=== PATIENT | female | born 1950 | race Caucasian/White ===

== ENCOUNTER → 2017-10-30 10:55 | Outpatient (CLI) | payer MEDICARE, OTHER, SELFPAY ==
--- NOTE | 2017-10-30 | DI.MG.S_ITS ---
BILATERAL DIGITAL DIAGNOSTIC MAMMOGRAM 3D/2D: 10/30/2017 CLINICAL: Pain left breast. Comparison is made to exams dated: 11/29/2014 mammogram, 04/12/2014 mammogram, and 02/20/2012 mammogram - [facility]. There are scattered fibroglandular elements in both breasts. No significant masses, calcifications, or other findings are seen in either breast. IMPRESSION: NEGATIVE There is no abnormality seen in the left breast to correspond with the pain in the outer aspect, however, clinical followup is recommended. There is no mammographic evidence of malignancy. A 1 year screening mammogram is recommended. This exam was interpreted at Station ID: [id number]. NOTE: For mammograms, a report in lay terms will be sent to the patient. Approximately 15% of breast malignancies will not be visualized mammographically. In the management of a palpable breast mass, a negative mammogram must not discourage biopsy of a clinically suspicious lesion. Electronically Signed By: Herminio suarez/godwin:10/30/2017 13:32:59 letter sent: Clinical Evaluation ACR BI-RADS Category 1: Negative [id number]
--- NOTE | 2017-10-30 11:03 | DI.US.S_ITS ---
PROCEDURE: US EXTREMITY NONVASC LOWER LT INDICATIONS: BILATERAL BREAST TENDERNESS FIBROCYSTIC BREASTS TECHNIQUE: Real-time scanning was performed of the left calf, with image documentation. COMPARISON: [facility], US, US EXTREMITY NONVASC LOWER RT, 10/30/2017, 11:22. FINDINGS: Sonographic images of the left calf demonstrate ill-defined hyperechoic foci. There is no increased vascularity. IMPRESSION: Ill-defined hyperechoic foci without increased vascularity suggestive of lipomas. Dictated by: Ana Garcia M.D. on 10/30/2017 at 13:27 Approved by: Ana Garcia M.D. on 10/30/2017 at 13:28
--- NOTE | 2017-10-30 11:03 | DI.US.S_ITS ---
PROCEDURE: US EXTREMITY NONVASC LOWER RT INDICATIONS: BILATERAL BREAST TENDERNESS FIBROCYSTIC BREASTS TECHNIQUE: Real-time scanning was performed of the right upper calf, with image documentation. COMPARISON: None. FINDINGS: Sonographic images of the right upper calf demonstrates ill-defined area of increased hyper echogenicity measuring approximately 20 mm in transverse dimension. No increased flow. IMPRESSION: Ill-defined hyperechogenicity suggestive of lipoma. Dictated by: Ana Garcia M.D. on 10/30/2017 at 13:25 Approved by: Ana Garcia M.D. on 10/30/2017 at 13:27
== END ==
PROVIDERS: PCP Family Medicine; Visit Provider Family Medicine
DX: N60.12 Diffuse cystic mastopathy of left breast (principal); N60.11 Diffuse cystic mastopathy of right breast; N64.4 Mastodynia
CPT/HCPCS: 76882; 77066; G0279

== ENCOUNTER → 2018-01-06 10:20 | Outpatient (CLI) | payer MEDICARE, OTHER, SELFPAY | PROVIDERS: PCP Family Medicine; Visit Provider Internal Medicine | DX: S81.802A Unspecified open wound, left lower leg, initial encounter (principal); T81.31XA Disruption of external operation (surgical) wound, not elsewhere classified, initial encounter; L08.9 Local infection of the skin and subcutaneous tissue, unspecified; I87.392 Chronic venous hypertension (idiopathic) with other complications of left lower extremity | CPT/HCPCS: 11042; 87070; 87075; 87077; 87186; 87205; 99214 ==

== ENCOUNTER → 2018-01-14 14:28 | Outpatient (CLI) | payer MEDICARE, OTHER, SELFPAY ==
--- NOTE | 2018-01-14 | OV.WND_ITS ---
Progress Note Details Patient Name: Rashida Patten Patient Number: [id number] PatientPatientDate: 01/14/2018 Clinician: Alexsandra Drake Clinician Cosigner: Tran Perez Physician / Reinsurance Clerk: Jr Luke SUBJECTIVE Chief Complaint This information was obtained from the patient Non-healing surgical wound on left calf. Allergies Betadine (Reaction: rash), iodine (Reaction: rash), flu vaccine (in 1991) ( Reaction: rash), sulfur (Severity: Moderate, Reaction: rash/welts), Sulfa (Sulfonamide Antibiotics) (Severity: Moderate, Reaction: rash/welts), adhesive (Severity: Moderate, Reaction: welts) HPI This information was obtained from the patient 01/14/18. Seen by Dr. Luke. The patient reports only minimal, intermittent pain associated with the left posterior lower leg surgical wound since her last visit and she's been applying topical gentamicin to treat the recent coag negative Staph cultured from the wound. 01/06/18. Seen by Dr. Luke. The patient's new to our clinic and presents with a chronic, non- healing left posterior lower leg surgical wound following excision of a basal cell carcinoma in early November. She reports some intermittent pain at the site and has been on antibiotics for an associate infection without resolution of symptoms or improvement in terms of healing. She has chronic venous hypertension in the leg as well but is unable to wear compression stockings due to a number of lipomas in the lower leg that she states cause discomfort when under compression. She does not report fevers or feeling unwell otherwise and does not have a history of diabetes or PAD. Past Medical History This information was obtained from the patient Patient has a medical history of: Thoracic outlet syndrome Chronic Obstructive Pulmonary Disease (COPD) Degenerative disc disease Atrial fibrillation Asthma Gastro Esoph. Reflux Disease (GERD) Arthritis (knee) Hypertension Complaints and Symptoms This information was obtained from the patient Patient complains of: General Notes: I have reviewed and concur with the Review of Systems and Past Family Social History documents completed by the clinician, I have reviewed and concur with the Wound Assessment document completed by the clinician Cardiovascular (Central/Peripheral): Lower extremity (leg) swelling Hematologic/Lymphatic: Bleeding Tendency Integumentary (Hair/Skin/Nails): Open Sore Prior Wound History: Drainage, Erythema, Pain Patient denies complaints or symptoms related to: Cardiovascular (Central/Peripheral): Intermittent Claudication, Lower extremity (leg) resting pain Constitutional Symptoms (General Health): Chills, Fever Ear/Nose/Mouth/Throat: Hearing Loss / Aid Hematologic/Lymphatic: Bleeding / Clotting Disorders Musculoskeletal: Assistive Devices Neurological: Loss of Protective Sensation Psychiatric: Memory Loss Respiratory: Shortness of Breath OBJECTIVE Constitutional Vital signs reviewed and noted. Well developed. Alert. Clean appearing.. Height/ Length: 66 in (167.64 cm), Weight: 244.6 lbs (111.18 kgs), BMI: 39.5, Temperature: 98.9 ?F ( 37.17 ?C), Pulse: 80 bpm, Respiratory Rate: 18 breaths/min, Blood Pressure: 130/77 mmHg, Pulse Oximetry: 94 %. Respiratory: No respiratory distress. Even respirations and without use of accessory muscles.. Cardiovascular: 2+ left lower extremity edema. Gastrointestinal (GI): Obese. Nondistended.. Integumentary (Hair, Skin) No periwound erythema, warmth, or significant drainage. No periwound rashes appreciated or noted otherwise.. Refer to appropriate clinician wound documentation for this visit; left lower leg wound extends to deep subcut with base minimally covered with pink granulation, remainder fibrin and slough. Wound #1 Left Calf is a chronic Full Thickness Surgical Wound and has received a status of Not Healed. Subsequent wound encounter measurements are 1cm length x 1.5cm width x 1cm depth, with an area of 1.5 sq cm and a volume of 1.5 cubic cm. Adipose is exposed. No tunneling has been noted. No sinus tract has been noted. No undermining has been noted. There is a moderate amount of sero-sanguineous drainage noted which has no odor. The patient reports a wound pain of level 2/10. The wound margin is attached. Wound bed has No epithelialization, Yes eschar, Yes slough, Yes bright red, pink, firm granulation. The periwound skin moisture is normal. The periwound skin color is normal. The periwound skin exhibited: Induration. The periwound skin did not exhibit: Brawny Induration, Edema, Excoriation, Callus, Crepitus, Fluctuance, Friable, Rash. The temperature of the periwound skin is WNL. Periwound skin does not exhibit signs or symptoms of infection. Local Pulse is Palpable. Neurological: Cranial nerves grossly intact with symmetric function normal by informal observation.. ASSESSMENT Active Problems ICD-10 (Encounter Diagnosis) S81.802D - Unspecified open wound, left lower leg, subsequent encounter (Encounter Diagnosis) T81.31XD - Disruption of external operation (surgical) wound, not elsewhere classified, subsequent encounter (Encounter Diagnosis) B95.7 - Other staphylococcus as the cause of diseases classified elsewhere PROCEDURES Wound #1 Wound #1 (Surgical Wound) is located on the left calf. A skin/subcutaneous tissue level surgical debridement with a total area debrided of 1.5 sq cm was performed by Jr Luke MD. Adipose and Subcutaneous were removed along with devitalized tissue: slough. The following instrument(s) were used: curette. Pain control was achieved using 4% Lido. A time out was conducted prior to the start of the procedure. A minimal amount of bleeding was controlled with pressure. The procedure was tolerated well with a pain level of 0 throughout and a pain level of 0 following the procedure. Post Debridement Measurements: 1cm length x 1.5cm width x 1.2cm depth; with an area of 1.5 sq cm and a volume of 1.8 cubic cm; Additional Information Muscle fascia or bone removed and sent to pathology?: No PLAN Wound Orders: Wound #1 Left Calf Anesthetic Topical Xylocaine to wound bed. - In clinic. Cleanser Cleanse Wound: - Normal saline and gauze. May use distilled water at home. May Shower. - Please use cast protector or plastic bag to cover leg when showering. May purchase cast protector at most local pharmacy/drug stores. Topical Treatments Antibiotic/Antimicrobial Ointment/Cream. - Gentamicin ointment to wound base. Dressings Pack wound: - 1/4 gauze ribbon lightly filling wound base. Cover and secure with: - Silicone bordered foam. Change Dressing: - Every other day. Additional Orders: Follow-Up Appointments Return Appointment: - - One week. Other information: If you develop fever, chills, increased pain, drainage, redness or swelling please call our office. If after hours, respond to the ER. Should you experience any significant changes in your wound(s) or have any questions regarding your home care instructions please contact the wound center @ [phone]. If after hours, contact your primary care physician or go to the hospital emergency room. Scribing Attestation I attest, as the nurse, that I scribed these orders for the physician. General Notes: Provider reviewed the culture taken at last visit, no need for any oral antibiotics at this time. Dressing supply order submitted to [employer], please expect delivery in the next 2 days. Submitting for a NPWT device, SNAP, plan to place at next visit. I've reviewed the clinician's documentation and agree with the evaluation and plan as written. In addition the patient's wound demonstrates evidence of non-viable devitalized tissue which will continue to benefit from sharp debridement to help promote granulation and expedite healing. Also, the patient will continue applying topical gentamicin and we'll request insurance approval to place a wound vac at her next visit. Electronic Signature(s) Signed By: Date: Jr Luke MD 01/15/2018 08:37:45 Entered By: Jr Luke on 01/15/2018 08:20:36
== END ==
PROVIDERS: PCP Family Medicine; Visit Provider Internal Medicine
DX: S81.802A Unspecified open wound, left lower leg, initial encounter (principal); T81.31XD Disruption of external operation (surgical) wound, not elsewhere classified, subsequent encounter; B95.7 Other staphylococcus as the cause of diseases classified elsewhere
CPT/HCPCS: 11042

== ENCOUNTER → 2018-01-22 14:47 | Outpatient (CLI) | payer MEDICARE, OTHER, SELFPAY ==
--- NOTE | 2018-01-22 | OV.WND_ITS ---
Progress Note Details Patient Name: Rashida Patten Patient Number: [id number] PatientPatientDate: 01/22/2018 Clinician: Ana Silva Physician / Skin Therapist: Jr Luke SUBJECTIVE Chief Complaint This information was obtained from the patient Non-healing surgical wound on left calf. Allergies Betadine (Reaction: rash), iodine (Reaction: rash), flu vaccine (in 1991) ( Reaction: rash), sulfur (Severity: Moderate, Reaction: rash/welts), Sulfa (Sulfonamide Antibiotics) (Severity: Moderate, Reaction: rash/welts), adhesive (Severity: Moderate, Reaction: welts) HPI This information was obtained from the patient 01/22/18. Seen by Dr. Luke. The patient does not report pain or significant drainage associated with the left posterior lower leg surgical wound since her last visit. 01/14/18. Seen by Dr. Luke. The patient reports only minimal, intermittent pain associated with the left posterior lower leg surgical wound since her last visit and she's been applying topical gentamicin to treat the recent coag negative Staph cultured from the wound. 01/06/18. Seen by Dr. Luke. The patient's new to our clinic and presents with a chronic, non- healing left posterior lower leg surgical wound following excision of a basal cell carcinoma in early November. She reports some intermittent pain at the site and has been on antibiotics for an associate infection without resolution of symptoms or improvement in terms of healing. She has chronic venous hypertension in the leg as well but is unable to wear compression stockings due to a number of lipomas in the lower leg that she states cause discomfort when under compression. She does not report fevers or feeling unwell otherwise and does not have a history of diabetes or PAD. Past Medical History This information was obtained from the patient Patient has a medical history of: Thoracic outlet syndrome Chronic Obstructive Pulmonary Disease (COPD) Degenerative disc disease Atrial fibrillation Asthma Gastro Esoph. Reflux Disease (GERD) Arthritis (knee) Hypertension Complaints and Symptoms This information was obtained from the patient Patient complains of: General Notes: I have reviewed and concur with the Review of Systems and Past Family Social History documents completed by the clinician, I have reviewed and concur with the Wound Assessment document completed by the clinician Cardiovascular (Central/Peripheral): Lower extremity (leg) swelling Hematologic/Lymphatic: Bleeding Tendency Integumentary (Hair/Skin/Nails): Open Sore Prior Wound History: Drainage, Erythema, Pain Patient denies complaints or symptoms related to: Cardiovascular (Central/Peripheral): Intermittent Claudication, Lower extremity (leg) resting pain Constitutional Symptoms (General Health): Chills, Fever Ear/Nose/Mouth/Throat: Hearing Loss / Aid Hematologic/Lymphatic: Bleeding / Clotting Disorders Musculoskeletal: Assistive Devices Neurological: Loss of Protective Sensation Psychiatric: Memory Loss Respiratory: Shortness of Breath OBJECTIVE Constitutional BP elevated; Low grade fever; Alert and in no distress. Well developed. Alert. Clean appearing.. Height/Length: 66 in (167.64 cm), Weight: 244.6 lbs (111.18 kgs), BMI: 39.5, Temperature: 100.3 ?F (37.94 ?C), Pulse: 64 bpm, Respiratory Rate: 18 breaths/ min, Blood Pressure: 152/84 mmHg, Pulse Oximetry: 94 %. Respiratory: No respiratory distress. Even respirations and without use of accessory muscles.. Cardiovascular: 2+ left lower extremity edema. Integumentary (Hair, Skin) No periwound erythema, warmth, or significant drainage. No periwound rashes appreciated or noted otherwise.. Refer to appropriate clinician wound documentation for this visit; left lower leg wound extends to subcut with base partially covered with pink granulation, remainder fibrin and slough. Wound #1 Left Calf is a chronic Full Thickness Surgical Wound and has received a status of Not Healed. Subsequent wound encounter measurements are 1cm length x 1.5cm width x 1.8cm depth, with an area of 1.5 sq cm and a volume of 2.7 cubic cm. Adipose is exposed. No tunneling has been noted. No sinus tract has been noted. No undermining has been noted. There is a moderate amount of sero-sanguineous drainage noted which has no odor. The patient reports a wound pain of level 2/10. The wound margin is attached. Wound bed has No epithelialization, No eschar, Yes slough, Yes pink, firm granulation. The periwound skin moisture is normal. The periwound skin color is normal. The periwound skin exhibited: Induration. The periwound skin did not exhibit: Brawny Induration, Edema, Excoriation, Callus, Crepitus, Fluctuance, Friable, Rash. The temperature of the periwound skin is WNL. Periwound skin does not exhibit signs or symptoms of infection. Local Pulse is Palpable. Neurological: Cranial nerves grossly intact with symmetric function normal by informal observation.. ASSESSMENT Active Problems ICD-10 (Encounter Diagnosis) S81.802D - Unspecified open wound, left lower leg, subsequent encounter (Encounter Diagnosis) T81.31XD - Disruption of external operation (surgical) wound, not elsewhere classified, subsequent encounter PROCEDURES Wound #1 Wound #1 (Surgical Wound) is located on the left calf. A skin/subcutaneous tissue level surgical debridement with a total area debrided of 1.5 sq cm was performed by Jr Luke MD. Subcutaneous was removed along with devitalized tissue: exudate and slough. The following instrument(s) were used: curette. Pain control was achieved using 4% Lido. A time out was not conducted prior to the start of the procedure. A minimal amount of bleeding was controlled with pressure. The procedure was tolerated well with a pain level of 0 throughout and a pain level of 0 following the procedure. Post Debridement Measurements: 1cm length x 1.5cm width x 1.8cm depth; with an area of 1.5 sq cm and a volume of 2.7 cubic cm; Wound #1 (Surgical Wound) is located on the left calf. A Disposable Wound Vac Application < 50 Sq Cm procedure was performed for the lower left extremity by Jr Luke MD. A time out was conducted prior to the start of the procedure. The procedure was tolerated well. General Notes: Snap 13x13 125mmHg Additional Information Muscle fascia or bone removed and sent to pathology?: No PLAN Wound Orders: Wound #1 Left Calf Cleanser Cleanse Wound: - In clinic. Normal saline Dressings SNAP Dressing - Keep in place until your next visit. If this loosed it's suction and you have tried to re-prime the canister. If it does not keep a seal then take the dressing off including the blue foam, then go back to using Nu- Guaze with gentamicin into wound bed. Follow-Up Appointments Return Appointment: - - This Saturday and then next week Saturday and Saturday. Other information: If you develop fever, chills, increased pain, drainage, redness or swelling please call our office. If after hours, respond to the ER. Should you experience any significant changes in your wound(s) or have any questions regarding your home care instructions please contact the wound center @ [phone]. If after hours, contact your primary care physician or go to the hospital emergency room. Scribing Attestation I attest, as the nurse, that I scribed these orders for the physician. I've reviewed the clinician's documentation and agree with the evaluation and plan as written. In addition the patient's wound demonstrates evidence of non-viable devitalized tissue which will continue to benefit from sharp debridement to help promote granulation and expedite healing. Negative pressure wound therapy will be utilized to facilitate granulation and removal of exudate and infectious material with the goal of expediting wound healing. Electronic Signature(s) Signed By: Date: Jr Luke MD 01/23/2018 06:27:44 Entered By: Jr Luke on 01/23/2018 06:06:34
== END ==
PROVIDERS: PCP Family Medicine; Visit Provider Internal Medicine
DX: T81.31XA Disruption of external operation (surgical) wound, not elsewhere classified, initial encounter (principal); S81.802A Unspecified open wound, left lower leg, initial encounter
CPT/HCPCS: 11042; 97607

== ENCOUNTER → 2018-01-24 08:37 | Outpatient (CLI) | payer MEDICARE, OTHER, SELFPAY ==
--- NOTE | 2018-01-24 | OV.WND_ITS ---
Progress Note Details Patient Name: Rashida Patten Patient Number: [id number] PatientPatientDate: 01/24/2018 Clinician: Tita Pantoja Clinician Cosigner: Ana Silva Physician / Graduate Intern: Jr Luke SUBJECTIVE Chief Complaint This information was obtained from the patient Non-healing surgical wound on left calf. Allergies Betadine (Reaction: rash), iodine (Reaction: rash), flu vaccine (in 1991) ( Reaction: rash), sulfur (Severity: Moderate, Reaction: rash/welts), Sulfa (Sulfonamide Antibiotics) (Severity: Moderate, Reaction: rash/welts), adhesive (Severity: Moderate, Reaction: welts) HPI This information was obtained from the patient 01/24/18. Seen by Dr. Luke. The patient does not report pain or significant drainage associated with the left posterior lower leg surgical wound since her last visit. 01/22/18. Seen by Dr. Luke. The patient does not report pain or significant drainage associated with the left posterior lower leg surgical wound since her last visit. 01/14/18. Seen by Dr. Luke. The patient reports only minimal, intermittent pain associated with the left posterior lower leg surgical wound since her last visit and she's been applying topical gentamicin to treat the recent coag negative Staph cultured from the wound. 01/06/18. Seen by Dr. Luke. The patient's new to our clinic and presents with a chronic, non- healing left posterior lower leg surgical wound following excision of a basal cell carcinoma in early November. She reports some intermittent pain at the site and has been on antibiotics for an associate infection without resolution of symptoms or improvement in terms of healing. She has chronic venous hypertension in the leg as well but is unable to wear compression stockings due to a number of lipomas in the lower leg that she states cause discomfort when under compression. She does not report fevers or feeling unwell otherwise and does not have a history of diabetes or PAD. Past Medical History This information was obtained from the patient Patient has a medical history of: Thoracic outlet syndrome Chronic Obstructive Pulmonary Disease (COPD) Degenerative disc disease Atrial fibrillation Asthma Gastro Esoph. Reflux Disease (GERD) Arthritis (knee) Hypertension Complaints and Symptoms This information was obtained from the patient Patient complains of: General Notes: I have reviewed and concur with the Review of Systems and Past Family Social History documents completed by the clinician, I have reviewed and concur with the Wound Assessment document completed by the clinician Cardiovascular (Central/Peripheral): Lower extremity (leg) swelling Hematologic/Lymphatic: Bleeding Tendency Integumentary (Hair/Skin/Nails): Open Sore Prior Wound History: Drainage, Erythema, Pain Patient denies complaints or symptoms related to: Cardiovascular (Central/Peripheral): Intermittent Claudication, Lower extremity (leg) resting pain Constitutional Symptoms (General Health): Chills, Fever Ear/Nose/Mouth/Throat: Hearing Loss / Aid Hematologic/Lymphatic: Bleeding / Clotting Disorders Musculoskeletal: Assistive Devices Neurological: Loss of Protective Sensation Psychiatric: Memory Loss Respiratory: Shortness of Breath OBJECTIVE Constitutional Vital signs reviewed and noted. Well developed. Alert. Clean appearing.. Height/ Length: 66 in (167.64 cm), Weight: 244.6 lbs (111.18 kgs), BMI: 39.5, Temperature: 98.6 ?F ( 37 ?C), Pulse: 68 bpm, Respiratory Rate: 18 breaths/min, Blood Pressure: 127/78 mmHg, Pulse Oximetry: 97 %. Cardiovascular: 1+ left lower extremity edema. Gastrointestinal (GI): Obese. Nondistended.. Integumentary (Hair, Skin) No periwound erythema, warmth, or significant drainage. No periwound rashes appreciated or noted otherwise.. Refer to appropriate clinician wound documentation for this visit; left lower leg wound extends to subcut with base partially covered with pink granulation, remainder fibrin and slough. Wound #1 Left Calf is a chronic Full Thickness Surgical Wound and has received a status of Not Healed. Subsequent wound encounter measurements are 1.3cm length x 1.2cm width x 1.3cm depth, with an area of 1.56 sq cm and a volume of 2.028 cubic cm. Adipose is exposed. No tunneling has been noted. No sinus tract has been noted. No undermining has been noted. There is a small amount of sero-sanguineous drainage noted which has no odor. The patient reports a wound pain of level 2/10. The wound margin is attached. Wound bed has No epithelialization, No eschar, Yes slough, Yes pink, firm granulation. The periwound skin color is normal. The periwound skin exhibited: Induration, Maceration. The periwound skin did not exhibit: Brawny Induration, Edema, Excoriation, Callus, Crepitus, Fluctuance, Friable, Rash, Dry/Scaly, Moist. The temperature of the periwound skin is WNL. Periwound skin does not exhibit signs or symptoms of infection. Local Pulse is Palpable. Neurological: Cranial nerves grossly intact with symmetric function normal by informal observation.. ASSESSMENT Active Problems ICD-10 (Encounter Diagnosis) S81.802D - Unspecified open wound, left lower leg, subsequent encounter (Encounter Diagnosis) T81.31XD - Disruption of external operation (surgical) wound, not elsewhere classified, subsequent encounter PROCEDURES Wound #1 Wound #1 (Surgical Wound) is located on the left calf. A skin/subcutaneous tissue level surgical debridement with a total area debrided of 1.56 sq cm was performed by Jr Luke MD. Adipose and Subcutaneous were removed along with devitalized tissue: slough. The following instrument(s) were used: curette. Pain control was achieved using 4% Lido. A time out was conducted prior to the start of the procedure. A minimal amount of bleeding was controlled with n/a. The procedure was tolerated well with a pain level of 0 throughout and a pain level of 0 following the procedure. Post Debridement Measurements: 1.3cm length x 1.2cm width x 1.4cm depth; with an area of 1.56 sq cm and a volume of 2.184 cubic cm; Wound #1 (Surgical Wound) is located on the left calf. A Disposable Wound Vac Application < 50 Sq Cm procedure was performed for the lower left extremity by Jr Luke MD. A time out was conducted prior to the start of the procedure. The procedure was tolerated well. General Notes: Snap 13x13 125mmHg PLAN Wound Orders: Wound #1 Left Calf Cleanser Cleanse Wound: - In clinic. Normal saline Topical Treatments Antibiotic/Antimicrobial Ointment/Cream. - Gentamicin ointment Dressings SNAP Dressing - Keep in place until your next visit. If this loosed it's suction and you have tried to re-prime the canister. If it does not keep a seal then take the dressing off including the blue foam, then go back to using Nu- Guaze with gentamicin into wound bed. Follow-Up Appointments Return Appointment: - - This Saturday and then next week Saturday and Saturday. Other information: If you develop fever, chills, increased pain, drainage, redness or swelling please call our office. If after hours, respond to the ER. Should you experience any significant changes in your wound(s) or have any questions regarding your home care instructions please contact the wound center @ [phone]. If after hours, contact your primary care physician or go to the hospital emergency room. Scribing Attestation I attest, as the nurse, that I scribed these orders for the physician. I've reviewed the clinician's documentation and agree with the evaluation and plan as written. In addition the patient's wound demonstrates evidence of non-viable devitalized tissue which will continue to benefit from sharp debridement to help promote granulation and expedite healing. Negative pressure wound therapy will be utilized to facilitate granulation and removal of exudate and infectious material with the goal of expediting wound healing. Electronic Signature(s) Signed By: Date: Jr Luke MD 01/24/2018 13:36:07 Entered By: Jr Luke on 01/24/2018 10:01:23
== END ==
PROVIDERS: PCP Family Medicine; Visit Provider Internal Medicine
DX: S81.802A Unspecified open wound, left lower leg, initial encounter (principal); T81.31XA Disruption of external operation (surgical) wound, not elsewhere classified, initial encounter
CPT/HCPCS: 11042; 97607

== ENCOUNTER 2018-01-25 14:05 | Emergency (ER) | payer MEDICARE, OTHER, SELFPAY ==
[2018-01-25 14:12] VITALS: BP 117/68; PULSE 77; RESP 20; TEMP 36.2; O2SAT 96; BMI 39.5
--- NOTE | 2018-01-25 14:47 | PC.NURSE ---
Pt's wound vac is evaluated by Sherri QUICK, Nursing supervisor cellars and Chad QUICK for assistance of problem solving wound vac. They state wound vac will be ok to wait until Saturday when it needs replaced. Pt states she does not want to see a dr now that the device has been evaluated. Signs out VDC with knowledge that she can see a dr if she chose but chooses to go home
== END 2018-01-25 14:51 | disposition left against medical advice (07) ==
PROVIDERS: Emergency Provider Internal Medicine; PCP Family Medicine
DX: T14.8XXA Other injury of unspecified body region, initial encounter (principal)
CPT/HCPCS: 99282

== ENCOUNTER → 2018-01-28 14:24 | Outpatient (CLI) | payer MEDICARE, OTHER, SELFPAY | PROVIDERS: PCP Family Medicine; Visit Provider Internal Medicine | DX: S81.802A Unspecified open wound, left lower leg, initial encounter (principal); T81.31XA Disruption of external operation (surgical) wound, not elsewhere classified, initial encounter | CPT/HCPCS: 11042; 97607 ==

== ENCOUNTER → 2018-01-31 10:29 | Outpatient (CLI) | payer MEDICARE, OTHER, SELFPAY | PROVIDERS: PCP Family Medicine; Visit Provider Internal Medicine | DX: S81.802A Unspecified open wound, left lower leg, initial encounter (principal); T81.31XA Disruption of external operation (surgical) wound, not elsewhere classified, initial encounter | CPT/HCPCS: 11042; 97607 ==

== ENCOUNTER → 2018-02-04 13:52 | Outpatient (CLI) | payer MEDICARE, OTHER, SELFPAY ==
--- NOTE | 2018-02-04 | OV.WND_ITS ---
Progress Note Details Patient Name: Rashida Patten Patient Number: [id number] PatientPatientDate: 02/04/2018 Clinician: Ana Silva Clinician Cosigner: Gertrude Duarte Physician / Experimental Mechanic: Jr Luke SUBJECTIVE Chief Complaint This information was obtained from the patient Non-healing surgical wound on left calf. Allergies Betadine (Reaction: rash), iodine (Reaction: rash), flu vaccine (in 1991) ( Reaction: rash), sulfur (Severity: Moderate, Reaction: rash/welts), Sulfa (Sulfonamide Antibiotics) (Severity: Moderate, Reaction: rash/welts), adhesive (Severity: Moderate, Reaction: welts) HPI This information was obtained from the patient 02/04/18. Seen by Dr. Luke. The patient does not report pain or significant drainage associated with the left posterior lower leg surgical wound since her last visit. 01/31/18. Seen by Dr. Luke. The patient does not report pain or significant drainage associated with the left posterior lower leg surgical wound since her last visit. 01/28/18. Seen by Dr. Luke. The patient does not report pain or significant drainage associated with the left posterior lower leg surgical wound since her last visit however she states her wound vac leaked on Saturday and it was removed at that time. 01/24/18. Seen by Dr. Luke. The patient does not report pain or significant drainage associated with the left posterior lower leg surgical wound since her last visit. 01/22/18. Seen by Dr. Luke. The patient does not report pain or significant drainage associated with the left posterior lower leg surgical wound since her last visit. 01/14/18. Seen by Dr. Luke. The patient reports only minimal, intermittent pain associated with the left posterior lower leg surgical wound since her last visit and she's been applying topical gentamicin to treat the recent coag negative Staph cultured from the wound. 01/06/18. Seen by Dr. Luke. The patient's new to our clinic and presents with a chronic, non- healing left posterior lower leg surgical wound following excision of a basal cell carcinoma in early November. She reports some intermittent pain at the site and has been on antibiotics for an associate infection without resolution of symptoms or improvement in terms of healing. She has chronic venous hypertension in the leg as well but is unable to wear compression stockings due to a number of lipomas in the lower leg that she states cause discomfort when under compression. She does not report fevers or feeling unwell otherwise and does not have a history of diabetes or PAD. Past Medical History This information was obtained from the patient Patient has a medical history of: Thoracic outlet syndrome Chronic Obstructive Pulmonary Disease (COPD) Degenerative disc disease Atrial fibrillation Asthma Gastro Esoph. Reflux Disease (GERD) Arthritis (knee) Hypertension Complaints and Symptoms This information was obtained from the patient Patient complains of: General Notes: I have reviewed and concur with the Review of Systems and Past Family Social History documents completed by the clinician, I have reviewed and concur with the Wound Assessment document completed by the clinician Cardiovascular (Central/Peripheral): Lower extremity (leg) swelling Hematologic/Lymphatic: Bleeding Tendency Integumentary (Hair/Skin/Nails): Open Sore Prior Wound History: Drainage, Erythema, Pain Patient denies complaints or symptoms related to: Cardiovascular (Central/Peripheral): Intermittent Claudication, Lower extremity (leg) resting pain Constitutional Symptoms (General Health): Chills, Fever Ear/Nose/Mouth/Throat: Hearing Loss / Aid Hematologic/Lymphatic: Bleeding / Clotting Disorders Musculoskeletal: Assistive Devices Neurological: Loss of Protective Sensation Psychiatric: Memory Loss Respiratory: Shortness of Breath OBJECTIVE Constitutional BP elevated; Afebrile; Alert and in no distress. Well developed. Alert. Clean appearing.. Height/Length: 66 in (167.64 cm), Weight: 248 lbs (112.73 kgs), BMI: 40, Temperature: 98.2 ?F (36.78 ?C), Pulse: 75 bpm, Respiratory Rate: 18 breaths/min, Blood Pressure: 141/89 mmHg, Pulse Oximetry: 95 %. Ears, Nose, Mouth, and Throat: No clinically significant hearing loss on informal examination. Cardiovascular: 2+ left lower extremity edema. Gastrointestinal (GI): Obese. Nondistended.. Integumentary (Hair, Skin) Mild periwound erythema with warmth; mild malodor. Refer to appropriate clinician wound documentation for this visit; left lower leg ulcer extends to deep subcut with base partially covered with pink granulation, remainder fibrin and slough. Wound #1 Left Calf is a chronic Full Thickness Surgical Wound and has received a status of Not Healed. Subsequent wound encounter measurements are 0.5cm length x 1cm width x 1.05cm depth, with an area of 0.5 sq cm and a volume of 0.525 cubic cm. Adipose is exposed. No tunneling has been noted. No sinus tract has been noted. No undermining has been noted. There is a moderate amount of serosanguineous drainage noted which has no odor. The patient reports a wound pain of level 2/10. The wound margin is attached. Wound bed has Yes epithelialization, No eschar, No slough, No granulation. The periwound skin moisture is normal. The periwound skin color is normal. The periwound skin exhibited: Induration. The periwound skin did not exhibit: Brawny Induration, Edema, Excoriation, Callus, Crepitus, Fluctuance, Friable, Rash. The temperature of the periwound skin is WNL. Periwound skin does not exhibit signs or symptoms of infection. Local Pulse is Palpable. General Notes: SNAP tubing full of liquid. Neurological: Cranial nerves grossly intact with symmetric function normal by informal observation.. ASSESSMENT Active Problems ICD-10 (Encounter Diagnosis) S81.802D - Unspecified open wound, left lower leg, subsequent encounter (Encounter Diagnosis) T81.31XD - Disruption of external operation (surgical) wound, not elsewhere classified, subsequent encounter (Encounter Diagnosis) L08.9 - Local infection of the skin and subcutaneous tissue, unspecified PROCEDURES Wound #1 Wound #1 (Surgical Wound) is located on the left calf. A skin/subcutaneous tissue level surgical debridement with a total area debrided of 0.5 sq cm was performed by Jr Luke MD. Subcutaneous was removed along with devitalized tissue: exudate and slough. The following instrument(s) were used: curette. Pain control was achieved using 4% Lido. A time out was conducted prior to the start of the procedure. A minimal amount of bleeding was controlled with pressure. The procedure was tolerated well with a pain level of 0 throughout and a pain level of 0 following the procedure. Post Debridement Measurements: 0.5cm length x 1cm width x 2cm depth; with an area of 0.5 sq cm and a volume of 1 cubic cm; General Notes: Culture taken Additional Information Muscle fascia or bone removed and sent to pathology?: No PLAN Wound Orders: Wound #1 Left Calf Anesthetic Topical Xylocaine to wound bed. - In clinic. Cleanser Cleanse Wound: - Normal saline and gauze. May use distilled water at home. May Shower. - Please use cast protector or plastic bag to cover leg when showering. May purchase cast protector at most local pharmacy/drug stores. Topical Treatments Antibiotic/Antimicrobial Ointment/Cream. - Gentamicin ointment to wound base. Dressings Pack wound: - 1/4 gauze ribbon lightly filling wound base. Cover and secure with: - Silicone bordered foam. Change Dressing: - Every other day. Additional Orders: Follow-Up Appointments Return Appointment: - - This Saturday, Other information: If you develop fever, chills, increased pain, drainage, redness or swelling please call our office. If after hours, respond to the ER. Should you experience any significant changes in your wound(s) or have any questions regarding your home care instructions please contact the wound center @ [phone]. If after hours, contact your primary care physician or go to the hospital emergency room. Scribing Attestation I attest, as the nurse, that I scribed these orders for the physician. Laboratory: Culture Wound I've reviewed the clinician's documentation and agree with the evaluation and plan as written. In addition the patient's wound demonstrates evidence of non-viable devitalized tissue which will continue to benefit from sharp debridement to help promote granulation and expedite healing. Also, I've held NPWT today due to a superficial infection and started treating with topical gentamcin. Electronic Signature(s) Signed By: Date: Jr Luke MD 02/05/2018 07:48:36 Entered By: Jr Luke on 02/05/2018 07:34:48
== END ==
PROVIDERS: PCP Family Medicine; Visit Provider Internal Medicine
DX: S81.802A Unspecified open wound, left lower leg, initial encounter (principal); T81.31XA Disruption of external operation (surgical) wound, not elsewhere classified, initial encounter; L08.9 Local infection of the skin and subcutaneous tissue, unspecified
CPT/HCPCS: 11042; 87070; 87075; 87077; 87147; 87186; 87205

== ENCOUNTER → 2018-02-11 13:39 | Outpatient (CLI) | payer MEDICARE, OTHER, SELFPAY | PROVIDERS: PCP Family Medicine; Visit Provider Internal Medicine | DX: T81.31XD Disruption of external operation (surgical) wound, not elsewhere classified, subsequent encounter (principal); S81.802A Unspecified open wound, left lower leg, initial encounter; B95.7 Other staphylococcus as the cause of diseases classified elsewhere | CPT/HCPCS: 11042; 97607 ==

== ENCOUNTER → 2018-02-14 09:28 | Outpatient (CLI) | payer MEDICARE, OTHER, SELFPAY ==
--- NOTE | 2018-02-14 | OV.WND_ITS ---
Progress Note Details Patient Name: Rashida Patten Patient Number: [id number] PatientPatientDate: 02/14/2018 Clinician: Alexsandra Drake Clinician Cosigner: Ana Silva Physician / Academic Affairs Director: Jr Luke SUBJECTIVE Chief Complaint This information was obtained from the patient Non-healing surgical wound on left calf. Allergies Betadine (Reaction: rash), iodine (Reaction: rash), flu vaccine (in 1991) ( Reaction: rash), sulfur (Severity: Moderate, Reaction: rash/welts), Sulfa (Sulfonamide Antibiotics) (Severity: Moderate, Reaction: rash/welts), adhesive (Severity: Moderate, Reaction: welts) HPI This information was obtained from the patient 02/14/18. The patient does not report pain or significant drainage associated with the chronic left lower leg surgical wound since her last visit. 02/11/18. The patient does not report pain or significant drainage associated with the chronic left lower leg surgical wound since her last visit. She's been applying topical gentamicin also as recommended to treat the coag negative staph culture. 02/04/18. Seen by Dr. Luke. The patient does not report pain or significant drainage associated with the left posterior lower leg surgical wound since her last visit. 01/31/18. Seen by Dr. Luke. The patient does not report pain or significant drainage associated with the left posterior lower leg surgical wound since her last visit. 01/28/18. Seen by Dr. Luke. The patient does not report pain or significant drainage associated with the left posterior lower leg surgical wound since her last visit however she states her wound vac leaked on Saturday and it was removed at that time. 01/24/18. Seen by Dr. Luke. The patient does not report pain or significant drainage associated with the left posterior lower leg surgical wound since her last visit. 01/22/18. Seen by Dr. Luke. The patient does not report pain or significant drainage associated with the left posterior lower leg surgical wound since her last visit. 01/14/18. Seen by Dr. Luke. The patient reports only minimal, intermittent pain associated with the left posterior lower leg surgical wound since her last visit and she's been applying topical gentamicin to treat the recent coag negative Staph cultured from the wound. 01/06/18. Seen by Dr. Luke. The patient's new to our clinic and presents with a chronic, non- healing left posterior lower leg surgical wound following excision of a basal cell carcinoma in early November. She reports some intermittent pain at the site and has been on antibiotics for an associate infection without resolution of symptoms or improvement in terms of healing. She has chronic venous hypertension in the leg as well but is unable to wear compression stockings due to a number of lipomas in the lower leg that she states cause discomfort when under compression. She does not report fevers or feeling unwell otherwise and does not have a history of diabetes or PAD. Past Medical History This information was obtained from the patient Patient has a medical history of: Thoracic outlet syndrome Chronic Obstructive Pulmonary Disease (COPD) Degenerative disc disease Atrial fibrillation Asthma Gastro Esoph. Reflux Disease (GERD) Arthritis (knee) Hypertension Complaints and Symptoms This information was obtained from the patient Patient complains of: General Notes: I have reviewed and concur with the Review of Systems and Past Family Social History documents completed by the clinician, I have reviewed and concur with the Wound Assessment document completed by the clinician Cardiovascular (Central/Peripheral): Lower extremity (leg) swelling Hematologic/Lymphatic: Bleeding Tendency Integumentary (Hair/Skin/Nails): Open Sore Prior Wound History: Drainage, Erythema, Pain Patient denies complaints or symptoms related to: Cardiovascular (Central/Peripheral): Intermittent Claudication, Lower extremity (leg) resting pain Constitutional Symptoms (General Health): Chills, Fever Ear/Nose/Mouth/Throat: Hearing Loss / Aid Hematologic/Lymphatic: Bleeding / Clotting Disorders Musculoskeletal: Assistive Devices Neurological: Loss of Protective Sensation Psychiatric: Memory Loss Respiratory: Shortness of Breath OBJECTIVE Constitutional Vital signs reviewed and noted. Well developed. Alert. Clean appearing.. Height/ Length: 66 in (167.64 cm), Weight: 248 lbs (112.73 kgs), BMI: 40, Temperature: 98.9 ?F (37.17 ?C), Pulse: 70 bpm, Respiratory Rate: 18 breaths/min, Blood Pressure: 115/67 mmHg, Pulse Oximetry: 96 %. Ears, Nose, Mouth, and Throat: No clinically significant hearing loss on informal examination. Cardiovascular: 2+ left lower extremity edema. Integumentary (Hair, Skin) No periwound erythema, warmth, or significant drainage. No periwound rashes appreciated or noted otherwise.. Refer to appropriate clinician wound documentation for this visit; left lower leg wound extends to subcut with base partially covered with pink granulation, remainder fibrin and slough; improved in terms of granulation. Wound #1 Left Calf is a chronic Full Thickness Surgical Wound and has received a status of Not Healed. Subsequent wound encounter measurements are 0.5cm length x 0.6cm width x 1cm depth, with an area of 0.3 sq cm and a volume of 0.3 cubic cm. Adipose is exposed. Tunneling has been noted at 1:00 with a maximum distance of 1.9cm. No sinus tract has been noted. No undermining has been noted. There is a moderate amount of serous drainage noted which has no odor. The patient reports a wound pain of level 2/10. The wound margin is attached. Wound bed has Yes epithelialization, No eschar, Yes slough, Yes bright red, pink , firm granulation. The periwound skin moisture is normal. The periwound skin color is normal. The periwound skin exhibited: Induration. The periwound skin did not exhibit: Brawny Induration, Edema, Excoriation, Callus, Crepitus, Fluctuance, Friable, Rash. The temperature of the periwound skin is WNL. Periwound skin does not exhibit signs or symptoms of infection. Local Pulse is Palpable. General Notes: Induration noted over tunnel location. Neurological: Cranial nerves grossly intact with symmetric function normal by informal observation.. ASSESSMENT Active Problems ICD-10 (Encounter Diagnosis) S81.802D - Unspecified open wound, left lower leg, subsequent encounter (Encounter Diagnosis) T81.31XD - Disruption of external operation (surgical) wound, not elsewhere classified, subsequent encounter PROCEDURES Wound #1 Wound #1 (Surgical Wound) is located on the left calf. A skin/subcutaneous tissue level surgical debridement with a total area debrided of 0.36 sq cm was performed by Jr Luke MD. Subcutaneous was removed along with devitalized tissue: exudate and slough. The following instrument(s) were used: curette. Pain control was achieved using 4% Lido. A time out was conducted prior to the start of the procedure. A minimal amount of bleeding was controlled with n/a. The procedure was tolerated well with a pain level of 0 throughout and a pain level of 0 following the procedure. Post Debridement Measurements: 0.6cm length x 0.6cm width x 1cm depth; with an area of 0.36 sq cm and a volume of 0.36 cubic cm; Wound #1 (Surgical Wound) is located on the left calf. A Disposable Wound Vac Application < 50 Sq Cm procedure was performed for the lower left extremity by Jr Luke MD. A time out was conducted prior to the start of the procedure. The procedure was tolerated well. General Notes: SNAP [id number] dressing, 125mmHg canister. Additional Information Muscle fascia or bone removed and sent to pathology?: No PLAN Wound Orders: Wound #1 Left Calf Anesthetic Topical Xylocaine to wound bed. - In clinic. Cleanser Cleanse Wound: - Normal saline and gauze. May use distilled water at home. May Shower. - Please use cast protector or plastic bag to cover leg when showering. May purchase cast protector at most local pharmacy/drug stores. Topical Treatments Antibiotic/Antimicrobial Ointment/Cream. - Gentamicin ointment to wound base. Dressings Change Dressing: - Leave in place. SNAP Dressing - [id number] dressing, 125mmHg canister. Additional Orders: Follow-Up Appointments Return Appointment: - - Tuesdays and Fridays for SNAP. Other information: If you develop fever, chills, increased pain, drainage, redness or swelling please call our office. If after hours, respond to the ER. Should you experience any significant changes in your wound(s) or have any questions regarding your home care instructions please contact the wound center @ [phone]. If after hours, contact your primary care physician or go to the hospital emergency room. Scribing Attestation I attest, as the nurse, that I scribed these orders for the physician. I've reviewed the clinician's documentation and agree with the evaluation and plan as written. In addition the patient's wound demonstrates evidence of non-viable devitalized tissue which will continue to benefit from sharp debridement to help promote granulation and expedite healing. Negative pressure wound therapy will be utilized to facilitate granulation and removal of exudate and infectious material with the goal of expediting wound healing. Electronic Signature(s) Signed By: Date: Jr Luke MD 02/16/2018 16:38:10 Entered By: Jr Luke on 02/16/2018 16:29:50
== END ==
PROVIDERS: PCP Family Medicine; Visit Provider Internal Medicine
DX: S81.802A Unspecified open wound, left lower leg, initial encounter (principal)
CPT/HCPCS: 11042; 97607

== ENCOUNTER → 2018-02-18 14:10 | Outpatient (CLI) | payer MEDICARE, OTHER, SELFPAY ==
--- NOTE | 2018-02-18 | OV.WND_ITS ---
Progress Note Details Patient Name: Rashida Patten Patient Number: [id number] PatientPatientDate: 02/18/2018 Clinician: Alexsandra Drake Clinician Cosigner: Gertrude Duarte Physician / Capacity Management Specialist: Jr Luke SUBJECTIVE Chief Complaint This information was obtained from the patient Non-healing surgical wound on left calf. Allergies Betadine (Reaction: rash), iodine (Reaction: rash), flu vaccine (in 1991) ( Reaction: rash), sulfur (Severity: Moderate, Reaction: rash/welts), Sulfa (Sulfonamide Antibiotics) (Severity: Moderate, Reaction: rash/welts), adhesive (Severity: Moderate, Reaction: welts) HPI This information was obtained from the patient 02/19/18. Seen by Dr Luke. The patient does not report pain or significant drainage associated with the chronic left lower leg surgical wound since her last visit. She notes though the wound vac seemed to start leaking and it was removed on Saturday. 02/14/18. The patient does not report pain or significant drainage associated with the chronic left lower leg surgical wound since her last visit. 02/11/18. The patient does not report pain or significant drainage associated with the chronic left lower leg surgical wound since her last visit. She's been applying topical gentamicin also as recommended to treat the coag negative staph culture. 02/04/18. Seen by Dr. Luke. The patient does not report pain or significant drainage associated with the left posterior lower leg surgical wound since her last visit. 01/31/18. Seen by Dr. Luke. The patient does not report pain or significant drainage associated with the left posterior lower leg surgical wound since her last visit. 01/28/18. Seen by Dr. Luke. The patient does not report pain or significant drainage associated with the left posterior lower leg surgical wound since her last visit however she states her wound vac leaked on Saturday and it was removed at that time. 01/24/18. Seen by Dr. Luke. The patient does not report pain or significant drainage associated with the left posterior lower leg surgical wound since her last visit. 01/22/18. Seen by Dr. Luke. The patient does not report pain or significant drainage associated with the left posterior lower leg surgical wound since her last visit. 01/14/18. Seen by Dr. Luke. The patient reports only minimal, intermittent pain associated with the left posterior lower leg surgical wound since her last visit and she's been applying topical gentamicin to treat the recent coag negative Staph cultured from the wound. 01/06/18. Seen by Dr. Luke. The patient's new to our clinic and presents with a chronic, non- healing left posterior lower leg surgical wound following excision of a basal cell carcinoma in early November. She reports some intermittent pain at the site and has been on antibiotics for an associate infection without resolution of symptoms or improvement in terms of healing. She has chronic venous hypertension in the leg as well but is unable to wear compression stockings due to a number of lipomas in the lower leg that she states cause discomfort when under compression. She does not report fevers or feeling unwell otherwise and does not have a history of diabetes or PAD. Past Medical History This information was obtained from the patient Patient has a medical history of: Thoracic outlet syndrome Chronic Obstructive Pulmonary Disease (COPD) Degenerative disc disease Atrial fibrillation Asthma Gastro Esoph. Reflux Disease (GERD) Arthritis (knee) Hypertension Complaints and Symptoms This information was obtained from the patient Patient complains of: General Notes: I have reviewed and concur with the Review of Systems and Past Family Social History documents completed by the clinician, I have reviewed and concur with the Wound Assessment document completed by the clinician Cardiovascular (Central/Peripheral): Lower extremity (leg) swelling Hematologic/Lymphatic: Bleeding Tendency Integumentary (Hair/Skin/Nails): Open Sore Prior Wound History: Drainage, Erythema, Pain Patient denies complaints or symptoms related to: Cardiovascular (Central/Peripheral): Intermittent Claudication, Lower extremity (leg) resting pain Constitutional Symptoms (General Health): Chills, Fever Ear/Nose/Mouth/Throat: Hearing Loss / Aid Hematologic/Lymphatic: Bleeding / Clotting Disorders Musculoskeletal: Assistive Devices Neurological: Loss of Protective Sensation Psychiatric: Memory Loss Respiratory: Shortness of Breath OBJECTIVE Constitutional Vital signs reviewed and noted. Well developed. Alert. Clean appearing.. Height/ Length: 66 in (167.64 cm), Weight: 248 lbs (112.73 kgs), BMI: 40, Temperature: 97.7 ?F (36.5 ? C), Pulse: 76 bpm, Respiratory Rate: 18 breaths/min, Blood Pressure: 110/68 mmHg, Pulse Oximetry: 94 %. Cardiovascular: 1+ left lower extremity edema. Gastrointestinal (GI): Obese. Nondistended.. Integumentary (Hair, Skin) No periwound erythema, warmth, or significant drainage. No periwound rashes appreciated or noted otherwise.. Refer to appropriate clinician wound documentation for this visit; right foot wound extends to subcut with base partially covered with pink granulation, remainder fibrin and slough. Wound #1 Left Calf is a chronic Full Thickness Surgical Wound and has received a status of Not Healed. Subsequent wound encounter measurements are 0.5cm length x 0.7cm width x 0.8cm depth, with an area of 0.35 sq cm and a volume of 0.28 cubic cm. Adipose is exposed. Tunneling has been noted at 1:00 with a maximum distance of 2cm. No sinus tract has been noted. No undermining has been noted. There is a moderate amount of serous drainage noted which has no odor. The patient reports a wound pain of level 2/10. The wound margin is attached. Wound bed has Yes epithelialization, No eschar, Yes slough, Yes bright red, pink, firm granulation. The periwound skin moisture is normal. The periwound skin color is normal. The periwound skin exhibited: Induration. The periwound skin did not exhibit: Brawny Induration, Edema, Excoriation, Callus, Crepitus, Fluctuance, Friable, Rash. The temperature of the periwound skin is WNL. Periwound skin does not exhibit signs or symptoms of infection. Local Pulse is Palpable. Neurological: Cranial nerves grossly intact with symmetric function normal by informal observation.. ASSESSMENT Active Problems ICD-10 (Encounter Diagnosis) S81.802D - Unspecified open wound, left lower leg, subsequent encounter (Encounter Diagnosis) T81.31XD - Disruption of external operation (surgical) wound, not elsewhere classified, subsequent encounter PROCEDURES Wound #1 Wound #1 (Surgical Wound) is located on the left calf. A skin/subcutaneous tissue level surgical debridement with a total area debrided of 0.35 sq cm was performed by Jr Luke MD. Subcutaneous was removed along with devitalized tissue: exudate and slough. The following instrument(s) were used: curette. Pain control was achieved using 4% Lido. A time out was conducted prior to the start of the procedure. A minimal amount of bleeding was controlled with pressure. The procedure was tolerated well with a pain level of 0 throughout and a pain level of 0 following the procedure. Post Debridement Measurements: 0.5cm length x 0.7cm width x 0.9cm depth; with an area of 0.35 sq cm and a volume of 0.315 cubic cm; Wound #1 (Surgical Wound) is located on the left calf. A Disposable Wound Vac Application < 50 Sq Cm procedure was performed for the lower left extremity by Jr Luke MD. A time out was conducted prior to the start of the procedure. The procedure was tolerated well. General Notes: SNAP [id number] dressing, 125mmHg canister. Additional Information Muscle fascia or bone removed and sent to pathology?: No PLAN Wound Orders: Wound #1 Left Calf Anesthetic Topical Xylocaine to wound bed. - In clinic. Cleanser Cleanse Wound: - Normal saline and gauze. May use distilled water at home. May Shower. - Please use cast protector or plastic bag to cover leg when showering. May purchase cast protector at most local pharmacy/drug stores. Topical Treatments Antibiotic/Antimicrobial Ointment/Cream. - Gentamicin ointment to wound base. Dressings Change Dressing: - Leave in place. SNAP Dressing - [id number] dressing, 125mmHg canister. Drape placed over elbow/connection site, as well as protected with conform stretch gauze and netting to attempt to avoid loss of seal at connection site. Additional Orders: Follow-Up Appointments Return Appointment: - - Tuesdays and Fridays for SNAP. Other information: If you develop fever, chills, increased pain, drainage, redness or swelling please call our office. If after hours, respond to the ER. Should you experience any significant changes in your wound(s) or have any questions regarding your home care instructions please contact the wound center @ [phone]. If after hours, contact your primary care physician or go to the hospital emergency room. Scribing Attestation I attest, as the nurse, that I scribed these orders for the physician. I've reviewed the clinician's documentation and agree with the evaluation and plan as written. In addition the patient's wound demonstrates evidence of non-viable devitalized tissue which will continue to benefit from sharp debridement to help promote granulation and expedite healing. Negative pressure wound therapy will be utilized to facilitate granulation and removal of exudate and infectious material with the goal of expediting wound healing. Electronic Signature(s) Signed By: Date: Jr Luke MD 02/19/2018 08:39:26 Entered By: Jr Luke on 02/19/2018 06:22:05 Addendum at 02/26/2018 11:24:47 Right foot wound is documented on exam however should be left lower leg ulcer. Addendum Signed By: Jr Luke on 02/26/2018 11:24:47 Addendum at 03/18/2018 08:13:07 Ulcer if left posterior calf, not right foot as documented in the exam. Addendum Signed By: Jr Luke on 03/18/2018 08:13:07
== END ==
PROVIDERS: PCP Family Medicine; Visit Provider Internal Medicine
DX: S81.802A Unspecified open wound, left lower leg, initial encounter (principal); T81.31XA Disruption of external operation (surgical) wound, not elsewhere classified, initial encounter
CPT/HCPCS: 11042; 97607

== ENCOUNTER → 2018-02-21 08:51 | Outpatient (CLI) | payer MEDICARE, OTHER, SELFPAY ==
--- NOTE | 2018-02-21 | OV.WND_ITS ---
Progress Note Details Patient Name: Rashida Patten Patient Number: [id number] PatientPatientDate: 02/21/2018 Clinician: Alexsandra Drake Clinician Cosigner: Gertrude Duarte Physician / Cytotechnologist/Cytology Supervisor: Jr Luke SUBJECTIVE Chief Complaint This information was obtained from the patient Non-healing surgical wound on left calf. Allergies Betadine (Reaction: rash), iodine (Reaction: rash), flu vaccine (in 1991) ( Reaction: rash), sulfur (Severity: Moderate, Reaction: rash/welts), Sulfa (Sulfonamide Antibiotics) (Severity: Moderate, Reaction: rash/welts), adhesive (Severity: Moderate, Reaction: welts) HPI This information was obtained from the patient 02/21/18. Seen by Dr Luke. The patient does not report pain or significant drainage associated with the chronic left lower leg surgical wound since her last visit and her wound vac remained fully functional since her last visit. 02/19/18. Seen by Dr Luke. The patient does not report pain or significant drainage associated with the chronic left lower leg surgical wound since her last visit. She notes though the wound vac seemed to start leaking and it was removed on Saturday. 02/14/18. The patient does not report pain or significant drainage associated with the chronic left lower leg surgical wound since her last visit. 02/11/18. The patient does not report pain or significant drainage associated with the chronic left lower leg surgical wound since her last visit. She's been applying topical gentamicin also as recommended to treat the coag negative staph culture. 02/04/18. Seen by Dr. Luke. The patient does not report pain or significant drainage associated with the left posterior lower leg surgical wound since her last visit. 01/31/18. Seen by Dr. Luke. The patient does not report pain or significant drainage associated with the left posterior lower leg surgical wound since her last visit. 01/28/18. Seen by Dr. Luke. The patient does not report pain or significant drainage associated with the left posterior lower leg surgical wound since her last visit however she states her wound vac leaked on Saturday and it was removed at that time. 01/24/18. Seen by Dr. Luke. The patient does not report pain or significant drainage associated with the left posterior lower leg surgical wound since her last visit. 01/22/18. Seen by Dr. Luke. The patient does not report pain or significant drainage associated with the left posterior lower leg surgical wound since her last visit. 01/14/18. Seen by Dr. Luke. The patient reports only minimal, intermittent pain associated with the left posterior lower leg surgical wound since her last visit and she's been applying topical gentamicin to treat the recent coag negative Staph cultured from the wound. 01/06/18. Seen by Dr. Luke. The patient's new to our clinic and presents with a chronic, non- healing left posterior lower leg surgical wound following excision of a basal cell carcinoma in early November. She reports some intermittent pain at the site and has been on antibiotics for an associate infection without resolution of symptoms or improvement in terms of healing. She has chronic venous hypertension in the leg as well but is unable to wear compression stockings due to a number of lipomas in the lower leg that she states cause discomfort when under compression. She does not report fevers or feeling unwell otherwise and does not have a history of diabetes or PAD. 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 Reflux Disease (GERD) Arthritis (knee) Hypertension Surgical History This information was obtained from the patient Patient has a surgical history of: Abdominoplasty Tumor removal (left ankle) Umbilical hernia repair Cessarean Section Appendectomy Bladder sling Cholecystectomy Tubal ligation Cyst removals (mulitple- wrist) Lipoma removals (mulitple) Uvulopalatopharyngoplasty (UPPP) Complaints and Symptoms This information was obtained from the patient Patient complains of: General Notes: I have reviewed and concur with the Review of Systems and Past Family Social History documents completed by the clinician, I have reviewed and concur with the Wound Assessment document completed by the clinician Cardiovascular (Central/Peripheral): Lower extremity (leg) swelling Hematologic/Lymphatic: Bleeding Tendency Integumentary (Hair/Skin/Nails): Open Sore Prior Wound History: Drainage, Erythema, Pain Patient denies complaints or symptoms related to: Cardiovascular (Central/Peripheral): Intermittent Claudication, Lower extremity (leg) resting pain Constitutional Symptoms (General Health): Chills, Fever Ear/Nose/Mouth/Throat: Hearing Loss / Aid Hematologic/Lymphatic: Bleeding / Clotting Disorders Musculoskeletal: Assistive Devices Neurological: Loss of Protective Sensation Psychiatric: Memory Loss Respiratory: Shortness of Breath OBJECTIVE Constitutional Vital signs reviewed and noted. Well developed. Alert. Clean appearing.. Height/ Length: 66 in (167.64 cm), Weight: 248 lbs (112.73 kgs), BMI: 40, Temperature: 98.7 ?F (37.06 ?C), Pulse: 64 bpm, Respiratory Rate: 18 breaths/min, Blood Pressure: 132/70 mmHg, Pulse Oximetry: 97 %. Respiratory: No respiratory distress. Even respirations and without use of accessory muscles.. Cardiovascular: 1+ left lower extremity edema. Integumentary (Hair, Skin) No periwound erythema, warmth, or significant drainage. No periwound rashes appreciated or noted otherwise.. Refer to appropriate clinician wound documentation for this visit; left lower leg ulcer extends to subcut with base partially covered with pink granulation, remainder fibrin and slough; improved in terms of size and granulation. Wound #1 Left Calf is a chronic Full Thickness Surgical Wound and has received a status of Not Healed. Subsequent wound encounter measurements are 0.4cm length x 0.5cm width x 1cm depth, with an area of 0.2 sq cm and a volume of 0.2 cubic cm. Adipose is exposed. Tunneling has been noted at 1:00 with a maximum distance of 1.5cm. No sinus tract has been noted. No undermining has been noted. There is a moderate amount of serous drainage noted which has no odor. The patient reports a wound pain of level 2/10. The wound margin is attached. Wound bed has Yes epithelialization, No eschar, Yes slough, Yes bright red, pink , firm granulation. The periwound skin moisture is normal. The periwound skin color is normal. The periwound skin exhibited: Induration. The periwound skin did not exhibit: Brawny Induration, Edema, Excoriation, Callus, Crepitus, Fluctuance, Friable, Rash. The temperature of the periwound skin is WNL. Periwound skin does not exhibit signs or symptoms of infection. Local Pulse is Palpable. Neurological: Cranial nerves grossly intact with symmetric function normal by informal observation.. ASSESSMENT Active Problems ICD-10 (Encounter Diagnosis) S81.802D - Unspecified open wound, left lower leg, subsequent encounter (Encounter Diagnosis) T81.31XD - Disruption of external operation (surgical) wound, not elsewhere classified, subsequent encounter PROCEDURES Wound #1 Wound #1 (Surgical Wound) is located on the left calf. A skin/subcutaneous tissue level surgical debridement with a total area debrided of 0.2 sq cm was performed by Jr Luke MD. Subcutaneous was removed along with devitalized tissue: exudate and slough. The following instrument(s) were used: curette. Pain control was achieved using 4% Lido. A time out was not conducted prior to the start of the procedure. A minimal amount of bleeding was controlled with pressure. The procedure was tolerated well with a pain level of 0 throughout and a pain level of 0 following the procedure. Post Debridement Measurements: 0.4cm length x 0.5cm width x 1.1cm depth; with an area of 0.2 sq cm and a volume of 0.22 cubic cm; General Notes: No post photo. Wound #1 (Surgical Wound) is located on the left calf. A Disposable Wound Vac Application < 50 Sq Cm procedure was performed for the lower left extremity by Jr Luke MD. A time out was conducted prior to the start of the procedure. The procedure was tolerated well. General Notes: SNAP 10x10 dressing, 125mmHg canister. Additional Information Muscle fascia or bone removed and sent to pathology?: No PLAN Wound Orders: Wound #1 Left Calf Anesthetic Topical Xylocaine to wound bed. - In clinic. Cleanser Cleanse Wound: - Normal saline and gauze. May use distilled water at home. May Shower. - Please use cast protector or plastic bag to cover leg when showering. May purchase cast protector at most local pharmacy/drug stores. Dressings Change Dressing: - Leave in place. SNAP Dressing - [id number] dressing, 125mmHg canister. Drape placed over elbow/connection site, as well as protected with conform stretch gauze and netting to attempt to avoid loss of seal at connection site. Additional Orders: Follow-Up Appointments Return Appointment: - - Tuesdays and Fridays for SNAP. Other information: If you develop fever, chills, increased pain, drainage, redness or swelling please call our office. If after hours, respond to the ER. Should you experience any significant changes in your wound(s) or have any questions regarding your home care instructions please contact the wound center @ [phone]. If after hours, contact your primary care physician or go to the hospital emergency room. Scribing Attestation I attest, as the nurse, that I scribed these orders for the physician. I've reviewed the clinician's documentation and agree with the evaluation and plan as written. In addition, the patient's ulcer demonstrates evidence of non-viable devitalized tissue which will continue to benefit from sharp debridement to help promote granulation and expedite healing. Negative pressure wound therapy will be utilized to facilitate granulation and removal of exudate and infectious material with the goal of expediting wound healing. Electronic Signature(s) Signed By: Date: Jr Luke MD 02/23/2018 13:56:08 Entered By: Jr Luke on 02/23/2018 13:54:01
== END ==
PROVIDERS: PCP Family Medicine; Visit Provider Internal Medicine
DX: S81.802A Unspecified open wound, left lower leg, initial encounter (principal); T81.31XA Disruption of external operation (surgical) wound, not elsewhere classified, initial encounter
CPT/HCPCS: 11042; 97607

== ENCOUNTER → 2018-02-25 14:01 | Outpatient (CLI) | payer MEDICARE, OTHER, SELFPAY ==
--- NOTE | 2018-02-25 | OV.WND_ITS ---
Progress Note Details Patient Name: Rashida Patten Patient Number: [id number] PatientPatientDate: 02/25/2018 Clinician: Tran Perez Clinician Cosigner: Gertrude Duarte Physician / Supply Chain Logistics Manager: Jr Luke SUBJECTIVE Chief Complaint This information was obtained from the patient Non-healing surgical wound on left calf. Allergies Betadine (Reaction: rash), iodine (Reaction: rash), flu vaccine (in 1991) ( Reaction: rash), sulfur (Severity: Moderate, Reaction: rash/welts), Sulfa (Sulfonamide Antibiotics) (Severity: Moderate, Reaction: rash/welts), adhesive (Severity: Moderate, Reaction: welts) HPI This information was obtained from the patient 02/25/18. Seen by Dr Luke. The patient does not report pain or significant drainage associated with the chronic left lower leg surgical wound since her last visit. 02/21/18. Seen by Dr Luke. The patient does not report pain or significant drainage associated with the chronic left lower leg surgical wound since her last visit and her wound vac remained fully functional since her last visit. 02/19/18. Seen by Dr Luke. The patient does not report pain or significant drainage associated with the chronic left lower leg surgical wound since her last visit. She notes though the wound vac seemed to start leaking and it was removed on Saturday. 02/14/18. The patient does not report pain or significant drainage associated with the chronic left lower leg surgical wound since her last visit. 02/11/18. The patient does not report pain or significant drainage associated with the chronic left lower leg surgical wound since her last visit. She's been applying topical gentamicin also as recommended to treat the coag negative staph culture. 02/04/18. Seen by Dr. Luke. The patient does not report pain or significant drainage associated with the left posterior lower leg surgical wound since her last visit. 01/31/18. Seen by Dr. Luke. The patient does not report pain or significant drainage associated with the left posterior lower leg surgical wound since her last visit. 01/28/18. Seen by Dr. Luke. The patient does not report pain or significant drainage associated with the left posterior lower leg surgical wound since her last visit however she states her wound vac leaked on Saturday and it was removed at that time. 01/24/18. Seen by Dr. Luke. The patient does not report pain or significant drainage associated with the left posterior lower leg surgical wound since her last visit. 01/22/18. Seen by Dr. Luke. The patient does not report pain or significant drainage associated with the left posterior lower leg surgical wound since her last visit. 01/14/18. Seen by Dr. Luke. The patient reports only minimal, intermittent pain associated with the left posterior lower leg surgical wound since her last visit and she's been applying topical gentamicin to treat the recent coag negative Staph cultured from the wound. 01/06/18. Seen by Dr. Luke. The patient's new to our clinic and presents with a chronic, non- healing left posterior lower leg surgical wound following excision of a basal cell carcinoma in early November. She reports some intermittent pain at the site and has been on antibiotics for an associate infection without resolution of symptoms or improvement in terms of healing. She has chronic venous hypertension in the leg as well but is unable to wear compression stockings due to a number of lipomas in the lower leg that she states cause discomfort when under compression. She does not report fevers or feeling unwell otherwise and does not have a history of diabetes or PAD. Past Medical History This information was obtained from the patient Patient has a medical history of: Thoracic outlet syndrome Chronic Obstructive Pulmonary Disease (COPD) Degenerative disc disease Atrial fibrillation Asthma Gastro Esoph. Reflux Disease (GERD) Arthritis (knee) Hypertension Complaints and Symptoms This information was obtained from the patient Patient complains of: General Notes: I have reviewed and concur with the Review of Systems and Past Family Social History documents completed by the clinician, I have reviewed and concur with the Wound Assessment document completed by the clinician Cardiovascular (Central/Peripheral): Lower extremity (leg) swelling Hematologic/Lymphatic: Bleeding Tendency Integumentary (Hair/Skin/Nails): Open Sore Prior Wound History: Drainage, Erythema, Pain Patient denies complaints or symptoms related to: Cardiovascular (Central/Peripheral): Intermittent Claudication, Lower extremity (leg) resting pain Constitutional Symptoms (General Health): Chills, Fever Ear/Nose/Mouth/Throat: Hearing Loss / Aid Hematologic/Lymphatic: Bleeding / Clotting Disorders Musculoskeletal: Assistive Devices Neurological: Loss of Protective Sensation Psychiatric: Memory Loss Respiratory: Shortness of Breath OBJECTIVE Constitutional Vital signs reviewed and noted. Well developed. Alert. Clean appearing.. Height/ Length: 66 in (167.64 cm), Weight: 249.5 lbs (113.41 kgs), BMI: 40.3, Temperature: 98.9 ?F ( 37.17 ?C), Pulse: 86 bpm, Respiratory Rate: 18 breaths/min, Blood Pressure: 121/80 mmHg, Pulse Oximetry: 97 %. Respiratory: No respiratory distress. Even respirations and without use of accessory muscles.. Cardiovascular: 1+ left lower extremity edema. Gastrointestinal (GI): Obese. Nondistended.. Integumentary (Hair, Skin) No periwound erythema, warmth, or significant drainage. No periwound rashes appreciated or noted otherwise.. Refer to appropriate clinician wound documentation for this visit; left lower leg ulcer extends to subcut with base partially covered with pink granulation, remainder fibrin and slough. Wound #1 Left Calf is a chronic Full Thickness Surgical Wound and has received a status of Not Healed. Subsequent wound encounter measurements are 0.3cm length x 0.5cm width x 0.5cm depth, with an area of 0.15 sq cm and a volume of 0.075 cubic cm. Adipose is exposed. Tunneling has been noted at 1:00 with a maximum distance of 2cm. No sinus tract has been noted. No undermining has been noted. There is a moderate amount of serous drainage noted which has no odor. The patient reports a wound pain of level 2/10. The wound margin is attached. Wound bed has Yes epithelialization, No eschar, Yes slough, Yes bright red, pink, firm granulation. The periwound skin moisture is normal. The periwound skin color is normal. The periwound skin exhibited: Induration. The periwound skin did not exhibit: Brawny Induration, Edema, Excoriation, Callus, Crepitus, Fluctuance, Friable, Rash. The temperature of the periwound skin is WNL. Periwound skin does not exhibit signs or symptoms of infection. Local Pulse is Palpable. Neurological: Cranial nerves grossly intact with symmetric function normal by informal observation.. ASSESSMENT Active Problems ICD-10 (Encounter Diagnosis) S81.802D - Unspecified open wound, left lower leg, subsequent encounter (Encounter Diagnosis) T81.31XD - Disruption of external operation (surgical) wound, not elsewhere classified, subsequent encounter PROCEDURES Wound #1 Wound #1 (Surgical Wound) is located on the left calf. A skin/subcutaneous tissue level surgical debridement with a total area debrided of 0.15 sq cm was performed by Jr Luke MD. Subcutaneous was removed along with devitalized tissue: exudate and slough. The following instrument(s) were used: curette. Pain control was achieved using 4% Lido. A time out was conducted prior to the start of the procedure. A minimal amount of bleeding was controlled with n/a. The procedure was tolerated well with a pain level of 0 throughout and a pain level of 0 following the procedure. Post Debridement Measurements: 0.3cm length x 0.5cm width x 0.6cm depth; with an area of 0.15 sq cm and a volume of 0.09 cubic cm; Wound #1 (Surgical Wound) is located on the left calf. A Disposable Wound Vac Application < 50 Sq Cm procedure was performed for the lower left extremity by Jr Luke MD. A time out was conducted prior to the start of the procedure. The procedure was tolerated well. General Notes: SNAP 10x10 dressing, 125mmHg canister. Additional Information Muscle fascia or bone removed and sent to pathology?: No PLAN Wound Orders: Wound #1 Left Calf Anesthetic Topical Xylocaine to wound bed. - In clinic. Cleanser Cleanse Wound: - Normal saline and gauze. May use distilled water at home. May Shower. - Please use cast protector or plastic bag to cover leg when showering. May purchase cast protector at most local pharmacy/drug stores. Dressings Change Dressing: - Leave in place. SNAP Dressing - [id number] dressing, 125mmHg canister. Drape placed over elbow/connection site, as well as protected with conform stretch gauze and netting to attempt to avoid loss of seal at connection site. Additional Orders: Follow-Up Appointments Return Appointment: - - Tuesdays and Fridays for SNAP. Other information: If you develop fever, chills, increased pain, drainage, redness or swelling please call our office. If after hours, respond to the ER. Should you experience any significant changes in your wound(s) or have any questions regarding your home care instructions please contact the wound center @ [phone]. If after hours, contact your primary care physician or go to the hospital emergency room. Scribing Attestation I attest, as the nurse, that I scribed these orders for the physician. I've reviewed the clinician's documentation and agree with the evaluation and plan as written. In addition, the patient's ulcer demonstrates evidence of non-viable devitalized tissue which will continue to benefit from sharp debridement to help promote granulation and expedite healing. Negative pressure wound therapy will be utilized to facilitate granulation and removal of exudate and infectious material with the goal of expediting wound healing. Electronic Signature(s) Signed By: Date: Jr Luke MD 03/18/2018 08:43:34 Entered By: Jr Luke on 02/25/2018 16:22:25
== END ==
PROVIDERS: PCP Family Medicine; Visit Provider Internal Medicine
DX: T81.31XA Disruption of external operation (surgical) wound, not elsewhere classified, initial encounter (principal); S81.802A Unspecified open wound, left lower leg, initial encounter
CPT/HCPCS: 11042; 97607

== ENCOUNTER → 2018-02-28 09:52 | Outpatient (CLI) | payer MEDICARE, OTHER, SELFPAY ==
--- NOTE | 2018-02-28 | OV.WND_ITS ---
Progress Note Details Patient Name: Rashida Patten Patient Number: [id number] PatientPatientDate: 02/28/2018 Clinician: Ana Silva Physician / Assistant Printer Floor Covering: Jr Luke SUBJECTIVE Chief Complaint This information was obtained from the patient Non-healing surgical wound on left calf. Allergies Betadine (Reaction: rash), iodine (Reaction: rash), flu vaccine (in 1991) ( Reaction: rash), sulfur (Severity: Moderate, Reaction: rash/welts), Sulfa (Sulfonamide Antibiotics) (Severity: Moderate, Reaction: rash/welts), adhesive (Severity: Moderate, Reaction: welts) HPI This information was obtained from the patient 02/28/18. Seen by Dr Luke. The patient does not report pain or significant drainage associated with the chronic left lower leg non-pressure ulcer, which started as a surgical wound but has shown delayed healing since establishing at our clinic, since her last visit. She reports chronic swelling in the leg as well but is not wearing compression stockings due to difficulty in sizing the stocking correctly. 02/25/18. Seen by Dr Luke. The patient does not report pain or significant drainage associated with the chronic left lower leg surgical wound since her last visit. 02/21/18. Seen by Dr Luke. The patient does not report pain or significant drainage associated with the chronic left lower leg surgical wound since her last visit and her wound vac remained fully functional since her last visit. 02/19/18. Seen by Dr Luke. The patient does not report pain or significant drainage associated with the chronic left lower leg surgical wound since her last visit. She notes though the wound vac seemed to start leaking and it was removed on Saturday. 02/14/18. The patient does not report pain or significant drainage associated with the chronic left lower leg surgical wound since her last visit. 02/11/18. The patient does not report pain or significant drainage associated with the chronic left lower leg surgical wound since her last visit. She's been applying topical gentamicin also as recommended to treat the coag negative staph culture. 02/04/18. Seen by Dr. Luke. The patient does not report pain or significant drainage associated with the left posterior lower leg surgical wound since her last visit. 01/31/18. Seen by Dr. Luke. The patient does not report pain or significant drainage associated with the left posterior lower leg surgical wound since her last visit. 01/28/18. Seen by Dr. Luke. The patient does not report pain or significant drainage associated with the left posterior lower leg surgical wound since her last visit however she states her wound vac leaked on Saturday and it was removed at that time. 01/24/18. Seen by Dr. Luke. The patient does not report pain or significant drainage associated with the left posterior lower leg surgical wound since her last visit. 01/22/18. Seen by Dr. Luke. The patient does not report pain or significant drainage associated with the left posterior lower leg surgical wound since her last visit. 01/14/18. Seen by Dr. Luke. The patient reports only minimal, intermittent pain associated with the left posterior lower leg surgical wound since her last visit and she's been applying topical gentamicin to treat the recent coag negative Staph cultured from the wound. 01/06/18. Seen by Dr. Luke. The patient's new to our clinic and presents with a chronic, non- healing left posterior lower leg surgical wound following excision of a basal cell carcinoma in early November. She reports some intermittent pain at the site and has been on antibiotics for an associate infection without resolution of symptoms or improvement in terms of healing. She has chronic venous hypertension in the leg as well but is unable to wear compression stockings due to a number of lipomas in the lower leg that she states cause discomfort when under compression. She does not report fevers or feeling unwell otherwise and does not have a history of diabetes or PAD. Past Medical History This information was obtained from the patient Patient has a medical history of: Thoracic outlet syndrome Chronic Obstructive Pulmonary Disease (COPD) Degenerative disc disease Atrial fibrillation Asthma Gastro Esoph. Reflux Disease (GERD) Arthritis (knee) Hypertension Complaints and Symptoms This information was obtained from the patient Patient complains of: General Notes: I have reviewed and concur with the Review of Systems and Past Family Social History documents completed by the clinician, I have reviewed and concur with the Wound Assessment document completed by the clinician Cardiovascular (Central/Peripheral): Lower extremity (leg) swelling Hematologic/Lymphatic: Bleeding Tendency Integumentary (Hair/Skin/Nails): Open Sore Prior Wound History: Drainage, Erythema, Pain Patient denies complaints or symptoms related to: Cardiovascular (Central/Peripheral): Intermittent Claudication, Lower extremity (leg) resting pain Constitutional Symptoms (General Health): Chills, Fever Ear/Nose/Mouth/Throat: Hearing Loss / Aid Hematologic/Lymphatic: Bleeding / Clotting Disorders Musculoskeletal: Assistive Devices Neurological: Loss of Protective Sensation Psychiatric: Memory Loss Respiratory: Shortness of Breath OBJECTIVE Constitutional Vital signs reviewed and noted. Well developed. Alert. Clean appearing.. Height/ Length: 66 in (167.64 cm), Weight: 249.5 lbs (113.41 kgs), BMI: 40.3, Temperature: 98.2 ?F ( 36.78 ?C), Pulse: 68 bpm, Respiratory Rate: 18 breaths/min, Blood Pressure: 106/68 mmHg, Pulse Oximetry: 95 %. Ears, Nose, Mouth, and Throat: No clinically significant hearing loss on informal examination. Cardiovascular: 2+ left lower extremity edema. Gastrointestinal (GI): Obese. Nondistended.. Integumentary (Hair, Skin) No periwound erythema, warmth, or significant drainage. No periwound rashes appreciated or noted otherwise.. Refer to appropriate clinician wound documentation for this visit; left lower leg ulcer extends to deep subcut with base partially covered with pink granulation, remainder fibrin and slough; tunneling persists and had not improved over the past few weeks. Wound #1 Left Calf is a chronic Full Thickness Surgical Wound and has received a status of Not Healed. Subsequent wound encounter measurements are 0.5cm length x 0.6cm width x 1cm depth, with an area of 0.3 sq cm and a volume of 0.3 cubic cm. Adipose is exposed. Tunneling has been noted at 1:00 with a maximum distance of 1.6cm. No sinus tract has been noted. No undermining has been noted. There is a moderate amount of serous drainage noted which has no odor. The patient reports a wound pain of level 2/10. The wound margin is attached. Wound bed has No epithelialization, No eschar, Yes slough, Yes bright red, firm granulation. The periwound skin moisture is normal. The periwound skin color is normal. The periwound skin exhibited: Induration. The periwound skin did not exhibit: Brawny Induration, Edema, Excoriation, Callus, Crepitus, Fluctuance, Friable, Rash. The temperature of the periwound skin is WNL. Periwound skin does not exhibit signs or symptoms of infection. Local Pulse is Palpable. Neurological: Cranial nerves grossly intact with symmetric function normal by informal observation.. ASSESSMENT Active Problems ICD-10 (Encounter Diagnosis) L97.822 - Non-pressure chronic ulcer of other part of left lower leg with fat layer exposed (Encounter Diagnosis) I87.392 - Chronic venous hypertension (idiopathic) with other complications of left lower extremity (Encounter Diagnosis) T81.31XD - Disruption of external operation (surgical) wound, not elsewhere classified, subsequent encounter PROCEDURES Wound #1 Wound #1 (Surgical Wound) is located on the left calf. A skin/subcutaneous tissue level surgical debridement with a total area debrided of 0.3 sq cm was performed by Jr Luke MD. Subcutaneous was removed along with devitalized tissue: exudate and slough. The following instrument(s) were used: curette. Pain control was achieved using 4% Lido. A time out was conducted prior to the start of the procedure. A minimal amount of bleeding was controlled with pressure. The procedure was tolerated well with a pain level of 0 throughout and a pain level of 0 following the procedure. Post Debridement Measurements: 0.5cm length x 0.6cm width x 1cm depth; with an area of 0.3 sq cm and a volume of 0.3 cubic cm; Additional Information Muscle fascia or bone removed and sent to pathology?: No PLAN Wound Orders: Wound #1 Left Calf Cleanser Cleanse Wound: - Distilled water May Shower. - Keeping the dressing dry and intact. Dressings Pack wound: - Packing strip with gentamicin. Primary dressing: - Border foam Change Dressing: - Every other day Compression/Edema Control Elevation of leg(s) above the level of the heart when sitting. Avoid prolonged standing in one place. Single Layer Compression Hose - Tetra G left leg. Follow-Up Appointments Return Appointment: - Other information: If you develop fever, chills, increased pain, drainage, redness or swelling please call our office. If after hours, respond to the ER. Should you experience any significant changes in your wound(s) or have any questions regarding your home care instructions please contact the wound center @ [phone]. If after hours, contact your primary care physician or go to the hospital emergency room. Scribing Attestation I attest, as the nurse, that I scribed these orders for the physician. I've reviewed the clinician's documentation and agree with the evaluation and plan as written. In addition, the patient's ulcer demonstrates evidence of non-viable devitalized tissue which will continue to benefit from sharp debridement to help promote granulation and expedite healing. Also, due to the lack of progress in terms of the tunneling I've held NPWT, repeated a wound culture, and we'll consider placing a compression wrap next week to treat the severe left lower leg chronic venous hypertension. Electronic Signature(s) Signed By: Date: Jr Luke MD 03/03/2018 08:36:04 Entered By: Jr Luke on 03/03/2018 08:14:54
== END ==
PROVIDERS: PCP Family Medicine; Visit Provider Internal Medicine
DX: I87.312 Chronic venous hypertension (idiopathic) with ulcer of left lower extremity (principal); L97.822 Non-pressure chronic ulcer of other part of left lower leg with fat layer exposed
CPT/HCPCS: 11042; 87070; 87077; 87186; 87205

== ENCOUNTER → 2018-03-04 08:44 | Outpatient (CLI) | payer MEDICARE, OTHER, SELFPAY ==
--- NOTE | 2018-03-04 | OV.WND_ITS ---
Progress Note Details Patient Name: Rashida Patten Patient Number: [id number] PatientPatientDate: 03/04/2018 Clinician: Tita Pantoja Clinician Cosigner: Gertrude Duarte Physician / Assisted Living Associate: Jr Luke SUBJECTIVE Chief Complaint This information was obtained from the patient Non-healing surgical wound on left calf. Allergies Betadine (Reaction: rash), iodine (Reaction: rash), flu vaccine (in 1991) ( Reaction: rash), sulfur (Severity: Moderate, Reaction: rash/welts), Sulfa (Sulfonamide Antibiotics) (Severity: Moderate, Reaction: rash/welts), adhesive (Severity: Moderate, Reaction: welts) HPI This information was obtained from the patient 03/04/18. Seen by Dr. Luke. The patient does not report pain or significant drainage associated with the chronic left lower leg non-pressure ulcer and NPWT was held at her last visit due to my concern for infection. Her wound culture grew a coag negative Staph and she's not currently taking antibiotics for this. She's wearing a compression stocking also treat chronic venous hypertension in the leg. 02/28/18. Seen by Dr Luke. The patient does not report pain or significant drainage associated with the chronic left lower leg non-pressure ulcer, which started as a surgical wound but has shown delayed healing since establishing at our clinic, since her last visit. She reports chronic swelling in the leg as well but is not wearing compression stockings due to difficulty in sizing the stocking correctly. 02/25/18. Seen by Dr Luke. The patient does not report pain or significant drainage associated with the chronic left lower leg surgical wound since her last visit. 02/21/18. Seen by Dr Luke. The patient does not report pain or significant drainage associated with the chronic left lower leg surgical wound since her last visit and her wound vac remained fully functional since her last visit. 02/19/18. Seen by Dr Luke. The patient does not report pain or significant drainage associated with the chronic left lower leg surgical wound since her last visit. She notes though the wound vac seemed to start leaking and it was removed on Saturday. 02/14/18. The patient does not report pain or significant drainage associated with the chronic left lower leg surgical wound since her last visit. 02/11/18. The patient does not report pain or significant drainage associated with the chronic left lower leg surgical wound since her last visit. She's been applying topical gentamicin also as recommended to treat the coag negative staph culture. 02/04/18. Seen by Dr. Luke. The patient does not report pain or significant drainage associated with the left posterior lower leg surgical wound since her last visit. 01/31/18. Seen by Dr. Luke. The patient does not report pain or significant drainage associated with the left posterior lower leg surgical wound since her last visit. 01/28/18. Seen by Dr. Luke. The patient does not report pain or significant drainage associated with the left posterior lower leg surgical wound since her last visit however she states her wound vac leaked on Saturday and it was removed at that time. 01/24/18. Seen by Dr. Luke. The patient does not report pain or significant drainage associated with the left posterior lower leg surgical wound since her last visit. 01/22/18. Seen by Dr. Luke. The patient does not report pain or significant drainage associated with the left posterior lower leg surgical wound since her last visit. 01/14/18. Seen by Dr. Luke. The patient reports only minimal, intermittent pain associated with the left posterior lower leg surgical wound since her last visit and she's been applying topical gentamicin to treat the recent coag negative Staph cultured from the wound. 01/06/18. Seen by Dr. Luke. The patient's new to our clinic and presents with a chronic, non- healing left posterior lower leg surgical wound following excision of a basal cell carcinoma in early November. She reports some intermittent pain at the site and has been on antibiotics for an associate infection without resolution of symptoms or improvement in terms of healing. She has chronic venous hypertension in the leg as well but is unable to wear compression stockings due to a number of lipomas in the lower leg that she states cause discomfort when under compression. She does not report fevers or feeling unwell otherwise and does not have a history of diabetes or PAD. Past Medical History This information was obtained from the patient Patient has a medical history of: Thoracic outlet syndrome Chronic Obstructive Pulmonary Disease (COPD) Degenerative disc disease Atrial fibrillation Asthma Gastro Esoph. Reflux Disease (GERD) Arthritis (knee) Hypertension Complaints and Symptoms This information was obtained from the patient Patient complains of: General Notes: I have reviewed and concur with the Review of Systems and Past Family Social History documents completed by the clinician, I have reviewed and concur with the Wound Assessment document completed by the clinician Cardiovascular (Central/Peripheral): Lower extremity (leg) swelling Hematologic/Lymphatic: Bleeding Tendency Integumentary (Hair/Skin/Nails): Open Sore Prior Wound History: Drainage, Erythema, Pain Patient denies complaints or symptoms related to: Cardiovascular (Central/Peripheral): Intermittent Claudication, Lower extremity (leg) resting pain Constitutional Symptoms (General Health): Chills, Fever Ear/Nose/Mouth/Throat: Hearing Loss / Aid Hematologic/Lymphatic: Bleeding / Clotting Disorders Musculoskeletal: Assistive Devices Neurological: Loss of Protective Sensation Psychiatric: Memory Loss Respiratory: Shortness of Breath OBJECTIVE Constitutional Vital signs reviewed and noted. Well developed. Alert. Clean appearing.. Height/ Length: 66 in (167.64 cm), Weight: 244.4 lbs (111.09 kgs), BMI: 39.4, Temperature: 97.6 ?F ( 36.44 ?C), Pulse: 72 bpm, Respiratory Rate: 18 breaths/min, Blood Pressure: 112/71 mmHg, Pulse Oximetry: 97 %. Ears, Nose, Mouth, and Throat: No clinically significant hearing loss on informal examination. Respiratory: No respiratory distress. Even respirations and without use of accessory muscles.. Cardiovascular: Pedal pulses 2+ on affected limb. 2+ left lower extremity edema. Gastrointestinal (GI): Obese. Nondistended.. Integumentary (Hair, Skin) No periwound erythema, warmth, or significant drainage. No periwound rashes appreciated or noted otherwise.. Refer to appropriate clinician wound documentation for this visit; left lower leg ulcer extends to subcut with base partially covered with pink granulation, remainder fibrin and slough. Wound #1 Left Calf is a chronic Full Thickness Surgical Wound and has received a status of Not Healed. Subsequent wound encounter measurements are 0.6cm length x 0.9cm width x 1.1cm depth, with an area of 0.54 sq cm and a volume of 0.594 cubic cm. Adipose is exposed. Tunneling has been noted at 1:00 with a maximum distance of 2cm. No sinus tract has been noted. No undermining has been noted. There is a small amount of serous drainage noted which has no odor. The patient reports a wound pain of level 2/10. The wound margin is attached. Wound bed has No epithelialization, No eschar, Yes slough, Yes bright red, pink, firm granulation. The periwound skin moisture is normal. The periwound skin color is normal. The periwound skin exhibited: Induration. The periwound skin did not exhibit: Brawny Induration, Edema, Excoriation, Callus, Crepitus, Fluctuance, Friable, Rash. The temperature of the periwound skin is WNL. Periwound skin does not exhibit signs or symptoms of infection. Local Pulse is Palpable. Neurological: Cranial nerves grossly intact with symmetric function normal by informal observation.. ASSESSMENT Active Problems ICD-10 (Encounter Diagnosis) L97.822 - Non-pressure chronic ulcer of other part of left lower leg with fat layer exposed (Encounter Diagnosis) I87.392 - Chronic venous hypertension (idiopathic) with other complications of left lower extremity (Encounter Diagnosis) T81.31XD - Disruption of external operation (surgical) wound, not elsewhere classified, subsequent encounter (Encounter Diagnosis) B95.7 - Other staphylococcus as the cause of diseases classified elsewhere PROCEDURES Wound #1 Wound #1 (Surgical Wound) is located on the left calf. A skin/subcutaneous tissue level surgical debridement with a total area debrided of 0.54 sq cm was performed by Jr Luke MD. Subcutaneous was removed along with devitalized tissue: slough. The following instrument(s) were used: curette. Pain control was achieved using 4% Lido. A time out was conducted prior to the start of the procedure. A minimal amount of bleeding was controlled with n/a. The procedure was tolerated well with a pain level of 0 throughout and a pain level of 0 following the procedure. Post Debridement Measurements: 0.6cm length x 0.9cm width x 1.2cm depth; with an area of 0.54 sq cm and a volume of 0.648 cubic cm; Additional Information Muscle fascia or bone removed and sent to pathology?: No PLAN Wound Orders: Wound #1 Left Calf Anesthetic Topical Xylocaine to wound bed. - In clinic only Cleanser Cleanse Wound: - Distilled water May Shower. - Keeping the dressing dry and intact. Topical Treatments Antibiotic/Antimicrobial Ointment/Cream. - Gentamicin ointment Dressings Primary dressing: - Border foam Change Dressing: - Every other day Compression/Edema Control Multi Layer Wrap: - Coban lite 2 layers compression wrap: Do not get leg with compression wrap wet. If wrap is too tight call the wound care center or remove if you are unable to reach the center. Please remove wraps for numbness, tingling, pain in legs or color changes in toes and call the clinic the same day. If symptoms do not resolve after removing wraps Follow-Up Appointments Return Appointment: - - Saturday Other information: If you develop fever, chills, increased pain, drainage, redness or swelling please call our office. If after hours, respond to the ER. Should you experience any significant changes in your wound(s) or have any questions regarding your home care instructions please contact the wound center @ [phone]. If after hours, contact your primary care physician or go to the hospital emergency room. Scribing Attestation I attest, as the nurse, that I scribed these orders for the physician. Medications prescribed: doxycycline hyclate - oral 100 mg capsule twice daily for 5 days for infected ulcer starting 03/04/2018 General Notes: Please brick picker prescription at your pharmacy. I've reviewed the clinician's documentation and agree with the evaluation and plan as written. In addition, the patient's ulcer demonstrates evidence of non-viable devitalized tissue which will continue to benefit from sharp debridement to help promote granulation and expedite healing. Also, I've started the patient on doxycycline today and we applied a Coban lite compression wrap to treat the chronic venous hypertension. Electronic Signature(s) Signed By: Date: Jr Luke MD 03/05/2018 13:52:56 Entered By: Jr Luke on 03/05/2018 13:19:20
== END ==
PROVIDERS: PCP Family Medicine; Visit Provider Internal Medicine
DX: I87.312 Chronic venous hypertension (idiopathic) with ulcer of left lower extremity (principal); L97.822 Non-pressure chronic ulcer of other part of left lower leg with fat layer exposed; B95.7 Other staphylococcus as the cause of diseases classified elsewhere
CPT/HCPCS: 11042

== ENCOUNTER → 2018-03-07 08:50 | Outpatient (CLI) | payer MEDICARE, OTHER, SELFPAY ==
--- NOTE | 2018-03-07 | OV.WND_ITS ---
Progress Note Details Patient Name: Rashida Patten Patient Number: [id number] PatientPatientDate: 03/07/2018 Clinician: Tran Perez Physician / Abalone Diver: Jr Luke SUBJECTIVE Chief Complaint This information was obtained from the patient Non-healing surgical wound on left calf. Allergies Betadine (Reaction: rash), iodine (Reaction: rash), flu vaccine (in 1991) ( Reaction: rash), sulfur (Severity: Moderate, Reaction: rash/welts), Sulfa (Sulfonamide Antibiotics) (Severity: Moderate, Reaction: rash/welts), adhesive (Severity: Moderate, Reaction: welts) HPI This information was obtained from the patient 03/06/18. Seen by Dr. Luke. The patient does not report pain or significant drainage associated with the chronic left lower leg non-pressure ulcer and she tolerated the initial application of the Coban compression wrap with only minimal discomfort noting that when she elevated her leg the discomfort resolved. She's also on doxycycline for the coag negative Staph wound culture and does not report adverse effects. 03/04/18. Seen by Dr. Luke. The patient does not report pain or significant drainage associated with the chronic left lower leg non-pressure ulcer and NPWT was held at her last visit due to my concern for infection. Her wound culture grew a coag negative Staph and she's not currently taking antibiotics for this. She's wearing a compression stocking also treat chronic venous hypertension in the leg. 02/28/18. Seen by Dr Luke. The patient does not report pain or significant drainage associated with the chronic left lower leg non-pressure ulcer, which started as a surgical wound but has shown delayed healing since establishing at our clinic, since her last visit. She reports chronic swelling in the leg as well but is not wearing compression stockings due to difficulty in sizing the stocking correctly. 02/25/18. Seen by Dr Luke. The patient does not report pain or significant drainage associated with the chronic left lower leg surgical wound since her last visit. 02/21/18. Seen by Dr Luke. The patient does not report pain or significant drainage associated with the chronic left lower leg surgical wound since her last visit and her wound vac remained fully functional since her last visit. 02/19/18. Seen by Dr Luke. The patient does not report pain or significant drainage associated with the chronic left lower leg surgical wound since her last visit. She notes though the wound vac seemed to start leaking and it was removed on Saturday. 02/14/18. The patient does not report pain or significant drainage associated with the chronic left lower leg surgical wound since her last visit. 02/11/18. The patient does not report pain or significant drainage associated with the chronic left lower leg surgical wound since her last visit. She's been applying topical gentamicin also as recommended to treat the coag negative staph culture. 02/04/18. Seen by Dr. Luke. The patient does not report pain or significant drainage associated with the left posterior lower leg surgical wound since her last visit. 01/31/18. Seen by Dr. Luke. The patient does not report pain or significant drainage associated with the left posterior lower leg surgical wound since her last visit. 01/28/18. Seen by Dr. Luke. The patient does not report pain or significant drainage associated with the left posterior lower leg surgical wound since her last visit however she states her wound vac leaked on Saturday and it was removed at that time. 01/24/18. Seen by Dr. Luke. The patient does not report pain or significant drainage associated with the left posterior lower leg surgical wound since her last visit. 01/22/18. Seen by Dr. Luke. The patient does not report pain or significant drainage associated with the left posterior lower leg surgical wound since her last visit. 01/14/18. Seen by Dr. Luke. The patient reports only minimal, intermittent pain associated with the left posterior lower leg surgical wound since her last visit and she's been applying topical gentamicin to treat the recent coag negative Staph cultured from the wound. 01/06/18. Seen by Dr. Luke. The patient's new to our clinic and presents with a chronic, non- healing left posterior lower leg surgical wound following excision of a basal cell carcinoma in early November. She reports some intermittent pain at the site and has been on antibiotics for an associate infection without resolution of symptoms or improvement in terms of healing. She has chronic venous hypertension in the leg as well but is unable to wear compression stockings due to a number of lipomas in the lower leg that she states cause discomfort when under compression. She does not report fevers or feeling unwell otherwise and does not have a history of diabetes or PAD. Past Medical History This information was obtained from the patient Patient has a medical history of: Thoracic outlet syndrome Chronic Obstructive Pulmonary Disease (COPD) Degenerative disc disease Atrial fibrillation Asthma Gastro Esoph. Reflux Disease (GERD) Arthritis (knee) Hypertension Complaints and Symptoms This information was obtained from the patient Patient complains of: General Notes: I have reviewed and concur with the Review of Systems and Past Family Social History documents completed by the clinician, I have reviewed and concur with the Wound Assessment document completed by the clinician Cardiovascular (Central/Peripheral): Lower extremity (leg) swelling Hematologic/Lymphatic: Bleeding Tendency Integumentary (Hair/Skin/Nails): Open Sore Prior Wound History: Drainage, Erythema, Pain Patient denies complaints or symptoms related to: Cardiovascular (Central/Peripheral): Intermittent Claudication, Lower extremity (leg) resting pain Constitutional Symptoms (General Health): Chills, Fever Ear/Nose/Mouth/Throat: Hearing Loss / Aid Hematologic/Lymphatic: Bleeding / Clotting Disorders Musculoskeletal: Assistive Devices Neurological: Loss of Protective Sensation Psychiatric: Memory Loss Respiratory: Shortness of Breath OBJECTIVE Constitutional BP normal; Low grade fever; Alert and in no distress. Well developed. Alert. Clean appearing.. Height/Length: 66 in (167.64 cm), Weight: 244.4 lbs (111.09 kgs), BMI: 39.4, Temperature: 99 ?F (37.22 ?C), Pulse: 77 bpm, Respiratory Rate: 18 breaths/min, Blood Pressure: 134/76 mmHg, Pulse Oximetry: 95 %. Respiratory: No respiratory distress. Even respirations and without use of accessory muscles.. Cardiovascular: 2+ left lower extremity edema. Gastrointestinal (GI): Obese. Nondistended.. Integumentary (Hair, Skin) No periwound erythema, warmth, or significant drainage. No periwound rashes appreciated or noted otherwise.. Refer to appropriate clinician wound documentation for this visit; left lower leg ulcer extends to subcut with base partially covered with pink granulation, remainder fibrin and slough. Wound #1 Left Calf is a chronic Full Thickness Surgical Wound and has received a status of Not Healed. Subsequent wound encounter measurements are 0.4cm length x 0.6cm width x 1.5cm depth, with an area of 0.24 sq cm and a volume of 0.36 cubic cm. Adipose is exposed. Tunneling has been noted at 1:00 with a maximum distance of 1.9cm. No sinus tract has been noted. No undermining has been noted. There is a small amount of serous drainage noted which has no odor. The patient reports a wound pain of level 2/10. The wound margin is attached. Wound bed has No epithelialization, No eschar, Yes slough, Yes bright red, pink, firm granulation. The periwound skin moisture is normal. The periwound skin color is normal. The periwound skin exhibited: Induration. The periwound skin did not exhibit: Brawny Induration, Edema, Excoriation, Callus, Crepitus, Fluctuance, Friable, Rash. The temperature of the periwound skin is WNL. Periwound skin does not exhibit signs or symptoms of infection. Local Pulse is Palpable. Neurological: Cranial nerves grossly intact with symmetric function normal by informal observation.. ASSESSMENT Active Problems ICD-10 (Encounter Diagnosis) L97.822 - Non-pressure chronic ulcer of other part of left lower leg with fat layer exposed (Encounter Diagnosis) I87.392 - Chronic venous hypertension (idiopathic) with other complications of left lower extremity (Encounter Diagnosis) T81.31XD - Disruption of external operation (surgical) wound, not elsewhere classified, subsequent encounter (Encounter Diagnosis) B95.7 - Other staphylococcus as the cause of diseases classified elsewhere PROCEDURES Wound #1 Wound #1 (Surgical Wound) is located on the left calf. A skin/subcutaneous tissue level surgical debridement with a total area debrided of 0.24 sq cm was performed by Jr Luke MD. Subcutaneous was removed along with devitalized tissue: exudate and slough. The following instrument(s) were used: curette. Pain control was achieved using 4% Lido. A time out was conducted prior to the start of the procedure. A minimal amount of bleeding was controlled with n/a. The procedure was tolerated well with a pain level of 0 throughout and a pain level of 0 following the procedure. Post Debridement Measurements: 0.4cm length x 0.6cm width x 1.6cm depth; with an area of 0.24 sq cm and a volume of 0.384 cubic cm; Wound #1 (Surgical Wound) is located on the left calf. A Multilayer Compression procedure was performed by Jr Luke MD. General Notes: Left leg. Coban 2 lite Additional Information Muscle fascia or bone removed and sent to pathology?: No PLAN Wound Orders: Wound #1 Left Calf Anesthetic Topical Xylocaine to wound bed. - In clinic only Cleanser Cleanse Wound: - Distilled water May Shower. - Keeping the dressing dry and intact. Topical Treatments Antibiotic/Antimicrobial Ointment/Cream. - Gentamicin ointment Dressings Primary dressing: - Border foam Change Dressing: - Every other day Compression/Edema Control Multi Layer Wrap: - Coban lite 2 layers compression wrap: Do not get leg with compression wrap wet. If wrap is too tight call the wound care center or remove if you are unable to reach the center. Please remove wraps for numbness, tingling, pain in legs or color changes in toes and call the clinic the same day. If symptoms do not resolve after removing wraps Follow-Up Appointments Return Appointment: - - One week Other information: If you develop fever, chills, increased pain, drainage, redness or swelling please call our office. If after hours, respond to the ER. Should you experience any significant changes in your wound(s) or have any questions regarding your home care instructions please contact the wound center @ [phone]. If after hours, contact your primary care physician or go to the hospital emergency room. Scribing Attestation I attest, as the nurse, that I scribed these orders for the physician. General Notes: Please complete oral antibiotics. I've reviewed the clinician's documentation and agree with the evaluation and plan as written. In addition, the patient's ulcer demonstrates evidence of non-viable devitalized tissue which will continue to benefit from sharp debridement to help promote granulation and expedite healing. Also, the patient will complete her course of doxycycline as prescribed and we' ll continue with compression therapy using a Coban wrap. Electronic Signature(s) Signed By: Date: Jr Luke MD 03/10/2018 07:01:57 Entered By: Jr Luke on 03/09/2018 11:07:27
== END ==
PROVIDERS: PCP Family Medicine; Visit Provider Internal Medicine
DX: L97.222 Non-pressure chronic ulcer of left calf with fat layer exposed (principal); I87.392 Chronic venous hypertension (idiopathic) with other complications of left lower extremity; B95.7 Other staphylococcus as the cause of diseases classified elsewhere
CPT/HCPCS: 11042

== ENCOUNTER → 2018-03-14 08:48 | Outpatient (CLI) | payer MEDICARE, OTHER, SELFPAY ==
--- NOTE | 2018-03-14 | OV.WND_ITS ---
Progress Note Details Patient Name: Rashida Patten Patient Number: [id number] PatientPatientDate: 03/14/2018 Clinician: Ana Silva Clinician Cosigner: Gertrude Duarte Physician / Esthetician/Skin Therapist: Jr Luke SUBJECTIVE Chief Complaint This information was obtained from the patient Non-healing surgical wound on left calf. Allergies Betadine (Reaction: rash), iodine (Reaction: rash), flu vaccine (in 1991) ( Reaction: rash), sulfur (Severity: Moderate, Reaction: rash/welts), Sulfa (Sulfonamide Antibiotics) (Severity: Moderate, Reaction: rash/welts), adhesive (Severity: Moderate, Reaction: welts) HPI This information was obtained from the patient 03/13/18. Seen by Dr. Luke. The patient does not report pain or significant drainage associated with the chronic left lower leg non-pressure ulcer and she tolerated another application of the Coban compression wrap without reporting discomfort. 03/06/18. Seen by Dr. Luke. The patient does not report pain or significant drainage associated with the chronic left lower leg non-pressure ulcer and she tolerated the initial application of the Coban compression wrap with only minimal discomfort noting that when she elevated her leg the discomfort resolved. She's also on doxycycline for the coag negative Staph wound culture and does not report adverse effects. 03/04/18. Seen by Dr. Luke. The patient does not report pain or significant drainage associated with the chronic left lower leg non-pressure ulcer and NPWT was held at her last visit due to my concern for infection. Her wound culture grew a coag negative Staph and she's not currently taking antibiotics for this. She's wearing a compression stocking also treat chronic venous hypertension in the leg. 02/28/18. Seen by Dr Luke. The patient does not report pain or significant drainage associated with the chronic left lower leg non-pressure ulcer, which started as a surgical wound but has shown delayed healing since establishing at our clinic, since her last visit. She reports chronic swelling in the leg as well but is not wearing compression stockings due to difficulty in sizing the stocking correctly. 02/25/18. Seen by Dr Luke. The patient does not report pain or significant drainage associated with the chronic left lower leg surgical wound since her last visit. 02/21/18. Seen by Dr Luke. The patient does not report pain or significant drainage associated with the chronic left lower leg surgical wound since her last visit and her wound vac remained fully functional since her last visit. 02/19/18. Seen by Dr Luke. The patient does not report pain or significant drainage associated with the chronic left lower leg surgical wound since her last visit. She notes though the wound vac seemed to start leaking and it was removed on Saturday. 02/14/18. The patient does not report pain or significant drainage associated with the chronic left lower leg surgical wound since her last visit. 02/11/18. The patient does not report pain or significant drainage associated with the chronic left lower leg surgical wound since her last visit. She's been applying topical gentamicin also as recommended to treat the coag negative staph culture. 02/04/18. Seen by Dr. Luke. The patient does not report pain or significant drainage associated with the left posterior lower leg surgical wound since her last visit. 01/31/18. Seen by Dr. Luke. The patient does not report pain or significant drainage associated with the left posterior lower leg surgical wound since her last visit. 01/28/18. Seen by Dr. Luke. The patient does not report pain or significant drainage associated with the left posterior lower leg surgical wound since her last visit however she states her wound vac leaked on Saturday and it was removed at that time. 01/24/18. Seen by Dr. Luke. The patient does not report pain or significant drainage associated with the left posterior lower leg surgical wound since her last visit. 01/22/18. Seen by Dr. Luke. The patient does not report pain or significant drainage associated with the left posterior lower leg surgical wound since her last visit. 01/14/18. Seen by Dr. Luke. The patient reports only minimal, intermittent pain associated with the left posterior lower leg surgical wound since her last visit and she's been applying topical gentamicin to treat the recent coag negative Staph cultured from the wound. 01/06/18. Seen by Dr. Luke. The patient's new to our clinic and presents with a chronic, non- healing left posterior lower leg surgical wound following excision of a basal cell carcinoma in early November. She reports some intermittent pain at the site and has been on antibiotics for an associate infection without resolution of symptoms or improvement in terms of healing. She has chronic venous hypertension in the leg as well but is unable to wear compression stockings due to a number of lipomas in the lower leg that she states cause discomfort when under compression. She does not report fevers or feeling unwell otherwise and does not have a history of diabetes or PAD. Past Medical History This information was obtained from the patient Patient has a medical history of: Thoracic outlet syndrome Chronic Obstructive Pulmonary Disease (COPD) Degenerative disc disease Atrial fibrillation Asthma Gastro Esoph. Reflux Disease (GERD) Arthritis (knee) Hypertension Complaints and Symptoms This information was obtained from the patient Patient complains of: General Notes: I have reviewed and concur with the Review of Systems and Past Family Social History documents completed by the clinician, I have reviewed and concur with the Wound Assessment document completed by the clinician Cardiovascular (Central/Peripheral): Lower extremity (leg) swelling Hematologic/Lymphatic: Bleeding Tendency Integumentary (Hair/Skin/Nails): Open Sore Prior Wound History: Drainage, Erythema, Pain Patient denies complaints or symptoms related to: Cardiovascular (Central/Peripheral): Intermittent Claudication, Lower extremity (leg) resting pain Constitutional Symptoms (General Health): Chills, Fever Ear/Nose/Mouth/Throat: Hearing Loss / Aid Hematologic/Lymphatic: Bleeding / Clotting Disorders Musculoskeletal: Assistive Devices Neurological: Loss of Protective Sensation Psychiatric: Memory Loss Respiratory: Shortness of Breath OBJECTIVE Constitutional Vital signs reviewed and noted. Well developed. Alert. Clean appearing.. Height/ Length: 66 in (167.64 cm), Weight: 244.4 lbs (111.09 kgs), BMI: 39.4, Temperature: 98.1 ?F ( 36.72 ?C), Pulse: 73 bpm, Respiratory Rate: 18 breaths/min, Blood Pressure: 123/79 mmHg, Pulse Oximetry: 97 %. Cardiovascular: 2+ left lower extremity edema. Gastrointestinal (GI): Obese. Nondistended.. Integumentary (Hair, Skin) No periwound erythema, warmth, or significant drainage. No periwound rashes appreciated or noted otherwise.. Refer to appropriate clinician wound documentation for this visit; left lower leg wound extends to subcut with base partially covered with pink granulation, remainder fibrin and slough. Wound #1 Left Calf is a chronic Full Thickness Surgical Wound and has received a status of Not Healed. Subsequent wound encounter measurements are 0.2cm length x 0.3cm width x 1.5cm depth, with an area of 0.06 sq cm and a volume of 0.09 cubic cm. No tunneling has been noted. No sinus tract has been noted. No undermining has been noted. There is a small amount of serosanguineous drainage noted which has no odor. The patient reports a wound pain of level 2/10. The wound margin is attached. Wound bed has No epithelialization, No eschar, No slough, Yes bright red, firm granulation. The periwound skin moisture is normal. The periwound skin color is normal. The periwound skin exhibited: Induration. The periwound skin did not exhibit: Brawny Induration, Edema, Excoriation, Callus, Crepitus, Fluctuance, Friable, Rash. The temperature of the periwound skin is WNL. Periwound skin does not exhibit signs or symptoms of infection. Local Pulse is Palpable. Neurological: Cranial nerves grossly intact with symmetric function normal by informal observation.. ASSESSMENT Active Problems ICD-10 (Encounter Diagnosis) L97.822 - Non-pressure chronic ulcer of other part of left lower leg with fat layer exposed (Encounter Diagnosis) I87.392 - Chronic venous hypertension (idiopathic) with other complications of left lower extremity (Encounter Diagnosis) T81.31XD - Disruption of external operation (surgical) wound, not elsewhere classified, subsequent encounter PLAN Wound Orders: Wound #1 Left Calf Anesthetic Topical Xylocaine to wound bed. - In clinic only Cleanser Cleanse Wound: - Distilled water May Shower. - Keeping the dressing dry and intact. Topical Treatments Antibiotic/Antimicrobial Ointment/Cream. - Gentamicin ointment Dressings Primary dressing: - Border foam Compression/Edema Control Multi Layer Wrap: - Coban lite 2 layers compression wrap: Do not get leg with compression wrap wet. If wrap is too tight call the wound care center or remove if you are unable to reach the center. Please remove wraps for numbness, tingling, pain in legs or color changes in toes and call the clinic the same day. If symptoms do not resolve after removing wraps Follow-Up Appointments Return Appointment: - - One week Other information: If you develop fever, chills, increased pain, drainage, redness or swelling please call our office. If after hours, respond to the ER. Should you experience any significant changes in your wound(s) or have any questions regarding your home care instructions please contact the wound center @ [phone]. If after hours, contact your primary care physician or go to the hospital emergency room. Scribing Attestation I attest, as the nurse, that I scribed these orders for the physician. I've reviewed the clinician's documentation and agree with the evaluation and plan as written. Also, the patient's ulcer has shown improvement and we'll continue using a Coban compression wrap to treat the chronic venous hypertension. Electronic Signature(s) Signed By: Date: Jr Luke MD 03/17/2018 13:43:10 Entered By: Jr Luke on 03/17/2018 13:37:24
== END ==
PROVIDERS: PCP Family Medicine; Visit Provider Internal Medicine
DX: L97.222 Non-pressure chronic ulcer of left calf with fat layer exposed (principal); I87.392 Chronic venous hypertension (idiopathic) with other complications of left lower extremity
CPT/HCPCS: 99212

== ENCOUNTER → 2018-03-21 14:23 | Outpatient (CLI) | payer MEDICARE, OTHER, SELFPAY ==
--- NOTE | 2018-03-21 | OV.WND_ITS ---
Progress Note Details Patient Name: Rashida Patten Patient Number: [id number] PatientPatientDate: 03/21/2018 Clinician: Tran Perez Clinician Cosigner: Gertrude Duarte Physician / Cake Press Operator: Jr Luke SUBJECTIVE Chief Complaint This information was obtained from the patient Non-healing surgical wound on left calf. Allergies Betadine (Reaction: rash), iodine (Reaction: rash), flu vaccine (in 1991) ( Reaction: rash), sulfur (Severity: Moderate, Reaction: rash/welts), Sulfa (Sulfonamide Antibiotics) (Severity: Moderate, Reaction: rash/welts), adhesive (Severity: Moderate, Reaction: welts) HPI This information was obtained from the patient 03/21/18. Seen by Dr. Luke. The patient does not report pain or significant drainage associated with the chronic left lower leg non-pressure ulcer and she tolerated another application of the Coban compression wrap without reporting discomfort. 03/13/18. Seen by Dr. Luke. The patient does not report pain or significant drainage associated with the chronic left lower leg non-pressure ulcer and she tolerated another application of the Coban compression wrap without reporting discomfort. 03/06/18. Seen by Dr. Luke. The patient does not report pain or significant drainage associated with the chronic left lower leg non-pressure ulcer and she tolerated the initial application of the Coban compression wrap with only minimal discomfort noting that when she elevated her leg the discomfort resolved. She's also on doxycycline for the coag negative Staph wound culture and does not report adverse effects. 03/04/18. Seen by Dr. Luke. The patient does not report pain or significant drainage associated with the chronic left lower leg non-pressure ulcer and NPWT was held at her last visit due to my concern for infection. Her wound culture grew a coag negative Staph and she's not currently taking antibiotics for this. She's wearing a compression stocking also treat chronic venous hypertension in the leg. 02/28/18. Seen by Dr Luke. The patient does not report pain or significant drainage associated with the chronic left lower leg non-pressure ulcer, which started as a surgical wound but has shown delayed healing since establishing at our clinic, since her last visit. She reports chronic swelling in the leg as well but is not wearing compression stockings due to difficulty in sizing the stocking correctly. 02/25/18. Seen by Dr Luke. The patient does not report pain or significant drainage associated with the chronic left lower leg surgical wound since her last visit. 02/21/18. Seen by Dr Luke. The patient does not report pain or significant drainage associated with the chronic left lower leg surgical wound since her last visit and her wound vac remained fully functional since her last visit. 02/19/18. Seen by Dr Luke. The patient does not report pain or significant drainage associated with the chronic left lower leg surgical wound since her last visit. She notes though the wound vac seemed to start leaking and it was removed on Saturday. 02/14/18. The patient does not report pain or significant drainage associated with the chronic left lower leg surgical wound since her last visit. 02/11/18. The patient does not report pain or significant drainage associated with the chronic left lower leg surgical wound since her last visit. She's been applying topical gentamicin also as recommended to treat the coag negative staph culture. 02/04/18. Seen by Dr. Luke. The patient does not report pain or significant drainage associated with the left posterior lower leg surgical wound since her last visit. 01/31/18. Seen by Dr. Luke. The patient does not report pain or significant drainage associated with the left posterior lower leg surgical wound since her last visit. 01/28/18. Seen by Dr. Luke. The patient does not report pain or significant drainage associated with the left posterior lower leg surgical wound since her last visit however she states her wound vac leaked on Saturday and it was removed at that time. 01/24/18. Seen by Dr. Luke. The patient does not report pain or significant drainage associated with the left posterior lower leg surgical wound since her last visit. 01/22/18. Seen by Dr. Luke. The patient does not report pain or significant drainage associated with the left posterior lower leg surgical wound since her last visit. 01/14/18. Seen by Dr. Luke. The patient reports only minimal, intermittent pain associated with the left posterior lower leg surgical wound since her last visit and she's been applying topical gentamicin to treat the recent coag negative Staph cultured from the wound. 01/06/18. Seen by Dr. Luke. The patient's new to our clinic and presents with a chronic, non- healing left posterior lower leg surgical wound following excision of a basal cell carcinoma in early November. She reports some intermittent pain at the site and has been on antibiotics for an associate infection without resolution of symptoms or improvement in terms of healing. She has chronic venous hypertension in the leg as well but is unable to wear compression stockings due to a number of lipomas in the lower leg that she states cause discomfort when under compression. She does not report fevers or feeling unwell otherwise and does not have a history of diabetes or PAD. Past Medical History This information was obtained from the patient Patient has a medical history of: Thoracic outlet syndrome Chronic Obstructive Pulmonary Disease (COPD) Degenerative disc disease Atrial fibrillation Asthma Gastro Esoph. Reflux Disease (GERD) Arthritis (knee) Hypertension Complaints and Symptoms This information was obtained from the patient Patient complains of: General Notes: I have reviewed and concur with the Review of Systems and Past Family Social History documents completed by the clinician, I have reviewed and concur with the Wound Assessment document completed by the clinician Cardiovascular (Central/Peripheral): Lower extremity (leg) swelling Hematologic/Lymphatic: Bleeding Tendency Integumentary (Hair/Skin/Nails): Open Sore Prior Wound History: Drainage, Erythema, Pain Patient denies complaints or symptoms related to: Cardiovascular (Central/Peripheral): Intermittent Claudication, Lower extremity (leg) resting pain Constitutional Symptoms (General Health): Chills, Fever Ear/Nose/Mouth/Throat: Hearing Loss / Aid Hematologic/Lymphatic: Bleeding / Clotting Disorders Musculoskeletal: Assistive Devices Neurological: Loss of Protective Sensation Psychiatric: Memory Loss Respiratory: Shortness of Breath OBJECTIVE Constitutional BP elevated; Afebrile; Alert and in no distress. Well developed. Alert. Clean appearing.. Height/Length: 66 in (167.64 cm), Weight: 244.4 lbs (111.09 kgs), BMI: 39.4, Temperature: 98.4 ?F (36.89 ?C), Pulse: 78 bpm, Respiratory Rate: 18 breaths/min, Blood Pressure: 141/87 mmHg, Pulse Oximetry: 97 %. Respiratory: No respiratory distress. Even respirations and without use of accessory muscles.. Cardiovascular: 2+ left lower extremity edema. Gastrointestinal (GI): Obese. Nondistended.. Integumentary (Hair, Skin) No periwound erythema, warmth, or significant drainage. No periwound rashes appreciated or noted otherwise.. Refer to appropriate clinician wound documentation for this visit. Wound #1 Left Calf is a chronic Full Thickness Surgical Wound and has received a status of Not Healed. Subsequent wound encounter measurements are 0.2cm length x 0.2cm width x 0.2cm depth, with an area of 0.04 sq cm and a volume of 0.008 cubic cm. No tunneling has been noted. No sinus tract has been noted. No undermining has been noted. There is a small amount of serosanguineous drainage noted which has no odor. The patient reports a wound pain of level 2/10. The wound margin is attached. Wound bed has Yes epithelialization, No eschar, No slough, Yes bright red, firm granulation. The periwound skin moisture is normal. The periwound skin color is normal. The periwound skin exhibited: Induration. The periwound skin did not exhibit: Brawny Induration, Edema, Excoriation, Callus, Crepitus, Fluctuance, Friable, Rash. The temperature of the periwound skin is WNL. Periwound skin does not exhibit signs or symptoms of infection. Local Pulse is Palpable. Neurological: Cranial nerves grossly intact with symmetric function normal by informal observation.. ASSESSMENT Active Problems ICD-10 (Encounter Diagnosis) L97.822 - Non-pressure chronic ulcer of other part of left lower leg with fat layer exposed (Encounter Diagnosis) I87.392 - Chronic venous hypertension (idiopathic) with other complications of left lower extremity (Encounter Diagnosis) T81.31XD - Disruption of external operation (surgical) wound, not elsewhere classified, subsequent encounter PROCEDURES Wound #1 Wound #1 (Surgical Wound) is located on the left calf. A Multilayer Compression procedure was performed for the lower left extremity by Tran Perez RN. A 2 Layers Coban was applied with high 30-40 mmhg. The procedure was tolerated well with pain level of 0 throughout and a pain level of 0 following the procedure. General Notes: Left leg. Coban 2 lite PLAN Wound Orders: Wound #1 Left Calf Anesthetic Topical Xylocaine to wound bed. - In clinic only Cleanser Cleanse Wound: - Distilled water May Shower. - Keeping the dressing dry and intact. Dressings Primary dressing: - Border foam Compression/Edema Control Multi Layer Wrap: - Coban lite 2 layers compression wrap: Do not get leg with compression wrap wet. If wrap is too tight call the wound care center or remove if you are unable to reach the center. Please remove wraps for numbness, tingling, pain in legs or color changes in toes and call the clinic the same day. If symptoms do not resolve after removing wraps Follow-Up Appointments Return Appointment: - - One week Other information: If you develop fever, chills, increased pain, drainage, redness or swelling please call our office. If after hours, respond to the ER. Should you experience any significant changes in your wound(s) or have any questions regarding your home care instructions please contact the wound center @ [phone]. If after hours, contact your primary care physician or go to the hospital emergency room. Scribing Attestation I attest, as the nurse, that I scribed these orders for the physician. I've reviewed the clinician's documentation and agree with the evaluation and plan as written. Electronic Signature(s) Signed By: Date: Jr Luke MD 03/24/2018 13:28:46 Entered By: Jr Luke on 03/24/2018 06:39:20
== END ==
PROVIDERS: PCP Family Medicine; Visit Provider Internal Medicine
DX: I87.312 Chronic venous hypertension (idiopathic) with ulcer of left lower extremity (principal); L97.822 Non-pressure chronic ulcer of other part of left lower leg with fat layer exposed
CPT/HCPCS: 29581

== ENCOUNTER → 2018-03-28 14:10 | Outpatient (CLI) | payer MEDICARE, OTHER, SELFPAY | PROVIDERS: PCP Family Medicine; Visit Provider Family Medicine | DX: Z48.817 Encounter for surgical aftercare following surgery on the skin and subcutaneous tissue (principal) | CPT/HCPCS: 99212 ==

== ENCOUNTER 2018-07-17 15:15 | Outpatient (RCR) | payer MEDICARE, OTHER, SELFPAY ==
--- NOTE | 2018-05-15 08:11 | PT.OPPOC ---
Current Diagnoses Lymphedema, not elsewhere classified (05/14/18) Provider Visit Care Team Role Provider Type Daria Meier DO Primary Care Provider Non-Staff Specialty: Medical Address: [address] [place] [address], [place], [address] Email: Rufus Lewis Attending Provider Non-Staff Specialty: Medical Address: [place] [address] [address], [place], [place], [address] Phone: Fax: Email: Plan Of Care PT-OP-T Assessment and Plan Start: 05/14/18 08:16 Freq: Status: Active Protocol: Document 05/14/18 08:15 [facility] (Rec: 05/14/18 17:13 [facility] [id number]) Physical Therapy Assessment Goals decreased activity tolerance Senior Living Goal (LTG) Decrease LE edema and pain sufficient to allow patient to resume prior level of activity. LTG Duration 3 months Pain Impairment 7/10 Short Term Goal (STG) Decrease pain to no greater than 4/10 STG Duration 6 wks Senior Living Goal (LTG) Decrease pain to no greater than 2/10 LTG Duration 3 months Edema Short Term Goal (STG) Instruct patient in self-MLD, sequential lymphedema exercises, self-wrapping and/ or taping as indicated. STG Duration 3 wks Senior Living Goal (LTG) Decrease and stabilize edema ( no increase or decrease more than 1 cm over the course of 1 wk), assist patient in obtaining appropriate compression stockings, consider use of home sequential lymphedema pump. Patient to be independnet in self-managment. LTG Duration 3 months Assessment Summary Assessment Patient presents with function -limiting edema bilateral LE' s from ankles to thighs with prominent fatty masses bilateral medial LE's just inferior to knee joints. Diagnosis has been fairly inconclusive and patient is considering additional surgical opinion. She is receptive to suggestion for consultation at [facility] clinic for medical weight loss assistance, and wants assistance in learning self- massage and exercise as well as problem-solving best option for compression to decrease the edema as well. Feel she would benefit from PT to address the above goals. May also benefit from use of sequential lymphedema pump. Discussed aquatic therapy as good option for exercise both due to hydrostatic pressure effects on edema and increased ease of mobility and decreased pain; patient's work schedule may make this difficult but will discuss further as well. Physical Therapy Plan Frequency and Duration Frequency of Treatment 2x/Week Duration of Treatment 3 months Plan of Care Start Date 05/14/18 Plan of Care End Date 08/12/18 Therapeutic Interventions Therapeutic Interventions Aquatic Therapy Home Exercise Program Lymphedema Management Manual Therapy Patient/Caregiver Education Self-Care/Home Management Therapeutic Activities Therapeutic Exercises Next Visit Focus/Plan Next Note Type Treatment Note Next Visit Plan Assess response to first session. MLD, further discussion of compression options, therapeutic exercises for ROM and strengthening. Plan of Care Dates Plan of Care Start Date 05/14/18 Plan of Care End Date 08/12/18 Please Sign and Return: I have reviewed this Plan of Care and certify that the skilled therapy services above are required to meet the patient?s needs. Physician Signature Date Printed Name and Credentials Clinical Instructor Signature Printed Name and Credentials
--- NOTE | 2018-05-15 08:12 | PT.OIE ---
Current Diagnoses Lymphedema, not elsewhere classified (05/14/18) Past Medical History (Last Reviewed 01/19/18 @ 06:43 by Antony Loja MD) Arthritis (Chronic) Asthma (Chronic) HTN (hypertension) (Chronic) Provider Visit Care Team Role Provider Type Daria Meier DO Primary Care Provider Non-Staff Specialty: Medical Address: [address] [place] [address], [address] Email: Rufus Lewis Attending Provider Non-Staff Specialty: Medical Address: [place] [address] [address], [place], [place], [address] Phone: Fax: Email: Physical Therapy Initial Evaluation PT-OP-A Visit Information Start: 05/14/18 08:16 Freq: Status: Active Protocol: Document 05/14/18 08:15 [facility] (Rec: 05/14/18 09:50 [facility] [id number]) Out-Patient Physical Therapy Visit Information Visit Information Visit Type Initial Evaluation Visit Start Time 08:15 Visit Stop Time 09:35 Total Visit Minutes 80 Visit Number 1 Number of HEAD OF DATA Visits 0 PT-OP-B Current Condition Start: 05/14/18 08:16 Freq: Status: Active Protocol: Document 05/14/18 08:15 [facility] (Rec: 05/14/18 09:50 [facility] [id number]) Current Condition History of Current Condition Onset Date 1 year Current Complaints edema and pain bilateral LE's left greater than right History of Current Condition Reports lifetime history of edema in hands and LE's. Also with history of multiple lipomas, some removed by surgery. Worsening edema in LE's over past year with no known cause including development of large painful lipomas medial LE's in knee region which are limiting her function. Reports told by surgeon surgery not indicated for these lipomas and he questioned whether they truly are lipomas; he recommended she lose weight and try physical therapy. Patient reports she has not had success with compression stockings in the past due to poor fit and finds it very difficult to don them due to LBP and difficulty reaching her feet. 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 Also has a history of a-fib, arthritis, back pain, HTN, headaches, hernia, neck pain, 6 abdominal surgeries. 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/School works multimedia assistant Current Functional Impairments (Reported) Functional Limitations- ADL's Painful, difficulty donning compression stockings, shoes Functional Limitations- Mobility/Gait Painful, only able to walk short community distances Functional Limitations- Work/School works multimedia assistant PT-OP-G Mobility & Gait Start: 05/14/18 08:16 Freq: Status: Active Protocol: Document 05/14/18 08:15 [facility] (Rec: 05/14/18 17:13 [facility] [id number]) OP Gait Assessment Gait Gait Assistance Required: Independent Distance (Feet) 50 Gait Deviations General Gait Pattern Antalgic Decreased Stride Length Decreased Feet Clearance Factors Limiting Gait Function Factors Limiting Gait Function Pain Comments Gait Comments limited by weight of legs, edema PT-OP-J Posture/Palpation/Skin Start: 05/14/18 08:16 Freq: Status: Active Protocol: Document 05/14/18 08:15 [facility] (Rec: 05/14/18 17:13 [facility] [id number]) Palpation Assessment Location medial knees azra Palpation Findings Edema Tenderness Palpation Details Large areas of edema medial bilateral LE's (see photos in paper chart) just inferior to knee joints; they are symmetrical, soft, tender, some increased small veins in region right greater than left . No palpable increase in warmth, skin intact. Mild fibrosis in tissue just superior to malleoli bilaterally right greater than left. PT-OP-K Range of Motion Start: 05/14/18 08:16 Freq: Status: Active Protocol: Document 05/14/18 08:15 [facility] (Rec: 05/14/18 17:13 [facility] [id number]) Hip Goniometric Range of Motion Hip Measured in Degrees Left Testing Position Supine Flexion w/Knee Flexed 95 Straight Leg Raise 55 Extension 5 Internal Rotation 15 External Rotation 30 Right Testing Position Supine Flexion w/Knee Flexed 90 Straight Leg Raise 50 Extension 5 Internal Rotation 15 External Rotation 30 Knee Goniometric Range of Motion Knee Measured in Degrees Left Flexion Active (degrees) 100 Extension Active (degrees) 0 Right Flexion Active (degrees) 100 Extension Active (degrees) 0 Knee ROM Limitations Comments limited by tissue aproximation Ankle and Foot Goniometric Range of Motion Ankle and Foot Measured in Degrees Left Dorsiflexion with Knee Flexed 5 Dorsiflexion with Knee Extended 0 Right Dorsiflexion with Knee Flexed 5 Dorsiflexion with Knee Extended 0 Ankle and Foot ROM Limitations ROM Limitations Soft Tissue Tightness PT-OP-M Strength Start: 05/14/18 08:16 Freq: Status: Active Protocol: Document 05/14/18 08:15 [facility] (Rec: 05/14/18 17:13 [facility] [id number]) Hip Strength Hip Manual Muscle Testing Left Flexion (L2) 4- Good- Extension (S1) 3- Fair- Right Flexion (L2) 4- Good- Extension (S1) 3- Fair- Knee Strength Knee Manual Muscle Testing Left Flexion (S2) 4- Good- Extension (L3) 4- Good- Right Flexion (S2) 4- Good- Extension (L3) 4- Good- Ankle/Foot Strength Ankle and Foot Manual Muscle Testing Right Dorsiflexion (L4) 4+ Good+ Plantarflexion (S1) 4+ Good+ PT-OP-N Lymphedema Start: 05/14/18 08:16 Freq: Status: Active Protocol: Document 05/14/18 08:15 [facility] (Rec: 05/14/18 17:19 [facility] [id number]) Lymphedema Measurements Lower Extremity Circumference Measurements Left MT Heads 21.2 cm Medial Malleolus 25.8 cm 10 cm From Medial Malleolus 34.8 cm 20 cm From Medial Malleolus 46.1 cm 30 cm From Medial Malleolus 52.2 cm 40 cm From Medial Malleolus 46.5 cm 50 cm From Medial Malleolus 58.8 cm 60 cm From Medial Malleolus 66.9 cm 70 cm From Medial Malleolus 84.2 cm Right MT Heads 21.8 cm Medial Malleolus 25.5 cm 10 cm From Medial Malleolus 31.1 cm 20 cm From Medial Malleolus 44.4 cm 30 cm From Medial Malleolus 51.8 cm 40 cm From Medial Malleolus 46.1 cm 50 cm From Medial Malleolus 58.3 cm 60 cm From Medial Malleolus 66.5 cm 70 cm From Medial Malleolus 79.8 cm Comments Lymphedema Comments No significant edema in feet. PT-OP-Q Treatments Start: 05/14/18 08:16 Freq: Status: Active Protocol: Document 05/14/18 08:15 [facility] (Rec: 05/14/18 17:15 [facility] [id number]) Cardio Equipment Recumbent Stepper (Sci-Fit) Duration (Minutes) 5 Resistance 1 Other to facilitate lymphatic flow following MLD and kinesiotape Lymphedema Treatment Manual Lymphatic Drainage Location left LE Duration 30 min Patient Education Lymphedema Pathology verbal and use of posters Compression Garments Discussion of options, patient difficulties Self Manual Lymphatic Drainage verbal and demonstration Sequential Lymphedema Exercises Verbal PT-OP-T Assessment and Plan Start: 05/14/18 08:16 Freq: Status: Active Protocol: Document 05/14/18 08:15 [facility] (Rec: 05/14/18 17:13 [facility] [id number]) Physical Therapy Assessment Goals decreased activity tolerance Care Home Goal (LTG) Decrease LE edema and pain sufficient to allow patient to resume prior level of activity. LTG Duration 3 months Pain Impairment 7/10 Short Term Goal (STG) Decrease pain to no greater than 4/10 STG Duration 6 wks Cooler Supervisor Goal (LTG) Decrease pain to no greater than 2/10 LTG Duration 3 months Edema Short Term Goal (STG) Instruct patient in self-MLD, sequential lymphedema exercises, self-wrapping and/ or taping as indicated. STG Duration 3 wks Care Home Goal (LTG) Decrease and stabilize edema ( no increase or decrease more than 1 cm over the course of 1 wk), assist patient in obtaining appropriate compression stockings, consider use of home sequential lymphedema pump. Patient to be independnet in self-managment. LTG Duration 3 months Assessment Summary Assessment Patient presents with function -limiting edema bilateral LE' s from ankles to thighs with prominent fatty masses bilateral medial LE's just inferior to knee joints. Diagnosis has been fairly inconclusive and patient is considering additional surgical opinion. She is receptive to suggestion for consultation at [facility] clinic for medical weight loss assistance, and wants assistance in learning self- massage and exercise as well as problem-solving best option for compression to decrease the edema as well. Feel she would benefit from PT to address the above goals. May also benefit from use of sequential lymphedema pump. Discussed aquatic therapy as good option for exercise both due to hydrostatic pressure effects on edema and increased ease of mobility and decreased pain; patient's work schedule may make this difficult but will discuss further as well. Physical Therapy Plan Frequency and Duration Frequency of Treatment 2x/Week Duration of Treatment 3 months Plan of Care Start Date 05/14/18 Plan of Care End Date 08/12/18 Therapeutic Interventions Therapeutic Interventions Aquatic Therapy Home Exercise Program Lymphedema Management Manual Therapy Patient/Caregiver Education Self-Care/Home Management Therapeutic Activities Therapeutic Exercises Next Visit Focus/Plan Next Note Type Treatment Note Next Visit Plan Assess response to first session. MLD, further discussion of compression options, therapeutic exercises for ROM and strengthening.
--- NOTE | 2018-05-20 16:45 | PT.OTN ---
Current Diagnoses Lymphedema, not elsewhere classified (05/20/18) Physical Therapy Treatment Note PT-OP-A Visit Information Start: 05/14/18 08:16 Freq: Status: Active Protocol: Document 05/20/18 16:37 GGD (Rec: 05/20/18 16:45 GGD [id number]) Out-Patient Physical Therapy Visit Information Visit Information Visit Type Treatment Note Visit Start Time 15:15 Visit Stop Time 16:00 Total Visit Minutes 45 Visit Number 2 Number of HOME HELP AIDE Visits 1 PT-OP-B Current Condition Start: 05/14/18 08:16 Freq: Status: Active Protocol: Document 05/14/18 08:15 SAK (Rec: 05/14/18 09:50 [facility]AK [id number]) Current Condition History of Current Condition Onset Date 1 year Current Complaints edema and pain bilateral LE's left greater than right History of Current Condition Reports lifetime history of edema in hands and LE's. Also with history of multiple lipomas, some removed by surgery. Worsening edema in LE's over past year with no known cause including development of large painful lipomas medial LE's in knee region which are limiting her function. Reports told by surgeon surgery not indicated for these lipomas and he questioned whether they truly are lipomas; he recommended she lose weight and try physical therapy. Patient reports she has not had success with compression stockings in the past due to poor fit and finds it very difficult to don them due to LBP and difficulty reaching her feet. 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 Also has a history of a-fib, arthritis, back pain, HTN, headaches, hernia, neck pain, 6 abdominal surgeries. 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 PT-OP-G Mobility & Gait Start: 05/14/18 08:16 Freq: Status: Active Protocol: Document 05/14/18 08:15 SAK (Rec: 05/14/18 17:13 SAK [id number]) OP Gait Assessment Gait Gait Assistance Required: Independent Distance (Feet) 50 Gait Deviations General Gait Pattern Antalgic Decreased Stride Length Decreased Feet Clearance Factors Limiting Gait Function Factors Limiting Gait Function Pain Comments Gait Comments limited by weight of legs, edema PT-OP-J Posture/Palpation/Skin Start: 05/14/18 08:16 Freq: Status: Active Protocol: Document 05/14/18 08:15 SAK (Rec: 05/14/18 17:13 SAK [id number]) Palpation Assessment Location medial knees azra Palpation Findings Edema Tenderness Palpation Details Large areas of edema medial bilateral LE's (see photos in paper chart) just inferior to knee joints; they are symmetrical, soft, tender, some increased small veins in region right greater than left . No palpable increase in warmth, skin intact. Mild fibrosis in tissue just superior to malleoli bilaterally right greater than left. PT-OP-K Range of Motion Start: 05/14/18 08:16 Freq: Status: Active Protocol: Document 05/14/18 08:15 SAK (Rec: 05/14/18 17:13 [facility] [id number]) Hip Goniometric Range of Motion Hip Measured in Degrees Left Testing Position Supine Flexion w/Knee Flexed 95 Straight Leg Raise 55 Extension 5 Internal Rotation 15 External Rotation 30 Right Testing Position Supine Flexion w/Knee Flexed 90 Straight Leg Raise 50 Extension 5 Internal Rotation 15 External Rotation 30 Knee Goniometric Range of Motion Knee Measured in Degrees Left Flexion Active (degrees) 100 Extension Active (degrees) 0 Right Flexion Active (degrees) 100 Extension Active (degrees) 0 Knee ROM Limitations Comments limited by tissue aproximation Ankle and Foot Goniometric Range of Motion Ankle and Foot Measured in Degrees Left Dorsiflexion with Knee Flexed 5 Dorsiflexion with Knee Extended 0 Right Dorsiflexion with Knee Flexed 5 Dorsiflexion with Knee Extended 0 Ankle and Foot ROM Limitations ROM Limitations Soft Tissue Tightness PT-OP-M Strength Start: 05/14/18 08:16 Freq: Status: Active Protocol: Document 05/14/18 08:15 SAK (Rec: 05/14/18 17:13 [facility] [id number]) Hip Strength Hip Manual Muscle Testing Left Flexion (L2) 4- Good- Extension (S1) 3- Fair- Right Flexion (L2) 4- Good- Extension (S1) 3- Fair- Knee Strength Knee Manual Muscle Testing Left Flexion (S2) 4- Good- Extension (L3) 4- Good- Right Flexion (S2) 4- Good- Extension (L3) 4- Good- Ankle/Foot Strength Ankle and Foot Manual Muscle Testing Right Dorsiflexion (L4) 4+ Good+ Plantarflexion (S1) 4+ Good+ PT-OP-N Lymphedema Start: 05/14/18 08:16 Freq: Status: Active Protocol: Document 05/14/18 08:15 SAK (Rec: 05/14/18 17:19 SAK [id number]) Lymphedema Measurements Lower Extremity Circumference Measurements Left MT Heads 21.2 cm Medial Malleolus 25.8 cm 10 cm From Medial Malleolus 34.8 cm 20 cm From Medial Malleolus 46.1 cm 30 cm From Medial Malleolus 52.2 cm 40 cm From Medial Malleolus 46.5 cm 50 cm From Medial Malleolus 58.8 cm 60 cm From Medial Malleolus 66.9 cm 70 cm From Medial Malleolus 84.2 cm Right MT Heads 21.8 cm Medial Malleolus 25.5 cm 10 cm From Medial Malleolus 31.1 cm 20 cm From Medial Malleolus 44.4 cm 30 cm From Medial Malleolus 51.8 cm 40 cm From Medial Malleolus 46.1 cm 50 cm From Medial Malleolus 58.3 cm 60 cm From Medial Malleolus 66.5 cm 70 cm From Medial Malleolus 79.8 cm Comments Lymphedema Comments No significant edema in feet. PT-OP-Q Treatments Start: 05/14/18 08:16 Freq: Status: Active Protocol: Document 05/20/18 16:37 GGD (Rec: 05/20/18 16:45 GGD [id number]) Lymphedema Treatment Manual Lymphatic Drainage Location left LE Duration 30 min Comments mostly left LE, some on right. Sequential Lymphedema Exercises Location Bilateral LE Duration 15 PT-OP-T Assessment and Plan Start: 05/14/18 08:16 Freq: Status: Active Protocol: Document 05/20/18 16:37 GGD (Rec: 05/20/18 16:45 GGD [id number]) Physical Therapy Assessment Assessment Summary Assessment Pt good tolerance to treatment . She had mild decrease in LE with treatment. She need cues for exercise technique. Physical Therapy Plan Frequency and Duration Frequency of Treatment 2x/Week Duration of Treatment 3 months Plan of Care Start Date 05/14/18 Plan of Care End Date 08/12/18 Therapeutic Interventions Therapeutic Interventions Aquatic Therapy Home Exercise Program Lymphedema Management Manual Therapy Patient/Caregiver Education Self-Care/Home Management Therapeutic Activities Therapeutic Exercises Next Visit Focus/Plan Next Note Type Treatment Note Next Visit Plan MLD, review and progress exercises for ROM and strengthening.
--- NOTE | 2018-05-26 18:33 | PT.OTN ---
Current Diagnoses Lymphedema, not elsewhere classified (05/23/18) Physical Therapy Treatment Note PT-OP-A Visit Information Start: 05/14/18 08:16 Freq: Status: Active Protocol: Document 05/23/18 08:15 [facility] (Rec: 05/26/18 18:33 [facility] [id number]) Out-Patient Physical Therapy Visit Information Visit Information Visit Type Treatment Note Visit Start Time 08:15 Visit Stop Time 09:00 Total Visit Minutes 45 Visit Number 3 Number of CUTTER OPERATOR BRICK Visits 0 PT-OP-B Current Condition Start: 05/14/18 08:16 Freq: Status: Active Protocol: Document 05/14/18 08:15 SAK (Rec: 05/14/18 09:50 [facility] [id number]) Current Condition History of Current Condition Onset Date 1 year Current Complaints edema and pain bilateral LE's left greater than right History of Current Condition Reports lifetime history of edema in hands and LE's. Also with history of multiple lipomas, some removed by surgery. Worsening edema in LE's over past year with no known cause including development of large painful lipomas medial LE's in knee region which are limiting her function. Reports told by surgeon surgery not indicated for these lipomas and he questioned whether they truly are lipomas; he recommended she lose weight and try physical therapy. Patient reports she has not had success with compression stockings in the past due to poor fit and finds it very difficult to don them due to LBP and difficulty reaching her feet. 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 Also has a history of a-fib, arthritis, back pain, HTN, headaches, hernia, neck pain, 6 abdominal surgeries. 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 PT-OP-G Mobility & Gait Start: 05/14/18 08:16 Freq: Status: Active Protocol: Document 05/14/18 08:15 SAK (Rec: 05/14/18 17:13 [facility] [id number]) OP Gait Assessment Gait Gait Assistance Required: Independent Distance (Feet) 50 Gait Deviations General Gait Pattern Antalgic Decreased Stride Length Decreased Feet Clearance Factors Limiting Gait Function Factors Limiting Gait Function Pain Comments Gait Comments limited by weight of legs, edema PT-OP-J Posture/Palpation/Skin Start: 05/14/18 08:16 Freq: Status: Active Protocol: Document 05/14/18 08:15 SAK (Rec: 05/14/18 17:13 [facility] [id number]) Palpation Assessment Location medial knees azra Palpation Findings Edema Tenderness Palpation Details Large areas of edema medial bilateral LE's (see photos in paper chart) just inferior to knee joints; they are symmetrical, soft, tender, some increased small veins in region right greater than left . No palpable increase in warmth, skin intact. Mild fibrosis in tissue just superior to malleoli bilaterally right greater than left. PT-OP-K Range of Motion Start: 05/14/18 08:16 Freq: Status: Active Protocol: Document 05/14/18 08:15 [facility] (Rec: 05/14/18 17:13 [facility] [id number]) Hip Goniometric Range of Motion Hip Measured in Degrees Left Testing Position Supine Flexion w/Knee Flexed 95 Straight Leg Raise 55 Extension 5 Internal Rotation 15 External Rotation 30 Right Testing Position Supine Flexion w/Knee Flexed 90 Straight Leg Raise 50 Extension 5 Internal Rotation 15 External Rotation 30 Knee Goniometric Range of Motion Knee Measured in Degrees Left Flexion Active (degrees) 100 Extension Active (degrees) 0 Right Flexion Active (degrees) 100 Extension Active (degrees) 0 Knee ROM Limitations Comments limited by tissue aproximation Ankle and Foot Goniometric Range of Motion Ankle and Foot Measured in Degrees Left Dorsiflexion with Knee Flexed 5 Dorsiflexion with Knee Extended 0 Right Dorsiflexion with Knee Flexed 5 Dorsiflexion with Knee Extended 0 Ankle and Foot ROM Limitations ROM Limitations Soft Tissue Tightness PT-OP-M Strength Start: 05/14/18 08:16 Freq: Status: Active Protocol: Document 05/14/18 08:15 SAK (Rec: 05/14/18 17:13 [facility] [id number]) Hip Strength Hip Manual Muscle Testing Left Flexion (L2) 4- Good- Extension (S1) 3- Fair- Right Flexion (L2) 4- Good- Extension (S1) 3- Fair- Knee Strength Knee Manual Muscle Testing Left Flexion (S2) 4- Good- Extension (L3) 4- Good- Right Flexion (S2) 4- Good- Extension (L3) 4- Good- Ankle/Foot Strength Ankle and Foot Manual Muscle Testing Right Dorsiflexion (L4) 4+ Good+ Plantarflexion (S1) 4+ Good+ PT-OP-N Lymphedema Start: 05/14/18 08:16 Freq: Status: Active Protocol: Document 05/14/18 08:15 [facility] (Rec: 05/14/18 17:19 [facility] [id number]) Lymphedema Measurements Lower Extremity Circumference Measurements Left MT Heads 21.2 cm Medial Malleolus 25.8 cm 10 cm From Medial Malleolus 34.8 cm 20 cm From Medial Malleolus 46.1 cm 30 cm From Medial Malleolus 52.2 cm 40 cm From Medial Malleolus 46.5 cm 50 cm From Medial Malleolus 58.8 cm 60 cm From Medial Malleolus 66.9 cm 70 cm From Medial Malleolus 84.2 cm Right MT Heads 21.8 cm Medial Malleolus 25.5 cm 10 cm From Medial Malleolus 31.1 cm 20 cm From Medial Malleolus 44.4 cm 30 cm From Medial Malleolus 51.8 cm 40 cm From Medial Malleolus 46.1 cm 50 cm From Medial Malleolus 58.3 cm 60 cm From Medial Malleolus 66.5 cm 70 cm From Medial Malleolus 79.8 cm Comments Lymphedema Comments No significant edema in feet. PT-OP-Q Treatments Start: 05/14/18 08:16 Freq: Status: Active Protocol: Document 05/23/18 08:15 [facility] (Rec: 05/26/18 18:33 [facility] [id number]) Cardio Equipment Recumbent Stepper (Sci-Fit) Other not done due to time constraints Manual Therapy Treatment Taping left LE ankle to thigh Treatment Focus edema reduction Type of Tape Kinesio Tape Skin Inspection intact Comments for edema reduction; 5 fan strips Lymphedema Treatment Manual Lymphatic Drainage Location left LE Duration 30 min Comments mostly left LE, some on right. Sequential Lymphedema Exercises Location Bilateral LE PT-OP-T Assessment and Plan Start: 05/14/18 08:16 Freq: Status: Active Protocol: Document 05/23/18 08:15 [facility] (Rec: 05/26/18 18:33 [facility] [id number]) Physical Therapy Assessment Goals decreased activity tolerance Bioprocess Development Engineer Goal (LTG) Decrease LE edema and pain sufficient to allow patient to resume prior level of activity. LTG Duration 3 months Pain Impairment 7/10 Short Term Goal (STG) Decrease pain to no greater than 4/10 STG Duration 6 wks Bioprocess Development Engineer Goal (LTG) Decrease pain to no greater than 2/10 LTG Duration 3 months Edema Short Term Goal (STG) Instruct patient in self-MLD, sequential lymphedema exercises, self-wrapping and/ or taping as indicated. STG Duration 3 wks Detention Goal (LTG) Decrease and stabilize edema ( no increase or decrease more than 1 cm over the course of 1 wk), assist patient in obtaining appropriate compression stockings, consider use of home sequential lymphedema pump. Patient to be independnet in self-managment. LTG Duration 3 months Assessment Summary Assessment Circumferential measurements decreased, good tolerance for treatment. Compliant with HEP of sequential lymphedema exercises Physical Therapy Plan Frequency and Duration Frequency of Treatment 2x/Week Duration of Treatment 3 months Plan of Care Start Date 05/14/18 Plan of Care End Date 08/12/18 Therapeutic Interventions Therapeutic Interventions Aquatic Therapy Home Exercise Program Lymphedema Management Manual Therapy Patient/Caregiver Education Self-Care/Home Management Therapeutic Activities Therapeutic Exercises Next Visit Focus/Plan Next Note Type Treatment Note Next Visit Plan MLD, review and progress exercises for ROM and strengthening.
--- NOTE | 2018-05-29 13:29 | PT.OTN ---
Current Diagnoses Lymphedema, not elsewhere classified (05/28/18) Physical Therapy Treatment Note PT-OP-A Visit Information Start: 05/14/18 08:16 Freq: Status: Active Protocol: Document 05/28/18 15:15 [facility] (Rec: 05/29/18 13:28 [facility] [id number]) Out-Patient Physical Therapy Visit Information Visit Information Visit Type Treatment Note Visit Start Time 15:15 Visit Stop Time 16:20 Total Visit Minutes 65 Visit Number 4 Number of SENIOR RESEARCH FELLOW Visits 0 PT-OP-B Current Condition Start: 05/14/18 08:16 Freq: Status: Active Protocol: Document 05/14/18 08:15 [facility] (Rec: 05/14/18 09:50 [facility] [id number]) Current Condition History of Current Condition Onset Date 1 year Current Complaints edema and pain bilateral LE's left greater than right History of Current Condition Reports lifetime history of edema in hands and LE's. Also with history of multiple lipomas, some removed by surgery. Worsening edema in LE's over past year with no known cause including development of large painful lipomas medial LE's in knee region which are limiting her function. Reports told by surgeon surgery not indicated for these lipomas and he questioned whether they truly are lipomas; he recommended she lose weight and try physical therapy. Patient reports she has not had success with compression stockings in the past due to poor fit and finds it very difficult to don them due to LBP and difficulty reaching her feet. 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 Also has a history of a-fib, arthritis, back pain, HTN, headaches, hernia, neck pain, 6 abdominal surgeries. 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 Continues to be worse end of day; last PT session early in day, today at end noting increased edema due to time as well as poor diet with increased sodium yesterday. PT-OP-G Mobility & Gait Start: 05/14/18 08:16 Freq: Status: Active Protocol: Document 05/14/18 08:15 [facility] (Rec: 05/14/18 17:13 [facility] [id number]) OP Gait Assessment Gait Gait Assistance Required: Independent Distance (Feet) 50 Gait Deviations General Gait Pattern Antalgic Decreased Stride Length Decreased Feet Clearance Factors Limiting Gait Function Factors Limiting Gait Function Pain Comments Gait Comments limited by weight of legs, edema PT-OP-J Posture/Palpation/Skin Start: 05/14/18 08:16 Freq: Status: Active Protocol: Document 05/14/18 08:15 [facility] (Rec: 05/14/18 17:13 [facility] [id number]) Palpation Assessment Location medial knees azra Palpation Findings Edema Tenderness Palpation Details Large areas of edema medial bilateral LE's (see photos in paper chart) just inferior to knee joints; they are symmetrical, soft, tender, some increased small veins in region right greater than left . No palpable increase in warmth, skin intact. Mild fibrosis in tissue just superior to malleoli bilaterally right greater than left. PT-OP-K Range of Motion Start: 05/14/18 08:16 Freq: Status: Active Protocol: Document 05/14/18 08:15 [facility] (Rec: 05/14/18 17:13 [facility] [id number]) Hip Goniometric Range of Motion Hip Measured in Degrees Left Testing Position Supine Flexion w/Knee Flexed 95 Straight Leg Raise 55 Extension 5 Internal Rotation 15 External Rotation 30 Right Testing Position Supine Flexion w/Knee Flexed 90 Straight Leg Raise 50 Extension 5 Internal Rotation 15 External Rotation 30 Knee Goniometric Range of Motion Knee Measured in Degrees Left Flexion Active (degrees) 100 Extension Active (degrees) 0 Right Flexion Active (degrees) 100 Extension Active (degrees) 0 Knee ROM Limitations Comments limited by tissue aproximation Ankle and Foot Goniometric Range of Motion Ankle and Foot Measured in Degrees Left Dorsiflexion with Knee Flexed 5 Dorsiflexion with Knee Extended 0 Right Dorsiflexion with Knee Flexed 5 Dorsiflexion with Knee Extended 0 Ankle and Foot ROM Limitations ROM Limitations Soft Tissue Tightness PT-OP-M Strength Start: 05/14/18 08:16 Freq: Status: Active Protocol: Document 05/14/18 08:15 [facility] (Rec: 05/14/18 17:13 [facility] [id number]) Hip Strength Hip Manual Muscle Testing Left Flexion (L2) 4- Good- Extension (S1) 3- Fair- Right Flexion (L2) 4- Good- Extension (S1) 3- Fair- Knee Strength Knee Manual Muscle Testing Left Flexion (S2) 4- Good- Extension (L3) 4- Good- Right Flexion (S2) 4- Good- Extension (L3) 4- Good- Ankle/Foot Strength Ankle and Foot Manual Muscle Testing Right Dorsiflexion (L4) 4+ Good+ Plantarflexion (S1) 4+ Good+ PT-OP-N Lymphedema Start: 05/14/18 08:16 Freq: Status: Active Protocol: Document 05/14/18 08:15 [facility] (Rec: 05/14/18 17:19 [facility] [id number]) Lymphedema Measurements Lower Extremity Circumference Measurements Left MT Heads 21.2 cm Medial Malleolus 25.8 cm 10 cm From Medial Malleolus 34.8 cm 20 cm From Medial Malleolus 46.1 cm 30 cm From Medial Malleolus 52.2 cm 40 cm From Medial Malleolus 46.5 cm 50 cm From Medial Malleolus 58.8 cm 60 cm From Medial Malleolus 66.9 cm 70 cm From Medial Malleolus 84.2 cm Right MT Heads 21.8 cm Medial Malleolus 25.5 cm 10 cm From Medial Malleolus 31.1 cm 20 cm From Medial Malleolus 44.4 cm 30 cm From Medial Malleolus 51.8 cm 40 cm From Medial Malleolus 46.1 cm 50 cm From Medial Malleolus 58.3 cm 60 cm From Medial Malleolus 66.5 cm 70 cm From Medial Malleolus 79.8 cm Comments Lymphedema Comments No significant edema in feet. PT-OP-Q Treatments Start: 05/14/18 08:16 Freq: Status: Active Protocol: Document 05/28/18 15:15 [facility] (Rec: 05/29/18 13:28 [facility] [id number]) Cardio Equipment Recumbent Stepper (Sci-Fit) Duration (Minutes) 5 Resistance 1.5 Other to facilitate lymphatic flow following MLD and kinesiotape Manual Therapy Treatment Taping left LE ankle to thigh Treatment Focus edema reduction Type of Tape Kinesio Tape Skin Inspection intact Comments for edema reduction; 4 fan strips (2 each LE) Lymphedema Treatment Manual Lymphatic Drainage Location left LE Duration 30 min Comments right LE Other Other Pneumatic pump (sequential): 30 min to left LE with LE elevated. Max pressure 35 mm HG. PT-OP-T Assessment and Plan Start: 05/14/18 08:16 Freq: Status: Active Protocol: Document 05/28/18 15:15 [facility] (Rec: 05/29/18 13:28 [facility] [id number]) Physical Therapy Assessment Goals decreased activity tolerance Burnisher Goal (LTG) Decrease LE edema and pain sufficient to allow patient to resume prior level of activity. LTG Duration 3 months Pain Impairment 7/10 Short Term Goal (STG) Decrease pain to no greater than 4/10 STG Duration 6 wks Burnisher Goal (LTG) Decrease pain to no greater than 2/10 LTG Duration 3 months Edema Short Term Goal (STG) Instruct patient in self-MLD, sequential lymphedema exercises, self-wrapping and/ or taping as indicated. STG Duration 3 wks Burnisher Goal (LTG) Decrease and stabilize edema ( no increase or decrease more than 1 cm over the course of 1 wk), assist patient in obtaining appropriate compression stockings, consider use of home sequential lymphedema pump. Patient to be independnet in self-managment. LTG Duration 3 months Assessment Summary Assessment Noted increase in edema today; end of day and patient reports yesterday was her birthday and she ate more salt which also contributes. Physical Therapy Plan Frequency and Duration Frequency of Treatment 2x/Week Duration of Treatment 3 months Plan of Care Start Date 05/14/18 Plan of Care End Date 08/12/18 Therapeutic Interventions Therapeutic Interventions Aquatic Therapy Home Exercise Program Lymphedema Management Manual Therapy Patient/Caregiver Education Self-Care/Home Management Therapeutic Activities Therapeutic Exercises Next Visit Focus/Plan Next Note Type Treatment Note Next Visit Plan Pre-post circumferential measurements with pump, continue lymphedema management .
--- NOTE | 2018-06-11 16:23 | PT.OTN ---
Current Diagnoses Lymphedema, not elsewhere classified (06/11/18) Physical Therapy Treatment Note PT-OP-A Visit Information Start: 05/14/18 08:16 Freq: Status: Active Protocol: Document 06/11/18 15:15 [facility] (Rec: 06/11/18 16:18 [facility] [id number]) Out-Patient Physical Therapy Visit Information Visit Information Visit Type Treatment Note Visit Start Time 15:15 Visit Stop Time 16:10 Total Visit Minutes 55 Visit Number 4 Number of WEIGHT TRAINER Visits 0 PT-OP-B Current Condition Start: 05/14/18 08:16 Freq: Status: Active Protocol: Document 05/14/18 08:15 [facility] (Rec: 05/14/18 09:50 [facility] [id number]) Current Condition History of Current Condition Onset Date 1 year Current Complaints edema and pain bilateral LE's left greater than right History of Current Condition Reports lifetime history of edema in hands and LE's. Also with history of multiple lipomas, some removed by surgery. Worsening edema in LE's over past year with no known cause including development of large painful lipomas medial LE's in knee region which are limiting her function. Reports told by surgeon surgery not indicated for these lipomas and he questioned whether they truly are lipomas; he recommended she lose weight and try physical therapy. Patient reports she has not had success with compression stockings in the past due to poor fit and finds it very difficult to don them due to LBP and difficulty reaching her feet. 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 Also has a history of a-fib, arthritis, back pain, HTN, headaches, hernia, neck pain, 6 abdominal surgeries. 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 Agrees she will likely need custom compression stockings. Appointment with physician had to be cancelled due to doctor's family emergency, to see next week. Will discuss compression stockings PT-OP-G Mobility & Gait Start: 05/14/18 08:16 Freq: Status: Active Protocol: Document 05/14/18 08:15 [facility] (Rec: 05/14/18 17:13 [facility] [id number]) OP Gait Assessment Gait Gait Assistance Required: Independent Distance (Feet) 50 Gait Deviations General Gait Pattern Antalgic Decreased Stride Length Decreased Feet Clearance Factors Limiting Gait Function Factors Limiting Gait Function Pain Comments Gait Comments limited by weight of legs, edema PT-OP-J Posture/Palpation/Skin Start: 05/14/18 08:16 Freq: Status: Active Protocol: Document 05/14/18 08:15 [facility] (Rec: 05/14/18 17:13 [facility] [id number]) Palpation Assessment Location medial knees azra Palpation Findings Edema Tenderness Palpation Details Large areas of edema medial bilateral LE's (see photos in paper chart) just inferior to knee joints; they are symmetrical, soft, tender, some increased small veins in region right greater than left . No palpable increase in warmth, skin intact. Mild fibrosis in tissue just superior to malleoli bilaterally right greater than left. PT-OP-K Range of Motion Start: 05/14/18 08:16 Freq: Status: Active Protocol: Document 05/14/18 08:15 [facility] (Rec: 05/14/18 17:13 [facility] [id number]) Hip Goniometric Range of Motion Hip Measured in Degrees Left Testing Position Supine Flexion w/Knee Flexed 95 Straight Leg Raise 55 Extension 5 Internal Rotation 15 External Rotation 30 Right Testing Position Supine Flexion w/Knee Flexed 90 Straight Leg Raise 50 Extension 5 Internal Rotation 15 External Rotation 30 Knee Goniometric Range of Motion Knee Measured in Degrees Left Flexion Active (degrees) 100 Extension Active (degrees) 0 Right Flexion Active (degrees) 100 Extension Active (degrees) 0 Knee ROM Limitations Comments limited by tissue aproximation Ankle and Foot Goniometric Range of Motion Ankle and Foot Measured in Degrees Left Dorsiflexion with Knee Flexed 5 Dorsiflexion with Knee Extended 0 Right Dorsiflexion with Knee Flexed 5 Dorsiflexion with Knee Extended 0 Ankle and Foot ROM Limitations ROM Limitations Soft Tissue Tightness PT-OP-M Strength Start: 05/14/18 08:16 Freq: Status: Active Protocol: Document 05/14/18 08:15 [facility] (Rec: 05/14/18 17:13 [facility] [id number]) Hip Strength Hip Manual Muscle Testing Left Flexion (L2) 4- Good- Extension (S1) 3- Fair- Right Flexion (L2) 4- Good- Extension (S1) 3- Fair- Knee Strength Knee Manual Muscle Testing Left Flexion (S2) 4- Good- Extension (L3) 4- Good- Right Flexion (S2) 4- Good- Extension (L3) 4- Good- Ankle/Foot Strength Ankle and Foot Manual Muscle Testing Right Dorsiflexion (L4) 4+ Good+ Plantarflexion (S1) 4+ Good+ PT-OP-N Lymphedema Start: 05/14/18 08:16 Freq: Status: Active Protocol: Document 06/11/18 15:15 [facility] (Rec: 06/11/18 16:23 [facility] [id number]) Lymphedema Measurements Lower Extremity Circumference Measurements Left MT Heads 21 cm Medial Malleolus 25.7 cm 10 cm From Medial Malleolus 33 cm 20 cm From Medial Malleolus 44.3 cm 30 cm From Medial Malleolus 50.6 cm 40 cm From Medial Malleolus 45.5 cm 50 cm From Medial Malleolus 57.8 cm 60 cm From Medial Malleolus 65 cm 70 cm From Medial Malleolus 75.3 cm Right MT Heads 21.6 cm Medial Malleolus 26.6 cm 10 cm From Medial Malleolus 23.6 cm 20 cm From Medial Malleolus 35.5 cm 30 cm From Medial Malleolus 46.8 cm 40 cm From Medial Malleolus 52.5 cm 50 cm From Medial Malleolus 50.8 cm 60 cm From Medial Malleolus 60 cm 70 cm From Medial Malleolus 70 cm PT-OP-Q Treatments Start: 05/14/18 08:16 Freq: Status: Active Protocol: Document 06/11/18 15:15 [facility] (Rec: 06/11/18 16:18 [facility] [id number]) Cardio Equipment Recumbent Stepper (Sci-Fit) Other not done due to time constraints Manual Therapy Treatment Taping left LE ankle to thigh Treatment Focus edema reduction Type of Tape Kinesio Tape Skin Inspection intact Comments for edema reduction; 4 fan strips (2 each LE) Lymphedema Treatment Other Other Pneumatic pump (sequential): 30 min to left LE with LE elevated. Max pressure 37 mm HG. PT-OP-T Assessment and Plan Start: 05/14/18 08:16 Freq: Status: Active Protocol: Document 06/11/18 15:15 [facility] (Rec: 06/11/18 16:18 [facility] [id number]) Physical Therapy Assessment Goals decreased activity tolerance Group Home Goal (LTG) Decrease LE edema and pain sufficient to allow patient to resume prior level of activity. LTG Duration 3 months Pain Impairment 7/10 Short Term Goal (STG) Decrease pain to no greater than 4/10 STG Duration 6 wks Group Home Goal (LTG) Decrease pain to no greater than 2/10 LTG Duration 3 months Edema Short Term Goal (STG) Instruct patient in self-MLD, sequential lymphedema exercises, self-wrapping and/ or taping as indicated. STG Duration 3 wks Group Home Goal (LTG) Decrease and stabilize edema ( no increase or decrease more than 1 cm over the course of 1 wk), assist patient in obtaining appropriate compression stockings, consider use of home sequential lymphedema pump. Patient to be independnet in self-managment. LTG Duration 3 months Assessment Summary Assessment Circumferential measurements decreased left LE after use of pneumatic pump. Physical Therapy Plan Frequency and Duration Frequency of Treatment 2x/Week Duration of Treatment 3 months Plan of Care Start Date 05/14/18 Plan of Care End Date 08/12/18 Therapeutic Interventions Therapeutic Interventions Aquatic Therapy Home Exercise Program Lymphedema Management Manual Therapy Patient/Caregiver Education Self-Care/Home Management Therapeutic Activities Therapeutic Exercises Next Visit Focus/Plan Next Note Type Treatment Note Next Visit Plan Pre-post circumferential measurements with pump, continue lymphedema management . Ther ex at beginning of session.
--- NOTE | 2018-06-17 16:16 | PT.OTN ---
Current Diagnoses Lymphedema, not elsewhere classified (06/17/18) Physical Therapy Treatment Note PT-OP-A Visit Information Start: 05/14/18 08:16 Freq: Status: Active Protocol: Document 06/17/18 16:08 [facility] (Rec: 06/17/18 16:15 [facility] [id number]) Out-Patient Physical Therapy Visit Information Visit Information Visit Type Treatment Note Visit Start Time 15:15 Visit Stop Time 16:10 Total Visit Minutes 55 Visit Number 5 Number of JAVA PROGRAMMING PROFESSOR Visits 0 PT-OP-B Current Condition Start: 05/14/18 08:16 Freq: Status: Active Protocol: Document 05/14/18 08:15 [facility] (Rec: 05/14/18 09:50 [facility] [id number]) Current Condition History of Current Condition Onset Date 1 year Current Complaints edema and pain bilateral LE's left greater than right History of Current Condition Reports lifetime history of edema in hands and LE's. Also with history of multiple lipomas, some removed by surgery. Worsening edema in LE's over past year with no known cause including development of large painful lipomas medial LE's in knee region which are limiting her function. Reports told by surgeon surgery not indicated for these lipomas and he questioned whether they truly are lipomas; he recommended she lose weight and try physical therapy. Patient reports she has not had success with compression stockings in the past due to poor fit and finds it very difficult to don them due to LBP and difficulty reaching her feet. 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 Also has a history of a-fib, arthritis, back pain, HTN, headaches, hernia, neck pain, 6 abdominal surgeries. 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 Kinesiotape feels supportive, has not looked into compression stockings online yet as discussed. PT-OP-G Mobility & Gait Start: 05/14/18 08:16 Freq: Status: Active Protocol: Document 05/14/18 08:15 [facility] (Rec: 05/14/18 17:13 [facility] [id number]) OP Gait Assessment Gait Gait Assistance Required: Independent Distance (Feet) 50 Gait Deviations General Gait Pattern Antalgic Decreased Stride Length Decreased Feet Clearance Factors Limiting Gait Function Factors Limiting Gait Function Pain Comments Gait Comments limited by weight of legs, edema PT-OP-J Posture/Palpation/Skin Start: 05/14/18 08:16 Freq: Status: Active Protocol: Document 05/14/18 08:15 [facility] (Rec: 05/14/18 17:13 [facility] [id number]) Palpation Assessment Location medial knees azra Palpation Findings Edema Tenderness Palpation Details Large areas of edema medial bilateral LE's (see photos in paper chart) just inferior to knee joints; they are symmetrical, soft, tender, some increased small veins in region right greater than left . No palpable increase in warmth, skin intact. Mild fibrosis in tissue just superior to malleoli bilaterally right greater than left. PT-OP-K Range of Motion Start: 05/14/18 08:16 Freq: Status: Active Protocol: Document 05/14/18 08:15 [facility] (Rec: 05/14/18 17:13 [facility] [id number]) Hip Goniometric Range of Motion Hip Measured in Degrees Left Testing Position Supine Flexion w/Knee Flexed 95 Straight Leg Raise 55 Extension 5 Internal Rotation 15 External Rotation 30 Right Testing Position Supine Flexion w/Knee Flexed 90 Straight Leg Raise 50 Extension 5 Internal Rotation 15 External Rotation 30 Knee Goniometric Range of Motion Knee Measured in Degrees Left Flexion Active (degrees) 100 Extension Active (degrees) 0 Right Flexion Active (degrees) 100 Extension Active (degrees) 0 Knee ROM Limitations Comments limited by tissue aproximation Ankle and Foot Goniometric Range of Motion Ankle and Foot Measured in Degrees Left Dorsiflexion with Knee Flexed 5 Dorsiflexion with Knee Extended 0 Right Dorsiflexion with Knee Flexed 5 Dorsiflexion with Knee Extended 0 Ankle and Foot ROM Limitations ROM Limitations Soft Tissue Tightness PT-OP-M Strength Start: 05/14/18 08:16 Freq: Status: Active Protocol: Document 05/14/18 08:15 [facility] (Rec: 05/14/18 17:13 [facility] [id number]) Hip Strength Hip Manual Muscle Testing Left Flexion (L2) 4- Good- Extension (S1) 3- Fair- Right Flexion (L2) 4- Good- Extension (S1) 3- Fair- Knee Strength Knee Manual Muscle Testing Left Flexion (S2) 4- Good- Extension (L3) 4- Good- Right Flexion (S2) 4- Good- Extension (L3) 4- Good- Ankle/Foot Strength Ankle and Foot Manual Muscle Testing Right Dorsiflexion (L4) 4+ Good+ Plantarflexion (S1) 4+ Good+ PT-OP-N Lymphedema Start: 05/14/18 08:16 Freq: Status: Active Protocol: Document 06/11/18 15:15 [facility] (Rec: 06/11/18 16:23 [facility] [id number]) Lymphedema Measurements Lower Extremity Circumference Measurements Left MT Heads 21 cm Medial Malleolus 25.7 cm 10 cm From Medial Malleolus 33 cm 20 cm From Medial Malleolus 44.3 cm 30 cm From Medial Malleolus 50.6 cm 40 cm From Medial Malleolus 45.5 cm 50 cm From Medial Malleolus 57.8 cm 60 cm From Medial Malleolus 65 cm 70 cm From Medial Malleolus 75.3 cm Right MT Heads 21.6 cm Medial Malleolus 26.6 cm 10 cm From Medial Malleolus 23.6 cm 20 cm From Medial Malleolus 35.5 cm 30 cm From Medial Malleolus 46.8 cm 40 cm From Medial Malleolus 52.5 cm 50 cm From Medial Malleolus 50.8 cm 60 cm From Medial Malleolus 60 cm 70 cm From Medial Malleolus 70 cm PT-OP-Q Treatments Start: 05/14/18 08:16 Freq: Status: Active Protocol: Document 06/17/18 16:08 [facility] (Rec: 06/17/18 16:15 [facility] [id number]) Cardio Equipment Recumbent Stepper (Sci-Fit) Duration (Minutes) 5 Resistance 1.5 Other to facilitate lymphatic flow Manual Therapy Treatment Taping left LE ankle to thigh Treatment Focus edema reduction Type of Tape Kinesio Tape Skin Inspection intact Comments for edema reduction; 4 fan strips (2 each LE) Lymphedema Treatment Manual Lymphatic Drainage Location left LE Duration 30 min Comments right LE Sequential Lymphedema Exercises Location Bilateral LE Other Other Not done today to assess difference without; patient states uncertain if helpful PT-OP-T Assessment and Plan Start: 05/14/18 08:16 Freq: Status: Active Protocol: Document 06/17/18 16:08 [facility] (Rec: 06/17/18 16:15 [facility] [id number]) Physical Therapy Assessment Goals decreased activity tolerance Storehouse Clerk Goal (LTG) Decrease LE edema and pain sufficient to allow patient to resume prior level of activity. LTG Duration 3 months Pain Impairment 7/10 Short Term Goal (STG) Decrease pain to no greater than 4/10 STG Duration 6 wks Nursing Home Goal (LTG) Decrease pain to no greater than 2/10 LTG Duration 3 months Edema Short Term Goal (STG) Instruct patient in self-MLD, sequential lymphedema exercises, self-wrapping and/ or taping as indicated. STG Duration 3 wks Storehouse Clerk Goal (LTG) Decrease and stabilize edema ( no increase or decrease more than 1 cm over the course of 1 wk), assist patient in obtaining appropriate compression stockings, consider use of home sequential lymphedema pump. Patient to be independnet in self-managment. LTG Duration 3 months Assessment Summary Assessment looked online with patient regarding compression stockings; mutual decision she would need pant-hose style XL to try, and she may order. [place] will be custom-fit and she is to call local company. Physical Therapy Plan Frequency and Duration Frequency of Treatment 2x/Week Duration of Treatment 3 months Plan of Care Start Date 05/14/18 Plan of Care End Date 08/12/18 Therapeutic Interventions Therapeutic Interventions Aquatic Therapy Home Exercise Program Lymphedema Management Manual Therapy Patient/Caregiver Education Self-Care/Home Management Therapeutic Activities Therapeutic Exercises Next Visit Focus/Plan Next Note Type Treatment Note Next Visit Plan Pre-post circumferential measurements with pump, continue lymphedema management . Further problem-solving regarding compression garment.
--- NOTE | 2018-06-24 16:12 | PT.OTN ---
Current Diagnoses Lymphedema, not elsewhere classified (06/24/18) Physical Therapy Treatment Note PT-OP-A Visit Information Start: 05/14/18 08:16 Freq: Status: Active Protocol: Document 06/19/18 10:22 [facility] (Rec: 06/19/18 10:22 [facility] [id number]) Out-Patient Physical Therapy Visit Information Visit Information Visit Type Cancellation PT-OP-B Current Condition Start: 05/14/18 08:16 Freq: Status: Active Protocol: Document 05/14/18 08:15 [facility] (Rec: 05/14/18 09:50 [facility] [id number]) Current Condition History of Current Condition Onset Date 1 year Current Complaints edema and pain bilateral LE's left greater than right History of Current Condition Reports lifetime history of edema in hands and LE's. Also with history of multiple lipomas, some removed by surgery. Worsening edema in LE's over past year with no known cause including development of large painful lipomas medial LE's in knee region which are limiting her function. Reports told by surgeon surgery not indicated for these lipomas and he questioned whether they truly are lipomas; he recommended she lose weight and try physical therapy. Patient reports she has not had success with compression stockings in the past due to poor fit and finds it very difficult to don them due to LBP and difficulty reaching her feet. 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 Also has a history of a-fib, arthritis, back pain, HTN, headaches, hernia, neck pain, 6 abdominal surgeries. 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 Did get compression stockings ordered but they haven't come yet. Agreed to further use of pump after informing her of reduction in circumference after last use of pump PT-OP-G Mobility & Gait Start: 05/14/18 08:16 Freq: Status: Active Protocol: Document 05/14/18 08:15 [facility] (Rec: 05/14/18 17:13 [facility] [id number]) OP Gait Assessment Gait Gait Assistance Required: Independent Distance (Feet) 50 Gait Deviations General Gait Pattern Antalgic Decreased Stride Length Decreased Feet Clearance Factors Limiting Gait Function Factors Limiting Gait Function Pain Comments Gait Comments limited by weight of legs, edema PT-OP-J Posture/Palpation/Skin Start: 05/14/18 08:16 Freq: Status: Active Protocol: Document 05/14/18 08:15 [facility] (Rec: 05/14/18 17:13 [facility] [id number]) Palpation Assessment Location medial knees azra Palpation Findings Edema Tenderness Palpation Details Large areas of edema medial bilateral LE's (see photos in paper chart) just inferior to knee joints; they are symmetrical, soft, tender, some increased small veins in region right greater than left . No palpable increase in warmth, skin intact. Mild fibrosis in tissue just superior to malleoli bilaterally right greater than left. PT-OP-K Range of Motion Start: 05/14/18 08:16 Freq: Status: Active Protocol: Document 05/14/18 08:15 [facility] (Rec: 05/14/18 17:13 [facility] [id number]) Hip Goniometric Range of Motion Hip Measured in Degrees Left Testing Position Supine Flexion w/Knee Flexed 95 Straight Leg Raise 55 Extension 5 Internal Rotation 15 External Rotation 30 Right Testing Position Supine Flexion w/Knee Flexed 90 Straight Leg Raise 50 Extension 5 Internal Rotation 15 External Rotation 30 Knee Goniometric Range of Motion Knee Measured in Degrees Left Flexion Active (degrees) 100 Extension Active (degrees) 0 Right Flexion Active (degrees) 100 Extension Active (degrees) 0 Knee ROM Limitations Comments limited by tissue aproximation Ankle and Foot Goniometric Range of Motion Ankle and Foot Measured in Degrees Left Dorsiflexion with Knee Flexed 5 Dorsiflexion with Knee Extended 0 Right Dorsiflexion with Knee Flexed 5 Dorsiflexion with Knee Extended 0 Ankle and Foot ROM Limitations ROM Limitations Soft Tissue Tightness PT-OP-M Strength Start: 05/14/18 08:16 Freq: Status: Active Protocol: Document 05/14/18 08:15 [facility] (Rec: 05/14/18 17:13 [facility] [id number]) Hip Strength Hip Manual Muscle Testing Left Flexion (L2) 4- Good- Extension (S1) 3- Fair- Right Flexion (L2) 4- Good- Extension (S1) 3- Fair- Knee Strength Knee Manual Muscle Testing Left Flexion (S2) 4- Good- Extension (L3) 4- Good- Right Flexion (S2) 4- Good- Extension (L3) 4- Good- Ankle/Foot Strength Ankle and Foot Manual Muscle Testing Right Dorsiflexion (L4) 4+ Good+ Plantarflexion (S1) 4+ Good+ PT-OP-N Lymphedema Start: 05/14/18 08:16 Freq: Status: Active Protocol: Document 06/11/18 15:15 [facility] (Rec: 06/11/18 16:23 [facility] [id number]) Lymphedema Measurements Lower Extremity Circumference Measurements Left MT Heads 21 cm Medial Malleolus 25.7 cm 10 cm From Medial Malleolus 33 cm 20 cm From Medial Malleolus 44.3 cm 30 cm From Medial Malleolus 50.6 cm 40 cm From Medial Malleolus 45.5 cm 50 cm From Medial Malleolus 57.8 cm 60 cm From Medial Malleolus 65 cm 70 cm From Medial Malleolus 75.3 cm Right MT Heads 21.6 cm Medial Malleolus 26.6 cm 10 cm From Medial Malleolus 23.6 cm 20 cm From Medial Malleolus 35.5 cm 30 cm From Medial Malleolus 46.8 cm 40 cm From Medial Malleolus 52.5 cm 50 cm From Medial Malleolus 50.8 cm 60 cm From Medial Malleolus 60 cm 70 cm From Medial Malleolus 70 cm PT-OP-Q Treatments Start: 05/14/18 08:16 Freq: Status: Active Protocol: Document 06/24/18 16:05 [facility] (Rec: 06/24/18 16:12 [facility] [id number]) Manual Therapy Treatment Taping left LE ankle to thigh Treatment Focus edema reduction Type of Tape Kinesio Tape Skin Inspection intact Comments for edema reduction; 4 fan strips (2 each LE) Lymphedema Treatment Manual Lymphatic Drainage Location left LE Duration 20 min Comments right LE Sequential Lymphedema Exercises Location Bilateral LE Other Other Pneumatic pump (sequential): 30 min to left LE with LE elevated. Max pressure 37 mm HG. PT-OP-T Assessment and Plan Start: 05/14/18 08:16 Freq: Status: Active Protocol: Document 06/24/18 16:05 [facility] (Rec: 06/24/18 16:12 [facility] [id number]) Physical Therapy Assessment Goals decreased activity tolerance Usp Goal (LTG) Decrease LE edema and pain sufficient to allow patient to resume prior level of activity. LTG Duration 3 months Pain Impairment 7/10 Short Term Goal (STG) Decrease pain to no greater than 4/10 STG Duration 6 wks Usp Goal (LTG) Decrease pain to no greater than 2/10 LTG Duration 3 months Edema Short Term Goal (STG) Instruct patient in self-MLD, sequential lymphedema exercises, self-wrapping and/ or taping as indicated. STG Duration 3 wks Usp Goal (LTG) Decrease and stabilize edema ( no increase or decrease more than 1 cm over the course of 1 wk), assist patient in obtaining appropriate compression stockings, consider use of home sequential lymphedema pump. Patient to be independnet in self-managment. LTG Duration 3 months Physical Therapy Plan Frequency and Duration Frequency of Treatment 2x/Week Duration of Treatment 3 months Plan of Care Start Date 05/14/18 Plan of Care End Date 08/12/18 Therapeutic Interventions Therapeutic Interventions Aquatic Therapy Home Exercise Program Lymphedema Management Manual Therapy Patient/Caregiver Education Self-Care/Home Management Therapeutic Activities Therapeutic Exercises Next Visit Focus/Plan Next Note Type Treatment Note Next Visit Plan Decreased circumference with use of pump, awaiting delievery of compression stockings. Recommending aquatic PT to patient; so far as not made it to pool.
--- NOTE | 2018-06-26 16:33 | PT.OTN ---
Current Diagnoses Lymphedema, not elsewhere classified (06/26/18) Physical Therapy Treatment Note PT-OP-A Visit Information Start: 05/14/18 08:16 Freq: Status: Active Protocol: Document 06/19/18 10:22 [facility] (Rec: 06/19/18 10:22 [facility] [id number]) Out-Patient Physical Therapy Visit Information Visit Information Visit Type Cancellation PT-OP-B Current Condition Start: 05/14/18 08:16 Freq: Status: Active Protocol: Document 05/14/18 08:15 [facility] (Rec: 05/14/18 09:50 [facility] [id number]) Current Condition History of Current Condition Onset Date 1 year Current Complaints edema and pain bilateral LE's left greater than right History of Current Condition Reports lifetime history of edema in hands and LE's. Also with history of multiple lipomas, some removed by surgery. Worsening edema in LE's over past year with no known cause including development of large painful lipomas medial LE's in knee region which are limiting her function. Reports told by surgeon surgery not indicated for these lipomas and he questioned whether they truly are lipomas; he recommended she lose weight and try physical therapy. Patient reports she has not had success with compression stockings in the past due to poor fit and finds it very difficult to don them due to LBP and difficulty reaching her feet. 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 Also has a history of a-fib, arthritis, back pain, HTN, headaches, hernia, neck pain, 6 abdominal surgeries. 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 (Rec: 06/26/18 16:33 [facility] [id number]) OP-PT Subjective Patient Comments Patient Comments States feeling very puffy; had sleep study last night, legs were dependent for a long time getting set up, didn't sleep well . Compression stockings haven't arrived yet though have been shipped. PT-OP-G Mobility & Gait Start: 05/14/18 08:16 Freq: Status: Active Protocol: Document 05/14/18 08:15 [facility] (Rec: 05/14/18 17:13 [facility] [id number]) OP Gait Assessment Gait Gait Assistance Required: Independent Distance (Feet) 50 Gait Deviations General Gait Pattern Antalgic Decreased Stride Length Decreased Feet Clearance Factors Limiting Gait Function Factors Limiting Gait Function Pain Comments Gait Comments limited by weight of legs, edema PT-OP-J Posture/Palpation/Skin Start: 05/14/18 08:16 Freq: Status: Active Protocol: Document 05/14/18 08:15 [facility] (Rec: 05/14/18 17:13 [facility] [id number]) Palpation Assessment Location medial knees azra Palpation Findings Edema Tenderness Palpation Details Large areas of edema medial bilateral LE's (see photos in paper chart) just inferior to knee joints; they are symmetrical, soft, tender, some increased small veins in region right greater than left . No palpable increase in warmth, skin intact. Mild fibrosis in tissue just superior to malleoli bilaterally right greater than left. PT-OP-K Range of Motion Start: 05/14/18 08:16 Freq: Status: Active Protocol: Document 05/14/18 08:15 [facility] (Rec: 05/14/18 17:13 [facility] [id number]) Hip Goniometric Range of Motion Hip Measured in Degrees Left Testing Position Supine Flexion w/Knee Flexed 95 Straight Leg Raise 55 Extension 5 Internal Rotation 15 External Rotation 30 Right Testing Position Supine Flexion w/Knee Flexed 90 Straight Leg Raise 50 Extension 5 Internal Rotation 15 External Rotation 30 Knee Goniometric Range of Motion Knee Measured in Degrees Left Flexion Active (degrees) 100 Extension Active (degrees) 0 Right Flexion Active (degrees) 100 Extension Active (degrees) 0 Knee ROM Limitations Comments limited by tissue aproximation Ankle and Foot Goniometric Range of Motion Ankle and Foot Measured in Degrees Left Dorsiflexion with Knee Flexed 5 Dorsiflexion with Knee Extended 0 Right Dorsiflexion with Knee Flexed 5 Dorsiflexion with Knee Extended 0 Ankle and Foot ROM Limitations ROM Limitations Soft Tissue Tightness PT-OP-M Strength Start: 05/14/18 08:16 Freq: Status: Active Protocol: Document 05/14/18 08:15 [facility] (Rec: 05/14/18 17:13 [facility] [id number]) Hip Strength Hip Manual Muscle Testing Left Flexion (L2) 4- Good- Extension (S1) 3- Fair- Right Flexion (L2) 4- Good- Extension (S1) 3- Fair- Knee Strength Knee Manual Muscle Testing Left Flexion (S2) 4- Good- Extension (L3) 4- Good- Right Flexion (S2) 4- Good- Extension (L3) 4- Good- Ankle/Foot Strength Ankle and Foot Manual Muscle Testing Right Dorsiflexion (L4) 4+ Good+ Plantarflexion (S1) 4+ Good+ PT-OP-N Lymphedema Start: 05/14/18 08:16 Freq: Status: Active Protocol: Document 06/11/18 15:15 [facility] (Rec: 06/11/18 16:23 [facility] [id number]) Lymphedema Measurements Lower Extremity Circumference Measurements Left MT Heads 21 cm Medial Malleolus 25.7 cm 10 cm From Medial Malleolus 33 cm 20 cm From Medial Malleolus 44.3 cm 30 cm From Medial Malleolus 50.6 cm 40 cm From Medial Malleolus 45.5 cm 50 cm From Medial Malleolus 57.8 cm 60 cm From Medial Malleolus 65 cm 70 cm From Medial Malleolus 75.3 cm Right MT Heads 21.6 cm Medial Malleolus 26.6 cm 10 cm From Medial Malleolus 23.6 cm 20 cm From Medial Malleolus 35.5 cm 30 cm From Medial Malleolus 46.8 cm 40 cm From Medial Malleolus 52.5 cm 50 cm From Medial Malleolus 50.8 cm 60 cm From Medial Malleolus 60 cm 70 cm From Medial Malleolus 70 cm PT-OP-Q Treatments Start: 05/14/18 08:16 Freq: Status: Active Protocol: Document 06/26/18 16:27 [facility] (Rec: 06/26/18 16:33 [facility] [id number]) Cardio Equipment Recumbent Stepper (Sci-Fit) Other refused due to fatigue Manual Therapy Treatment Taping left LE ankle to thigh Treatment Focus edema reduction Type of Tape Kinesio Tape Skin Inspection intact Comments for edema reduction; 4 fan strips (2 each LE) Other Other Manual Treatments circumferential measurements: pre and post pump of left LE Lymphedema Treatment Manual Lymphatic Drainage Location left LE Duration 30 Sequential Lymphedema Exercises Location Bilateral LE Other Other Pneumatic pump (sequential): 30 min to left LE with LE elevated. Max pressure 37 mm HG. PT-OP-T Assessment and Plan Start: 05/14/18 08:16 Freq: Status: Active Protocol: Document 06/26/18 16:27 [facility] (Rec: 06/26/18 16:33 [facility] [id number]) Physical Therapy Assessment Goals decreased activity tolerance Small Parts Shaper Operator Goal (LTG) Decrease LE edema and pain sufficient to allow patient to resume prior level of activity. LTG Duration 3 months Pain Impairment 7/10 Short Term Goal (STG) Decrease pain to no greater than 4/10 STG Duration 6 wks Small Parts Shaper Operator Goal (LTG) Decrease pain to no greater than 2/10 LTG Duration 3 months Edema Short Term Goal (STG) Instruct patient in self-MLD, sequential lymphedema exercises, self-wrapping and/ or taping as indicated. STG Duration 3 wks Small Parts Shaper Operator Goal (LTG) Decrease and stabilize edema ( no increase or decrease more than 1 cm over the course of 1 wk), assist patient in obtaining appropriate compression stockings, consider use of home sequential lymphedema pump. Patient to be independnet in self-managment. LTG Duration 3 months Assessment Summary Assessment patient compliant to sequential lymphedema exercises Physical Therapy Plan Frequency and Duration Frequency of Treatment 2x/Week Duration of Treatment 3 months Plan of Care Start Date 05/14/18 Plan of Care End Date 08/12/18 Therapeutic Interventions Therapeutic Interventions Aquatic Therapy Home Exercise Program Lymphedema Management Manual Therapy Patient/Caregiver Education Self-Care/Home Management Therapeutic Activities Therapeutic Exercises Next Visit Focus/Plan Next Note Type Treatment Note Next Visit Plan Continue lymphedema management . Anticipate patient having compression stockings next session; will assess fit.
--- NOTE | 2018-07-04 14:52 | PT.OTN ---
Current Diagnoses Lymphedema, not elsewhere classified (07/03/18) Physical Therapy Treatment Note PT-OP-A Visit Information Start: 05/14/18 08:16 Freq: Status: Active Protocol: Document 06/19/18 10:22 [facility] (Rec: 06/19/18 10:22 [facility] [id number]) Out-Patient Physical Therapy Visit Information Visit Information Visit Type Cancellation PT-OP-B Current Condition Start: 05/14/18 08:16 Freq: Status: Active Protocol: Document 05/14/18 08:15 [facility] (Rec: 05/14/18 09:50 [facility] [id number]) Current Condition History of Current Condition Onset Date 1 year Current Complaints edema and pain bilateral LE's left greater than right History of Current Condition Reports lifetime history of edema in hands and LE's. Also with history of multiple lipomas, some removed by surgery. Worsening edema in LE's over past year with no known cause including development of large painful lipomas medial LE's in knee region which are limiting her function. Reports told by surgeon surgery not indicated for these lipomas and he questioned whether they truly are lipomas; he recommended she lose weight and try physical therapy. Patient reports she has not had success with compression stockings in the past due to poor fit and finds it very difficult to don them due to LBP and difficulty reaching her feet. 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 Also has a history of a-fib, arthritis, back pain, HTN, headaches, hernia, neck pain, 6 abdominal surgeries. 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 Will be checking with [facility] regarding custom compression stockings. PT-OP-G Mobility & Gait Start: 05/14/18 08:16 Freq: Status: Active Protocol: Document 05/14/18 08:15 [facility] (Rec: 05/14/18 17:13 [facility] [id number]) OP Gait Assessment Gait Gait Assistance Required: Independent Distance (Feet) 50 Gait Deviations General Gait Pattern Antalgic Decreased Stride Length Decreased Feet Clearance Factors Limiting Gait Function Factors Limiting Gait Function Pain Comments Gait Comments limited by weight of legs, edema PT-OP-J Posture/Palpation/Skin Start: 05/14/18 08:16 Freq: Status: Active Protocol: Document 05/14/18 08:15 [facility] (Rec: 05/14/18 17:13 [facility] [id number]) Palpation Assessment Location medial knees azra Palpation Findings Edema Tenderness Palpation Details Large areas of edema medial bilateral LE's (see photos in paper chart) just inferior to knee joints; they are symmetrical, soft, tender, some increased small veins in region right greater than left . No palpable increase in warmth, skin intact. Mild fibrosis in tissue just superior to malleoli bilaterally right greater than left. PT-OP-K Range of Motion Start: 05/14/18 08:16 Freq: Status: Active Protocol: Document 05/14/18 08:15 [facility] (Rec: 05/14/18 17:13 [facility] [id number]) Hip Goniometric Range of Motion Hip Measured in Degrees Left Testing Position Supine Flexion w/Knee Flexed 95 Straight Leg Raise 55 Extension 5 Internal Rotation 15 External Rotation 30 Right Testing Position Supine Flexion w/Knee Flexed 90 Straight Leg Raise 50 Extension 5 Internal Rotation 15 External Rotation 30 Knee Goniometric Range of Motion Knee Measured in Degrees Left Flexion Active (degrees) 100 Extension Active (degrees) 0 Right Flexion Active (degrees) 100 Extension Active (degrees) 0 Knee ROM Limitations Comments limited by tissue aproximation Ankle and Foot Goniometric Range of Motion Ankle and Foot Measured in Degrees Left Dorsiflexion with Knee Flexed 5 Dorsiflexion with Knee Extended 0 Right Dorsiflexion with Knee Flexed 5 Dorsiflexion with Knee Extended 0 Ankle and Foot ROM Limitations ROM Limitations Soft Tissue Tightness PT-OP-M Strength Start: 05/14/18 08:16 Freq: Status: Active Protocol: Document 05/14/18 08:15 [facility] (Rec: 05/14/18 17:13 [facility] [id number]) Hip Strength Hip Manual Muscle Testing Left Flexion (L2) 4- Good- Extension (S1) 3- Fair- Right Flexion (L2) 4- Good- Extension (S1) 3- Fair- Knee Strength Knee Manual Muscle Testing Left Flexion (S2) 4- Good- Extension (L3) 4- Good- Right Flexion (S2) 4- Good- Extension (L3) 4- Good- Ankle/Foot Strength Ankle and Foot Manual Muscle Testing Right Dorsiflexion (L4) 4+ Good+ Plantarflexion (S1) 4+ Good+ PT-OP-N Lymphedema Start: 05/14/18 08:16 Freq: Status: Active Protocol: Document 06/11/18 15:15 [facility] (Rec: 06/11/18 16:23 [facility] [id number]) Lymphedema Measurements Lower Extremity Circumference Measurements Left MT Heads 21 cm Medial Malleolus 25.7 cm 10 cm From Medial Malleolus 33 cm 20 cm From Medial Malleolus 44.3 cm 30 cm From Medial Malleolus 50.6 cm 40 cm From Medial Malleolus 45.5 cm 50 cm From Medial Malleolus 57.8 cm 60 cm From Medial Malleolus 65 cm 70 cm From Medial Malleolus 75.3 cm Right MT Heads 21.6 cm Medial Malleolus 26.6 cm 10 cm From Medial Malleolus 23.6 cm 20 cm From Medial Malleolus 35.5 cm 30 cm From Medial Malleolus 46.8 cm 40 cm From Medial Malleolus 52.5 cm 50 cm From Medial Malleolus 50.8 cm 60 cm From Medial Malleolus 60 cm 70 cm From Medial Malleolus 70 cm PT-OP-Q Treatments Start: 05/14/18 08:16 Freq: Status: Active Protocol: Document 07/03/18 15:15 [facility] (Rec: 07/04/18 14:51 [facility] [id number]) Cardio Equipment Recumbent Stepper (Sci-Fit) Duration (Minutes) 10 Resistance 1.0 Manual Therapy Treatment Taping left LE ankle to thigh Treatment Focus edema reduction Type of Tape Kinesio Tape Skin Inspection intact Comments for edema reduction; 4 fan strips (2 each LE) Other Other Manual Treatments circumferential measurements: pre and post pump of left LE Lymphedema Treatment Manual Lymphatic Drainage Location azra LE left greater than right Duration 25 Lymphedema Wrapping Other Issued tubigrip size G for trial at home when laying with knees straight for compression until can obtain custom stockings Sequential Lymphedema Exercises Location Bilateral LE Other Other Pneumatic pump (sequential): 30 min to left LE with LE elevated. Max pressure 37 mm HG. PT-OP-T Assessment and Plan Start: 05/14/18 08:16 Freq: Status: Active Protocol: Document 07/03/18 15:15 [facility] (Rec: 07/04/18 14:51 [facility] [id number]) Physical Therapy Assessment Goals decreased activity tolerance Mcfp Goal (LTG) Decrease LE edema and pain sufficient to allow patient to resume prior level of activity. LTG Duration 3 months Pain Impairment 7/10 Short Term Goal (STG) Decrease pain to no greater than 4/10 STG Duration 6 wks [employer] Supervisor Goal (LTG) Decrease pain to no greater than 2/10 LTG Duration 3 months Edema Short Term Goal (STG) Instruct patient in self-MLD, sequential lymphedema exercises, self-wrapping and/ or taping as indicated. STG Duration 3 wks [employer]flight Attendants Supervisor Goal (LTG) Decrease and stabilize edema ( no increase or decrease more than 1 cm over the course of 1 wk), assist patient in obtaining appropriate compression stockings, consider use of home sequential lymphedema pump. Patient to be independnet in self-managment. LTG Duration 3 months Assessment Summary Assessment Decrease in circumferential measurements after treatment; see paper chart. Physical Therapy Plan Frequency and Duration Frequency of Treatment 2x/Week Duration of Treatment 3 months Plan of Care Start Date 05/14/18 Plan of Care End Date 08/12/18 Therapeutic Interventions Therapeutic Interventions Aquatic Therapy Home Exercise Program Lymphedema Management Manual Therapy Patient/Caregiver Education Self-Care/Home Management Therapeutic Activities Therapeutic Exercises Next Visit Focus/Plan Next Note Type Treatment Note Next Visit Plan Patient to pursue obtaining custom compression stockings.
--- NOTE | 2018-07-08 15:15 | PT.OTN ---
Current Diagnoses Lymphedema, not elsewhere classified (07/08/18) Physical Therapy Treatment Note PT-OP-A Visit Information Start: 05/14/18 08:16 Freq: Status: Active Protocol: Document 06/19/18 10:22 [facility] (Rec: 06/19/18 10:22 [facility] [id number]) Out-Patient Physical Therapy Visit Information Visit Information Visit Type Cancellation PT-OP-B Current Condition Start: 05/14/18 08:16 Freq: Status: Active Protocol: Document 05/14/18 08:15 [facility] (Rec: 05/14/18 09:50 [facility] [id number]) Current Condition History of Current Condition Onset Date 1 year Current Complaints edema and pain bilateral LE's left greater than right History of Current Condition Reports lifetime history of edema in hands and LE's. Also with history of multiple lipomas, some removed by surgery. Worsening edema in LE's over past year with no known cause including development of large painful lipomas medial LE's in knee region which are limiting her function. Reports told by surgeon surgery not indicated for these lipomas and he questioned whether they truly are lipomas; he recommended she lose weight and try physical therapy. Patient reports she has not had success with compression stockings in the past due to poor fit and finds it very difficult to don them due to LBP and difficulty reaching her feet. 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 Also has a history of a-fib, arthritis, back pain, HTN, headaches, hernia, neck pain, 6 abdominal surgeries. 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 PT-OP-G Mobility & Gait Start: 05/14/18 08:16 Freq: Status: Active Protocol: Document 05/14/18 08:15 [facility] (Rec: 05/14/18 17:13 [facility] [id number]) OP Gait Assessment Gait Gait Assistance Required: Independent Distance (Feet) 50 Gait Deviations General Gait Pattern Antalgic Decreased Stride Length Decreased Feet Clearance Factors Limiting Gait Function Factors Limiting Gait Function Pain Comments Gait Comments limited by weight of legs, edema PT-OP-J Posture/Palpation/Skin Start: 05/14/18 08:16 Freq: Status: Active Protocol: Document 05/14/18 08:15 [facility] (Rec: 05/14/18 17:13 [facility] [id number]) Palpation Assessment Location medial knees azra Palpation Findings Edema Tenderness Palpation Details Large areas of edema medial bilateral LE's (see photos in paper chart) just inferior to knee joints; they are symmetrical, soft, tender, some increased small veins in region right greater than left . No palpable increase in warmth, skin intact. Mild fibrosis in tissue just superior to malleoli bilaterally right greater than left. PT-OP-K Range of Motion Start: 05/14/18 08:16 Freq: Status: Active Protocol: Document 05/14/18 08:15 [facility] (Rec: 05/14/18 17:13 [facility] [id number]) Hip Goniometric Range of Motion Hip Measured in Degrees Left Testing Position Supine Flexion w/Knee Flexed 95 Straight Leg Raise 55 Extension 5 Internal Rotation 15 External Rotation 30 Right Testing Position Supine Flexion w/Knee Flexed 90 Straight Leg Raise 50 Extension 5 Internal Rotation 15 External Rotation 30 Knee Goniometric Range of Motion Knee Measured in Degrees Left Flexion Active (degrees) 100 Extension Active (degrees) 0 Right Flexion Active (degrees) 100 Extension Active (degrees) 0 Knee ROM Limitations Comments limited by tissue aproximation Ankle and Foot Goniometric Range of Motion Ankle and Foot Measured in Degrees Left Dorsiflexion with Knee Flexed 5 Dorsiflexion with Knee Extended 0 Right Dorsiflexion with Knee Flexed 5 Dorsiflexion with Knee Extended 0 Ankle and Foot ROM Limitations ROM Limitations Soft Tissue Tightness PT-OP-M Strength Start: 05/14/18 08:16 Freq: Status: Active Protocol: Document 05/14/18 08:15 [facility] (Rec: 05/14/18 17:13 [facility] [id number]) Hip Strength Hip Manual Muscle Testing Left Flexion (L2) 4- Good- Extension (S1) 3- Fair- Right Flexion (L2) 4- Good- Extension (S1) 3- Fair- Knee Strength Knee Manual Muscle Testing Left Flexion (S2) 4- Good- Extension (L3) 4- Good- Right Flexion (S2) 4- Good- Extension (L3) 4- Good- Ankle/Foot Strength Ankle and Foot Manual Muscle Testing Right Dorsiflexion (L4) 4+ Good+ Plantarflexion (S1) 4+ Good+ PT-OP-N Lymphedema Start: 05/14/18 08:16 Freq: Status: Active Protocol: Document 06/11/18 15:15 [facility] (Rec: 06/11/18 16:23 [facility] [id number]) Lymphedema Measurements Lower Extremity Circumference Measurements Left MT Heads 21 cm Medial Malleolus 25.7 cm 10 cm From Medial Malleolus 33 cm 20 cm From Medial Malleolus 44.3 cm 30 cm From Medial Malleolus 50.6 cm 40 cm From Medial Malleolus 45.5 cm 50 cm From Medial Malleolus 57.8 cm 60 cm From Medial Malleolus 65 cm 70 cm From Medial Malleolus 75.3 cm Right MT Heads 21.6 cm Medial Malleolus 26.6 cm 10 cm From Medial Malleolus 23.6 cm 20 cm From Medial Malleolus 35.5 cm 30 cm From Medial Malleolus 46.8 cm 40 cm From Medial Malleolus 52.5 cm 50 cm From Medial Malleolus 50.8 cm 60 cm From Medial Malleolus 60 cm 70 cm From Medial Malleolus 70 cm PT-OP-Q Treatments Start: 05/14/18 08:16 Freq: Status: Active Protocol: Document 07/08/18 15:15 [facility] (Rec: 07/09/18 16:17 [facility] [id number]) Cardio Equipment Recumbent Stepper (Sci-Fit) Other time constraints Manual Therapy Treatment Taping left LE ankle to thigh Treatment Focus edema reduction Type of Tape Kinesio Tape Skin Inspection intact Comments for edema reduction; 4 fan strips (2 each LE) Other Other Manual Treatments circumferential measurements: pre and post pump of left LE Lymphedema Treatment Manual Lymphatic Drainage Location azra LE left greater than right Duration 25 Sequential Lymphedema Exercises Location Bilateral LE Other Other Pneumatic pump (sequential): 30 min to left LE with LE elevated. Max pressure 37 mm HG. PT-OP-T Assessment and Plan Start: 05/14/18 08:16 Freq: Status: Active Protocol: Document 07/08/18 15:15 [facility] (Rec: 07/09/18 16:17 [facility] [id number]) Physical Therapy Assessment Assessment Summary Assessment Pt had decrease in circumferential measurements after treatment. She refuse the biodex due to time limitations. Physical Therapy Plan Frequency and Duration Frequency of Treatment 2x/Week Duration of Treatment 3 months Plan of Care Start Date 05/14/18 Plan of Care End Date 08/12/18 Therapeutic Interventions Therapeutic Interventions Aquatic Therapy Home Exercise Program Lymphedema Management Manual Therapy Patient/Caregiver Education Self-Care/Home Management Therapeutic Activities Therapeutic Exercises Next Visit Focus/Plan Next Note Type Treatment Note Next Visit Plan Patient to pursue obtaining custom compression stockings.
--- NOTE | 2018-07-11 08:36 | PT.OTN ---
Current Diagnoses Lymphedema, not elsewhere classified (07/10/18) Physical Therapy Treatment Note PT-OP-A Visit Information Start: 05/14/18 08:16 Freq: Status: Active Protocol: Document 07/10/18 15:15 [facility] (Rec: 07/11/18 08:36 [facility] [id number]) Out-Patient Physical Therapy Visit Information Visit Information Visit Type Treatment Note Visit Start Time 15:15 Visit Stop Time 16:20 Total Visit Minutes 65 Number of ASSOCIATE MEDIA DIRECTOR Visits 0 PT-OP-B Current Condition Start: 05/14/18 08:16 Freq: Status: Active Protocol: Document 05/14/18 08:15 [facility] (Rec: 05/14/18 09:50 [facility] [id number]) Current Condition History of Current Condition Onset Date 1 year Current Complaints edema and pain bilateral LE's left greater than right History of Current Condition Reports lifetime history of edema in hands and LE's. Also with history of multiple lipomas, some removed by surgery. Worsening edema in LE's over past year with no known cause including development of large painful lipomas medial LE's in knee region which are limiting her function. Reports told by surgeon surgery not indicated for these lipomas and he questioned whether they truly are lipomas; he recommended she lose weight and try physical therapy. Patient reports she has not had success with compression stockings in the past due to poor fit and finds it very difficult to don them due to LBP and difficulty reaching her feet. 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 Also has a history of a-fib, arthritis, back pain, HTN, headaches, hernia, neck pain, 6 abdominal surgeries. 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 Is going to go for second opinion regarding surgical option PT-OP-G Mobility & Gait Start: 05/14/18 08:16 Freq: Status: Active Protocol: Document 05/14/18 08:15 [facility] (Rec: 05/14/18 17:13 [facility] [id number]) OP Gait Assessment Gait Gait Assistance Required: Independent Distance (Feet) 50 Gait Deviations General Gait Pattern Antalgic Decreased Stride Length Decreased Feet Clearance Factors Limiting Gait Function Factors Limiting Gait Function Pain Comments Gait Comments limited by weight of legs, edema PT-OP-J Posture/Palpation/Skin Start: 05/14/18 08:16 Freq: Status: Active Protocol: Document 05/14/18 08:15 [facility] (Rec: 05/14/18 17:13 [facility] [id number]) Palpation Assessment Location medial knees azra Palpation Findings Edema Tenderness Palpation Details Large areas of edema medial bilateral LE's (see photos in paper chart) just inferior to knee joints; they are symmetrical, soft, tender, some increased small veins in region right greater than left . No palpable increase in warmth, skin intact. Mild fibrosis in tissue just superior to malleoli bilaterally right greater than left. PT-OP-K Range of Motion Start: 05/14/18 08:16 Freq: Status: Active Protocol: Document 05/14/18 08:15 [facility] (Rec: 05/14/18 17:13 [facility] [id number]) Hip Goniometric Range of Motion Hip Measured in Degrees Left Testing Position Supine Flexion w/Knee Flexed 95 Straight Leg Raise 55 Extension 5 Internal Rotation 15 External Rotation 30 Right Testing Position Supine Flexion w/Knee Flexed 90 Straight Leg Raise 50 Extension 5 Internal Rotation 15 External Rotation 30 Knee Goniometric Range of Motion Knee Measured in Degrees Left Flexion Active (degrees) 100 Extension Active (degrees) 0 Right Flexion Active (degrees) 100 Extension Active (degrees) 0 Knee ROM Limitations Comments limited by tissue aproximation Ankle and Foot Goniometric Range of Motion Ankle and Foot Measured in Degrees Left Dorsiflexion with Knee Flexed 5 Dorsiflexion with Knee Extended 0 Right Dorsiflexion with Knee Flexed 5 Dorsiflexion with Knee Extended 0 Ankle and Foot ROM Limitations ROM Limitations Soft Tissue Tightness PT-OP-M Strength Start: 05/14/18 08:16 Freq: Status: Active Protocol: Document 05/14/18 08:15 [facility] (Rec: 05/14/18 17:13 [facility] [id number]) Hip Strength Hip Manual Muscle Testing Left Flexion (L2) 4- Good- Extension (S1) 3- Fair- Right Flexion (L2) 4- Good- Extension (S1) 3- Fair- Knee Strength Knee Manual Muscle Testing Left Flexion (S2) 4- Good- Extension (L3) 4- Good- Right Flexion (S2) 4- Good- Extension (L3) 4- Good- Ankle/Foot Strength Ankle and Foot Manual Muscle Testing Right Dorsiflexion (L4) 4+ Good+ Plantarflexion (S1) 4+ Good+ PT-OP-N Lymphedema Start: 05/14/18 08:16 Freq: Status: Active Protocol: Document 06/11/18 15:15 [facility] (Rec: 06/11/18 16:23 [facility] [id number]) Lymphedema Measurements Lower Extremity Circumference Measurements Left MT Heads 21 cm Medial Malleolus 25.7 cm 10 cm From Medial Malleolus 33 cm 20 cm From Medial Malleolus 44.3 cm 30 cm From Medial Malleolus 50.6 cm 40 cm From Medial Malleolus 45.5 cm 50 cm From Medial Malleolus 57.8 cm 60 cm From Medial Malleolus 65 cm 70 cm From Medial Malleolus 75.3 cm Right MT Heads 21.6 cm Medial Malleolus 26.6 cm 10 cm From Medial Malleolus 23.6 cm 20 cm From Medial Malleolus 35.5 cm 30 cm From Medial Malleolus 46.8 cm 40 cm From Medial Malleolus 52.5 cm 50 cm From Medial Malleolus 50.8 cm 60 cm From Medial Malleolus 60 cm 70 cm From Medial Malleolus 70 cm PT-OP-Q Treatments Start: 05/14/18 08:16 Freq: Status: Active Protocol: Document 07/10/18 15:15 [facility] (Rec: 07/11/18 08:32 [facility] [id number]) Cardio Equipment Recumbent Stepper (Sci-Fit) Duration (Minutes) 10 Resistance 1 Manual Therapy Treatment Taping left LE ankle to thigh Treatment Focus edema reduction Type of Tape Kinesio Tape Skin Inspection intact Comments for edema reduction; 4 fan strips (2 each LE) Other Other Manual Treatments circumferential measurements: pre and post pump of left LE Lymphedema Treatment Manual Lymphatic Drainage Location azra LE left greater than right Duration 25 Sequential Lymphedema Exercises Location Bilateral LE Other Other Pneumatic pump (sequential): 30 min to left LE with LE elevated. Max pressure 37 mm HG. PT-OP-T Assessment and Plan Start: 05/14/18 08:16 Freq: Status: Active Protocol: Document 07/10/18 15:15 [facility] (Rec: 07/11/18 08:32 [facility] [id number]) Physical Therapy Assessment Goals decreased activity tolerance Alf Goal (LTG) Decrease LE edema and pain sufficient to allow patient to resume prior level of activity (some goal progress; see paper chart for measurements) LTG Duration 3 months Pain Impairment 7/10 Short Term Goal (STG) Decrease pain to no greater than 4/10 (some goal progress) STG Duration 6 wks Alf Goal (LTG) Decrease pain to no greater than 2/10 LTG Duration 3 months Edema Short Term Goal (STG) Instruct patient in self-MLD, sequential lymphedema exercises, self-wrapping and/ or taping as indicated. (good goal progress) STG Duration 3 wks Alf Goal (LTG) Decrease and stabilize edema ( no increase or decrease more than 1 cm over the course of 1 wk), assist patient in obtaining appropriate compression stockings, consider use of home sequential lymphedema pump. Patient to be independnet in self-managment. LTG Duration 3 months Assessment Summary Assessment Patient continues to experience decrease in circumferential measurements with use of pump and MLD. Has not been able to make it to a pool for aquatic exercise due to work schedule demands. Feel she would benefit from the use of a home lymphedema pump. physician has recommended no custom compression until determins if able to have surgery. Patient was shown option of Circ-Aid type wrap for LE's to possibly used at home, too bulky for wear at work. Physical Therapy Plan Frequency and Duration Frequency of Treatment 2x/Week Duration of Treatment 3 months Plan of Care Start Date 05/14/18 Plan of Care End Date 08/12/18 Therapeutic Interventions Therapeutic Interventions Aquatic Therapy Home Exercise Program Lymphedema Management Manual Therapy Patient/Caregiver Education Self-Care/Home Management Therapeutic Activities Therapeutic Exercises Next Visit Focus/Plan Next Note Type Treatment Note Next Visit Plan Continue PT per POC, Request order for home lymphedema pump
--- NOTE | 2018-07-18 08:39 | PT.OTN ---
Current Diagnoses Lymphedema, not elsewhere classified (07/17/18) Physical Therapy Treatment Note PT-OP-A Visit Information Start: 05/14/18 08:16 Freq: Status: Active Protocol: Document 07/17/18 15:15 [facility] (Rec: 07/18/18 08:39 [facility] [id number]) Out-Patient Physical Therapy Visit Information Visit Information Visit Type Treatment Note Visit Start Time 15:15 Visit Stop Time 16:10 Total Visit Minutes 55 Visit Number 10 Number of CASH MANAGEMENT COORDINATOR Visits 0 PT-OP-B Current Condition Start: 05/14/18 08:16 Freq: Status: Active Protocol: Document 05/14/18 08:15 [facility] (Rec: 05/14/18 09:50 [facility] [id number]) Current Condition History of Current Condition Onset Date 1 year Current Complaints edema and pain bilateral LE's left greater than right History of Current Condition Reports lifetime history of edema in hands and LE's. Also with history of multiple lipomas, some removed by surgery. Worsening edema in LE's over past year with no known cause including development of large painful lipomas medial LE's in knee region which are limiting her function. Reports told by surgeon surgery not indicated for these lipomas and he questioned whether they truly are lipomas; he recommended she lose weight and try physical therapy. Patient reports she has not had success with compression stockings in the past due to poor fit and finds it very difficult to don them due to LBP and difficulty reaching her feet. 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 Also has a history of a-fib, arthritis, back pain, HTN, headaches, hernia, neck pain, 6 abdominal surgeries. 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 PT-OP-G Mobility & Gait Start: 05/14/18 08:16 Freq: Status: Active Protocol: Document 05/14/18 08:15 [facility] (Rec: 05/14/18 17:13 [facility] [id number]) OP Gait Assessment Gait Gait Assistance Required: Independent Distance (Feet) 50 Gait Deviations General Gait Pattern Antalgic Decreased Stride Length Decreased Feet Clearance Factors Limiting Gait Function Factors Limiting Gait Function Pain Comments Gait Comments limited by weight of legs, edema PT-OP-J Posture/Palpation/Skin Start: 05/14/18 08:16 Freq: Status: Active Protocol: Document 05/14/18 08:15 [facility] (Rec: 05/14/18 17:13 [facility] [id number]) Palpation Assessment Location medial knees azra Palpation Findings Edema Tenderness Palpation Details Large areas of edema medial bilateral LE's (see photos in paper chart) just inferior to knee joints; they are symmetrical, soft, tender, some increased small veins in region right greater than left . No palpable increase in warmth, skin intact. Mild fibrosis in tissue just superior to malleoli bilaterally right greater than left. PT-OP-K Range of Motion Start: 05/14/18 08:16 Freq: Status: Active Protocol: Document 05/14/18 08:15 [facility] (Rec: 05/14/18 17:13 [facility] [id number]) Hip Goniometric Range of Motion Hip Measured in Degrees Left Testing Position Supine Flexion w/Knee Flexed 95 Straight Leg Raise 55 Extension 5 Internal Rotation 15 External Rotation 30 Right Testing Position Supine Flexion w/Knee Flexed 90 Straight Leg Raise 50 Extension 5 Internal Rotation 15 External Rotation 30 Knee Goniometric Range of Motion Knee Measured in Degrees Left Flexion Active (degrees) 100 Extension Active (degrees) 0 Right Flexion Active (degrees) 100 Extension Active (degrees) 0 Knee ROM Limitations Comments limited by tissue aproximation Ankle and Foot Goniometric Range of Motion Ankle and Foot Measured in Degrees Left Dorsiflexion with Knee Flexed 5 Dorsiflexion with Knee Extended 0 Right Dorsiflexion with Knee Flexed 5 Dorsiflexion with Knee Extended 0 Ankle and Foot ROM Limitations ROM Limitations Soft Tissue Tightness PT-OP-M Strength Start: 05/14/18 08:16 Freq: Status: Active Protocol: Document 05/14/18 08:15 [facility] (Rec: 05/14/18 17:13 [facility] [id number]) Hip Strength Hip Manual Muscle Testing Left Flexion (L2) 4- Good- Extension (S1) 3- Fair- Right Flexion (L2) 4- Good- Extension (S1) 3- Fair- Knee Strength Knee Manual Muscle Testing Left Flexion (S2) 4- Good- Extension (L3) 4- Good- Right Flexion (S2) 4- Good- Extension (L3) 4- Good- Ankle/Foot Strength Ankle and Foot Manual Muscle Testing Right Dorsiflexion (L4) 4+ Good+ Plantarflexion (S1) 4+ Good+ PT-OP-N Lymphedema Start: 05/14/18 08:16 Freq: Status: Active Protocol: Document 06/11/18 15:15 [facility] (Rec: 06/11/18 16:23 [facility] [id number]) Lymphedema Measurements Lower Extremity Circumference Measurements Left MT Heads 21 cm Medial Malleolus 25.7 cm 10 cm From Medial Malleolus 33 cm 20 cm From Medial Malleolus 44.3 cm 30 cm From Medial Malleolus 50.6 cm 40 cm From Medial Malleolus 45.5 cm 50 cm From Medial Malleolus 57.8 cm 60 cm From Medial Malleolus 65 cm 70 cm From Medial Malleolus 75.3 cm Right MT Heads 21.6 cm Medial Malleolus 26.6 cm 10 cm From Medial Malleolus 23.6 cm 20 cm From Medial Malleolus 35.5 cm 30 cm From Medial Malleolus 46.8 cm 40 cm From Medial Malleolus 52.5 cm 50 cm From Medial Malleolus 50.8 cm 60 cm From Medial Malleolus 60 cm 70 cm From Medial Malleolus 70 cm PT-OP-Q Treatments Start: 05/14/18 08:16 Freq: Status: Active Protocol: Document 07/17/18 15:15 [facility] (Rec: 07/18/18 08:39 [facility] [id number]) Cardio Equipment Recumbent Stepper (Sci-Fit) Other refused due to nausea Manual Therapy Treatment Taping left LE ankle to thigh Treatment Focus edema reduction Type of Tape Kinesio Tape Skin Inspection intact Comments for edema reduction; 4 fan strips (2 each LE) Other Other Manual Treatments circumferential measurements deferred today due to patient nausea, decreasing treatment time Lymphedema Treatment Manual Lymphatic Drainage Location azra LE left greater than right Duration 25 Sequential Lymphedema Exercises Comments deferred due to patient nausea Other Other Pneumatic pump (sequential): 30 min to left LE with LE elevated. Max pressure 37 mm HG. PT-OP-T Assessment and Plan Start: 05/14/18 08:16 Freq: Status: Active Protocol: Document 07/17/18 15:15 [facility] (Rec: 07/18/18 08:39 [facility] [id number]) Physical Therapy Assessment Goals decreased activity tolerance Half-Way Goal (LTG) Decrease LE edema and pain sufficient to allow patient to resume prior level of activity (some goal progress; see paper chart for measurements) LTG Duration 3 months Pain Impairment 7/10 Short Term Goal (STG) Decrease pain to no greater than 4/10 (some goal progress) STG Duration 6 wks Extra Gang Supervisor Goal (LTG) Decrease pain to no greater than 2/10 LTG Duration 3 months Edema Short Term Goal (STG) Instruct patient in self-MLD, sequential lymphedema exercises, self-wrapping and/ or taping as indicated. (good goal progress) STG Duration 3 wks Extra Gang Supervisor Goal (LTG) Decrease and stabilize edema ( no increase or decrease more than 1 cm over the course of 1 wk), assist patient in obtaining appropriate compression stockings, consider use of home sequential lymphedema pump. Patient to be independnet in self-managment. LTG Duration 3 months Assessment Summary Assessment No measurements today due to patient nausea and desire to shorten treatment, but visually noted decrease in edema following treatment today. Physical Therapy Plan Frequency and Duration Frequency of Treatment 2x/Week Duration of Treatment 3 months Plan of Care Start Date 05/14/18 Plan of Care End Date 08/12/18 Therapeutic Interventions Therapeutic Interventions Aquatic Therapy Home Exercise Program Lymphedema Management Manual Therapy Patient/Caregiver Education Self-Care/Home Management Therapeutic Activities Therapeutic Exercises Next Visit Focus/Plan Next Note Type Treatment Note Next Visit Plan Continue PT per POC, Patient reports her physician is working on getting a pump for her.
--- NOTE | 2018-10-01 13:25 | PT.OPDS ---
Current Diagnoses Lymphedema, not elsewhere classified (07/17/18) Provider Visit Care Team Role Provider Type Daria Meier DO Primary Care Provider Non-Staff Specialty: Medical Address: [address] [place] [address], [id number] Email: Rufus Lewis Attending Provider Non-Staff Specialty: Medical Address: [address] [place] [address], [id number] Email: Visit Number Visit Number 10 Discharge Summary PT-OP-B Current Condition Start: 05/14/18 08:16 Freq: Status: Active Protocol: Document 05/14/18 08:15 SAK (Rec: 05/14/18 09:50 SAK [id number]) Current Condition History of Current Condition Onset Date 1 year Current Complaints edema and pain bilateral LE's left greater than right History of Current Condition Reports lifetime history of edema in hands and LE's. Also with history of multiple lipomas, some removed by surgery. Worsening edema in LE's over past year with no known cause including development of large painful lipomas medial LE's in knee region which are limiting her function. Reports told by surgeon surgery not indicated for these lipomas and he questioned whether they truly are lipomas; he recommended she lose weight and try physical therapy. Patient reports she has not had success with compression stockings in the past due to poor fit and finds it very difficult to don them due to LBP and difficulty reaching her feet. 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 Also has a history of a-fib, arthritis, back pain, HTN, headaches, hernia, neck pain, 6 abdominal surgeries. 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 PT-OP-G Mobility & Gait Start: 05/14/18 08:16 Freq: Status: Active Protocol: Document 05/14/18 08:15 [facility] (Rec: 05/14/18 17:13 [facility] [id number]) OP Gait Assessment Gait Gait Assistance Required: Independent Distance (Feet) 50 Gait Deviations General Gait Pattern Antalgic Decreased Stride Length Decreased Feet Clearance Factors Limiting Gait Function Factors Limiting Gait Function Pain Comments Gait Comments limited by weight of legs, edema PT-OP-J Posture/Palpation/Skin Start: 05/14/18 08:16 Freq: Status: Active Protocol: Document 05/14/18 08:15 [facility] (Rec: 05/14/18 17:13 [facility] [id number]) Palpation Assessment Location medial knees azra Palpation Findings Edema Tenderness Palpation Details Large areas of edema medial bilateral LE's (see photos in paper chart) just inferior to knee joints; they are symmetrical, soft, tender, some increased small veins in region right greater than left . No palpable increase in warmth, skin intact. Mild fibrosis in tissue just superior to malleoli bilaterally right greater than left. PT-OP-K Range of Motion Start: 05/14/18 08:16 Freq: Status: Active Protocol: Document 05/14/18 08:15 [facility] (Rec: 05/14/18 17:13 [facility] [id number]) Hip Goniometric Range of Motion Hip Measured in Degrees Left Testing Position Supine Flexion w/Knee Flexed 95 Straight Leg Raise 55 Extension 5 Internal Rotation 15 External Rotation 30 Right Testing Position Supine Flexion w/Knee Flexed 90 Straight Leg Raise 50 Extension 5 Internal Rotation 15 External Rotation 30 Knee Goniometric Range of Motion Knee Measured in Degrees Left Flexion Active (degrees) 100 Extension Active (degrees) 0 Right Flexion Active (degrees) 100 Extension Active (degrees) 0 Knee ROM Limitations Comments limited by tissue aproximation Ankle and Foot Goniometric Range of Motion Ankle and Foot Measured in Degrees Left Dorsiflexion with Knee Flexed 5 Dorsiflexion with Knee Extended 0 Right Dorsiflexion with Knee Flexed 5 Dorsiflexion with Knee Extended 0 Ankle and Foot ROM Limitations ROM Limitations Soft Tissue Tightness PT-OP-M Strength Start: 05/14/18 08:16 Freq: Status: Active Protocol: Document 05/14/18 08:15 [facility] (Rec: 05/14/18 17:13 [facility] [id number]) Hip Strength Hip Manual Muscle Testing Left Flexion (L2) 4- Good- Extension (S1) 3- Fair- Right Flexion (L2) 4- Good- Extension (S1) 3- Fair- Knee Strength Knee Manual Muscle Testing Left Flexion (S2) 4- Good- Extension (L3) 4- Good- Right Flexion (S2) 4- Good- Extension (L3) 4- Good- Ankle/Foot Strength Ankle and Foot Manual Muscle Testing Right Dorsiflexion (L4) 4+ Good+ Plantarflexion (S1) 4+ Good+ PT-OP-N Lymphedema Start: 05/14/18 08:16 Freq: Status: Active Protocol: Document 06/11/18 15:15 [facility] (Rec: 06/11/18 16:23 [facility] [id number]) Lymphedema Measurements Lower Extremity Circumference Measurements Left MT Heads 21 cm Medial Malleolus 25.7 cm 10 cm From Medial Malleolus 33 cm 20 cm From Medial Malleolus 44.3 cm 30 cm From Medial Malleolus 50.6 cm 40 cm From Medial Malleolus 45.5 cm 50 cm From Medial Malleolus 57.8 cm 60 cm From Medial Malleolus 65 cm 70 cm From Medial Malleolus 75.3 cm Right MT Heads 21.6 cm Medial Malleolus 26.6 cm 10 cm From Medial Malleolus 23.6 cm 20 cm From Medial Malleolus 35.5 cm 30 cm From Medial Malleolus 46.8 cm 40 cm From Medial Malleolus 52.5 cm 50 cm From Medial Malleolus 50.8 cm 60 cm From Medial Malleolus 60 cm 70 cm From Medial Malleolus 70 cm PT-OP-T Assessment and Plan Start: 05/14/18 08:16 Freq: Status: Active Protocol: Document 10/01/18 13:24 [facility] (Rec: 10/01/18 13:25 [facility] [id number]) Physical Therapy Plan Discharge Physical Therapy Discharge Reasons No Longer Attending PT
== END 2018-10-16 14:57 ==
LOC: PHYS 15:15
PROVIDERS: PCP Family Medicine; Visit Provider Nurse Practitioner Family
DX: I89.0 Lymphedema, not elsewhere classified (principal)
CPT/HCPCS: 97016; 97110; 97140; 97163; 97535

== ENCOUNTER → 2018-09-30 15:42 | Outpatient (CLI) | payer MEDICARE, OTHER, SELFPAY ==
--- NOTE | 2018-09-30 | DI.MRI.S_ITS ---
PROCEDURE: MR KNEE RT WO/W CON INDICATIONS: LIPOMA OF RIGHT KNEE TECHNIQUE: Noncontrast sagittal PD fast spin echo and T2 fast spin echo with fat saturation, sagittal 3-D FLASH with fat saturation; coronal T1 spin echo and PD fast spin echo with fat saturation, and axial T1 spin echo and PD fast spin echo with fat saturation through the knee. Post-contrast axial, coronal, and sagittal T1 spin echo with fat saturation through the knee. COMPARISON: [facility], US, US EXTREMITY NONVASC LOWER LT, 10/30/2017, 11:25. FINDINGS: Image quality: Excellent. Mild, circumferential superficial fascial fluid and subcutaneous edema. In the area of the fiducial marker placed along the medial aspect of the upper calf (image 29 series 14) no suspicious soft tissue mass or enhancement is seen. No focal fluid collection. Underlying muscle signal intensity within normal limits. Menisci: Lateral meniscus appears intact. Probable myxoid degeneration and truncation of the free margin of the body of the medial meniscus although limited evaluation given protocol for mass workup. Cruciate ligaments: The anterior and posterior cruciate ligaments appear intact. Medial structures: The medial collateral ligament appears intact. The posterior oblique ligament, semimembranosus tendon insertions, and oblique popliteal liagment, and meniscocapsular junction appear intact. Visualized portions of the pes anserinus tendons appear normal. No abnormal bursal fluid. Lateral structures: The lateral collateral ligament, long and short heads of the biceps femoris tendon appear intact. The popliteus tendon appears normal; the popliteofibular ligament appears intact. The posterosuperior and anteroinferior popliteomeniscal fascicles appear intact. The arcuate and fabellofibular ligaments appear intact, around the lateral inferior geniculate artery. Iliotibial band appears normal. Anterior structures: The quadriceps and patellar tendons appear intact. Patellar alignment is normal. No femoral trochlear dysplasia or ventral trochlear prominence. No edema in the infrapatellar fat pad. Bones and cartilage: No suspicious osseous enhancement. No bone marrow contusions or fractures. The cartilage of the medial and lateral femorotibial compartments, as well as the patellofemoral compartment, appears normal in thickness. Joint space: There is physiologic knee joint fluid. No Reyes's cyst. No suspicious soft tissue enhancement. IMPRESSION: No discrete mass or focal fluid collection seen in the area of the fiducial marker placed along the medial aspect of the right lower extremity just below the knee. There is underlying normal appearing fat signal intensity, and no discrete encapsulated lesion. Technically, unencapsulated lipoma in the differential. No suspicious enhancement. Dictated by: Jordi Gamboa M.D. on 10/01/2018 at 10:34 Approved by: Jordi Gamboa M.D. on 10/01/2018 at 10:41
== END ==
PROVIDERS: PCP Family Medicine; Visit Provider Orthopaedic Surgery
DX: D17.23 Benign lipomatous neoplasm of skin and subcutaneous tissue of right leg (principal)
CPT/HCPCS: 73723; A9579

== ENCOUNTER → 2019-11-09 11:00 | Outpatient (CLI) | payer MEDICARE, OTHER, SELFPAY ==
--- NOTE | 2019-11-09 | DI.MRI.S_ITS ---
PROCEDURE: MR HEAD/BRAIN WO CON INDICATIONS: amnesia, chronic sinusitis TECHNIQUE: Non-contrast axial T1 spin echo, axial T2 fast spin echo, sagittal and axial FLAIR, coronal T2 fast spin echo, axial gradient echo, axial diffusion and ADC through the brain. COMPARISON: None. FINDINGS: Image quality: Excellent. CSF spaces: Ventricles appear symmetric in size and shape. Basal cisterns are patent. No extra-axial fluid collections. Brain: No intracranial bleeds or mass effects. There is cerebral volume loss for age. There are periventricular and deep white matter chronic small vessel ischemic changes. Brainstem appears normal. Diffusion-weighted images show no acute ischemic insults. No chronic ischemic insults. Normal intravascular flow voids are present. Skull and face: Calvarial bone marrow is normal in signal. Orbits are normal. Sinuses: There is a mucous retention cyst involving the posterior aspect of the right maxillary sinus. Mild mucosal thickening is seen within the inferior left maxillary sinus. The paranasal sinuses otherwise appear clear. No abnormal mass air cell fluid can be seen. IMPRESSION: Unremarkable intracranial study for age, without an imaging explanation found for the patient's presenting symptoms. There is a right maxillary sinus mucus retention cyst and there is mild to moderate mucosal thickening of the left maxillary sinus inferiorly. Dictated by: Bethel Sapp M.D. on 11/09/2019 at 11:12 Approved by: Bethel Sapp M.D. on 11/09/2019 at 11:14
== END ==
PROVIDERS: PCP Family Medicine; Referring Provider Family Medicine; Visit Provider Family Medicine
DX: R41.3 Other amnesia (principal); J32.9 Chronic sinusitis, unspecified; J34.1 Cyst and mucocele of nose and nasal sinus
CPT/HCPCS: 70551

== ENCOUNTER → 2020-02-04 15:54 | Outpatient (CLI) | payer MEDICARE, OTHER, SELFPAY ==
--- NOTE | 2020-02-04 16:09 | DI.MG.S_ITS ---
Patient Name: MONTEZ HER date: 1950 Sex: F Attending Physician: Hardeep Indications: Date: 02/04/2020 16:14 At the request of: KASIE VOGEL Procedure: MM screening mammo BI BILATERAL DIGITAL SCREENING MAMMOGRAM 3D/2D WITH CAD: 02/04/2020 CLINICAL: Routine screening. Family history of breast cancer. Comparison is made to exams dated: 10/30/2017 mammogram, 08/12/2015 mammogram - [facility], and 11/29/2014 mammogram - [facility]. There are scattered fibroglandular elements in both breasts. Current study was also evaluated with a Computer Aided Detection (CAD) system. No significant masses, calcifications, or other findings are seen in either breast. There has been no significant interval change. IMPRESSION: NEGATIVE There is no mammographic evidence of malignancy. A 1 year screening mammogram is recommended. This exam was interpreted at Station ID: [id number]. NOTE: For mammograms, a report in lay terms will be sent to the patient. Approximately 15% of breast malignancies will not be visualized mammographically. In the management of a palpable breast mass, a negative mammogram must not discourage biopsy of a clinically suspicious lesion. Electronically Signed By: Herminio suarez/godwin:02/04/2020 16:45:47 letter sent: Normal Exam ACR BI-RADS Category 1: Negative [id number]
== END ==
PROVIDERS: PCP Family Medicine; Referring Provider Family Medicine; Visit Provider Family Medicine
DX: Z12.31 Encounter for screening mammogram for malignant neoplasm of breast (principal); Z80.3 Family history of malignant neoplasm of breast
CPT/HCPCS: 77063; 77067

== ENCOUNTER 2020-08-10 14:46 | Emergency (ER) | payer MEDICARE, OTHER, SELFPAY ==
[2020-08-10 14:51] VITALS: BP 118/67; PULSE 82; RESP 20; TEMP 36.7; O2SAT 97
--- NOTE | 2020-08-10 15:58 | ED.ABDPAIN ---
HPI - Abdominal Pain <Maureen Caro, READINESS PARAPROFESSIONAL-BC - Last Filed: 08/10/20 16:16> General Chief Complaint: Abdominal Pain Stated Complaint: diverticulitis Time Seen by Provider: 08/10/20 14:53 Source: patient Mode of arrival: Ambulatory Limitations: no limitations History of Present Illness HPI narrative: The patient is a 70-year-old female nonsmoker with history of diverticulitis, cholecystectomy, appendectomy, and total hysterectomy who presents with a chief complaint of lower abdominal pain. She states that she has been treated for diverticulitis with Augmentin twice in the past month. She called her primary care provider, who repeated lab work and noted an elevated white blood cell count. She has contacted her GI provider, Dr. Del Real, and has an appointment with him 6 days from now. However she elected to come to the emergency department because of severe cramping pain in her lower abdomen. She states that she was started on a course of Augmentin last month, records were obtained from the outside facility which showed that she was started on Augmentin on 06/28. She states that her pain was extreme yesterday so bad she had to take and [place]. She states that she is constipated, takes MiraLax and then has diarrhea. She is alternating between diarrhea and constipation at this point. She complains of nausea with no vomiting. The patient initially declined lab work and CT scan per emergency department records from June. She states that she took the entire course of Augmentin, [place]. She started the 2nd course on 07/15/2020. The patient also takes flecainide, Xarelto, and has a history of atrial fibrillation. Denies any dysuria urgency or frequency. States the pain radiates across her lower abdomen. She denies history of perforation or abscess. Related Data Home Medications Medication Instructions Recorded Confirmed ALBUTEROL SULFATE (Ventolin / 2 puff INH Q4H PRN #0 02/07/10 01/16/18 Proventil) CHOLECALCIFEROL (VITAMIN D3) 2,000 Q DAY #0 02/07/10 01/16/18 (Vitamin D3) fluticasone propionate [Flovent 2 puff INH BID #0 01/20/12 01/16/18 HFA] mometasone [Nasonex] 2 spray INTRANASAL #17 gm 01/20/12 cyanocobalamin (vitamin B-12) 5,000 mcg PO QDAY #0 02/01/16 01/16/18 [Vitamin B-12] loratadine [Claritin] 10 mg PO QDAYP PRN #0 02/01/16 01/16/18 polyethylene glycol 3350 [Miralax] 17 gm PO QDAYP PRN #0 gm 02/01/16 albuterol sulfate INH Q4HP PRN #0 12/31/16 diphenhydramine HCl [Diphedryl] 25 mg PO HSP PRN #0 12/31/16 ondansetron [Zofran ODT] 8 mg SUBLINGUAL Q6HP PRN #0 12/31/16 01/16/18 prednisone 10 mg PO #0 12/31/16 fluorouracil [Efudex] 1 sylvester TOPICAL BID #0 07/10/17 cyclobenzaprine 5 mg tablet 5 mg PO TID PRN 01/16/18 01/16/18 fluticasone propionate 220 1 puff INHALATION BID 01/16/18 01/16/18 mcg/actuation HFA aerosol inhaler ipratropium 20 mcg-albuterol 100 1 puff INHALATION Q6H 01/16/18 01/16/18 mcg/actuation mist for inhalation lisinopril 10 1 tab PO DAILY 01/16/18 01/16/18 mg-hydrochlorothiazide 12.5 mg tablet metronidazole 1 % topical gel 1 applictn TOP DAILY 01/16/18 01/16/18 rivaroxaban 20 mg tablet 20 mg PO DAILY 01/16/18 01/16/18 Previous Rx's Medication Instructions Recorded metoprolol tartrate 12.5 mg PO BID #30 tab 07/10/17 amoxicillin-pot clavulanate 1 tab PO BID #30 tab 08/10/20 [Augmentin] Allergies Allergy/AdvReac Type Severity Reaction Status Date / Time adhesive tape [ADHESIVE TAPE] Allergy Mild Unverified 01/16/18 09:47 Influenza Virus Vaccines Allergy Unknown Unverified 01/16/18 09:47 povidone-iodine Allergy Unknown Unverified 01/16/18 09:47 [From BETADINE] soap [From BETADINE] Allergy Unknown Unverified 01/16/18 09:47 Sulfa (Sulfonamide Allergy Unknown Unverified 01/16/18 09:47 Antibiotics) [SULFA (SULFONAMIDE ANTIBIOTICS)] sulfamethoxazole Allergy Unknown Unverified 01/16/18 09:47 [From ] trimethoprim [From ] Allergy Unknown Unverified 01/16/18 09:47 Review of Systems <RIRI Qureshi- - Last Filed: 08/10/20 16:16> Review of Systems Narrative: GENERAL: Denies chills, fatigue, malaise, fever, sweats. HEENT: Denies sinus pain, ear pain, sore throat, difficulty swallowing, dizziness. RESPIRATORY: Denies dyspnea, cough, wheezing, hemoptysis, sputum. CARDIOVASCULAR: Denies chest pain, palpitations, orthopnea, edema, GASTROINTESTINAL: See HPI : Denies dysuria, frequency, incontinence, hematuria, urinary retention. MUSCULOSKELETAL: denies weakness, joint pain, or bony pain SKIN: Denies rash, skin lesions, or other NEUROLOGIC: Denies weakness, headache, numbness, change in speech, confusion, seizures, incoordination. PSYCHIATRIC: No concerning psychosocial issues. 12 point review of systems is negative except for those stated above Patient History <RIRI Qureshi- - Last Filed: 08/10/20 16:16> Medical History (Updated 08/10/20 @ 17:55 by Kay Ghotra DO) Arthritis Asthma HTN (hypertension) Family History Mother Hypertension Diabetes mellitus Cancer Family/Other Cancer Social History Smoking Status: Never smoker Smoking Status: Never smoker Substance Use Type: does not use Exam <RIRI Qureshi- - Last Filed: 08/10/20 16:16> Narrative Exam Narrative: GENERAL: This is a well-nourished, well-developed patient, in no acute distress HEAD: Atraumatic. Normocephalic. No temporal or scalp tenderness. EYES: Pupils equal round and reactive. Extraocular motions intact. No scleral icterus. No injection or drainage. ENT: Nose without bleeding, purulent drainage or septal hematoma. Wearing a mask Airway patent. NECK: Trachea midline. No JVD or lymphadenopathy. Supple, nontender, no meningeal signs. CARDIOVASCULAR: Regular rate and rhythm RESPIRATORY: Clear to auscultation. Breath sounds equal bilaterally. No wheezes, rales, or rhonchi. No cough. No increased respiratory effort. No accessory muscle use. GASTROINTESTINAL: Abdomen soft, active bowel sounds all 4 quadrants, diffuse tenderness across right lower left lower quadrants. Guarding noted to palpation of left lower quadrant. EXTREMITIES: No clubbing, cyanosis, or edema. No joint tenderness, effusion, or edema noted. Using all extremities equally. BACK: Nontender without deformity or crepitance. No flank tenderness. NEURO: AOx3. SKIN: No rash or erythema on visible skin Initial Vital Signs Initial Vital Signs: Vital Signs Temperature 98.1 F 08/10/20 14:51 Pulse Rate 82 08/10/20 14:51 Respiratory Rate 20 08/10/20 14:51 Blood Pressure 118/67 08/10/20 14:51 Pulse Oximetry 97 08/10/20 14:51 <Kay Ghotra DO - Last Filed: 08/10/20 19:56> Initial Vital Signs Initial Vital Signs: Vital Signs Temperature 98.1 F 08/10/20 14:51 Pulse Rate 82 08/10/20 14:51 Respiratory Rate 20 08/10/20 14:51 Blood Pressure 118/67 08/10/20 14:51 Pulse Oximetry 97 08/10/20 14:51 Scores <NESSA Qureshi - Last Filed: 08/10/20 16:16> GCS Bruce coma scale eye opening: Spontaneous Lamar coma scale verbal response: Orientated Lamar coma scale motor response: Obey commands Bruce coma scale total score: 15 Course <NESSA Qureshi - Last Filed: 08/10/20 16:16> Orders Ordered: ED Orders 08/10/20 15:45 Complete Blood Count AUTO DIFF Stat Comprehensive Metabolic Panel Stat Lactate (Lactic Acid) Stat Lipase Stat Partial Thromboplastin Time Stat Prothrombin Time INR Stat 08/10/20 16:06 CT abdomen pelvis w con Stat Discontinued Medications Ampicillin Sodium/Sulbactam (Sodium 3 gm/ Sodium Chloride) 100 mls @ 100 mls/hr IV NOW ONE Stop: 08/10/20 17:29 Last Infusion: 08/10/20 19:00 Dose: 100 mls/hr Documented by: Admin: 08/10/20 17:51 Dose: 100 mls/hr Documented by: MEGAN Vital Signs Vital signs: Vital Signs - 8 hr 08/10/20 14:51 08/10/20 16:50 08/10/20 18:29 Temperature 98.1 F Pulse Rate 82 84 80 Respiratory Rate 20 14 14 Blood Pressure 118/67 148/60 H 111/67 Pulse Oximetry 97 96 97 08/10/20 19:13 Temperature Pulse Rate 69 Respiratory Rate 15 Blood Pressure 109/56 L Pulse Oximetry 98 <Kay Ghotra DO - Last Filed: 08/10/20 19:56> Orders Ordered: ED Orders 08/10/20 15:45 Complete Blood Count AUTO DIFF Stat Comprehensive Metabolic Panel Stat Lactate (Lactic Acid) Stat Lipase Stat Partial Thromboplastin Time Stat Prothrombin Time INR Stat 08/10/20 16:06 CT abdomen pelvis w con Stat Discontinued Medications Ampicillin Sodium/Sulbactam (Sodium 3 gm/ Sodium Chloride) 100 mls @ 100 mls/hr IV NOW ONE Stop: 08/10/20 17:29 Last Infusion: 08/10/20 19:00 Dose: 100 mls/hr Documented by: Admin: 08/10/20 17:51 Dose: 100 mls/hr Documented by: MEGAN Vital Signs Vital signs: Vital Signs - 8 hr 08/10/20 14:51 08/10/20 16:50 08/10/20 18:29 Temperature 98.1 F Pulse Rate 82 84 80 Respiratory Rate 20 14 14 Blood Pressure 118/67 148/60 H 111/67 Pulse Oximetry 97 96 97 08/10/20 19:13 Temperature Pulse Rate 69 Respiratory Rate 15 Blood Pressure 109/56 L Pulse Oximetry 98 MDM - Abdominal Pain <NESSA Qureshi - Last Filed: 08/10/20 16:16> Lab Data Result diagrams: 08/10/20 15:45 08/10/20 15:45 Labs: Lab Results 08/10/20 08/10/20 08/10/20 Range/Units 15:45 15:45 15:45 WBC 10.7 (4.5-11.0) X10^3/uL RBC 5.02 (4.0-5.2) X10^6/uL Hgb 15.0 (12.0-16.0) g/dL Hct 44.3 (36-46) % MCV 88.2 (80-100) fL MCH 29.8 (26-34) PG MCHC 33.8 (30-36) % RDW 14.0 (11.6-14.8) % Plt Count 267 (150-400) X10^3/uL Neut % (Auto) 53.1 (50-75) % Lymph % (Auto) 36.2 (25-40) % [place] % (Auto) 7.8 (3-14) % Eos % (Auto) 1.5 L (2-4) % Baso % (Auto) 1.4 (0-2) % Neut # (Auto) 5700 (8888-7402) /uL Lymph # (Auto) 3900 (1047-1487) /uL [place] # (Auto) 800 (0-900) /uL Eos # (Auto) 200 (0-450) /uL Baso # (Auto) 100 (0-100) /uL PT 18.1 H (10.1-12.7) SECONDS INR 1.6 H (0.9-1.3) APTT 41 H (26.4-36.2) SECONDS Sodium 138 (137-145) mmol/L Potassium 3.6 (3.4-5.1) mmol/L Chloride 98 (98-107) mmol/L Carbon Dioxide 33 H (22-32) mmol/L BUN 8 (7-17) mg/dL Creatinine 0.82 (0.52-1.04) mg/dL Estimated GFR > 60.0 (>60) mL/min BUN/Creatinine Ratio 9.8 (6-22) Glucose 99 (80-110) mg/dL Lactate (0.7-2.1) mmol/L Calcium 9.9 (8.4-10.2) mg/dL Total Bilirubin 0.6 (0.2-1.3) mg/dL AST 43 H (14-36) IU/L ALT 45 H (<35) IU/L Alkaline Phosphatase 48 (38-126) U/L Total Protein 8.2 (6.3-8.2) g/dL Albumin 4.7 (3.5-5.0) g/dL Globulin 3.5 (1.7-4.1) g/dL Albumin/Globulin Ratio 1.3 (1.0-2.8) Lipase 173 (23-300) U/L 08/10/20 Range/Units 15:45 WBC (4.5-11.0) X10^3/uL RBC (4.0-5.2) X10^6/uL Hgb (12.0-16.0) g/dL Hct (36-46) % MCV (80-100) fL MCH (26-34) PG MCHC (30-36) % RDW (11.6-14.8) % Plt Count (150-400) X10^3/uL Neut % (Auto) (50-75) % Lymph % (Auto) (25-40) % [place] % (Auto) (3-14) % Eos % (Auto) (2-4) % Baso % (Auto) (0-2) % Neut # (Auto) (4946-4921) /uL Lymph # (Auto) (8994-3384) /uL [place] # (Auto) (0-900) /uL Eos # (Auto) (0-450) /uL Baso # (Auto) (0-100) /uL PT (10.1-12.7) SECONDS INR (0.9-1.3) APTT (26.4-36.2) SECONDS Sodium (137-145) mmol/L Potassium (3.4-5.1) mmol/L Chloride (98-107) mmol/L Carbon Dioxide (22-32) mmol/L BUN (7-17) mg/dL Creatinine (0.52-1.04) mg/dL Estimated GFR (>60) mL/min BUN/Creatinine Ratio (6-22) Glucose (80-110) mg/dL Lactate 1.0 (0.7-2.1) mmol/L Calcium (8.4-10.2) mg/dL Total Bilirubin (0.2-1.3) mg/dL AST (14-36) IU/L ALT (<35) IU/L Alkaline Phosphatase (38-126) U/L Total Protein (6.3-8.2) g/dL Albumin (3.5-5.0) g/dL Globulin (1.7-4.1) g/dL Albumin/Globulin Ratio (1.0-2.8) Lipase (23-300) U/L Point of care testing: Urine Dip Bedside Urine Glucose Negative Bedside Urine Bilirubin - Negative Bedside Urine Ketone - Negative Urine Specific [place] 1.015 Bedside Urine Occult Blood - Negative Bedside Urine pH 6.0 Bedside Urine Protein - Negative Bedside Urine Urobilinogen - Negative Bedside Urine Nitrite - Negative Bedside Urine Leukocytes - Negative Esterase MDM Narrative Medical decision making narrative: The patient is a 7-year-old female who presents with a chief complaint of lower abdominal pain despite 2 rounds of antibiotics in the past is 6-8 weeks. Basic lab work was entered, CT scan ordered. Patient signed out to Dr. Ghotra at 4:00 p.m. with lab work and imaging pending. Patient initially declined pain and nausea medication. <Kay Ghotra, DO - Last Filed: 08/10/20 19:56> Lab Data Attestation: I reviewed the patient's lab results. Labs: Lab Results 08/10/20 08/10/20 08/10/20 Range/Units 15:45 15:45 15:45 WBC 10.7 (4.5-11.0) X10^3/uL RBC 5.02 (4.0-5.2) X10^6/uL Hgb 15.0 (12.0-16.0) g/dL Hct 44.3 (36-46) % MCV 88.2 (80-100) fL MCH 29.8 (26-34) PG MCHC 33.8 (30-36) % RDW 14.0 (11.6-14.8) % Plt Count 267 (150-400) X10^3/uL Neut % (Auto) 53.1 (50-75) % Lymph % (Auto) 36.2 (25-40) % [place] % (Auto) 7.8 (3-14) % Eos % (Auto) 1.5 L (2-4) % Baso % (Auto) 1.4 (0-2) % Neut # (Auto) 5700 (0013-2598) /uL Lymph # (Auto) 3900 (0137-4868) /uL [place] # (Auto) 800 (0-900) /uL Eos # (Auto) 200 (0-450) /uL Baso # (Auto) 100 (0-100) /uL PT 18.1 H (10.1-12.7) SECONDS INR 1.6 H (0.9-1.3) APTT 41 H (26.4-36.2) SECONDS Sodium 138 (137-145) mmol/L Potassium 3.6 (3.4-5.1) mmol/L Chloride 98 (98-107) mmol/L Carbon Dioxide 33 H (22-32) mmol/L BUN 8 (7-17) mg/dL Creatinine 0.82 (0.52-1.04) mg/dL Estimated GFR > 60.0 (>60) mL/min BUN/Creatinine Ratio 9.8 (6-22) Glucose 99 (80-110) mg/dL Lactate (0.7-2.1) mmol/L Calcium 9.9 (8.4-10.2) mg/dL Total Bilirubin 0.6 (0.2-1.3) mg/dL AST 43 H (14-36) IU/L ALT 45 H (<35) IU/L Alkaline Phosphatase 48 (38-126) U/L Total Protein 8.2 (6.3-8.2) g/dL Albumin 4.7 (3.5-5.0) g/dL Globulin 3.5 (1.7-4.1) g/dL Albumin/Globulin Ratio 1.3 (1.0-2.8) Lipase 173 (23-300) U/L /08/28 Range/Units 15:45 WBC (4.5-11.0) X10^3/uL RBC (4.0-5.2) X10^6/uL Hgb (12.0-16.0) g/dL Hct (36-46) % MCV (80-100) fL MCH (26-34) PG MCHC (30-36) % RDW (11.6-14.8) % Plt Count (150-400) X10^3/uL Neut % (Auto) (50-75) % Lymph % (Auto) (25-40) % [place] % (Auto) (3-14) % Eos % (Auto) (2-4) % Baso % (Auto) (0-2) % Neut # (Auto) (9054-7930) /uL Lymph # (Auto) (3172-1482) /uL [place] # (Auto) (0-900) /uL Eos # (Auto) (0-450) /uL Baso # (Auto) (0-100) /uL PT (10.1-12.7) SECONDS INR (0.9-1.3) APTT (26.4-36.2) SECONDS Sodium (137-145) mmol/L Potassium (3.4-5.1) mmol/L Chloride (98-107) mmol/L Carbon Dioxide (22-32) mmol/L BUN (7-17) mg/dL Creatinine (0.52-1.04) mg/dL Estimated GFR (>60) mL/min BUN/Creatinine Ratio (6-22) Glucose (80-110) mg/dL Lactate 1.0 (0.7-2.1) mmol/L Calcium (8.4-10.2) mg/dL Total Bilirubin (0.2-1.3) mg/dL AST (14-36) IU/L ALT (<35) IU/L Alkaline Phosphatase (38-126) U/L Total Protein (6.3-8.2) g/dL Albumin (3.5-5.0) g/dL Globulin (1.7-4.1) g/dL Albumin/Globulin Ratio (1.0-2.8) Lipase (23-300) U/L Point of care testing: Urine Dip Bedside Urine Glucose Negative Bedside Urine Bilirubin - Negative Bedside Urine Ketone - Negative Urine Specific [place] 1.015 Bedside Urine Occult Blood - Negative Bedside Urine pH 6.0 Bedside Urine Protein - Negative Bedside Urine Urobilinogen - Negative Bedside Urine Nitrite - Negative Bedside Urine Leukocytes - Negative Esterase Imaging Data CT scan - abdomen/pelvis: Radiologist's Impression: PROCEDURE: CT ABDOMEN PELVIS W CON INDICATIONS: llq pain, treated with abx x 2 for divertic TECHNIQUE: After the administration of intravenous contrast, 5 mm thick sections acquired from the diaphragm to the symphysis. 5 mm coronal and sagittal reformats were acquired. For radiation dose reduction, the following was used: automated exposure control, adjustment of mA and/or kV according to patient size. COMPARISON: [facility], CT, ABDOMEN/PELVIS WITH CONTRAST, 04/12/2014, 19:08. FINDINGS: Image quality: Excellent. ABDOMEN: Lung bases: Lung bases are clear. Heart size is normal. Solid organs: Liver is normal in size and enhancement. Gallbladder appears previously resected Biliary system is non dilated. Pancreas enhances normally. Spleen is normal in size and enhancement. No adrenal nodules. Kidneys demonstrate normal size and enhancement, without hydronephrosis. Peritoneum and bowel: Bowel loops demonstrate normal wall thickness and caliber. No free fluid or air. Nodes and vessels: No retroperitoneal or mesenteric adenopathy by size criteria. Aorta and inferior vena cava are normal in size. Miscellaneous: No ventral hernias. PELVIS: Genitourinary: Bladder wall thickness is normal. Miscellaneous: No inguinal hernias or adenopathy. Note is made of relatively prominent diverticulosis involving the sigmoid colon and the transition from the descending colon directly to the sigmoid. In this area anteriorly there is pericolonic edema but no peridiverticular abscess. Bones: No suspicious bony lesions. No vertebral body compression fractures. IMPRESSION: Acute mild diverticulitis at the sigmoid colon, near the junction of the [id number] bowel. No peridiverticular abscess is seen. Prior cholecystectomy. No abnormal free fluid or free air found. Dictated by: Malachi Ogden M.D. on 08/10/2020 at 17:01 MDM Narrative Medical decision making narrative: Received sign-out from [facility] primary if seen evaluated patient myself. She is tender across her lower abdomen CT does confirm mild diverticulitis without. Unfortunately she has multiple allergies to medications which cause rash and vomiting. She has been on Augmentin twice this year already the June 29 for 2 weeks and then again for another week in July. I am concerned that Augmentin is not working and she may need IV antibiotics. However she overall does not appear septic no leukocytosis. She has a GI consultation in 5 days. At this time she understands warning signs and when to return to the emergency department. Discharge Plan Departure Patient Disposition: Home Clinical Impression: Diverticulitis Instructions: DI for Diverticulitis Activity Restrictions/Additional Instructions: *You have been diagnosed with diverticulitis *What to do: At this time I am concerned that you are not responding well to Augmentin and may require admission to hospital for IV antibiotics, however you do have follow-up appointment with GI next week. *Continue to take medications as directed Augmentin 875 mg twice a day for 14 days-->SENT TO DOD *Follow up with your primary care provider in 2-3 days *Return to ER if you should have increasing abdominal pain, bloody stools, nausea, vomiting, fever or any new, worsening or concerning symptoms Prescriptions: New amoxicillin-pot clavulanate [Augmentin] 875-125 mg tablet 1 tab PO BID Qty: 30 RF: 0 No Action ALBUTEROL SULFATE (Ventolin / Proventil) 2 puff INH Q4H PRN Qty: 0 RF: 0 CHOLECALCIFEROL (VITAMIN D3) (Vitamin D3) 2,000 Q DAY Qty: 0 RF: 0 mometasone [Nasonex] 50 MCG/PUFF spray,non-aerosol 2 spray Intranasal Qty: 17 RF: 0 fluticasone propionate [Flovent HFA] 12 GM HFA aerosol inhaler 2 puff INH BID Qty: 0 RF: 0 cyanocobalamin (vitamin B-12) [Vitamin B-12] 250 mcg Tablet 5,000 mcg PO QDAY Qty: 0 RF: 0 loratadine [Claritin] 10 MG tablet 10 mg PO QDAYP PRNQty: 0 RF: 0 polyethylene glycol 3350 [Miralax] 119 GM powder 17 gm PO QDAYP PRNQty: 0 RF: 0 ondansetron [Zofran ODT] 8 MG tablet,disintegrating 8 mg Sublingual Q6HP PRNQty: 0 RF: 0 albuterol sulfate 0.63 mg/3 mL solution for nebulization INH Q4HP PRNQty: 0 RF: 0 prednisone 10 MG tablet 10 mg PO Qty: 0 RF: 0 diphenhydramine HCl [Diphedryl] 25 MG capsule 25 mg PO HSP PRNQty: 0 RF: 0 fluorouracil [Efudex] 5 % cream 1 sylvester Topical BID Qty: 0 RF: 0 metoprolol tartrate 25 MG tablet 12.5 mg PO BID Qty: 30 RF: 0 rivaroxaban [Xarelto] 20 mg tablet 20 mg PO DAILY RF: 0 lisinopril-hydrochlorothiazide 10-12.5 mg tablet 1 tab PO DAILY RF: 0 cyclobenzaprine 5 mg tablet 5 mg PO TID PRNRF: 0 ipratropium-albuterol [Combivent Respimat] 20-100 mcg/actuation mist 1 puff INHALATION Q6H RF: 0 fluticasone propionate [Flovent HFA] 220 mcg/actuation HFA aerosol inhaler 1 puff INHALATION BID RF: 0 metronidazole [Metrogel] 1 % gel 1 applictn TOP DAILY RF: 0 Referrals: Daria Meier DO [Primary Care Provider] - <Kay Ghotra DO - Last Filed: 08/10/20 19:56> Cosign ED Attending Edwardoature Attestation: I was immediately available in the department for consultation. Documentation has been reviewed. I agree with assessment and plan.
--- NOTE | 2020-08-10 16:06 | DI.CT.S_ITS ---
PROCEDURE: CT ABDOMEN PELVIS W CON INDICATIONS: llq pain, treated with abx x 2 for divertic TECHNIQUE: After the administration of intravenous contrast, 5 mm thick sections acquired from the diaphragm to the symphysis. 5 mm coronal and sagittal reformats were acquired. For radiation dose reduction, the following was used: automated exposure control, adjustment of mA and/or kV according to patient size. COMPARISON: [facility], CT, ABDOMEN/PELVIS WITH CONTRAST, 04/12/2014, 19:08. FINDINGS: Image quality: Excellent. ABDOMEN: Lung bases: Lung bases are clear. Heart size is normal. Solid organs: Liver is normal in size and enhancement. Gallbladder appears previously resected Biliary system is non dilated. Pancreas enhances normally. Spleen is normal in size and enhancement. No adrenal nodules. Kidneys demonstrate normal size and enhancement, without hydronephrosis. Peritoneum and bowel: Bowel loops demonstrate normal wall thickness and caliber. No free fluid or air. Nodes and vessels: No retroperitoneal or mesenteric adenopathy by size criteria. Aorta and inferior vena cava are normal in size. Miscellaneous: No ventral hernias. PELVIS: Genitourinary: Bladder wall thickness is normal. Miscellaneous: No inguinal hernias or adenopathy. Note is made of relatively prominent diverticulosis involving the sigmoid colon and the transition from the descending colon directly to the sigmoid. In this area anteriorly there is pericolonic edema but no peridiverticular abscess. Bones: No suspicious bony lesions. No vertebral body compression fractures. IMPRESSION: Acute mild diverticulitis at the sigmoid colon, near the junction of the [id number] bowel. No peridiverticular abscess is seen. Prior cholecystectomy. No abnormal free fluid or free air found. Dictated by: Malachi Ogden M.D. on 08/10/2020 at 17:01 Approved by: Malachi Ogden M.D. on 08/10/2020 at 17:04
[2020-08-10 16:09] LABS: Add Manual Diff / Slide Review NO; Basophils Absolute Auto 100 /uL (0-100); Basophils Percent Auto 1.4 % (0-2); Eosinophils Absolute Auto 200 /uL (0-450); Eosinophils Percent Auto 1.5 % (2-4); Hematocrit 44.3 % (36-46); Lymphocytes Absolute Auto 3900 /uL (1100-4500); Lymphocytes Percent Auto 36.2 % (25-40); Mean Corpuscular HGB Conc 33.8 % (30-36); Mean Corpuscular Hemoglobin 29.8 PG (26-34); Mean Corpuscular Volume 88.2 fL (80-100); Monocytes Absolute Auto 800 /uL (0-900); Monocytes Percent Auto 7.8 % (3-14); Neutrophils Absolute Auto 5700 /uL (1500-7000); Neutrophils Percent Auto 53.1 % (50-75); Platelet Count 267 X10^3/uL (150-400); Red Blood Cell Count 5.02 X10^6/uL (4.0-5.2); White Blood Cell Count 10.7 X10^3/uL (4.5-11.0)
[2020-08-10 16:18] LABS: INR 1.6 (0.9-1.3); Prothrombin Time 18.1 SECONDS (10.1-12.7)
[2020-08-10 16:21] LABS: PTT Partial Thromboplastin Tim 41 SECONDS (26.4-36.2)
[2020-08-10 16:27] LABS: Alanine Aminotransferase 45 IU/L (<35); Albumin 4.7 g/dL (3.5-5.0); Albumin Globulin Ratio 1.3 (1.0-2.8); Alkaline Phosphatase 48 U/L (38-126); Aspartate Aminotransferase 43 IU/L (14-36); BUN Creatinine Ratio 9.8 (6-22); Bilirubin Total 0.6 mg/dL (0.2-1.3); Blood Urea Nitrogen 8 mg/dL (7-17); Calcium 9.9 mg/dL (8.4-10.2); Carbon Dioxide 33 mmol/L (22-32); Chloride 98 mmol/L (98-107); Estimated Glomerular Filt Rate > 60.0 mL/min (>60); Globulin 3.5 g/dL (1.7-4.1); Glucose 99 mg/dL (80-110); HEMOLYSIS < 15 (0-50); Lipase 173 U/L (23-300); Potassium 3.6 mmol/L (3.4-5.1); Sodium 138 mmol/L (137-145); Total Protein 8.2 g/dL (6.3-8.2)
[2020-08-10 16:50] VITALS: BP 148/60; PULSE 84; RESP 14; O2SAT 96
[2020-08-10] MEDS: AMPICILLIN/SULBACTAM 3 GM 3 GM in SODIUM CHLORIDE 0.9% 100 ML IV (17:51)
[2020-08-10 18:29] VITALS: BP 111/67; PULSE 80; RESP 14; O2SAT 97
[2020-08-10 19:13] VITALS: BP 109/56; PULSE 69; RESP 15; O2SAT 98
== END 2020-08-10 19:15 | disposition home or self-care (01) ==
PROVIDERS: Nurse Practitioner Family; Emergency Provider Emergency Medicine; PCP Family Medicine
DX: K57.92 Diverticulitis of intestine, part unspecified, without perforation or abscess without bleeding (principal)
CPT/HCPCS: 74177; 80053; 81003; 83605; 83690; 85025; 85610; 85730; 96365; 99281; 99284; J0295; Q9967

== ENCOUNTER 2021-08-05 12:49 | Emergency (ER) | payer MEDICARE, OTHER, SELFPAY ==
[2021-08-05 13:14] VITALS: BP 127/59; PULSE 76; RESP 18; TEMP 36; O2SAT 95; BMI 39.5
[2021-08-05] MEDS: MUPIROCIN 22 GM OINT 1 APPLIC TOP (13:42)
[2021-08-05] MEDS: FLUCONAZOLE 100 MG TABLET PO (13:43)
--- NOTE | 2021-08-05 14:06 | ED.SKABFB ---
HPI - Skin/Abscess/Foreign Bdy <Nieves Hillman, [facility] - Last Filed: 08/05/21 14:19> General Chief complaint: Skin/Abscess/Foreign Body Stated complaint: Infection under breasts- Rx not working Time Seen by Provider: 08/05/21 13:16 Source: patient Mode of arrival: Ambulatory History of Present Illness HPI narrative: 71-year-old female with past medical history including candidial intertrigo for approximately 1 year under breasts presents to the emergency department complaining of worsening of the rash is underneath both of her breasts over the last 2 days. Patient states that she her current regimen includes nystatin topical powder and nystatin ointment, Triaminicinolone ointment (currently held) and wearing cotton bras. Patient has multiple drug allergies and states that she has contact allergy to elastic in bras well. She denies any fever, states that it is more red and larger under bilateral breasts than previously. Her current regimen as prescribed by family Dermatology and a Dr. Chong. She states last time this was evaluated was in February 2021. Patient denies any spreading of this rash to other areas, any other locations with his rash. She states that she has a follow-up appointment with her primary care provider Dr. Meier on August 10 for this. Related Data Home Medications Medication Instructions Recorded Confirmed ALBUTEROL SULFATE (Ventolin / 2 puff INH Q4H PRN #0 02/07/10 01/16/18 Proventil) CHOLECALCIFEROL (VITAMIN D3) 2,000 Q DAY #0 02/07/10 01/16/18 (Vitamin D3) fluticasone propionate 220 2 puff INH BID #0 01/20/12 01/16/18 mcg/actuation HFA aerosol inhaler (Flovent HFA) mometasone 50 mcg/actuation nasal 2 spray INTRANASAL #17 gm 01/20/12 spray (Nasonex) cyanocobalamin (vitamin B-12) 250 5,000 mcg PO QDAY #0 02/01/16 01/16/18 mcg tablet (Vitamin B-12) loratadine 10 mg tablet (Claritin) 10 mg PO QDAYP PRN #0 02/01/16 01/16/18 polyethylene glycol 3350 17 17 gm PO QDAYP PRN #0 gm 02/01/16 gram/dose oral powder (Miralax) albuterol sulfate 0.63 mg/3 mL INH Q4HP PRN #0 12/31/16 solution for nebulization diphenhydramine HCl 25 mg capsule 25 mg PO HSP PRN #0 12/31/16 (Diphedryl) ondansetron 8 mg disintegrating 8 mg SUBLINGUAL Q6HP PRN #0 12/31/16 01/16/18 tablet (Zofran ODT) prednisone 10 mg tablet 10 mg PO #0 12/31/16 fluorouracil 5 % topical cream 1 sylvester TOPICAL BID #0 07/10/17 (Efudex) cyclobenzaprine 5 mg tablet 5 mg PO TID PRN 01/16/18 01/16/18 fluticasone propionate 220 1 puff INHALATION BID 01/16/18 01/16/18 mcg/actuation HFA aerosol inhaler (Flovent HFA) ipratropium 20 mcg-albuterol 100 1 puff INHALATION Q6H 01/16/18 01/16/18 mcg/actuation mist for inhalation (Combivent Respimat) lisinopril 10 1 tab PO DAILY 01/16/18 01/16/18 mg-hydrochlorothiazide 12.5 mg tablet metronidazole 1 % topical gel 1 applictn TOP DAILY 01/16/18 01/16/18 (Metrogel) rivaroxaban 20 mg tablet (Xarelto) 20 mg PO DAILY 01/16/18 01/16/18 Previous Rx's Medication Instructions Recorded metoprolol tartrate 25 mg tablet 12.5 mg PO BID #30 tab 07/10/17 amoxicillin 875 mg-potassium 1 tab PO BID #30 tab 08/10/20 clavulanate 125 mg tablet (Augmentin) fluconazole 100 mg tablet 100 mg PO DAILY #1 tab 08/05/21 mupirocin 2 % topical ointment 1 applic TOPICAL BID PRN #15 g 08/05/21 Allergies Allergy/AdvReac Type Severity Reaction Status Date / Time adhesive tape [ADHESIVE TAPE] Allergy Mild Verified 08/05/21 13:14 Influenza Virus Vaccines Allergy Unknown Verified 08/05/21 13:14 povidone-iodine Allergy Unknown Verified 08/05/21 13:14 [From BETADINE] soap [From BETADINE] Allergy Unknown Verified 08/05/21 13:14 Sulfa (Sulfonamide Allergy Unknown Verified 08/05/21 13:14 Antibiotics) [SULFA (SULFONAMIDE ANTIBIOTICS)] sulfamethoxazole Allergy Unknown Verified 08/05/21 13:14 [From SEPTRA] trimethoprim [From SEPTRA] Allergy Unknown Verified 08/05/21 13:14 ciprofloxacin [From Cipro] Allergy Verified 08/05/21 13:14 metronidazole [From Flagyl] Allergy Verified 08/05/21 13:14 Review of Systems <ANTONIA Luciano - Last Filed: 08/05/21 14:19> Review of Systems Narrative: General: denies fever, chills, malaise, sweats, fatigue Head/Neck: denies headache, neck pain, dizziness Eyes: denies visual changes, eye pain Cardio: denies chest pain, palpitations, edema Respiratory: denies dyspnea, cough, orthopnea GI: denies abdominal pain, nausea, vomiting, or diarrhea : denies dysuria, hematuria, urinary retention, frequency or incontinence MSK: denies joint pain, muscle weakness Skin: Endorses bilateral under breast rash, denies itching, pustules, vesicles or other Neuro: denies numbness, tingling Patient History <ANTONIA Luciano - Last Filed: 08/05/21 14:19> Medical History Arthritis Asthma HTN (hypertension) Family History Mother Hypertension Diabetes mellitus Cancer Family/Other Cancer Social History Smoking Status: Never smoker Smoking Status: Never smoker Substance Use Type: does not use Exam <ANTONIA Luciano - Last Filed: 08/05/21 14:19> Narrative Exam Narrative: Independently reviewed vitals signs and nursing notes. General: Cooperative, comfortable, in no acute distress, well developed and well groomed Head/Neck: Normal visual inspection and supple, atraumatic, no JVD or lymphadenopathy. Normal facial exam Eyes: Pupils equal round and reactive, EOMI, conjunctiva normal, no scleral icterus or injections Nose: External nose normal, nares patent, no rhinorrhea, without purulent drainage Mouth/Throat: moist mucus membranes Cardio: Regular rate and rhythm, no peripheral edema, warm extremities Respiratory: Normal respiratory effort, able to speak in complete sentences without audible wheezing, stridor, or rales. No retractions. GI: Abdomen soft, nontender to palpation x4 quadrants, nondistended, no masses or exquisite tenderness with exam, no flank tenderness MSK: Moves all extremities, neurovascularly intact Skin: Normal capillary refill, erythematous, moist patches under bilateral breasts, without malodor, weeping, pruritus, + tenderness, excoriation and small papules/pustules Neuro: Normal speech and cognition, normal gait, A&O x3, tone normal, moves all extremities Psych: Mental status is grossly normal, speech is clear, congruent mood, normal affect Initial Vital Signs Initial Vital Signs: Vital Signs Temperature 96.8 F L 08/05/21 13:14 Pulse Rate 76 08/05/21 13:14 Respiratory Rate 18 08/05/21 13:14 Blood Pressure 127/59 L 08/05/21 13:14 Pulse Oximetry 95 08/05/21 13:14 <Maureen Ricketts DO - Last Filed: 08/05/21 16:38> Initial Vital Signs Initial Vital Signs: Vital Signs Temperature 96.8 F L 08/05/21 13:14 Pulse Rate 76 08/05/21 13:14 Respiratory Rate 18 08/05/21 13:14 Blood Pressure 127/59 L 08/05/21 13:14 Pulse Oximetry 95 08/05/21 13:14 Course <THADDEUS LucianoP - Last Filed: 08/05/21 14:19> Orders Ordered: Discontinued Medications Fluconazole (Fluconazole 100 Mg Tablet) 100 mg PO NOW ONE Stop: 08/05/21 13:32 Last Admin: 08/05/21 13:43 Dose: 100 mg Documented by: LEROY Mupirocin (Mupirocin 22 Gm Oint) 1 applic TOP BID CIELO Last Admin: 08/05/21 13:42 Dose: 1 applictn Documented by: LEROY Vital Signs Vital signs: Vital Signs - 8 hr 08/05/21 13:14 Temperature 96.8 F L Pulse Rate 76 Respiratory Rate 18 Blood Pressure 127/59 L Pulse Oximetry 95 <Maureen Ricketts DO - Last Filed: 08/05/21 16:38> Orders Ordered: Discontinued Medications Fluconazole (Fluconazole 100 Mg Tablet) 100 mg PO NOW ONE Stop: 08/05/21 13:32 Last Admin: 08/05/21 13:43 Dose: 100 mg Documented by: LEROY Mupirocin (Mupirocin 22 Gm Oint) 1 applic TOP BID CIELO Last Admin: 08/05/21 13:42 Dose: 1 applictn Documented by: LEROY Vital Signs Vital signs: Vital Signs - 8 hr 08/05/21 13:14 Temperature 96.8 F L Pulse Rate 76 Respiratory Rate 18 Blood Pressure 127/59 L Pulse Oximetry 95 MDM - Skin/Abscess/Foreign Bdy <Nieves Hillman [employer] - Last Filed: 08/05/21 14:19> MDM Narrative Medical decision making narrative: 71-year-old female presents to the emergency department with chief complaint of worsening rashes underneath bilateral breasts. She has erythematous, tender, excoriated, patches underneath bilateral breasts with small papules and pustules which appears most like Candidal intertrigo. Patient was recommended to continue using her nystatin cream and powder, hold her triamcinolone ointment while these areas are red with excoriation, she was given Diflucan and Bactroban ointment while in the emergency department and is wearing a cotton brought. Patient has a follow-up appointment yanira Meier on August 10. Patient will take a 2nd fluconazole in 3 days if this is not improving or gone, while continuing her Bactroban, and nystatin ointment. Differential diagnoses include inverse psoriasis, tinea cruris, allergic contact dermatitis, bacterial superinfection concurrent with fungal/candidal infection. Patient is appropriate and amenable to discharge home. Vital signs are stable on repeat examination is unremarkable. Patient has been informed of results. Patient has been given strict return to ER precautions for any new or worsening symptoms. Patient understands to follow up closely with outpatient providers as instructed. Patient understands plan and agrees to discharge home. All questions and concerns answered at this time. Discharge Plan Departure Patient Disposition: Home Clinical Impression: Candidal intertrigo Instructions: Tashia/Yeast Hypersensitivity Syndrome (Alternative Therapy) Activity Restrictions/Additional Instructions: *You have been diagnosed with candidial intertrigo-which is a fungal infection of the skin folds. Please continue weight you have been recommended and apply nystatin ointment and powder at least twice per day. You may use this antibiotic ointment and apply this in addition to that once or twice a day. This is preventing a secondary bacterial infection on top of the fungal infection. I have given you fluconazole today, in 2 or 3 days if this is still present and or getting worse, take another dose of fluconazole. This only at the pharmacy with your mupirocin ointment. Follow-up with Carmen Meier on August 10 as scheduled. If this is worsening or you develop a fever, please return for another evaluation as you may need an antibiotic. This should start to get better in the next 24-48 hours. Please use a piece of fabric in between your breasts and your under breast area. This may help prevent rubbing and moisture from developing. I hope it starts to feel better soon. Thank you for coming in. *What to do: *Please continue to take your regular medications as directed. [x ] New medication prescriptions sent to your pharmacy: [Rosalia Levin] [ ] New medication written as a paper prescription [ ] No new medications given *Please follow up with your primary care provider in 2-3 days, call for an appointment. Let them know you were seen in the Emergency Department and that we ask that you be seen in follow up. We will electronically transmit a record of today's note if your PCP is in our system *If you do not have a primary care provider please contact the [facility] Resource line at [phone]. They will ask some questions about your medical history and help get you set up with a doctor in the community. *Return to Emergency Department if you should have any new, worsening or concerning symptoms, such as [fever greater than 101F, chills, worsening pain, persistent vomiting or other bothersome symptoms] Prescriptions: New mupirocin 2 % ointment 1 applic topical BID PRN (Reason: skin infection) Qty: 15 0RF fluconazole 100 mg tablet 100 mg PO DAILY Qty: 1 0RF No Action ALBUTEROL SULFATE (Ventolin / Proventil) 2 puff INH Q4H PRN Qty: 0 0RF CHOLECALCIFEROL (VITAMIN D3) (Vitamin D3) 2,000 Q DAY Qty: 0 0RF mometasone [Nasonex] 50 MCG/PUFF spray,non-aerosol 2 spray Intranasal Qty: 17 0RF fluticasone propionate [Flovent HFA] 12 GM HFA aerosol inhaler 2 puff INH BID Qty: 0 0RF cyanocobalamin (vitamin B-12) [Vitamin B-12] 250 mcg Tablet 5,000 mcg PO QDAY Qty: 0 0RF loratadine [Claritin] 10 MG tablet 10 mg PO QDAYP PRNQty: 0 0RF polyethylene glycol 3350 [Miralax] 119 GM powder 17 gm PO QDAYP PRNQty: 0 0RF ondansetron [Zofran ODT] 8 MG tablet,disintegrating 8 mg Sublingual Q6HP PRNQty: 0 0RF albuterol sulfate 0.63 mg/3 mL solution for nebulization INH Q4HP PRNQty: 0 0RF prednisone 10 MG tablet 10 mg PO Qty: 0 0RF diphenhydramine HCl [Diphedryl] 25 MG capsule 25 mg PO HSP PRNQty: 0 0RF fluorouracil [Efudex] 5 % cream 1 sylvester Topical BID Qty: 0 0RF metoprolol tartrate 25 MG tablet 12.5 mg PO BID Qty: 30 0RF rivaroxaban [Xarelto] 20 mg tablet 20 mg PO DAILY 0RF lisinopril-hydrochlorothiazide 10-12.5 mg tablet 1 tab PO DAILY 0RF cyclobenzaprine 5 mg tablet 5 mg PO TID PRN0RF ipratropium-albuterol [Combivent Respimat] 20-100 mcg/actuation mist 1 puff INHALATION Q6H 0RF fluticasone propionate [Flovent HFA] 220 mcg/actuation HFA aerosol inhaler 1 puff INHALATION BID 0RF metronidazole [Metrogel] 1 % gel 1 applictn TOP DAILY 0RF amoxicillin-pot clavulanate [Augmentin] 875-125 mg tablet 1 tab PO BID Qty: 30 0RF Referrals: Daria Meier DO [Primary Care Provider] - <Maureen Ricketts DO - Last Filed: 08/05/21 16:38> Cosign ED Attending Edwardoature Attestation: I was immediately available in the department for consultation. Documentation has been reviewed.
== END 2021-08-05 14:15 | disposition home or self-care (01) ==
PROVIDERS: Emergency Provider Nurse Practitioner Critical Care Medicine; PCP Family Medicine
DX: B37.2 Candidiasis of skin and nail (principal); L30.4 Erythema intertrigo
CPT/HCPCS: 99283

== ENCOUNTER → 2021-08-24 15:43 | Outpatient (CLI) | payer MEDICARE, OTHER, SELFPAY ==
--- NOTE | 2021-08-24 | DI.MRI.S_ITS ---
PROCEDURE: MR LUMBAR SPINE WO CON INDICATIONS: Radiculopathy, lumbar region TECHNIQUE: Noncontrast sagittal T1 spin echo and T2 fast echo, sagittal STIR, axial T1 and T2 fast spin echo through the lumbar spine. In cases with scoliosis, additional coronal T2 fast spin echo may be performed. COMPARISON: [facility], MR, L-SPINE WITHOUT CONTRAST, 08/21/2016, 10:05. FINDINGS: Image quality: Excellent. Alignment and Curvature: There is normal bony alignment. Bone Marrow: Marrow is of normal overall signal. No acute vertebral body compression fractures. Spinal Cord: Conus medullaris terminates at the L1-2 level. Visualized cord demonstrates normal signal and size. Paraspinous Soft Tissues: No paravertebral masses. T12-L1: Normal appearance. L1-L2: Normal appearance. L2-L3: Loss of disc height and disc signal is seen. There is diffuse disc bulge and bilateral facet arthrosis with mild central canal stenosis and right-sided neural foraminal narrowing. L3-L4: Loss of disc height and disc signal is seen. Broad-based disc bulge and bilateral facet arthrosis is noted with mild central canal stenosis and [id number] right-sided neural foraminal narrowing. L4-L5: Loss of disc height and disc signal is seen. Broad-based disc bulge and bilateral facet arthrosis is noted with no significant canal stenosis or neural foraminal narrowing. L5-S1: Loss of disc signal and disc height is seen. Broad-based disc bulge and bilateral facet arthrosis is seen with mild central canal stenosis and mild left-sided neural foraminal narrowing. IMPRESSION: 1. Degenerative disc disease at L2-3 through L5-S1 levels as described above, slightly progressed since 2017 study. 2. No marrow edema. No compression fracture or spondylolisthesis. Dictated by: Jr Jean M.D. on 08/24/2021 at 16:45 Approved by: Jr Jean M.D. on 08/24/2021 at 16:48
== END ==
PROVIDERS: PCP Family Medicine; Referring Provider Family Medicine; Visit Provider Family Medicine
DX: M54.16 Radiculopathy, lumbar region (principal); M51.36 Other intervertebral disc degeneration, lumbar region; M51.37 Other intervertebral disc degeneration, lumbosacral region
CPT/HCPCS: 72148

== ENCOUNTER 2022-01-05 09:27 | Emergency (ER) | payer MEDICARE, OTHER, SELFPAY ==
[2022-01-05 09:55] VITALS: BMI 39.5
[2022-01-05] MEDS: FLUCONAZOLE 100 MG TABLET 150 MG PO (13:16)
--- NOTE | 2022-01-05 14:42 | ED_ITS ---
HPI - Wound/Laceration <Nieves Hillman DIRECTOR PROCESS - Last Filed: 01/05/22 15:40> General Chief Complaint: Wound/Laceration Stated Complaint: breasts are infected Time Seen by Provider: 01/05/22 12:05 Source: patient Mode of arrival: Family Vehicle History of Present Illness HPI narrative: This is a 71-year-old female presents to the emergency department complaining of a rash underneath both of her breasts that she has been dealing with off and on for many months. She states that due to the temperatures, she has been having worsening her rash which she currently treats with nystatin powder, nystatin ointment, mupirocin ointment and states that it is painful and difficult improve. She states that often this will get better for a couple of days and come back worse the next day. Her primary care provider is Carmen Nguyen, she is currently pending a new provider next month. She has multiple antibiotic allergies, states that she requires oral fluconazole usually helps treat this when her topical regimen is recurrent. She denies any fevers, nausea vomiting, systemic illness, fatigue, states that her rash is pruritic, denies any drainage. Related Data Home Medications Medication Instructions Recorded Confirmed ALBUTEROL SULFATE (Ventolin / 2 puff INH Q4H PRN ##0 02/07/10 01/16/18 Proventil) CHOLECALCIFEROL (VITAMIN D3) 2,000 Q DAY ##0 02/07/10 01/16/18 (Vitamin D3) fluticasone propionate 220 2 puff INH BID ##0 01/20/12 01/16/18 mcg/actuation HFA aerosol inhaler (Flovent HFA) mometasone 50 mcg/actuation nasal 2 spray intranasal ##17 01/20/12 spray (Nasonex) cyanocobalamin (vitamin B-12) 250 5,000 mcg PO QDAY ##0 02/01/16 01/16/18 mcg tablet (Vitamin B-12) loratadine 10 mg tablet (Claritin) 10 mg PO QDAYP PRN ##0 02/01/16 01/16/18 polyethylene glycol 3350 17 17 gm PO QDAYP PRN ##0 02/01/16 gram/dose oral powder (Miralax) albuterol sulfate 0.63 mg/3 mL INH Q4HP PRN ##0 12/31/16 solution for nebulization diphenhydramine HCl 25 mg capsule 25 mg PO HSP PRN ##0 12/31/16 (Diphedryl) ondansetron 8 mg disintegrating 8 mg sublingual Q6HP PRN ##0 12/31/16 01/16/18 tablet (Zofran ODT) prednisone 10 mg tablet 10 mg PO ##0 12/31/16 fluorouracil 5 % topical cream 1 sylvester topical BID ##0 07/10/17 (Efudex) cyclobenzaprine 5 mg tablet 5 mg PO TID PRN 01/16/18 01/16/18 fluticasone propionate 220 1 puff inhalation BID 01/16/18 01/16/18 mcg/actuation HFA aerosol inhaler (Flovent HFA) ipratropium 20 mcg-albuterol 100 1 puff inhalation Q6H 01/16/18 01/16/18 mcg/actuation mist for inhalation (Combivent Respimat) lisinopril 10 1 tab PO DAILY 01/16/18 01/16/18 mg-hydrochlorothiazide 12.5 mg tablet metronidazole 1 % topical gel 1 applictn topical DAILY 01/16/18 01/16/18 (Metrogel) rivaroxaban 20 mg tablet (Xarelto) 20 mg PO DAILY 01/16/18 01/16/18 Previous Rx's Medication Instructions Recorded metoprolol tartrate 25 mg tablet 12.5 mg PO BID #30 tabs 07/10/17 amoxicillin 875 mg-potassium 1 tab PO BID #30 tabs 08/10/20 clavulanate 125 mg tablet (Augmentin) fluconazole 100 mg tablet 100 mg PO DAILY intertigo #1 tab 08/05/21 mupirocin 2 % topical ointment 1 applic topical BID PRN skin 08/05/21 infection #15 grams ciclopirox 0.77 %-clobetasol 0.05 1 ea topical .5x week PRN tinea 01/05/22 % shampoo infection #120 grams ciclopirox 1 % shampoo 5 ml topical 2XW 4 weeks #120 mL 01/05/22 ciclopirox 8 % topical solution 1 applic topical BEDTIME 2 weeks 01/05/22 #6.6 mL fluconazole 150 mg tablet 150 mg PO Q3D PRN yeast 2 doses 01/05/22 #10 tabs fluconazole 150 mg tablet 150 mg PO Q3D PRN yeast infection 01/05/22 30 days #10 tabs hydroxyzine HCl 25 mg tablet 25 mg PO BEDTIME PRN itching #14 01/05/22 tabs nystatin 100,000 unit/gram topical 1 applic topical BID PRN tinea #15 01/05/22 cream grams nystatin 100,000 unit/gram topical 1 applic topical BID #15 grams 01/05/22 ointment nystatin 100,000 unit/gram topical 1 applic topical BID #30 grams 01/05/22 powder nystatin 100,000 unit/gram topical 1 applic topical DAILY #30 grams 01/05/22 powder Allergies Allergy/AdvReac Type Severity Reaction Status Date / Time adhesive tape [ADHESIVE TAPE] Allergy Mild Verified 01/05/22 09:59 Influenza Virus Vaccines Allergy Unknown Verified 01/05/22 09:59 povidone-iodine Allergy Unknown Verified 01/05/22 09:59 [From BETADINE] soap [From BETADINE] Allergy Unknown Verified 01/05/22 09:59 Sulfa (Sulfonamide Allergy Unknown Verified 01/05/22 09:59 Antibiotics) [SULFA (SULFONAMIDE ANTIBIOTICS)] sulfamethoxazole Allergy Unknown Verified 01/05/22 09:59 [From SEPTRA] trimethoprim [From SEPTRA] Allergy Unknown Verified 01/05/22 09:59 ciprofloxacin [From Cipro] Allergy Verified 01/05/22 09:59 metronidazole [From Flagyl] Allergy Verified 01/05/22 09:59 Review of Systems <ANTONIA Luciano - Last Filed: 01/05/22 15:40> Review of Systems Narrative: General: denies fever, chills Head/Neck: denies headache, neck pain Eyes: denies visual changes, eye pain Cardio: denies chest pain, palpitations Respiratory: denies shortness of breath, cough GI: denies abdominal pain, nausea, vomiting, or diarrhea : denies dysuria, hematuria or flank pain MSK: denies new joint pain, muscle weakness or swelling Skin: rash under bilateral breasts with itching Neuro: denies numbness, tingling, dizziness Patient History <ANTONIA Luciano - Last Filed: 01/05/22 15:40> Medical History Arthritis Asthma HTN (hypertension) Family History Mother Hypertension Diabetes mellitus Cancer Family/Other Cancer Social History Smoking Status: Never smoker Smoking Status: Never smoker alcohol intake frequency: 0-2 drinks per day Substance Use Type: does not use Exam <ANTONIA Luciano - Last Filed: 01/05/22 15:40> Narrative Exam Narrative: Independently reviewed vitals signs and nursing notes. General: Awake, alert, nontoxic, no cardiorespiratory distress, interactive Head/Neck: Atraumatic, neck with normal range of motion Eyes: EOMI, conjunctiva normal Nose: nares patent, no rhinorrhea Mouth/Throat: moist mucus membranes Cardiovascular: Regular rate and rhythm, no dependant edema, warm extremities Respiratory: respirations unlabored and without wheezing, stridor, or rales. No retractions, hypoxia or tachypnea GI: Abdomen soft, nontender to palpation, without mass, guarding, or rebound tenderness MSK: Moves all extremities, neurovascularly intact, range of motion without deficit Skin: Normal capillary refill, intertriginous rash under large bilateral breasts with mild erythema, no drainage, no foul odor, no bright red patches or significantly raised rash. Patient currently has ointment on it. Neuro: Normal speech and cognition, normal gait Course <ANTONIA Luciano - Last Filed: 01/05/22 15:40> Orders Ordered: Discontinued Medications Fluconazole (Fluconazole 100 Mg Tablet) 150 mg PO NOW ONE Stop: 01/05/22 12:53 Last Admin: 01/05/22 13:16 Dose: 150 mg Documented By: HARVEY <Maureen Ricketts DO - Last Filed: 01/11/22 21:40> Orders Ordered: Discontinued Medications Fluconazole (Fluconazole 100 Mg Tablet) 150 mg PO NOW ONE Stop: 01/05/22 12:53 Last Admin: 01/05/22 13:16 Dose: 150 mg Documented By: HARVEY MDM - Wound/Laceration <ANTONIA Luciano - Last Filed: 01/05/22 15:40> [facility] Narrative Medical decision making narrative: This is a 71-year-old female who has been struggling with candidiasis underneath her bilateral breasts and intertriginous rash for the last four months. She states that it has gotten worse since the summertime was sweating. She has tried multiple cotton bras which states that she has recurrence after two or three days abusing her medications. She is using her topical nystatin cream, powder, mupirocin ointment daily and states that she is having difficulty sleeping. Her rash is not have any significant erythema, it is mildly pink, pruritic, with tiny papules. There is no drainage, patient is afebrile, and was seeking options for medication. She is chronically anticoagulated on rivaroxaban for atrial fibrillation. Opted to treat patient with fluconazole today, gave her a prescription to repeat this as needed Q three days. Refilled patient's nystatin powder and ointment, prescribed hydroxyzine for pruritus, encouraged her to follow-up with her PCP after trying to his medications. Also prescribed patient ciclopirox a topical shampoo with a topical ointment to see if this makes any difference for her. Patient was pleasant, encouraged her to continue on her regimen. Follow up with her primary care provider as scheduled, and to return to the emergency department for any worsening. Patient is appropriate and amenable to discharge home. Vital signs are stable on repeat examination is unremarkable. Patient has been informed of results. Patient has been given strict return to ER precautions for any new or worsening symptoms. Patient understands to follow up closely with outpatient providers as instructed. Patient understands plan and agrees to discharge home. All questions and concerns answered at this time. Discharge Plan Departure Patient Disposition: Home Clinical Impression: Candidiasis, intertriginous Instructions: Tashia/Yeast Hypersensitivity Syndrome (Alternative Therapy) Activity Restrictions/Additional Instructions: *You have been diagnosed with a candidal infection underneath your breasts. Please continue to be creative finding ways to have airflow underneath your breasts. If you can let them air dry at least once per day and separate them skin, your rash will likely improve quicker. You can use a topical steroid for the next couple of days in addition to your regular medications creams to help calm this down if it is helpful. Continue with your mupirocin and nystatin as he like it, I have also sent a shampoo that is another medication and it is combined with a steroid. I hope this helps, thank you for trusting us with your care, I hope you feel better soon. *What to do: *Please continue to take your regular medications as directed. [ x] New medication prescriptions sent to your pharmacy: [[facility] ] [ ] New medication written as a paper prescription [ ] No new medications given *Please follow up with your primary care provider in 2-3 days, call for an appointment. Let them know you were seen in the Emergency Department and that we asked that you be seen for follow-up. We will electronically transmit a record of today's note if your PCP is in our system *If you do not have a primary care provider please contact [phone] to establish care with one of the [facility] primary care providers. *Return to Emergency Department if you should have any new, worsening or concerning symptoms, such as [fever greater than 101F, chills, worsening pain, persistent vomiting or other bothersome symptoms] Prescriptions: New ciclopirox-clobetasol 0.77-0.05 % shampoo 1 ea topical .5x week PRN (Reason: tinea infection) Qty: 120 0RF nystatin 100,000 unit/gram powder 1 applic topical BID Qty: 30 0RF nystatin 100,000 unit/gram cream 1 applic topical BID PRN (Reason: tinea) Qty: 15 0RF fluconazole 150 mg tablet 150 mg PO Q3D PRN (Reason: yeast infection) 30 Days Qty: 10 0RF hydroxyzine HCl 25 mg tablet 25 mg PO BEDTIME PRN (Reason: itching) Qty: 14 0RF ciclopirox 1 % shampoo 5 ml topical 2XW 28 Days Qty: 120 0RF fluconazole 150 mg tablet 150 mg PO Q3D PRN (Reason: yeast) Qty: 10 0RF nystatin 100,000 unit/gram powder 1 applic topical DAILY Qty: 30 0RF nystatin 100,000 unit/gram ointment 1 applic topical BID Qty: 15 0RF ciclopirox 8 % solution 1 applic topical BEDTIME 14 Days Qty: 6.6 0RF No Action ALBUTEROL SULFATE (Ventolin / Proventil) 2 puff INH Q4H PRN Qty: 0 CHOLECALCIFEROL (VITAMIN D3) (Vitamin D3) 2,000 Q DAY Qty: 0 mometasone [Nasonex] 50 MCG/PUFF spray,non-aerosol 2 spray Intranasal Qty: 17 fluticasone propionate [Flovent HFA] 12 GM HFA aerosol inhaler 2 puff INH BID Qty: 0 cyanocobalamin (vitamin B-12) [Vitamin B-12] 250 mcg Tablet 5,000 mcg PO QDAY Qty: 0 loratadine [Claritin] 10 MG tablet 10 mg PO QDAYP PRNQty: 0 polyethylene glycol 3350 [Miralax] 119 GM powder 17 gm PO QDAYP PRNQty: 0 ondansetron [Zofran ODT] 8 MG tablet,disintegrating 8 mg Sublingual Q6HP PRNQty: 0 albuterol sulfate 0.63 mg/3 mL solution for nebulization INH Q4HP PRNQty: 0 prednisone 10 MG tablet 10 mg PO Qty: 0 diphenhydramine HCl [Diphedryl] 25 MG capsule 25 mg PO HSP PRNQty: 0 fluorouracil [Efudex] 5 % cream 1 sylvester Topical BID Qty: 0 metoprolol tartrate 25 MG tablet 12.5 mg PO BID Qty: 30 0RF rivaroxaban [Xarelto] 20 mg tablet 20 mg PO DAILY lisinopril-hydrochlorothiazide 10-12.5 mg tablet 1 tab PO DAILY cyclobenzaprine 5 mg tablet 5 mg PO TID PRN ipratropium-albuterol [Combivent Respimat] 20-100 mcg/actuation mist 1 puff INHALATION Q6H fluticasone propionate [Flovent HFA] 220 mcg/actuation HFA aerosol inhaler 1 puff INHALATION BID metronidazole [Metrogel] 1 % gel 1 applictn TOP DAILY mupirocin 2 % ointment 1 applic topical BID PRN (Reason: skin infection) Qty: 15 0RF fluconazole 100 mg tablet 100 mg PO DAILY Qty: 1 0RF amoxicillin-pot clavulanate [Augmentin] 875-125 mg tablet 1 tab PO BID Qty: 30 0RF Referrals: Daria Meier DO [Primary Care Provider] - Visit Report Forms: Patient Portal/API <Maureen Ricketts DO - Last Filed: 01/11/22 21:40> Cosign ED Attending Cosignature Attestation: I was immediately available in the department for consultation. Documentation has been reviewed.
== END 2022-01-05 13:29 | disposition home or self-care (01) ==
PROVIDERS: Emergency Provider Nurse Practitioner Critical Care Medicine; PCP Family Medicine
DX: B37.2 Candidiasis of skin and nail (principal)
CPT/HCPCS: 99283

== ENCOUNTER 2022-04-27 10:54 | Emergency (ER) | payer MEDICARE, OTHER, SELFPAY ==
[2022-04-27 12:12] VITALS: BP 142/72; PULSE 73; RESP 17; TEMP 36.6; O2SAT 100; BMI 38.4
[2022-04-27 16:30] VITALS: BP 141/71; PULSE 81; TEMP 36.9; O2SAT 100
--- NOTE | 2022-04-27 16:59 | ED_ITS ---
HPI - Skin/Abscess/Foreign Bdy <Nieves Hillman, [facility] - Last Filed: 04/27/22 18:10> General Chief complaint: Skin/Abscess/Foreign Body Stated complaint: infection RT upper Lip & is spreading Time Seen by Provider: 04/27/22 16:57 Source: patient Mode of arrival: Ambulatory History of Present Illness HPI narrative: This is a 71-year-old female presents to the emergency department with onset of right facial swelling which started on the inside of the right upper lip yesterday, states it has progressed with swelling on the inside and now on outside up to her mid face, denies fever, chills, new medications, open wound. She states that 1 week ago she was eating pineapple and it was acidic and causes small sore on the inside of her mouth. She had recent hernia surgery and was on an antibiotic, she states that she does not remember which 1, she also recently had bilateral steroid injections to her knees and denies any other ongoing symptoms. She denies any rash on the outside of her face, states that her pain is getting worse, can take Tylenol only for pain or oxycodone which she has not had. She has multiple allergies to many medications and is anticoagulated on rivaroxaban for atrial fibrillation. Related Data Home Medications Medication Instructions Recorded Confirmed ALBUTEROL SULFATE (Ventolin / 2 puff INH Q4H PRN ##0 02/07/10 01/16/18 Proventil) CHOLECALCIFEROL (VITAMIN D3) 2,000 Q DAY ##0 02/07/10 01/16/18 (Vitamin D3) fluticasone propionate 220 2 puff INH BID ##0 01/20/12 01/16/18 mcg/actuation HFA aerosol inhaler (Flovent HFA) mometasone 50 mcg/actuation nasal 2 spray intranasal ##17 01/20/12 spray (Nasonex) cyanocobalamin (vitamin B-12) 250 5,000 mcg PO QDAY ##0 02/01/16 01/16/18 mcg tablet (Vitamin B-12) loratadine 10 mg tablet (Claritin) 10 mg PO QDAYP PRN ##0 02/01/16 01/16/18 polyethylene glycol 3350 17 17 gm PO QDAYP PRN ##0 02/01/16 gram/dose oral powder (Miralax) albuterol sulfate 0.63 mg/3 mL INH Q4HP PRN ##0 12/31/16 solution for nebulization diphenhydramine HCl 25 mg capsule 25 mg PO HSP PRN ##0 12/31/16 (Diphedryl) ondansetron 8 mg disintegrating 8 mg sublingual Q6HP PRN ##0 12/31/16 01/16/18 tablet (Zofran ODT) prednisone 10 mg tablet 10 mg PO ##0 12/31/16 fluorouracil 5 % topical cream 1 sylvester topical BID ##0 07/10/17 (Efudex) cyclobenzaprine 5 mg tablet 5 mg PO TID PRN 01/16/18 01/16/18 fluticasone propionate 220 1 puff inhalation BID 01/16/18 01/16/18 mcg/actuation HFA aerosol inhaler (Flovent HFA) ipratropium 20 mcg-albuterol 100 1 puff inhalation Q6H 01/16/18 01/16/18 mcg/actuation mist for inhalation (Combivent Respimat) lisinopril 10 1 tab PO DAILY 01/16/18 01/16/18 mg-hydrochlorothiazide 12.5 mg tablet metronidazole 1 % topical gel 1 applictn topical DAILY 01/16/18 01/16/18 (Metrogel) rivaroxaban 20 mg tablet (Xarelto) 20 mg PO DAILY 01/16/18 01/16/18 Previous Rx's Medication Instructions Recorded metoprolol tartrate 25 mg tablet 12.5 mg PO BID #30 tabs 07/10/17 amoxicillin 875 mg-potassium 1 tab PO BID #30 tabs 08/10/20 clavulanate 125 mg tablet (Augmentin) fluconazole 100 mg tablet 100 mg PO DAILY intertigo #1 tab 08/05/21 mupirocin 2 % topical ointment 1 applic topical BID PRN skin 08/05/21 infection #15 grams ciclopirox 0.77 %-clobetasol 0.05 1 ea topical .5x week PRN tinea 01/05/22 % shampoo infection #120 grams fluconazole 150 mg tablet 150 mg PO Q3D PRN yeast 2 doses 01/05/22 #10 tabs hydroxyzine HCl 25 mg tablet 25 mg PO BEDTIME PRN itching #14 01/05/22 tabs nystatin 100,000 unit/gram topical 1 applic topical BID PRN tinea #15 01/05/22 cream grams nystatin 100,000 unit/gram topical 1 applic topical BID #15 grams 01/05/22 ointment nystatin 100,000 unit/gram topical 1 applic topical BID #30 grams 01/05/22 powder nystatin 100,000 unit/gram topical 1 applic topical DAILY #30 grams 01/05/22 powder chlorhexidine gluconate 0.12 % 15 ml buccal DAILY swish and spit 04/27/22 mouthwash #118 mL oxycodone 5 mg tablet 5 mg PO BID PRN pain #14 tabs 04/27/22 prednisone 20 mg tablet 20 mg PO DAILY #3 tabs 04/27/22 Allergies Allergy/AdvReac Type Severity Reaction Status Date / Time adhesive tape [ADHESIVE TAPE] Allergy Mild Verified 01/05/22 09:59 Influenza Virus Vaccines Allergy Unknown Verified 01/05/22 09:59 povidone-iodine Allergy Unknown Verified 01/05/22 09:59 [From BETADINE] soap [From BETADINE] Allergy Unknown Verified 01/05/22 09:59 Sulfa (Sulfonamide Allergy Unknown Verified 01/05/22 09:59 Antibiotics) [SULFA (SULFONAMIDE ANTIBIOTICS)] sulfamethoxazole Allergy Unknown Verified 01/05/22 09:59 [From SEPTRA] trimethoprim [From SEPTRA] Allergy Unknown Verified 01/05/22 09:59 ciprofloxacin [From Cipro] Allergy Verified 01/05/22 09:59 metronidazole [From Flagyl] Allergy Verified 01/05/22 09:59 Review of Systems <ANTONIA Luciano - Last Filed: 04/27/22 18:10> Review of Systems Narrative: Review of systems is negative for acute abnormalities unless otherwise noted in HPI Patient History <ANTONIA Luciano - Last Filed: 04/27/22 18:10> Medical History Arthritis Asthma HTN (hypertension) Family History Mother Hypertension Diabetes mellitus Cancer Family/Other Cancer Social History Smoking Status: Never smoker Smoking Status: Never smoker alcohol intake frequency: 0-2 drinks per day Substance Use Type: does not use Exam <ANTONIA Luciano - Last Filed: 04/27/22 18:10> Narrative Exam Narrative: Reviewed vitals signs and nursing notes. General: cooperative, comfortable, in no acute distress, well groomed HEENT: symmetrical facial expressions, moist mucous membranes, no intraoral wound, edema is present to the upper lip and upper cheek, no posterior pharynx erythema, uvula is midline, no stridor, voice is clear, no submandibular edema or anterior cervical lymphadenopathy MSK: moves all extremities, neurovascularly intact, no weakness, normal tone Skin: brisk capillary refill, mild erythema to the upper lip with a swollen upper lip, no extension to the internal oral surfaces, no vesicles, pustules, or palpable rash, this looks most like facial cellulitis. Neuro: normal speech and cognition, A&O x3, ambulatory, clear speech Psych: mental status is grossly normal, congruent mood, normal affect, pleasant and cooperative Initial Vital Signs Initial Vital Signs: Vital Signs Temperature 98 F 04/27/22 12:12 Pulse Rate 73 04/27/22 12:12 Respiratory Rate 17 04/27/22 12:12 Blood Pressure 142/72 H 04/27/22 12:12 Pulse Oximetry 100 04/27/22 12:12 Oxygen Delivery Method 04/27/22 12:12 <Maureen Ricketts DO - Last Filed: 05/11/22 10:59> Initial Vital Signs Initial Vital Signs: Vital Signs Temperature 98 F 04/27/22 12:12 Pulse Rate 73 04/27/22 12:12 Respiratory Rate 17 04/27/22 12:12 Blood Pressure 142/72 H 04/27/22 12:12 Pulse Oximetry 100 04/27/22 12:12 Oxygen Delivery Method 04/27/22 12:12 Course <ANTONIA Luciano - Last Filed: 04/27/22 18:10> Orders Ordered: Discontinued Medications Clindamycin HCl (Clindamycin 150 Mg Capsule) 300 mg PO NOW ONE Stop: 04/27/22 17:09 Last Admin: 04/27/22 17:42 Dose: 300 mg Documented By: LEXX Dexamethasone (Dexamethasone 10 Mg/Ml Vial) 10 mg PO NOW ONE Stop: 04/27/22 17:09 Last Admin: 04/27/22 17:42 Dose: 10 mg Documented By: LEXX Vital Signs Vital signs: Vital Signs - 8 hr 04/27/22 12:12 04/27/22 16:30 Temperature 98 F 98.4 F Pulse Rate 73 81 Respiratory Rate 17 Blood Pressure 142/72 H 141/71 H Pulse Oximetry 100 100 Oxygen Delivery Method Room Air Room Air <Maureen Ricketts DO - Last Filed: 05/11/22 10:59> Orders Ordered: Discontinued Medications Clindamycin HCl (Clindamycin 150 Mg Capsule) 300 mg PO NOW ONE Stop: 04/27/22 17:09 Last Admin: 04/27/22 17:42 Dose: 300 mg Documented By: LEXX Dexamethasone (Dexamethasone 10 Mg/Ml Vial) 10 mg PO NOW ONE Stop: 04/27/22 17:09 Last Admin: 04/27/22 17:42 Dose: 10 mg Documented By: LEXX Vital Signs Vital signs: Vital Signs - 8 hr 04/27/22 12:12 04/27/22 16:30 Temperature 98 F 98.4 F Pulse Rate 73 81 Respiratory Rate 17 Blood Pressure 142/72 H 141/71 H Pulse Oximetry 100 100 Oxygen Delivery Method Room Air Room Air MDM - Skin/Abscess/Foreign Bdy <ANTONIA Luciano - Last Filed: 04/27/22 18:10> MDM Narrative Medical decision making narrative: This is a 71-year-old female with multiple allergies, is anticoagulated for atrial fibrillation on rivaroxaban, has history of fungal rash to her face, had recent hernia surgery and was on an antibiotic but is no longer, she had onset of right upper lip swelling yesterday after an oral injury 1 week ago eating pineapple, states she had irritation to the inside of her mouth with a small sore and did not think anything of it until today when it became swollen in his spreading up her face but does not extend beyond the orbital rim, patient can open and close her mouth, no intraoral involvement, no open wound at this time, nares are patent, no anterior cervical lymphadenopathy, patient has multiple allergies. Concern for worsening swelling overnight and wanted to come for for MRSA so prescribed for her clindamycin t.i.d. to use for the next 7 days. She was given her 1st dose in the emergency department, dexamethasone 10 mg for edema, she was given strict return precautions to return to the emergency department if she has worsening of this overnight as she has resistance to multiple antibiotics from her prior wound cultures. Patient states understanding, encouraged her to stay hydrated, return as soon as possible if this starts to get worse or extend into her posterior pharynx or if her tongue swells. She did not have any side effects after her medications were given today in the emergency department, she will follow-up accordingly and is nontoxic appearing, without stridor, without anterior cervical lymph adenopathy, fever or chills. Patient is appropriate and amenable to discharge home. Vital signs are stable on repeat examination is unremarkable. Patient has been informed of results. Patient has been given strict return to ER precautions for any new or worsening symptoms. Patient understands to follow up closely with outpatient providers as instructed. Patient understands plan and agrees to discharge home. All questions and concerns answered at this time. Discharge Plan Departure Patient Disposition: Home Clinical Impression: Cellulitis of face Instructions: DI for Cellulitis -- Adult Activity Restrictions/Additional Instructions: *You have been diagnosed with cellulitis to your face. This is not appear like shingles today, if you have worsening of this please come back to the emergency department so we can evaluate you. Please take clindamycin 3 times a day for the next 7 days. Your symptoms should improve, if there is any worsening, please come back soon. Please stay hydrated, this steroid should help your inflammation go down, have given you 3 days of prednisone which you can take for the next 3 days with food and water to help reduce inflammation. Please follow- up with Dr. Meier, you have had resistant bacteria your wounds in the past, if this does not start getting better, come back soon. I hope that you feel better and I am sorry for your long wait today. *What to do: *Please continue to take your regular medications as directed. [ x] New medication prescriptions sent to your pharmacy: [[facility] ] [ ] New medication written as a paper prescription [ ] No new medications given *Please follow up with your primary care provider in 2-3 days, call for an appointment. Let them know you were seen in the Emergency Department and that we asked that you be seen for follow-up. We will electronically transmit a record of today's note if your PCP is in our system *If you do not have a primary care provider please contact [phone] to establish care with one of the [facility] primary care providers. *Return to Emergency Department if you should have any new, worsening, or concerning symptoms, such as [fever greater than 101F, chills, worsening pain, persistent vomiting or other bothersome symptoms]. Prescriptions: New chlorhexidine gluconate 0.12 % mouthwash 15 ml buccal DAILY Qty: 118 0RF prednisone 20 mg tablet 20 mg PO DAILY Qty: 3 0RF oxycodone 5 mg tablet 5 mg PO BID PRN (Reason: pain) Qty: 14 0RF No Action ALBUTEROL SULFATE (Ventolin / Proventil) 2 puff INH Q4H PRN Qty: 0 CHOLECALCIFEROL (VITAMIN D3) (Vitamin D3) 2,000 Q DAY Qty: 0 mometasone [Nasonex] 50 MCG/PUFF spray,non-aerosol 2 spray Intranasal Qty: 17 fluticasone propionate [Flovent HFA] 12 GM HFA aerosol inhaler 2 puff INH BID Qty: 0 cyanocobalamin (vitamin B-12) [Vitamin B-12] 250 mcg Tablet 5,000 mcg PO QDAY Qty: 0 loratadine [Claritin] 10 MG tablet 10 mg PO QDAYP PRNQty: 0 polyethylene glycol 3350 [Miralax] 119 GM powder 17 gm PO QDAYP PRNQty: 0 ondansetron [Zofran ODT] 8 MG tablet,disintegrating 8 mg Sublingual Q6HP PRNQty: 0 albuterol sulfate 0.63 mg/3 mL solution for nebulization INH Q4HP PRNQty: 0 prednisone 10 MG tablet 10 mg PO Qty: 0 diphenhydramine HCl [Diphedryl] 25 MG capsule 25 mg PO HSP PRNQty: 0 fluorouracil [Efudex] 5 % cream 1 sylvester Topical BID Qty: 0 metoprolol tartrate 25 MG tablet 12.5 mg PO BID Qty: 30 0RF rivaroxaban [Xarelto] 20 mg tablet 20 mg PO DAILY lisinopril-hydrochlorothiazide 10-12.5 mg tablet 1 tab PO DAILY cyclobenzaprine 5 mg tablet 5 mg PO TID PRN ipratropium-albuterol [Combivent Respimat] 20-100 mcg/actuation mist 1 puff INHALATION Q6H fluticasone propionate [Flovent HFA] 220 mcg/actuation HFA aerosol inhaler 1 puff INHALATION BID metronidazole [Metrogel] 1 % gel 1 applictn TOP DAILY mupirocin 2 % ointment 1 applic topical BID PRN (Reason: skin infection) Qty: 15 0RF fluconazole 100 mg tablet 100 mg PO DAILY Qty: 1 0RF amoxicillin-pot clavulanate [Augmentin] 875-125 mg tablet 1 tab PO BID Qty: 30 0RF ciclopirox-clobetasol 0.77-0.05 % shampoo 1 ea topical .5x week PRN (Reason: tinea infection) Qty: 120 0RF nystatin 100,000 unit/gram powder 1 applic topical BID Qty: 30 0RF nystatin 100,000 unit/gram cream 1 applic topical BID PRN (Reason: tinea) Qty: 15 0RF hydroxyzine HCl 25 mg tablet 25 mg PO BEDTIME PRN (Reason: itching) Qty: 14 0RF fluconazole 150 mg tablet 150 mg PO Q3D PRN (Reason: yeast) Qty: 10 0RF nystatin 100,000 unit/gram powder 1 applic topical DAILY Qty: 30 0RF nystatin 100,000 unit/gram ointment 1 applic topical BID Qty: 15 0RF Referrals: Jaime Meier DO [Primary Care Provider] - Visit Report Forms: Patient Portal/API <Maureen Ricketts DO - Last Filed: 05/11/22 10:59> Cosign ED Attending Aniya Attestation: I was immediately available in the department for consultation. Documentation has been reviewed.
[2022-04-27] MEDS: CLINDAMYCIN 150 MG CAPSULE 300 MG PO (17:42)
[2022-04-27] MEDS: DEXAMETHASONE 10 MG/ML VIAL PO (17:42)
== END 2022-04-27 17:56 | disposition home or self-care (01) ==
PROVIDERS: Emergency Provider Nurse Practitioner Critical Care Medicine; PCP Family Medicine
DX: L03.211 Cellulitis of face (principal)
CPT/HCPCS: 99283; J1100

== ENCOUNTER → 2023-04-12 10:21 | Outpatient (CLI) | payer MEDICARE, OTHER, SELFPAY ==
[2023-04-12 12:09] LABS: Add Manual Diff / Slide Review NO; Basophils Absolute Auto 100 /uL (0-100); Basophils Percent Auto 0.8 % (0-2); Eosinophils Absolute Auto 200 /uL (0-450); Eosinophils Percent Auto 2.3 % (2-4); Hematocrit 42.9 % (36-46); Hemoglobin 14.5 g/dL (12.0-16.0); Lymphocytes Absolute Auto 3600 /uL (1100-4500); Lymphocytes Percent Auto 41.6 % (25-40); Mean Corpuscular HGB Conc 33.8 % (30-36); Mean Corpuscular Hemoglobin 29.5 PG (26-34); Mean Corpuscular Volume 87.3 fL (80-100); Monocytes Absolute Auto 700 /uL (0-900); Monocytes Percent Auto 7.6 % (3-14); Neutrophils Absolute Auto 4200 /uL (1500-7000); Neutrophils Percent Auto 47.7 % (50-75); Platelet Count 221 X10^3/uL (150-400); Red Blood Cell Count 4.91 X10^6/uL (4.0-5.2); Red Cell Distribution Width 14.8 % (11.6-14.8); White Blood Cell Count 8.7 X10^3/uL (4.5-11.0)
[2023-04-12 12:16] LABS: Hemoglobin A1C% w Est Avg Glu 6.2 % (4.0-6.0)
[2023-04-12 12:20] LABS: BUN Creatinine Ratio 29.7 (6-22); Blood Urea Nitrogen 22 mg/dL (7-17); Calcium 10.1 mg/dL (8.4-10.2); Carbon Dioxide 27 mmol/L (22-32); Chloride 101 mmol/L (98-107); Estimated Glomerular Filt Rate > 60 mL/min (>60); Glucose 99 mg/dL (80-110); HEMOLYSIS < 15 (0-50); Potassium 4.1 mmol/L (3.4-5.1); Sodium 138 mmol/L (137-145)
== END ==
PROVIDERS: PCP Family Medicine; Referring Provider Orthopaedic Surgery Foot and Ankle Surgery; Visit Provider Orthopaedic Surgery Foot and Ankle Surgery
DX: Z01.818 Encounter for other preprocedural examination (principal); R73.9 Hyperglycemia, unspecified; Z01.812 Encounter for preprocedural laboratory examination
CPT/HCPCS: 36415; 80048; 83036; 85025; 93005

== ENCOUNTER 2023-09-11 07:11 | Day surgery (SDC) | payer MEDICARE, OTHER, SELFPAY ==
[2023-09-03 07:47] VITALS: BMI 39.2
[2023-09-11] VITALS (14 sets, daily range): BP systolic 108–129; BP diastolic 51–72; PULSE 59–82; RESP 14–21; TEMP 36–37.2; O2SAT 92–97; BMI 39.2
--- NOTE | 2023-09-11 06:00 | DI.RAD.S_ITS ---
PROCEDURE: XR KNEE RT 1TO2V INDICATIONS: TKA TECHNIQUE: 2 view(s) of the knee acquired. COMPARISON: [facility] [place], BESSIE, XR KNEE 4+ VIEWS BILATERAL, 04/17/2022, 11:24. FINDINGS: Bones: Patient is status post knee joint arthroplasty. Hardware components are in expected positions. Visualized bony structures are intact. Soft tissues: Overlying postoperative changes are noted. IMPRESSION: Expected post-operative appearance of a knee arthroplasty. Dictated by: Rob Wesley M.D. on 09/11/2023 at 12:23 Approved by: Rob Wesley M.D. on 09/11/2023 at 12:24
[2023-09-11] MEDS: ACETAMINOPHEN 325 MG TABLET 975 MG PO (07:58)
[2023-09-11] MEDS: CELECOXIB 200 MG CAPSULE 400 MG PO (07:59)
--- NOTE | 2023-09-11 08:24 | PM.PREOP ---
Pre-operative Note Interval Note History & Physical reviewed/Exam performed by Physician: Yes Changes to H&P: No
[2023-09-11] MEDS: LACTATED RINGERS 1,000 ML 42 ML IV (08:31)
--- NOTE | 2023-09-11 08:51 | PM.OP.1 ---
Operative Date/Time/Diagnoses Date of procedure: 09/11/23 Time of procedure: 09:40 Pre-op diagnosis: Right knee arthritis m17.11 BMI 39 Post-op diagnosis: same Procedure & Clinicians Procedure: Right total knee arthroplasty CPT code 44750 Robotic assisted surgery CPT code s2900 Computer-assisted navigation [id number] Same procedure as scheduled: Yes Indications: The patient is a 73-year-old female with end-stage [id number] knee arthritis. The patient has a significant right varus knee arthritis. They have failed conservative treatment with activity modifications, injections, physical therapy and bracing. They has been indicated for total knee replacement. The risks and benefits of the procedure have been discussed with the patient even opportunity to ask questions. The risks of surgery include but are not limited to infection, malunion, nonunion, fracture, loosening, persistence of pain, damage to nerves and blood vessels, need for additional procedures, DVT, PE, cardiopulmonary complications and . The patient expressed a thorough understanding of the risks and benefits of surgery and has elected to proceed. Consent was signed in the office. During the operation the services of physician surgical garment assembly supervisor were medically indicated and necessary to provide the exposure of the operative site for the surgical procedure and to maintain the limb in a proper position to carry out the procedure safely and efficiently. Without a qualified assistant professor of radiology being present this would extend the operative procedure and would have made the procedure more technically difficult to perform. The surgical garment assembly supervisor was medically necessary for the proper positioning, retraction and manipulation of the limb, proper exposure, and manipulation of the tissue for implantation implants and closure. Surgeon: Venessa Molina Supply Chain Director: Donta Armendariz Anesthesia Type: Spinal, Peripheral nerve block and Local Operative Notes Findings: Tricompartmental knee arthritis, right, significant medial compartment. Closure Type: primary Prosthetic devices, grafts, tissues, transplants, or devices: Barrett and nephew journey II BCS Femur size Oxinium size 4 Tibia size 3 Poly 9 mm posterior stabilized Patella 32 x 7.5 round Estimated Blood Loss (mL): 50 Blood products transfused: none Tourniquet time (min): 96 Procedure in detail: Patient was seen in the preoperative area where the patient and site of surgery were identified in the operative knee was marked informed consent confirmed. This was the right knee. Patient received the appropriate preoperative antibiotics this was 2 g of Ancef. The other preoperative standardized medications were administered and the patient was taken to the operating room placed on operating table in the supine position. Preoperative regional block was placed. Spinal anesthetic were administered. The operative extremity was then prepped and draped in the standard sterile fashion with a nonsterile tourniquet high on the thigh. Patient was placed on the green foam bolsters. A lateral post was placed at the level of the proximal thigh /trochanter area as a lateral post. Formal time-out procedure was performed confirming the patient's side and site of surgery and administration of appropriate preoperative antibiotics and implants were in the room accounted for. All were in agreement. Patient received a preoperative dose of tranexamic acid and then a 2nd dose at tourniquet release Patient was prepped and draped in the standard sterile fashion and the foot was placed into the leg bangura. This was taken into high flexion and the incision was marked out over the anterior knee to the level of the medial tubercle tubercle. The Esmarch was then used for exsanguination and the tourniquet was inflated to 250 mmHg. Was made through the skin and subcutaneous tissue in high flexion this was then brought down into 30? of flexion for the medial parapatellar arthrotomy. A marker pen was used to hubert the arthrotomy site for later repair. Joint fluid was evacuated. The anterior osteophytes and soft tissues were removed. Routine medial release was initially made along the medial proximal tibia with Bovie. The patella was 1st cut using the saw sized and prepped and then subluxed throughout the case and protected. The leg was then taken into extension and the patella was everted and the patella was cut to accommodate the patellar button. This was sized to a 32 mm button for a 7.5 mm thickness to recreate the original dimensions of the patella. Poly was removed and the protector replaced and the patella was subluxed and the knee was taken back up into flexion and attention was returned to the femur. Then the rotational landmarks of Whitesides line and the trans epicondylar axis were marked on the femur with electrocautery. ACL and PCL were released. Then the Cori robotic pins were placed into the femur and tibia and the race set up. The entry incision tibial guide was utilized. Landmarks were established and the robotic planning was commenced. Plan was developed and improved and adjusted as necessary to create a balanced knee. Preoperative alignment was 0? Planned postoperative alignment was 0?, achieved alignment 1 degree varus Femoral external rotation 3? 1-2 mm laxity throughout flexion-extension arc, balanced Once the Plan was satisfactory, the bur was used to remove the distal femur then the 5 in 1 cutting block was applied complete the femur cuts. Attention was then turned to the tibia and the tibial resection was made in accordance with the robotic planning. The trials were placed. And the femoral notch was cut a standard fashion using Reamer then slap hammer. The knee was trialed and the checked. Knee was balanced in flexion extension. Range of motion 0-120 degrees was obtained this was limited due to body habitus and thigh calf impingement. The rotation femoral trial was marked Bovie on the bone and checked with a long lester. The tibia was then finished with a drill and flange cut and then The trial implants were removed. Then in extension the posterior capsule was injected with a mixture of 40 mL of 0.25% Marcaine and 20 mL of 266 mg Exparel care to avoid excessive injection posterior laterally. The remainder of this was saved for the capsule and subcutaneous tissue and placed during cement curing. The wound and bone was irrigated with pulsatile lavage. This was then dried with a sponge. The components were verified and opened and the cement was mixed. Cement was applied to the components and then to the bone then the tibia was cemented in place 1st. During impaction of the tibia a small distal fragment of the lateral condyle was knocked off. This was central part that was replaced and impacted into place with the femoral component as graft. There was no proximal extension noted. This was completed the poly was placed and the knee was brought into extension. Second small batch of cement was made to cement the final patellar component Excess cement was removed. With care looking around the back of the knee. Remainder of the injection was injected around the capsule. trial poly was placed back in the leg was placed into extension for the patellar cementing. After this was cured approximately 15 minutes later wound was irrigated. No Betadine was used due to the patient's allergy. And the final poly was placed. This was a 9 mm poly. The tourniquet was released hemostasis was achieved. Final 1g of tranexamic acid was given IV at the time of tourniquet release. The capsule was closed with 1. Ethibond suture. Followed by a running Quill stitch. Subcutaneous layer was closed with 3-0 Vicryl suture. Skin was closed with a running V lock suture Stratafix Monocryl type suture and carlyle due to the known anticoagulation. An michelle dressing was placed due to the patient's use of strong anticoagulation. An Nash wrap was applied. Anesthetic was terminated the patient was woken from anesthesia and taken to recovery room in good condition. There no immediate complications from this procedure. The patient will be maintained on a standard total knee replacement protocol with weight-bearing as tolerated. Complications: none Post-operative Condition: stable Disposition: PACU Plan for aftercare: Weightbear as tolerated. Full range of motion as tolerated. Commence formal physical therapy within 1 week. Resume Xarelto postoperative day 1. Follow up in Orthopedic Clinic in 2 weeks for incision check.
[2023-09-11] MEDS: TRANEXAMIC ACID 1,000 MG VIAL 1000 MG INJ ×2 (09:15→10:40)
[2023-09-11] MEDS: CEFAZOLIN 2 GM/100 ML PREMIX 100 ML IV ×2 (09:15→17:18)
--- NOTE | 2023-09-11 09:48 | SUR.OPER ---
Supine on padded OR bed. Pillow under head, arms secured on padded armboards <90 degree abduction. Safety belt across torso. Non-operative leg secured with tape over blanket over lower leg. Operative leg secured in DeMayo/Joe/Nathe positioner. Foam padded brace at thigh of operative leg.
[2023-09-11] MEDS: BUPIVACAINE LIPOSOME 266 MG/20 ML VIAL INJ (09:53)
[2023-09-11] MEDS: BUPIVACAINE 0.25% (PF) 60 ML, EPINEPHrine 0.3 MG INJ (09:53)
[2023-09-11] MEDS: OXYCODONE IR 5 MG TABLET PO ×2 (11:59→12:33)
[2023-09-11] MEDS: ONDANSETRON 4 MG/2 ML INJ IV (12:01)
--- NOTE | 2023-09-11 12:33 | SUR.PHASEII ---
Awaiting PT arrival at 1300. Pt able to move toes and raise knees slightly.
--- NOTE | 2023-09-11 12:50 | SUR.PHASEII ---
Attempted to possibly sit on side of bed. pt Unable to move right leg without manually moving it. Settled back in bed, awaiting PT
--- NOTE | 2023-09-11 14:11 | PT.IIE ---
Current Diagnoses Bilateral primary osteoarthritis of knee (09/11/23) Unilateral primary osteoarthritis, right knee (09/11/23) Other specified joint disorders, unspecified knee (09/11/23) Surgery Performed Operation Date: 09/11/23 08:45 Actual Procedures p Total Knee Arthroplasty - Robot(Right) - Venessa Molina MD Surgical History (Last Updated 09/03/23 @ 09:32 by Sahyy Islas, RN) H/O wrist surgery History of ankle surgery History of bladder surgery (1995) History of History of cardiac radiofrequency ablation (2018) History of colon resection (~2020) History of hysterectomy History of surgery History of uvulopalatopharyngoplasty Hx of abdominoplasty Hx of adenoidectomy Hx of appendectomy Hx of cholecystectomy Hx of colonoscopy Hx of hernia repair Hx of tubal ligation Status post excision of lipoma Medical History (Last Updated 09/03/23 @ 09:36 by Shayy Islas RN) Afib Anesthesia complication Anxiety Arthritis Asthma Atrial flutter Diverticulosis Fatty liver GERD (gastroesophageal reflux disease) History of COVID-19 (01/2022) HTN (hypertension) Kidney stones VARINDER (obstructive sleep apnea) Skin cancer Physical Therapy Inpatient Evaluation/Re-Eval M1 PT/OT-IP Prior Functional Status Start: 09/11/23 15:25 Freq: NEEDED Status: Active Protocol: Document 09/11/23 14:11 AB (Rec: 09/11/23 15:40 AB [id number]) Medical Review Prior Functional Status Medical History Reviewed Yes Communication able to make needs known Mobility and Gait pt stated that she was modified independent with all mobilities and ambulation without AD but occasionally uses a SPC due to knee pain and back issues Activities of Daily Living and IADL's per OT note: Pt needing increased time for ADL and IADL needs and unable to don her socks. Social History Household Members family Living Arrangements House Number of Floors (Floors) One Floor Number of Stairs To Enter/Railing? 1 step to enter Home Environment High Toilet,Tub/Shower Home Equipment Front Wheel Walker,Four Wheel Walker,Straight Cane,Bedside Commode,Tub Transfer Bench, Hand Held Shower,Grab Bars In Shower Additional Social History Comment pt plans to have her son and DIL to assist her at home pt has an adjustable bed M2 PT-IP Current Condition Start: 09/11/23 15:25 Freq: NEEDED Status: Active Protocol: Document 09/11/23 14:11 AB (Rec: 09/11/23 15:40 AB [id number]) Physical Therapy Current Condition Current Condition Evaluation Date 09/11/23 Treatment Diagnosis s/p R TKA; difficulty in walking Onset Date M3 PT-IP Subjective Start: 09/11/23 15:25 Freq: NEEDED Status: Active Protocol: Document 09/11/23 14:11 AB (Rec: 09/11/23 15:40 AB [id number]) Subjective Physical Therapy Visit Type Type Initial Evaluation Visit Start Time 14:11 Visit Stop Time 14:55 Number of WEIGHT YARDAGE CHECKER Visits 0 Physical Therapy Visit Comments Patient Comments agreeable to do PT Therapy Pain Assessment Pain When Pain Assessed At Rest Pain Present Pain Present Pain Reported Location Right Knee Intensity 8 Scale Used Numeric (0 - 10) Pain Behaviors Guarding,Holding Area,Wincing Pain Management Techniques Apply Cold,Distraction, Modification of Treatment,Re- positioning,Timing of Activity with Medications M4 PT-IP Mobility and Gait Start: 09/11/23 15:25 Freq: NEEDED Status: Active Protocol: Document 09/11/23 14:11 AB (Rec: 09/11/23 15:40 AB [id number]) PT-Bed Mobility Assessment Supine to Sit Supine to Sit Minimal Assistance,Head of Bed Elevated Sit to Supine Sit to Supine Minimal Assistance,Head of Bed Elevated PT-Transfer Assessment Sit to and From Stand Sit to and from Stand Maximum Assistance,2 Person Assistance,Use of Upper Extremities Equipment Transfer Assistive Device Gait Belt,Front Wheeled Walker Orthotic/Prosthetic Devices or Brace: No Comments Mobility Comments pt sitting on EOB with OT and nurse. BP: 118/67. instructed pt to lay back in bed and pt completed min A and cues. HOB elevated. pt has an adjustable bed at home. obtained PLOF and home set up from pt. ROM and MMT checked. R knee flexion: ~ 40 deg with increase resistance and c /o increase pain. Heel slides on RLE completed in bed. pt completed supine to sit min A and cues. pt able to sit on EOB initial CGA but after repostioning SBA. educated pt regarding HEP. pt completed sit to stand from EOB and required max A x 2 and max cues. required max A x 1-2 for standing balance using FWW for support. pt with initial posterior trunk lean in standing and required max A for balance. cued to correct . for pt unable to take steps and needed to sit back down. c/o feeling lightheaded . BP checked: 99/61. pt agreed to stand again to reposition in bed. completed sit to stand max A x 2 and max cues and was able to take side steps towards HOB max A x 1-2 and max cues using FWW. pt completed sit to supine min A and cues. positioned pt in bed. BP checked: 100/57. informed pt regarding level of assistance and caregiver training. pt agreed to have caregiver training for tomorrow at 9 am and will call her son to inform. nurse is aware of pt's level of assistance and decrease in BP. Gait Assessment Comments Gait Comments able to take side steps towards HOB using FWW max A 1- 2 and max cues. PT-Balance Assessment Sitting Balance and Reactions Static Sitting Balance Ability Good Dynamic Sitting Balance Ability Fair Standing Balance and Reactions Static Standing Balance Ability Poor Dynamic Standing Balance Ability Poor Device Used FWW M5 PT-IP Objective Assessments Start: 09/11/23 15:25 Freq: NEEDED Status: Active Protocol: Document 09/11/23 14:11 AB (Rec: 09/11/23 15:40 AB [id number]) Orientation Orientation/Cognition Level of Alertness Alert Orientation Name,Place,Situation Safety Awareness Decreased Safety Awareness Memory Description No Deficits Noted Gross Range of Motion Lower Extremity ROM Assessment Right Impaired Impairments R knee flexion: ~ 40 deg R knee exension: ~ 20 deg less to 0 Strength Lower Extremity Strength Assessment Right Impaired Hip 3+/5 Knee 3+/5 Sensation Assessment Sensation Gross Sensation Left LE Impaired Sensation Description Numbness Comments Sensation Comments L foot numbness per pt Muscle Tone Muscle Tone WNL Yes M6 PT-IP Treatment Start: 09/11/23 15:25 Freq: NEEDED Status: Active Protocol: Document 09/11/23 14:11 AB (Rec: 09/11/23 15:40 AB [id number]) Physical Therapy Treatment Education Education Provided Precautions,Weight Bearing Status,Post-Op Packet,Safety M7 PT-IP Assessment and Plan Start: 09/11/23 15:25 Freq: NEEDED Status: Active Protocol: Document 09/11/23 14:11 AB (Rec: 09/11/23 15:40 AB [id number]) PT Summary Assessment and Plan Potential Rehabilitation Potential Fair Status of Condition at Evaluation Evolving Summary Impairments Pain,ROM,Strength,Balance, Coordination,Sensation,Tone, Cognition,Bed Mobility, Transfers,Gait,Activity Tolerance Assessment Summary pt is a 73 y/o F s/p R TKA POD 0. pt is WBAT on RLE. Received PT eval order from PACU and ortho surgeon wanting pt to go home today. Assessed pt's mobility and pt requiring max A x 2 for sit to stand and unable to ambulate at this time but was able to take side step towards HOB max A x 1-2 and max cues using FWW. pt also has orthostatic hypotension affecting mobility level as well as 8/10 pain on R knee. pt is not safe to d/ c home at this time. Caregiver training set up for tomorrow at 9 am. will continue to assess mobility Goals Bed Mobility Goal Independent Transfer Goal Independent,Front Wheeled Walker Gait Goal Independent,Front Wheel Walker Gait Distance 100 Other Goals improve transfers and ambulation using LRAD ~ 200 ft SBA up/down 1 step using FWW SBA Days to Meet Goals 5 Frequency of Treatment Frequency Of Treatment Twice a Day Treatment Plan Physical Therapy Treatment Plan Bed Mobility Training,Transfer Training,Gait Training, Therapeutic Exercise,Balance Retraining,Post Op Education, Discharge Planning,Hot or Cold Pack,Neuromuscular Re-ed, Coordination Retraining,Manual Therapy Weight Bearing Status Weight Bearing Status Weight Bear as Tolerated Allowed Weight Bearing Amount (enter % RLE WBAT or #) (%) Recommendations To Nursing Amount of Assist Needed 2 Person Assist Discharge Recommendations PT Discharge Recommendations Home with 31/12 Assist Available,Home Health, Outpatient PT Transportation Needs at Discharge Private Vehicle,Wheelchair/ Cabulance
--- NOTE | 2023-09-11 14:23 | SUR.PHASEII ---
PT continuing with evaluation
--- NOTE | 2023-09-11 14:26 | OT.IP.EVAL ---
Current Diagnoses Bilateral primary osteoarthritis of knee (09/11/23) Unilateral primary osteoarthritis, right knee (09/11/23) Other specified joint disorders, unspecified knee (09/11/23) Surgery Performed Operation Date: 09/11/23 08:45 Actual Procedures p Total Knee Arthroplasty - Robot(Right) - Venessa Molina MD Past Medical History (Last Updated 09/03/23 @ 09:36 by Shayy Islas, RN) Afib Anesthesia complication Anxiety Arthritis Asthma Atrial flutter Diverticulosis Fatty liver GERD (gastroesophageal reflux disease) History of COVID-19 (01/2022) HTN (hypertension) Kidney stones VARINDER (obstructive sleep apnea) Skin cancer Surgical History (Last Updated 09/03/23 @ 09:32 by Shayy Islas RN) H/O wrist surgery History of ankle surgery History of bladder surgery (1995) History of History of cardiac radiofrequency ablation (2018) History of colon resection (~2020) History of hysterectomy History of surgery History of uvulopalatopharyngoplasty Hx of abdominoplasty Hx of adenoidectomy Hx of appendectomy Hx of cholecystectomy Hx of colonoscopy Hx of hernia repair Hx of tubal ligation Status post excision of lipoma Occupational Therapy Inpatient Evaluation/Re-Eval M1 PT/OT-IP Prior Functional Status Start: 09/11/23 15:03 Freq: NEEDED Status: Active Protocol: Document 09/11/23 15:03 [facility] (Rec: 09/11/23 15:24 [facility] [id number]) Medical Review Prior Functional Status Communication Independent Mobility and Gait Occasional use of cane in and out of the house. Activities of Daily Living and IADL's Pt needing increased time for ADL and IADL needs and unable to emeterio her socks. Prior Functional Level (Other details) Pt's son and daughter in law to assist. Social History Household Members family Living Arrangements House Number of Floors (Floors) One Floor Number of Stairs To Enter/Railing? 1 step to get into the house. Home Environment High Toilet,Tub/Shower Home Equipment Front Wheel Walker,Four Wheel Walker,Straight Cane,Bedside Commode,Tub Transfer Bench, Hand Held Shower,Grab Bars In Shower Additional Social History Comment Pt has an adjustable bed and usually gets in and out of the bed with her head up on the left side. M2 OT-IP Current Condition Start: 09/11/23 15:03 Freq: Status: Active Protocol: Document 09/11/23 15:03 [facility] (Rec: 09/11/23 15:24 [facility] [id number]) Occupational Therapy Current Condition Current Condition Evaluation Date 09/11/23 Treatment Diagnosis S/P R TKA Diagnosis Onset Date 09/11/23 M3 OT- IP Subjective and Pain Start: 09/11/23 15:03 Freq: Status: Active Protocol: Document 09/11/23 15:03 [facility] (Rec: 09/11/23 15:24 [facility] [id number]) OT- Subjective Occupational Therapy Visit Type Type Initial Evaluation Visit Start Time 13:50 Visit Stop Time 14:56 Occupational Therapy Visit Comments Patient Comments Pt in lots of pain, but agreed to try to get up. Pt's nurse aware of pt's pain level. Pt complaining of her calf throbbing. Patient/Caregiver Goals To go home. OT Pain Assessment Pain When Pain Assessed At Rest Pain Present Pain Present Pain Reported Location Right Knee Intensity 8 Scale Used Numeric (0 - 10) M4 OT- IP ADL's Start: 09/11/23 15:03 Freq: Status: Active Protocol: Document 09/11/23 15:03 [facility] (Rec: 09/11/23 15:24 [facility] [id number]) OT [id number] Comments OT Self-Feeding Comments Not at meal time, no issues anticipated. OT ADL-Grooming Comments OT Grooming Comments Not performed. OT ADL-Oral Care Comments Oral Care Comments Not performed. OT ADL-Dressing General Eval Lower Body Dressing Ability Maximum Assistance Areas Needing Assistance Socks Comments OT Dressing Comments At this time pt needing MAXA for LB dressing needs. Able to show pt use of ct mri technologist and sock aid to help improve independence with ADL needs. Educated to dress her RLE first and take out last. OT ADL-Toileting Comments OT Toileting Comments Pt wears pads at home and cab have the BSC close to the bed if needed as she normally gets up 2-3 times at night. Educated pt to be mindful of her right knee positioning knee while doing hygiene needs and to be sure not to twist her knee. Suggested use of wipe and toilet paper aid if needed. OT ADL-Bathing Comments OT Bathing Comments At this time due to decreased mobility sponge bath more appropriate. M5 OT- IP IADL's Start: 09/11/23 15:03 Freq: Status: Active Protocol: Document 09/11/23 15:03 [facility] (Rec: 09/11/23 15:24 [facility] [id number]) OT-Instrumental Activities of Daily Living Deficits IADL Deficits Identified Deficits Home Safety Awareness Awareness of Need for Assistance at Home Good Awareness Ability to Problem Solve Emergency Able to Problem Solve Situations Medication Management Medication Management No Deficits Identified Money Management Money Management No Deficits Identified Meal Preparation Meal Preparation Caregiver Provides Assist News Department Intern News Department Intern Caregiver Provides Assist M6 OT- IP Functional Cognition Start: 09/11/23 15:03 Freq: Status: Active Protocol: Document 09/11/23 15:03 [facility] (Rec: 09/11/23 15:24 [facility] [id number]) Cognitive Factors Limiting Selfcare Function Cognitive Ability Level of Alertness Alert Patient Orientation Name,Age,Birthday,Month,Date, Year,Day of Week,Place, Situation Attention Span Ability Capable of Focused Attention, Capable of Sustained Attention Ability to Follow Commands Able to Follow One Step Commands Cognitive Comments Cognitive Assessment Comments Pt able to follow commands for ADl and mobility needs. Pt a little groggy from surgery. OT- Vision and Hearing OT- Hearing Assessment OT- Hearing Assessment WFL OT- Vision Assessment Visual Acuity Glasses All The Time Visual Attentiveness WFL Occular Pursuits WFL M7 OT- IP Mobility and Balance Start: 09/11/23 15:03 Freq: Status: Active Protocol: Document 09/11/23 15:03 [facility] (Rec: 09/11/23 15:24 [facility] [id number]) OT- Bed Mobility Assessment Supine to Sit Supine to Sit Assist Minimal Assistance,Head of Bed Elevated Sit to Supine Sit to Supine Assist Minimal Assistance,Head of Bed Elevated Scooting Scooting to Edge of Bed Contact Guard Assistance OT-Transfer Assessment Sit to and From Stand Sit to and from Stand Maximum Assistance,2 Person Assistance Technique Transfer Destination Bed Comments Mobility Comments CLAUDIA to assist with her RLE into and out fo the bed. MAX AX 2 to stand to the FWW. Pt able to take a few side steps with MODA and heavy use of her hands on the FWW. BP with HOB up 109/64, sitting on the edge of the bed 118/67 and after standing dropped to 99/61 and feeling dizzy, after back in bed 100/57. Nurse notified of pt being having orthostatic symptoms. OT- Balance Assessment Sitting Balance and Reactions Static Sitting Balance Ability Good Dynamic Sitting Balance Ability Fair Standing Balance and Reactions Static Standing Balance Ability Poor Dynamic Standing Balance Ability Poor M8 OT- IP Objective Assessments Start: 09/11/23 15:03 Freq: Status: Active Protocol: Document 09/11/23 15:03 [facility] (Rec: 09/11/23 15:24 [facility] [id number]) OT Gross Range of Motion Upper Extremity Range of Motion Assessment Within Functional Limits OT Strength Upper Extremity Strength Assessment Within Functional Limits M9 OT- IP Assessment and Plan Start: 09/11/23 15:03 Freq: Status: Active Protocol: Document 09/11/23 15:03 [facility] (Rec: 09/11/23 15:24 [facility] [id number]) OT Summary Assessment and Plan Potential Rehabilitation Potential Good Analytic Complexity at Evaluation Low Summary OT Impairments Pain,Strength,Balance, Functional Mobility,Grooming, Dressing,Toileting,Bathing, Toilet Transfers,Shower Transfers,Activity Tolerance Progress Towards Goals Slow Progress due to Pain,Slow Progress due to Medical Issues Assessment Summary Pt low complexity and main barriers are pain, step and now needing two person assist to come to stand at this time. Able to go over equipment needs and safety suggestions for her right kneee positioning during ADL needs. Pt having 8/10 pain which seems to be limiting her function. Hopefully as her pt' s pain improves that pt will be able to go home with her family to assist her and go to outpt PT. Pt to call her son to have caregiver training at 9am tomorrow. Goals Self-Feeding Goal Independent Grooming Goal Independent Dressing Goal Minimal Assistance Toileting Goal Independent Bathing Goal Standby Assistance Toilet Transfer Goal Independent Shower Transfer Goal Standby Assistance Patient/Caregiver Education Goal Caregiver Independent Assisting Patient Days to Meet Goals 7 Frequency of Treatment Frequency Of Treatment Once a Day Treatment Plan OT Treatment Plan ADL Training,Functional Mobility,Patient/Family Education,Discharge Planning Discharge Recommendations OT Discharge Recommendations Home with 31/12 Assist Available Other Discharge Recommendations pending progress and pain control- most likely pt to be able to go home with her family to assist Home Equipment Needs LB dressing equipment Transportation Needs at Discharge Private Vehicle
--- NOTE | 2023-09-11 14:59 | SUR.PHASEII ---
unable to stand without 2-person assist. adm orders activated. vss
[2023-09-11] MEDS: OXYCODONE IR 10 MG TABLET PO ×3 (15:26→23:55)
[2023-09-11] MEDS: ACETAMINOPHEN 325 MG TABLET 650 MG PO ×2 (15:26→20:31)
[2023-09-11] MEDS: LACTATED RINGERS 1,000 ML 100 ML IV (15:30)
[2023-09-11] MEDS: DOCUSATE 100 MG CAPSULE PO (20:31)
[2023-09-11] MEDS: METOPROLOL IR 25 MG TABLET PO (20:31)
[2023-09-11] MEDS: FLECAINIDE 100 MG TABLET 50 MG PO (20:31)
[2023-09-11] MEDS: ALBUTEROL/IPRATROPIUM 3 ML AMPUL INH (20:48)
[2023-09-11] MEDS: BUDESONIDE 0.5 MG/2 ML NEB INH (20:48)
[2023-09-12] MEDS: CEFAZOLIN 2 GM/100 ML PREMIX 100 ML IV (00:52)
--- NOTE | 2023-09-12 01:24 | PC.NURSE ---
Patient is alert and oriented. Breath sounds CTA with RA sat of 94% but when falling asleep O2 sat drops and wakes her up so placed on oxygen at 1L/min per NC for overnight; on continuous oximetry. HRR. Denies nausea. BT present but denies flatus and reports she is mildly distended. Had not voided since 0800 but was up at 2200 and voided; denied dysuria. Is able to turn herself in bed. Up to [facility] with walker and 1 assist. ANA PAULA dressing to right knee covered with carlos wrap is CDI and functioning. CMS is intact and able to lift right leg slightly off bed. Has been complaining of 7/10 pain and medicated twice this shift with oxycodone 10mg and pain currently at 5/10 and tolerable. Is wearing bilateral calf SCD's. Fall risk score is high and bed alarm is activated.
[2023-09-12] MEDS: LACTATED RINGERS 1,000 ML 100 ML IV (01:36)
[2023-09-12] MEDS: ACETAMINOPHEN 325 MG TABLET 650 MG PO ×2 (02:29→08:07)
[2023-09-12] MEDS: OXYCODONE IR 10 MG TABLET PO ×2 (03:32→08:06)
[2023-09-12 06:34] LABS: Hematocrit 38.7 % (36-46); Hemoglobin 12.9 g/dL (12.0-16.0)
--- NOTE | 2023-09-12 07:08 | P.DS_ITS ---
History of Present Illness History of Present Illness Date Patient Seen: 09/12/23 Time Patient Seen: 07:08 Chief complaint: Right TKA *OPB* Narrative: Operative Date/Time/Diagnoses Date of procedure: 09/11/23 Time of procedure: 09:40 Pre-op diagnosis: Right knee arthritis m17.11 BMI 39 Post-op diagnosis: same Procedure & Clinicians Procedure: Right total knee arthroplasty CPT code 30248 Robotic assisted surgery CPT code s2900 Computer-assisted navigation 67443 Same procedure as scheduled: Yes Indications: The patient is a 73-year-old female with end-stage [id number] knee arthritis. The patient has a significant right varus knee arthritis. They have failed conservative treatment with activity modifications, injections, physical therapy and bracing. They has been indicated for total knee replacement. The risks and benefits of the procedure have been discussed with the patient even opportunity to ask questions. The risks of surgery include but are not limited to infection, malunion, nonunion, fracture, loosening, persistence of pain, damage to nerves and blood vessels, need for additional procedures, DVT, PE, cardiopulmonary complications and . The patient expressed a thorough understanding of the risks and benefits of surgery and has elected to proceed. Consent was signed in the office. During the operation the services of physician information technology assistant were medically indicated and necessary to provide the exposure of the operative site for the surgical procedure and to maintain the limb in a proper position to carry out the procedure safely and efficiently. Without a qualified resident assistant cna being present this would extend the operative procedure and would have made the procedure more technically difficult to perform. The information technology assistant was medically necessary for the proper positioning, retraction and manipulation of the limb, proper exposure, and manipulation of the tissue for implantation implants and closure. Surgeon: Venessa Molina Order Entry: Donta Armendariz Anesthesia Type: Spinal, Peripheral nerve block and Local Operative Notes Findings: Tricompartmental knee arthritis, right, significant medial compartment. Closure Type: primary Prosthetic devices, grafts, tissues, transplants, or devices: [employer] and nephew journey II BCS Femur size Oxinium size 4 Tibia size 3 Poly 9 mm posterior stabilized Patella 32 x 7.5 round Estimated Blood Loss (mL): 50 Blood products transfused: none Tourniquet time (min): 96 Discharge Providers Provider Discharge Date: 09/12/23 Primary care physician: Jaime Meier DO Consults: 09/11/23 06:00 Consult to Anesthesiology Routine Comment: Consulting Provider: Anesthesiologist Reason for consultation: Regional block for post operative pain control Has provider been notified: No 09/11/23 13:42 Consult to Occupational Therapy Evaluate & Treat Comment: Physician Instructions: Evaluate and treat Consult to Physical Therapy Evaluate & Treat Comment: Physician Instructions: postop TKA protocol 09/11/23 14:58 Consult to Discharge Planning Routine Comment: Discharge provider: Jenn Anne PA-C Summary Hospital Course Discharge Diagnosis: Right knee osteoarthritis, s/p right total knee arthroplasty Hospital Course: Ms Patten'vega hospital course was unremarkable. On the morning of POD# 1, she was feeling well and wanted to go home. She worked w/ PT yesterday, and her daughter and son-in-law are coming in this morning for caregiver training w/ PT. She is eating and voiding without difficulty. Her pain is well-controlled w/ oral medications. Exam Vital Signs (past 8 hours): Oxygen Delivery Method Room Air Oxygen Flow Rate 0 Narrative Exam Narrative: 5/5 strength in hip flexors, quadriceps, hamstrings, DF, PF, EHL on right. Sensation to light touch intact throughout RLE. Calf soft and compressible. NASH over ANA PAULA CDI; ANA PAULA functioning. Objective Labs 09/12/23 06:20 Labs: Laboratory Results - last 24 hr 09/12/23 06:20 Hgb 12.9 Hct 38.7 PFSH Medical History (Updated 09/03/23 @ 09:36 by Shayy Islas, RN) History of COVID-19 (01/2022) Anxiety Skin cancer Kidney stones Fatty liver GERD (gastroesophageal reflux disease) Diverticulosis Atrial flutter Afib VARINDER (obstructive sleep apnea) Anesthesia complication HTN (hypertension) Arthritis Asthma Surgical History (Updated 09/03/23 @ 09:32 by Shayy Islas, RN) Status post excision of lipoma History of ankle surgery History of surgery H/O wrist surgery History of History of hysterectomy Hx of tubal ligation History of uvulopalatopharyngoplasty Hx of adenoidectomy History of bladder surgery (1995) Hx of hernia repair Hx of colonoscopy Hx of abdominoplasty Hx of appendectomy Hx of cholecystectomy History of colon resection (~2020) History of cardiac radiofrequency ablation (2018) Family History Mother Hypertension Diabetes mellitus Cancer Family/Other Cancer Social History household members: family Smoking Status: Never smoker alcohol intake: current Discharge Assessment & Plan Assessment and Plan Assessment: Right knee osteoarthritis, s/p right total knee arthroplasty Plan of Treatment: Discharge home after PT if PT agrees. Multimodal pain control, Xarelto for VTE prophylaxis, outpt PT, f/u in office in 2 weeks as scheduled. Pt has post-op pain meds at home. Discharge Plan Discharge Plan Patient Disposition: Home Discharge orders & Medications Discharge Orders: Discharge (Order); Ordered 09/12/23 Ordered By: Jenn Anne Prescriptions: Continued albuterol sulfate 90 mcg/actuation Hfa Aerosol Inhaler 2 puff INHALATION Q4-6H PRN (Reason: Shortness Of Breath) Qty: 0 cholecalciferol (vitamin D3) [Vitamin D3] 50 mcg (2,000 unit) Capsule 50 mcg PO DAILY Qty: 0 cyanocobalamin (vitamin B-12) [Vitamin B-12] 250 mcg Tablet 5,000 mcg PO QDAY Qty: 0 loratadine [Claritin] 10 MG tablet 10 mg PO QDAYP PRN (Reason: Seasonal allergies) Qty: 0 polyethylene glycol 3350 [Miralax] 119 GM powder 17 gm PO QDAYP PRN (Reason: Constipation) Qty: 0 ondansetron [Zofran ODT] 8 MG tablet,disintegrating 8 mg Sublingual Q6HP PRN (Reason: Nausea) Qty: 0 albuterol sulfate 0.63 mg/3 mL solution for nebulization 0.63 mg INH Q4HP PRN (Reason: Shortness Of Breath) Qty: 0 rivaroxaban [Xarelto] 20 mg tablet 20 mg PO DAILY ipratropium-albuterol [Combivent Respimat] 20-100 mcg/actuation mist 1 puff INHALATION Q6H PRN (Reason: Shortness Of Breath) fluticasone propionate [Flovent HFA] 220 mcg/actuation HFA aerosol inhaler 1 puff INHALATION BID oxycodone 5 mg tablet 5 mg PO BID PRN (Reason: pain) Qty: 14 0RF nystatin 100,000 unit/gram cream 1 applic topical BID PRN (Reason: tinea) Qty: 15 0RF nystatin 100,000 unit/gram powder 1 applic topical DAILY Qty: 30 0RF lisinopril 10 mg Tablet 10 mg PO DAILY hydrochlorothiazide 25 mg Tablet 25 mg PO DAILY hydroxyzine HCl 25 mg tablet 25 mg PO BEDTIME PRN (Reason: itching, anxiety) metoprolol tartrate 25 MG tablet 25 mg PO BID acetaminophen 500 mg Tablet 500 - 1,500 mg PO DAILY PRN (Reason: Pain) meclizine 25 mg Tablet 25 mg PO TID PRN (Reason: Vertigo) flecainide 50 mg Tablet 75 mg PO QAM flecainide 50 mg Tablet 50 mg PO BEDTIME Follow up/Referrals: Venessa Molina MD [Physician] - 09/23/23 11:30 am (appt:09/22 @ 11:30 with Echo pac @ [facility] ) Jaime Meier DO [Primary Care Provider] - Diet/Activity/Treatments Diet: Diet as Tolerated Other treatments: Medications: -you will resume her Xarelto on postoperative day 1 prevent blood clots. -OTC Tylenol 500 mg 1 tablet every 4 hours as needed for pain/fever. Max 6 tablets per day. (take scheduled every 4-6 hours for the first few days to week after schedule to help stay on top of your pain) -Oxycodone 5 mg take 1-2 tablets (5-10mg) every 4 hours as needed for moderate- severe pain (narcotic pain medication). (maximum dose for very severe pain would be 3 pills (15mg) every 3 hours) -ondansetron 4mg - 1 tab every 8 hours as needed for nausea -As needed medications: -Ducolax and /or MiraLax as needed for constipation from narcotic pain medications. -Pepcid AC as needed for stomach upset (usually from aspirin or ibuprofen or other medications). Dressing/Wound care: -Remove the Nash wrap 48 hours after surgery. -Keep ana paula negative pressure dressing in place until postoperative follow-up office visit. The batteries will stop working after 7 days. at that point the hose can be cut off and the rest of the bandage will remain in place like a regular Band-Aid. -Okay to shower. Keep wound out of direct water stream. No soaking or submerging until all the scabs fall off (approximately 4-6 weeks). -No lotions, ointments, or scar creams directly to the incision until the wound is healed (4-6 weeks), -Please call the office if dressing becomes wet, soiled, or saturated. Activities: -Weight-bearing as tolerated. Use front wheeled walker, and progress to cane when safe. -Continue with home exercises as directed by your physical therapist. (work on getting your leg. knee fully straight and bending knee as well- motion after knee replacement is very important) -should have outpatient Physical Therapy visits set up to start within 1 week after surgery -Elevate ?toes above the nose if you have significant swelling in your lower leg. (A wedge pillow is easiest.) -Ice your incision as needed for pain/inflammation/swelling. Protect your skin with a folded pillowcase. -Incentive Spirometer (breathing device from [facility]): 5-10xs every hour while awake for the first 1-2 weeks. Follow-up: -Follow-up with your surgeon or PA in the office in 10-14 days after surgery. -Follow-up with your surgeon 6 weeks postoperatively. Contact the office if you have any of the following: ? Painful swelling or numbness ? Unrelenting pain ? Fever (over 101?- it is normal to have a low grade fever for the first day or two following surgery) or chills ? Redness around the incisions ? Color changes ? Continuous bleeding or drainage from the incision (a small amount is expected) ? Excessive nausea or vomiting ? Difficulty breathing If you have an emergency that requires immediate attention such as shortness of breath or chest pain, call 911 or proceed to the nearest emergency room. [facility]: [phone] Pain Medications: It is the policy of [facility] that narcotic medications will only be refilled during office hours. Additionally, due to the alarming rate of narcotic pain medication abuse/dependence, it has become necessary for physician practices to closely manage patient use of prescription narcotic pain relievers, such as Vicodin ([place]), Percocet, and Oxycodone products. Narcotic pain management in the postoperative period may not exceed 6 weeks. If narcotic pain management is required beyond 90 days, then a referral to a Chronic Pain Specialist will be made. If a request for a medication prescription of refill has been made, the physician must review your chart prior to authorizing the request. Please be patient with office staff. If you call during patient hours, your call may not be returned until the end of the day. Skin/Wound/Dressing Care Report to your healthcare provider any signs of infection, such as:: chills, fever, night sweats, increased pain, unusual drainage and unusual redness Visit Report/Discharge Packet Instructions: DI for Knee Replacement, DI for Prescription Opioid Use Stand Alone Forms: Patient Portal/API, Surgery Discharge Discharge Data Primary Care Provider: Jaime Meier Attending Provider: Venessa Molina
[2023-09-12 08:00] VITALS: BP 114/43; PULSE 65; RESP 16; TEMP 36.6; O2SAT 96
[2023-09-12] MEDS: FLECAINIDE 100 MG TABLET 75 MG PO (08:05)
[2023-09-12] MEDS: CHOLECALCIFEROL (VITAMIN D3) 1,000 UNIT TABLET 2000 UNIT PO (08:07)
[2023-09-12] MEDS: DOCUSATE 100 MG CAPSULE PO (08:08)
[2023-09-12] MEDS: NYSTATIN POWDER 15GM 1 APPLIC TOP (08:09)
[2023-09-12] MEDS: CYANOCOBALAMIN (VITAMIN B-12) 500 MCG TABLET 5000 MCG PO (08:10)
[2023-09-12] MEDS: RIVAROXABAN 10 MG TABLET 20 MG PO (08:10)
--- NOTE | 2023-09-12 09:04 | PT.IPTN ---
Current Diagnoses Bilateral primary osteoarthritis of knee (09/11/23) Unilateral primary osteoarthritis, right knee (09/11/23) Other specified joint disorders, unspecified knee (09/11/23) Surgery Performed Operation Date: 09/11/23 08:45 Actual Procedures p Total Knee Arthroplasty - Robot(Right) - Venessa Molina MD Physical Therapy Treatment Note M2 PT-IP Current Condition Start: 09/11/23 15:25 Freq: NEEDED Status: Active Protocol: Document 09/11/23 14:11 AB (Rec: 09/11/23 15:40 AB [id number]) Physical Therapy Current Condition Current Condition Evaluation Date 09/11/23 Treatment Diagnosis s/p R TKA; difficulty in walking Onset Date M3 PT-IP Subjective Start: 09/11/23 15:25 Freq: NEEDED Status: Active Protocol: Document 09/12/23 09:32 TS (Rec: 09/12/23 09:46 TS [id number]) Subjective Physical Therapy Visit Type Type Treatment Note Visit Start Time 09:04 Visit Stop Time 09:30 Notes Family present for caregiver training Number of COAL HANDLER Visits 1 Physical Therapy Visit Comments Patient Comments Pt found resting in bed, is agreeable to PT. Therapy Pain Assessment Pain When Pain Assessed At Rest Pain Present Pain Present Pain Reported M4 PT-IP Mobility and Gait Start: 09/11/23 15:25 Freq: NEEDED Status: Active Protocol: Document 09/12/23 09:32 TS (Rec: 09/12/23 09:46 TS [id number]) PT-Bed Mobility Assessment Supine to Sit Supine to Sit Standby Assistance Scooting Scooting to Edge of Bed Minimal Assistance PT-Transfer Assessment Sit to and From Stand Sit to and from Stand Contact Guard Assistance,1 Person Assistance Equipment Transfer Assistive Device Gait Belt,Front Wheeled Walker Orthotic/Prosthetic Devices or Brace: No Comments Mobility Comments Supine to sit SBA with HOB elevated 45D. Scooting to EOB pt required Vira from son with ENGINE HOSTLER. Son was instructed in and performed donning of gait belt. STS CGA with FWW. She ambulated ~75'SBA with slow step to gait, denied any lightheadedness. She performed steps x2 on platform step swith FWW and CGA from son, pt was provided cues for proper step sequencing. She was educated in instensity and frequency of post-op ex. Pt was left in chair all needs met. Gait Assessment Gait Gait Assistance Required: Standby Assistance Distance (Feet) 75 Assistive Devices Assistive Device Gait Belt,Front Wheeled Walker Orthotic/Prosthetic Devices or Brace: No Gait Deviations General Gait Pattern Antalgic,Decreased Stride Length,Decreased Feet Clearance,Step-to Gait Factors Limiting Gait Function Factors Limiting Gait Function Decreased Activity Tolerance, Decreased Strength,Limited Range of Motion,Pain,Poor Balance Comments Gait Comments See mobility comments Stair Climbing Assessment Evaluation Level of Assist On Stairs Contact Guard Assistance,1 Person Assistance Devices Stair Climbing Assistive Devices Front Wheel Walker Technique/Endurance Stair Climbing Direction Ascend and Descend Stair Climbing Technique Step to Step Number of Steps Climbed 2 Comments Stair Climbing Comments See mobility comments PT-Balance Assessment Sitting Balance and Reactions Static Sitting Balance Ability Good Dynamic Sitting Balance Ability Fair Standing Balance and Reactions Static Standing Balance Ability Good Dynamic Standing Balance Ability Fair Device Used FWW M5 PT-IP Objective Assessments Start: 09/11/23 15:25 Freq: NEEDED Status: Active Protocol: Document 09/11/23 14:11 AB (Rec: 09/11/23 15:40 AB [id number]) Orientation Orientation/Cognition Level of Alertness Alert Orientation Name,Place,Situation Safety Awareness Decreased Safety Awareness Memory Description No Deficits Noted Gross Range of Motion Lower Extremity ROM Assessment Right Impaired Impairments R knee flexion: ~ 40 deg R knee exension: ~ 20 deg less to 0 Strength Lower Extremity Strength Assessment Right Impaired Hip 3+/5 Knee 3+/5 Sensation Assessment Sensation Gross Sensation Left LE Impaired Sensation Description Numbness Comments Sensation Comments L foot numbness per pt Muscle Tone Muscle Tone WNL Yes M6 PT-IP Treatment Start: 09/11/23 15:25 Freq: NEEDED Status: Active Protocol: Document 09/12/23 09:32 TS (Rec: 09/12/23 09:46 TS [id number]) Physical Therapy Treatment Education Education Provided Precautions,Weight Bearing Status,Post-Op Packet,Safety M7 PT-IP Assessment and Plan Start: 09/11/23 15:25 Freq: NEEDED Status: Active Protocol: Document 09/12/23 09:32 TS (Rec: 09/12/23 09:46 TS [id number]) PT Summary Assessment and Plan Potential Rehabilitation Potential Fair Summary Impairments Pain,ROM,Strength,Balance, Coordination,Sensation,Tone, Cognition,Bed Mobility, Transfers,Gait,Activity Tolerance Progress Towards Goals Progressing Toward Goals Assessment Summary Rashida is making good progress with her mobility. She is SBA/ Vira for bed mobility. She performed STS CGA with good standing balance and no retroleaning. She progressed her gait to ~75' SBA with FWW with slow step to gait. She performed steps x2 with FWW on platform step and CGA from son. Son was instructed in and performed donning of gait belt, bed mobility, gait and stair training. PT is recommending pt return home with 24/7 assist and outpatient PT. Goals Bed Mobility Goal Independent Transfer Goal Independent,Front Wheeled Walker Gait Goal Independent,Front Wheel Walker Gait Distance 100 Other Goals improve transfers and ambulation using LRAD ~ 200 ft SBA up/down 1 step using FWW SBA Days to Meet Goals 5 Frequency of Treatment Frequency Of Treatment Twice a Day Treatment Plan Physical Therapy Treatment Plan Bed Mobility Training,Transfer Training,Gait Training, Therapeutic Exercise,Balance Retraining,Post Op Education, Discharge Planning,Hot or Cold Pack,Neuromuscular Re-ed, Coordination Retraining,Manual Therapy Weight Bearing Status Weight Bearing Status Weight Bear as Tolerated Allowed Weight Bearing Amount (enter % RLE WBAT or #) (%) Recommendations To Nursing Amount of Assist Needed 1 Person Assist Discharge Recommendations PT Discharge Recommendations Home with 24/7 Assist Available,Outpatient PT Transportation Needs at Discharge Private Vehicle
--- NOTE | 2023-09-12 10:00 | OT.IP.TRT ---
Current Diagnoses Bilateral primary osteoarthritis of knee (09/11/23) Unilateral primary osteoarthritis, right knee (09/11/23) Other specified joint disorders, unspecified knee (09/11/23) Surgery Performed Operation Date: 09/11/23 08:45 Actual Procedures p Total Knee Arthroplasty - Robot(Right) - Venessa Molina MD Occupational Therapy Treatment Note M2 OT-IP Current Condition Start: 09/11/23 15:03 Freq: Status: Active Protocol: Document 09/11/23 15:03 [facility] (Rec: 09/11/23 15:24 [facility] [id number]) Occupational Therapy Current Condition Current Condition Evaluation Date 09/11/23 Treatment Diagnosis S/P R TKA Diagnosis Onset Date 09/11/23 M3 OT- IP Subjective and Pain Start: 09/11/23 15:03 Freq: Status: Active Protocol: Document 09/12/23 10:09 [facility] (Rec: 09/12/23 10:16 [facility] [id number]) OT- Subjective Occupational Therapy Visit Type Type Treatment Note Visit Start Time 10:00 Visit Stop Time 10:08 Occupational Therapy Visit Comments Patient Comments Pt already dressed and her family present to pick her up. Patient/Caregiver Goals TO go home. M4 OT- IP ADL's Start: 09/11/23 15:03 Freq: Status: Active Protocol: Document 09/12/23 10:09 [facility] (Rec: 09/12/23 10:16 [facility] [id number]) OT NRV-Ifep-Nrirqgb General Evaluation Self-Feeding Ability Independent OT ADL-Dressing Comments OT Dressing Comments Went over techniques and use of dressing equipment to increase LB dressing needs. OT ADL-Toileting Comments OT Toileting Comments Educated pt to be mindful not to twist her knee during toileting needs. Suggested to place the BSc over the toilet or next to the bed. M5 OT- IP IADL's Start: 09/11/23 15:03 Freq: Status: Active Protocol: Document 09/11/23 15:03 [facility] (Rec: 09/11/23 15:24 [facility] [id number]) OT-Instrumental Activities of Daily Living Deficits IADL Deficits Identified Deficits Home Safety Awareness Awareness of Need for Assistance at Home Good Awareness Ability to Problem Solve Emergency Able to Problem Solve Situations Medication Management Medication Management No Deficits Identified Money Management Money Management No Deficits Identified Meal Preparation Meal Preparation Caregiver Provides Assist Television Engineer Television Engineer Caregiver Provides Assist M6 OT- IP Functional Cognition Start: 09/11/23 15:03 Freq: Status: Active Protocol: Document 09/12/23 10:09 [facility] (Rec: 09/12/23 10:16 [facility] [id number]) Cognitive Factors Limiting Selfcare Function Cognitive Comments Cognitive Assessment Comments Pt intact. M8 OT- IP Objective Assessments Start: 09/11/23 15:03 Freq: Status: Active Protocol: Document 09/11/23 15:03 [facility] (Rec: 09/11/23 15:24 [facility] [id number]) OT Gross Range of Motion Upper Extremity Range of Motion Assessment Within Functional Limits OT Strength Upper Extremity Strength Assessment Within Functional Limits M9 OT- IP Assessment and Plan Start: 09/11/23 15:03 Freq: Status: Active Protocol: Document 09/12/23 10:09 [facility] (Rec: 09/12/23 10:16 [facility] [id number]) OT Summary Assessment and Plan Potential Rehabilitation Potential Good Analytic Complexity at Evaluation Low Summary OT Impairments Pain,Strength,Balance, Functional Mobility,Dressing, Toileting,Bathing,Toilet Transfers,Shower Transfers Progress Towards Goals Progressing Toward Goals Assessment Summary Able to finalize OT safety suggestion and equipment needs with family. Pt to go home with 24/7 assist and go to outpt PT. Goals Self-Feeding Goal Independent Grooming Goal Independent Dressing Goal Minimal Assistance Toileting Goal Independent Bathing Goal Standby Assistance Toilet Transfer Goal Independent Shower Transfer Goal Standby Assistance Patient/Caregiver Education Goal Caregiver Independent Assisting Patient Days to Meet Goals 3 Frequency of Treatment Frequency Of Treatment Once a Day Treatment Plan OT Treatment Plan ADL Training,Functional Mobility,Patient/Family Education,Discharge Planning Discharge Recommendations OT Discharge Recommendations Home with 24/7 Assist Available,Outpatient PT Home Equipment Needs LB dressing equipment Transportation Needs at Discharge Private Vehicle
--- NOTE | 2023-09-12 10:55 | CM.DANOTE ---
Initial DCP Assessment Visit Note Reviewed EMR and team rounds for pt's medical status and updates. Met with pt/family at bedside to introduce self and role, pt was found to be sitting upright in the recliner, preparing for d/c home. Her dtr/son will transport her, and also plan to stay with her for several days postoperatively to assist with care and ADL's. Payor: Medicare Attending: Dr. Molina Pt is a 73 year-old F placed in OPB following her R-total arthroplasty surgery that was completed yesterday. 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 She shares that she has all necessary DME in place at home for her post-op recovery needs, and has already setup OP PT. She denies any further resources or support needs at this time. DCP will follow for any further needs prior to her discharge, although none are anticipated. Discharge Planning/Care Management CM Discharge Assessment Start: 09/12/23 10:52 Freq: Status: Active Protocol: Document 09/12/23 10:52 DPL (Rec: 09/12/23 10:54 DPL [id number]) Discharge Planning Assessment Assigned Store Merchandiser IGGY Espinosa Advance Directives? No History Provided By Patient,Medical Record Has Patient been admitted in last 30 No days? Prior Living Arrangements House Household Members family Type of transporation used prior to Drives own vehicle admit Independent with ADL's Yes Is patient alert and oriented? Yes Caregiver for Another No Community Services used prior to Physical Therapy admission: DME Already Rented / Owned Bath Bench,Elevated Toilet Seat,FWW / Walker,Cane Patient/Family Preference OP PT Therapy Barriers to Discharge No Discharge Plan Home Transportation Arrangement Family Referrals Initiated None needed Whiteboard Updated in Patient Room with Yes name and ext. # of Store Merchandiser Review Status In Process Please Provide Date Initial DC 09/12/23 Assessment Was Performed Pre-Anesthesia Assessment Start: 09/03/23 07:47 Freq: Status: Complete Protocol: Document 09/03/23 07:47 CAB (Rec: 09/03/23 08:12 CAB [id number]) Pre-Anesthesia Assessment Patient Information Reviewed Via Phone Assessment Assessment Completed With Patient Diagnostic Results EKG Primary Care Provider Jaime Meier Seen Specialist in Last 12 Months Yes Specialist Seen Dust Brush Assembler,Orthopedist Primary Language Stateless Log Rafter Required No Height 167.64 cm Weight 110.223 kg Body Mass Index (BMI) 39.2 Hearing Ability Normal Visual Assist Glasses Dentition Type Teeth, Natural Present Barriers to Learning None Hx Anesthesia Reactions Yes: PONV, delayed emergence from general anesthesia/ hypotension Hx Family Anesthesia Reaction No Hx Malignant Hyperthermia No Hx Blood Transfusions No Anesthesia Review Requested No Fancy Stitcher No alcohol intake current alcohol intake frequency holidays/special occasions only Smoking Status Never smoker Substance Use Type does not use Pain Present Pain Reported Musculoskeletal Symptoms Abnormal Gait,Difficulty Walking,Joint Pain History of Falling (Recent or History of Yes ) Patient is completely paralyzed or No completely immobile Prosthesis or Orthotic Device Cane Mental Status Oriented to own ability Is patient on oxygen? No Does patient have CASTRO/SOB Yes: Hx of asthma Hx Sleep Apnea Yes: Pt states physician states mild, does not need CPAP CPAP/BIPAP use not prescribed Currently Taking a Beta Brandon Yes: Metoprolol Can You Climb a Flight of Stairs Without No: Asthma SOB Hx Chest Pain No Hx SOB Yes: Asthma Hx Syncope or Dizziness Yes: Vertigo Anti-Coagulant Therapy Yes: Xarelto-Pt will check w/ cardiology on when to hold Has a Dust Brush Assembler Yes: Last visit 11/29/[address] Alonso @ [facility] Cardiac Testing No Hx Pacemaker/ICD No Pacemaker Rep Required? No Cardiac Clearance Received Yes Comment Cardiac records scanned and in surgery folder Diet Type At Home Regular Dysphagia No Gastrointestinal Symptoms Constipation,Diarrhea,Reflux Bladder Pattern Incontinent,Urgency Urinary Catheter Present No Hx Urinary Self Catheterization No Diabetes No HgbA1C 6.2 Date 04/12/23 Patient No Lactating No Hx Drug Resistant Organism No Presence of External or Internal Medical No Devices Received a COVID vaccine? No Marital Status Lives With family Current Living Arrangements House Number of Floors (Floors) One Floor Support System Family Does the Patient Have Assistance After Yes Surgery Patient Discharge Plan Description Return Home Comment Pt advised same day surgery per surgeon Feels Safe in Current Environment Yes Been Physically Hurt or Threatened By a No Person in Current Environment Do you have thoughts of harming yourself None or others? Are you currently considering suicide? No Do you have a plan to hurt yourself or No Plan others? Do You Have Any Spiritual Beliefs That No May Affect Your HC Choices? Do You Have Any Cultural Practices That No May Affect Your HC Choices? Comment [place] Who Can We Speak to About Patient's Care Family, friends Identifying Code for Release of Patient Declines to issue Information Health Care Proxy/Next of Kin Marcelo (son) Health Care Proxy Emergency Contact Name Marcelo (son) Emergency Contact Advance Directives? No Power of Therapy Teacher No PAC Instructions Assistance for 24 hours post- op,Do not shave/clip surgical site,Durable medical equipment ,Medications to take/avoid, Nasal antibiotic,No ETOH/ petroleum product on skin DOS, NPO,Post-op transportation,Pre -op antibiotic,Pre-surgical wash,Sensory aids,Sturdy shoes /comfortable clothes,Do not bring valuables and remove jewelry
--- NOTE | 2023-09-12 11:15 | PC.NURSE ---
Patient is A&Ox4 VSS, afebrile on RA. She is able to get up from the bed to BSC with x1 assist this a.m. She reports pain is manageable with PRN oxycodone 10mg and tylenol this a.m. She participates with PT and OT with son and daughter in law at bedside participating in caregiver training. She denies any dizziness and BP is not orthostatic but she states BP this a.m. is low for her and she has had low BP after anesthesia in the past. A.m. blodd pressure medications held. She and son verbalize understanding of discharge medications, site care, activity limitations, as well as s/sx of complication and follow up appointment. She is escorted by RN via w/ch with all of her personal belongings including FWW to private car with son at approximately 1025 this a.m.
== END 2023-09-12 10:25 | disposition home or self-care (01) ==
LOC: OR 07:12 → AC 07:16
PROVIDERS: PCP Family Medicine; Referring Provider Orthopaedic Surgery Foot and Ankle Surgery; Visit Provider Orthopaedic Surgery Foot and Ankle Surgery
PROC: 0SRC0JZ Replacement of Right Knee Joint with Synthetic Substitute, Open Approach (ICD-10-PCS; CPT 27447; principal; 2023-09-11 08:45)
DX: M17.11 Unilateral primary osteoarthritis, right knee (principal); G89.18 Other acute postprocedural pain
CPT/HCPCS: 27447; 20985; 36415; 64450; 73560; 85014; 85018; 94640; 97116; 97163; 97165; 97530; 97535; C1776; C9290; J0171; J0690; J1100; J2405; J2704

== ENCOUNTER → 2024-02-21 09:54 | Outpatient (CLI) | payer MEDICARE, OTHER, SELFPAY ==
[2023-09-11 15:15] VITALS: BMI 39.2
[2024-02-21 11:06] LABS: Influenza A - CEPHEID Flu A NEGATIVE (NEGATIVE); Influenza B - CEPHEID Flu B NEGATIVE (NEGATIVE); Respiratory Syncytial Virus Negative (Negative)
[2024-02-21 11:30] LABS: COVID-19 CEPHEID 4-PLEX PCR Negative (Negative)
== END ==
PROVIDERS: PCP Family Medicine; Visit Provider Nurse Practitioner Family
DX: R05.1 Acute cough (principal)
CPT/HCPCS: 0241U

== ENCOUNTER → 2024-04-09 14:38 | Outpatient (CLI) | payer MEDICARE, OTHER, SELFPAY ==
[2023-09-11 15:15] VITALS: BMI 39.2
== END ==
LOC: RESP 14:39
PROVIDERS: PCP Student in an Organized Health Care Education/Training Program; Referring Provider Student in an Organized Health Care Education/Training Program; Visit Provider Student in an Organized Health Care Education/Training Program
DX: J45.40 Moderate persistent asthma, uncomplicated (principal); R06.02 Shortness of breath; R94.2 Abnormal results of pulmonary function studies
CPT/HCPCS: 94060; 94726; 94729

== ENCOUNTER → 2024-04-10 14:39 | Outpatient (CLI) | payer MEDICARE, OTHER, SELFPAY ==
[2023-09-11 15:15] VITALS: BMI 39.2
--- NOTE | 2024-04-10 | DI.MG.S_ITS ---
BILATERAL DIGITAL SCREENING MAMMOGRAM 3D/2D WITH CAD: 04/10/2024 CLINICAL: Routine screening. Family history of breast cancer. Comparison is made to exams dated: 02/04/2020 mammogram, 10/30/2017 mammogram - [facility], and 11/29/2014 mammogram - [facility]. There are scattered areas of fibroglandular density (category b / 25%-50% glandular tissue). Current study was also evaluated with a Computer Aided Detection (CAD) system. No significant masses, calcifications, or other findings are seen in either breast. There has been no significant interval change. IMPRESSION: NEGATIVE There is no mammographic evidence of malignancy. A 1 year screening mammogram is recommended. Based on the Tyrer Cuzick model (a risk assessment model) the patient's lifetime risk is 3.3% and her 10 year risk is 2.7%. According to the ACR, ACS, and NCCN guidelines, an annual breast MRI exam along with mammogram is recommended if the patient's lifetime risk is 20% or greater. This exam was interpreted at Station ID: [id number]. NOTE: For mammograms, a report in lay terms will be sent to the patient. Approximately 15% of breast malignancies will not be visualized mammographically. In the management of a palpable breast mass, a negative mammogram must not discourage biopsy of a clinically suspicious lesion. Electronically Signed By: Michela Yanez M.D., Ph.D. [email or web address]/[email or web address]:04/10/2024 16:33:14 letter sent: Normal Exam ACR BI-RADS Category 1: Negative
== END ==
PROVIDERS: PCP Student in an Organized Health Care Education/Training Program; Referring Provider Student in an Organized Health Care Education/Training Program; Visit Provider Student in an Organized Health Care Education/Training Program
DX: Z12.31 Encounter for screening mammogram for malignant neoplasm of breast (principal); Z80.3 Family history of malignant neoplasm of breast
CPT/HCPCS: 77063; 77067

== ENCOUNTER → 2024-07-21 09:17 | Outpatient (CLI) | payer MEDICARE, OTHER, SELFPAY ==
[2023-09-11 15:15] VITALS: BMI 39.2
[2024-07-21 10:48] LABS: Free T3, Triiodothyronine Free 3.98 pg/mL (2.77-5.27); Free T4, Direct Thyroxine 1.09 ng/dL (0.78-2.19)
[2024-07-21 10:54] LABS: Cholesterol 175 mg/dL (140-199); HDL Cholesterol 50 mg/dL (40-60); LDL Cholesterol Calculated 106 mg/dL (<100); Triglycerides 93 mg/dL (35-150)
[2024-07-21 11:01] LABS: Thyroid Stimulating Hormone 2.23 uIU/mL (0.47-4.68)
[2024-07-21 12:06] LABS: Creatinine Urine Random 98.68 mg/dL
[2024-07-21 12:11] LABS: Microalbumin Urine Random 0.8 mg/dL (0-1.6)
== END ==
PROVIDERS: PCP Student in an Organized Health Care Education/Training Program; Referring Provider Nurse Practitioner Family; Visit Provider Nurse Practitioner Family
DX: I10 Essential (primary) hypertension (principal); I47.10 Supraventricular tachycardia, unspecified; Z79.01 Long term (current) use of anticoagulants
CPT/HCPCS: 36415; 80061; 82043; 82570; 84439; 84443; 84481

== ENCOUNTER → 2024-09-18 09:11 | Outpatient (CLI) | payer MEDICARE, OTHER, SELFPAY ==
[2024-08-25 09:32] VITALS: BMI 39.2
[2024-09-18 09:58] LABS: Add Manual Diff / Slide Review NO; Basophils Absolute Auto 100 /uL (0-100); Basophils Percent Auto 0.8 % (0-2); Eosinophils Absolute Auto 100 /uL (0-450); Eosinophils Percent Auto 1.7 % (2-4); Hematocrit 43.4 % (36-46); Hemoglobin 14.8 g/dL (12.0-16.0); Lymphocytes Absolute Auto 2900 /uL (1100-4500); Lymphocytes Percent Auto 36.2 % (25-40); Mean Corpuscular HGB Conc 34.1 % (30-36); Monocytes Absolute Auto 600 /uL (0-900); Monocytes Percent Auto 7.4 % (3-14); Neutrophils Absolute Auto 4200 /uL (1500-7000); Neutrophils Percent Auto 53.9 % (50-75); Platelet Count 198 X10^3/uL (150-400); Red Blood Cell Count 4.93 X10^6/uL (4.0-5.2); White Blood Cell Count 7.9 X10^3/uL (4.5-11.0)
[2024-09-18 10:22] LABS: BUN Creatinine Ratio 19.5 (6-22); Blood Urea Nitrogen 16 mg/dL (7-17); Calcium 10.3 mg/dL (8.4-10.2); Carbon Dioxide 28 mmol/L (22-32); Chloride 100 mmol/L (98-107); Estimated Glomerular Filt Rate > 60 mL/min (>60); Glucose 91 mg/dL (80-110); HEMOLYSIS < 15 (0-50); Potassium 4.3 mmol/L (3.4-5.1); Sodium 136 mmol/L (137-145)
== END ==
PROVIDERS: PCP Student in an Organized Health Care Education/Training Program; Referring Provider Nurse Practitioner Family; Visit Provider Nurse Practitioner Family
DX: I47.10 Supraventricular tachycardia, unspecified (principal)
CPT/HCPCS: 36415; 80048; 85025

== ENCOUNTER → 2025-01-18 09:12 | Outpatient (CLI) | payer MEDICARE, OTHER, SELFPAY ==
[2024-12-15 09:17] VITALS: BMI 39.2
--- NOTE | 2025-01-18 09:14 | DI.NM.S_ITS ---
PROCEDURE: NM BONE 3 PHASE RADIOPHARMACEUTICAL: 21.9 mCi Tc-99m MDP IV. INDICATIONS: painful right knee TECHNIQUE: Multiple bone scintigrams were obtained after intravenous injection of Tc-99m MDP, including flow, blood pool, and delayed images centered to the region of interest. COMPARISON: [facility], CR, XR KNEE 4+ VIEWS RIGHT, 01/07/2025, 12:24. FINDINGS: Slightly increased uptake to the right knee is seen on flow images and blood pool images. This is particularly evident around the arthroplasty. Moderate periarticular uptake is seen on delayed images, particularly around the tibial plateau and tibial stem. IMPRESSION: Three-phase positive bone scan around the right knee arthroplasty, suspicious for inflammation, for example from loosening, versus infection. Dictated by: Jon Hart M.D. on 01/18/2025 at 14:50 Approved by: Jon Hart M.D. on 01/18/2025 at 14:51
== END ==
PROVIDERS: PCP Student in an Organized Health Care Education/Training Program; Referring Provider Physician Assistant; Visit Provider Physician Assistant
DX: Z96.651 Presence of right artificial knee joint (principal)
CPT/HCPCS: 78315; A9503

== ENCOUNTER 2025-02-15 06:30 | Day surgery (SDC) | payer MEDICARE, OTHER, SELFPAY ==
[2024-12-15 09:17] VITALS: BMI 39.2
[2025-02-09 13:49] VITALS: BMI 35.2
[2025-02-15] VITALS (7 sets, daily range): BP systolic 117–123; BP diastolic 55–78; PULSE 72–109; RESP 16; TEMP 36.1–36.5; O2SAT 98–979; BMI 35.2
--- NOTE | 2025-02-15 | PATH_ITS ---
[facility] Accession Number: [id number] No. of containers..01 Tissue . 01 Material submitted: . LABIAL - LABIAL . 01 Clinical history: . NEVUS STITCH 12 O'CLOCK (X2) . 01 Diagnosis: LABIAL, EXCISION: The final diagnosis is pending expert consultation by [facility] Dermatopathology. An addendum will be issued upon receipt of their findings [facility] 03/01/2025 1539 Local . 01 Electronically signed: . Emory Gibbs MD, Pathologist NPI- [id number] . 01 Gross description: . Received in formalin with two identifiers and labial nevus, stitch 12 o'clock, are two fragments of tissue. The first is an oriented, slightly irregular, ellipse of skin with as suture at one tip designating 12 o'clock per the requisition (1.8 cm from 12 to 6, 0.9 cm from 3 to 9, 0.3 cm thick). A flat brown slightly ill-define lesion is located centrally and measures 0.9 x 0.8 cm. Inked as follows: 12 to 3 orange, 3 to 6 blue, 6-9-12 green. It is serially sectioned from 12 to 6 into six slices. The second fragment is unoriented and is presumed skin measuring 0.6 x 0.3 x 0.2 cm. The margin is inked black. The specimen is submitted entirely as follows: A1: Ellipse tips. A2-A3: Sequential ellipse. A4: Intact second fragment. (See diagram) ([id number]) /YVONNE 02/23/20252054 Local . 01 Pathologist provided ICD-10: D22.5 . 01 CPT . 847469, G64650, N24355 Specimen Comment: A courtesy copy of this report has been sent to [facility] Pathology Performed at: [address] [address], [place], [place] [id number] MD Herminio Bach MD Phone: [phone]
[2025-02-15] MEDS: LACTATED RINGERS 1,000 ML 42 ML IV (07:00)
[2025-02-15] MEDS: ACETAMINOPHEN 325 MG TABLET 650 MG PO (07:05)
[2025-02-15] MEDS: FAMOTIDINE 20 MG/2 ML VIAL IV (07:42)
--- NOTE | 2025-02-15 07:52 | P.HPOB_ITS ---
History of Present Illness History of Present Illness Narrative: Rashida Patten is a 74 year old female presents to preop for scheduled procedure -- wide local excision of atypical nevus and removal of multiple inclusion cysts. Patient previously seen by Dr. Chua and case scheduled by her but she is out unexpectedly so i will be covering the case today. Patient has no complaints today. initially reporting some chest pain, evaluated by anesthesia and determined to be GERD- given pepcid. patient did hold her Xarelto and Semiglutide as instructed. took her metoprolol last night. [facility], LAT[facility] Medical History (Updated 02/09/25 @ 15:26 by Shayy Islas RN) SVT (supraventricular tachycardia) Atrial tachycardia Atypical nevus of labia majora Labial cyst History of COVID-19 (01/2022) Anxiety Skin cancer Kidney stones Fatty liver GERD (gastroesophageal reflux disease) Diverticulosis Atrial flutter Afib VARINDER (obstructive sleep apnea) Anesthesia complication HTN (hypertension) Arthritis Asthma Surgical History (Updated 02/09/25 @ 15:26 by Shayy Islas RN) History of cardiac radiofrequency ablation (09/23/24) History of total right knee replacement (09/11/23) Status post excision of lipoma History of ankle surgery History of surgery H/O wrist surgery History of History of hysterectomy Hx of tubal ligation History of uvulopalatopharyngoplasty Hx of adenoidectomy History of bladder surgery (1995) Hx of hernia repair Hx of colonoscopy Hx of abdominoplasty Hx of appendectomy Hx of cholecystectomy History of colon resection (~2020) History of cardiac radiofrequency ablation (2018) Family History Mother Hypertension Diabetes mellitus Cancer Family/Other Cancer Social History household members: family alcohol intake: current Meds Home Medications and Allergies Home Medications ?Medication ?Instructions ?Recorded ?Confirmed ?Type cholecalciferol (vitamin D3) 50 50 mcg PO DAILY ##0 02/15/25 History mcg (2,000 unit) capsule (Vitamin D3) cyanocobalamin (vitamin B-12) 250 5,000 mcg PO QDAY ## 0 02/01/16 01/18/25 History mcg tablet (Vitamin B-12) loratadine 10 mg tablet (Claritin) 10 mg PO QDAYP PRN Seasonal 02/01/16 02/15/25 History allergies ##0 rivaroxaban 20 mg tablet (Xarelto) 20 mg PO DAILY 02/2502/15/25 History nystatin 100,000 unit/gram topical 1 applic topical BI D PRN tinea #15 01/05/22 01/18/25 Rx cream grams nystatin 100,000 unit/gram topical 1 applic topical DA ROBBY #30 grams 01/05/22 01/18/25 Rx powder acetaminophen 500 mg tablet 500 - 1,500 mg PO DAILY [place] N Pain 09/03/23 02/15/25 History meclizine 25 mg tablet 25 mg PO TID PRN Vertigo 02/15/25 History metoprolol succinate 25 mg 12.5 mg PO .Nightly 4 02/15/25 History tablet,extended release 24 hr albuterol sulfate 0.63 mg/3 mL 0.63 mg (3 mL) inhalati on Q4-6H 05/04/24 02/15/25 Rx solution for nebulization PRN Shortness Of Breath #90 mL albuterol sulfate 90 mcg/actuation 2 puff inhalation Q 4-6H PRN 05/04/24 02/15/25 Rx aerosol inhaler Shortness Of Breath #18 gram s fluticasone propionate 230 2 puff inhalation BID PRN 1 07/04/23 02/15/25 Rx mcg-salmeterol 21 mcg/actuation shortness of breath or wheezing HFA inhaler (Advair HFA) #12 grams montelukast 10 mg tablet 10 mg PO BEDTIME #30 tabs 02/15/25 Rx (Singulair) nebulizers (Compact Compressor #1 ea 05/04/24 02/15/25 Rx Nebulizer) hydrochlorothiazide 25 mg tablet 25 mg PO DAILY #90 ta bs 05/29/24 02/15/25 Rx flecainide 50 mg tablet 100 mg PO BEDTIME 10/29/24 0 02/15/25 History lisinopril 10 mg tablet 10 mg PO DAILY #90 tabs 10/0902/15/25 Rx ondansetron 8 mg disintegrating 8 mg sublingual Q6HP P RN Nausea 07/08/25 08/11/25 Rx tablet #30 tabs polyethylene glycol 3350 17 17 g PO BID #850 grams 02/0101/18/25 Rx gram/dose oral powder (Miralax) semaglutide (weight loss) 1.7 1.7 mg (0.75 mL) SUBCUT QWEEK #3 mL 12/15/24 02/15/25 Rx mg/0.75 mL subcutaneous pen injector Allergies Allergy/AdvReac Type Severity Reaction Status Date / Time ciprofloxacin (From Cipro) Allergy Severe Welts Verified 02/15/25 07:18 Influenza Virus Vaccines Allergy Severe Rash head Verified 02/15/25 07:18 to toe, nausea metronidazole (From Flagyl) Allergy Severe Welts, GI Verified 02/15/25 07:18 upset soap (From BETADINE) Allergy Severe Rash, welts Verified 02/15/25 07:18 Sulfa (Sulfonamide Allergy Severe Welts Verified 02/15/25 07:18 Antibiotics) (SULFA (SULFONAMIDE ANTIBIOTICS)) sulfamethoxazole (From Allergy Severe Welts Verified 02/15/25 07:18 SEPTRA) trimethoprim (From SEPTRA) Allergy Severe Welts Verified 02/15/25 07:18 adhesive tape (ADHESIVE TAPE) Allergy Intermediate Welts Verified 02/15/25 07:18 povidone-iodine (From Allergy Unknown Rash, welts Verified 02/15/25 07:18 BETADINE) Review of Systems Review of Systems ROS: Yes All systems reviewed with the patient and are negative except as otherwise documented Exam Vital Signs (past 8 hours): - 02/15/25 07:23 Temperature 97.7 F Pulse Rate 72 Respiratory Rate 16 Blood Pressure 117/64 Pulse Oximetry 979 H Narrative Exam Narrative: 3 inclusion cysts on upper right labia majora and 2 upper left-- desires removal large asymmetric nevus on the right labia minora--- distal to the clitoral zelaya but within 1cm. Const General: cooperative, healthy appearing, comfortable and well developed [facility] Head: normal to inspection Resp Effort & Inspection: normal respiratory effort and able to speak in complete sentences Auscultation: clear to auscultation bilaterally Cardio Rate: regular rate Rhythm: regular rhythm Heart Sounds: no murmurs GI Inspection: normal to inspection Palpation: soft Neuro Speech: speech normal Gait: normal gait Psych Appearance: grossly normal Objective Labs Labs: Laboratory Results - last 24 hr 02/15/25 07:27 POC Whole Bld Glucose 93 Assessment & Plan Assessment and plan (1) Atypical nevus of labia majora: Status: Acute (2) Labial cyst: Status: Acute Plan discussed with patient plan for wide local excision of the nevus--- considering the location directly on the labia minor and proximity to the clitoral zelaay it may be difficult to achieve the full 1cm excsion of surrounding tissue superiorly. we also discussed the likely deformity as essentially the entire labia minora will be removed for this excision. discussed risk of bleeding, pain, infection- patient verbalizes understanding of risks and desires to proceed with wide local excision. we discussed additional procedures including exam under anesthesia to evaluate vaginal vault and discussed excision of the inclusion cysts and the entire capsule to reduce risk of recurrence. all questions answered and desires to proceed with procedure. Time-Based Coding :: [TOTAL MINUTES] spent with patient and on the chart (including review of chart, obtaining history, exam, reviewing outside data, placing orders, documenting exam and treatment plan, and counseling patient) on [DATE].
--- NOTE | 2025-02-15 07:59 | PM.PREOP ---
Pre-operative Note COVID-19 COVID-19 status: Not tested Interval Note History & Physical reviewed/Exam performed by Physician: Yes Changes to H&P: No ASA Class (for procedural sedation): III
--- NOTE | 2025-02-15 08:23 | SUR.OPER ---
Lithotomy on padded OR bed, head on pillow, arms secured on padded arm boards at <90 degrees abduction. Legs secured in padded yellow fins stirrups.
[2025-02-15] MEDS: LIDOCAINE 1% W/EPI 10ML 20 ML INJ (08:36)
[2025-02-15] MEDS: ALBUTEROL 2.5 MG/3 ML NEB (ADULT) INH (09:12)
--- NOTE | 2025-02-15 11:42 | PM.GYNOP.1 ---
Operative Date/Time/Diagnoses Date of procedure: 02/15/25 Time of procedure: 07:45 Pre-op diagnosis: Atypical nevus of the vulva, multiple inclusion cysts Post-op diagnosis: same Procedure & Clinicians Procedure: Procedures Operation Date: 02/15/25 07:45 Actual Procedure Side Surgeon p exam under anesthesia, wide local excision right labia minora atypical nevus Luda Arce DO Surgeon: Luda Arce Anesthesia Type: MAC +/- Operative Notes Findings: 1cm atypical nevus on the right labia minora with small area of extension to the clitoral zelaya. 3 inclusion cysts on the right labia majora and 2 inclusion cysts on the left labia majora on the upper area internal exam-- intact vaginal cuff, no palpable massess-- good apical and posterior support, stage 1 anterior wall prolapse Closure Type: primary Specimen(s): other (vulvar excision- tagged at 12 oclock, additional shaving of area extending to clitoral zelaya) Applied: none Estimated blood loss (mL): 5 Blood products transfused: none Procedure in detail: Patient brought back to the OR with IVF and Sequential compression devices in place. She was placed under MAC sedation and placed in the dorsal lithotomy position with yellow fin stirrups. She was prepped and draped in sterile condition. Time out was performed confirming the patient and procedure to be performed. In order to optimize visualization, a suture was placed from the labia majora to the thigh bilaterally. Bimanual exam performed with above findings. The three inclusion cysts on the right labia majora were identified- excision made due to the capsule, cheesy discharge expressed and the capsule identified and removed with the hemostats completely . hemostasis of the area achieved with pressure. Incision left open to close with secondary intention. The same procedure performed on the 2 inclusion cysts on the left labia majora. incisions left open to close with secondary intention and hemotasis achieved with pressure. Attention then turned to the Nevus on the right labia minora. On detailed exam there was clear extension to the clitoral zelaya. Due to concern for significant deformation of this area the Nevus was removed with an excision along the nevus with minimal margins superiorly but inferiorly with 0.5mm of healthy tissue margins. The 12 oclock position was marked with a suture. Once the Nevus was removed in an eliptical fashion which included essentially the entire labia minora, there was additional extension of the nevus noted up to the clitoral zelaya. This area was excised with a shaving of the area to avoid injury to any vessels or nerve bundle. This extra piece was also sent to pathology. The excised area was then explored and cautery used for hemostasis. 3-0 vicryl interrupted stitches were used to close the deep space for hemoastsis. The skin was then closed with 4-0 moocryl with interrupted stitches to approximate. The skin came together easily and hemostasis achieved. A bandage was placed over the incision and packing placed with a dressing. Patient tolerated procedure. Rx oxycodone sent for pain mangement and reviewed postprocedure care with patient. plan to discharge home today with follow up in 2wks in clinic for incision check and review pathology. Post-operative Condition: stable Disposition: same day surgery Plan for aftercare: discharge home remove bandage this evening. keep area clean and dry, sitz baths prn
== END 2025-02-15 10:53 | disposition home or self-care (01) ==
PROVIDERS: Obstetrics & Gynecology; PCP Student in an Organized Health Care Education/Training Program; Referring Provider Obstetrics & Gynecology; Visit Provider Obstetrics & Gynecology
PROC: (CPT 11420; principal; 2025-02-15 07:45)
DX: D03.59 Melanoma in situ of other part of trunk (principal); L72.0 Epidermal cyst
CPT/HCPCS: 11420; 11624; 12042; 11421; 11424; 82962; J0330; J1100; J1885; J2405; J2704; J3010; J7613

== ENCOUNTER → 2025-02-25 14:25 | Outpatient (CLI) | payer MEDICARE, OTHER, SELFPAY ==
[2024-12-15 09:17] VITALS: BMI 39.2
--- NOTE | 2025-02-25 14:27 | DI.CT.S_ITS ---
PROCEDURE: CT CHEST ABD PEL W CON INDICATIONS: h/o diverticulitis, LUQ pain TECHNIQUE: After the administration of intravenous contrast, 5 mm thick sections acquired from the lung apices to the symphysis. 5 mm coronal and sagittal reformats were performed, with additional 7 mm MIP reformats through the lungs. For radiation dose reduction, the following was used: automated exposure control, adjustment of mA and/or kV according to patient size. COMPARISON: None. FINDINGS: Image quality: Excellent. CHEST: Lower Neck: No enlarged lymph nodes. Thyroid: No thyroid nodules which require sonographic follow up, per consensus guidelines. Axillae: No enlarged lymph nodes. Chest Wall: Unremarkable. Lungs and Pleura: No pneumothorax or pleural effusions. A few scattered solid pulmonary micro nodules. Index nodule measures 2 millimeters in the right lower lobe (series 5, image 210). There are faint centrilobular ground-glass nodules in the upper lobes. Heart: Heart size is normal. No pericardial effusion. Thoracic Vessels: The aorta and pulmonary arteries demonstrate normal size. Mediastinum and Ayala: No enlarged lymph nodes. Esophagus: No wall thickening. No hiatal hernia. ABDOMEN: Liver: Scattered subcentimeter hypoattenuating lesions, too small to characterize by CT but probably small cysts. Gallbladder: Absent. Biliary ducts: No intrahepatic or extrahepatic biliary dilation, accounting for a post cholecystectomy state. Pancreas: No ductal dilation. Spleen: Size is within normal limits. Adrenal Glands: No adrenal nodules. Kidneys and Ureters: No hydronephrosis. No solid mass. No complex renal cystic lesion which requires follow up. Stomach and Bowel: Normal colonic caliber, without significant wall thickening. Prior partial colectomy, surgical anastomosis in the left lower quadrant. There is mild diverticular disease without diverticulitis. Peritoneum: No abnormal intraperitoneal fluid. No free air. Ventral Wall: No significant ventral hernia. Abdominal Nodes: No retroperitoneal or mesenteric adenopathy by size criteria. Vessels: Aorta and inferior vena cava are normal in size. PELVIS: Pelvic Organs: Unremarkable. Bladder: No bladder wall thickening, accounting for underdistention. Pelvic Nodes: No enlarged lymph nodes. Miscellaneous: No inguinal hernias are seen. Bones: No aggressive osseous abnormality. IMPRESSION: Colonic diverticulosis without evidence of diverticulitis. Ground-glass centrilobular nodules in the upper lobes. Findings are suspicious for hypersensitivity pneumonitis or respiratory bronchiolitis, respiratory bronchiolitis interstitial lung disease. Consider pulmonology referral. Dictated by: Efraín Dill M.D. on 02/26/2025 at 9:07 Approved by: Efraín Dill M.D. on 02/26/2025 at 9:16
[2025-02-25 14:55] LABS: Estimated Glomerular Filt Rate > 60 mL/min (>60)
== END ==
PROVIDERS: PCP Student in an Organized Health Care Education/Training Program; Referring Provider Student in an Organized Health Care Education/Training Program; Visit Provider Student in an Organized Health Care Education/Training Program
DX: K57.90 Diverticulosis of intestine, part unspecified, without perforation or abscess without bleeding (principal); R10.12 Left upper quadrant pain; R91.8 Other nonspecific abnormal finding of lung field; Z87.19 Personal history of other diseases of the digestive system; Z90.49 Acquired absence of other specified parts of digestive tract; Z98.0 Intestinal bypass and anastomosis status
CPT/HCPCS: 36415; 71260; 74177; 82565; Q9967

== ENCOUNTER → 2025-05-12 08:04 | Outpatient (CLI) | payer MEDICARE, OTHER, SELFPAY ==
[2024-12-15 09:17] VITALS: BMI 39.2
--- NOTE | 2025-05-12 15:10 | DI.NM.S_ITS ---
DATE OF SERVICE: 05/12/2025 PROCEDURE: Exercise stress test. INDICATIONS: Chest pain, shortness of breath. CARDIAC STRESS: The patient underwent exercise stress test under the supervision of an attending staff using standard Jose protocol. She walked on Jose protocol for 4 minutes and 8 seconds, achieved 7 METS of workload, ALF positive 21% and maximum heart rate of 127, which was 87% of target heart rate. Normal blood pressure response. Resting blood pressure 120/80 and peak blood pressure 160/80. Baseline rhythm sinus. During stress, artifacts and some nonspecific ST-T changes without any convincing ischemic changes. No significant arrhythmias. At about 3 minutes and 30 seconds into the exercise, the patient developed chest discomfort which increased to 6 on scale of 1 to 10 at peak exercise and got resolved in 3 minutes at rest. Occasional PVCs. One ventricular couplet. No ventricular tachycardia. Normal recovery. CONCLUSION: Exercise stress test is negative for inducible ischemia. Diminished exercise tolerance. Normal hemodynamic response. No concerning significant arrhythmias. The patient has chest discomfort during exercise and got resolved in 3 minutes at rest. Consider repeating exercise stress test with imaging modality like stress echo or stress perfusion study for further CAD risk stratification. Rashida Patten - MARIVEL/carlin/SUDHAKAR doc#: [id number]/job#: [id number] dd: 05/12/2025 13:03:00 dt: 05/12/2025 15:01:00 DICTATING /COPIES TO: Kimo Castañeda MD COPIES MNE: MALI;
== END ==
LOC: NUCM 08:05
PROVIDERS: PCP Student in an Organized Health Care Education/Training Program; Referring Provider Student in an Organized Health Care Education/Training Program; Visit Provider Student in an Organized Health Care Education/Training Program
DX: R07.89 Other chest pain (principal)
CPT/HCPCS: 93017

== ENCOUNTER → 2025-06-07 15:13 | Outpatient (CLI) | payer MEDICARE, OTHER, SELFPAY ==
[2024-12-15 09:17] VITALS: BMI 39.2
--- NOTE | 2025-06-07 15:14 | DI.MG.S_ITS ---
MM screening mammo BI: 06/07/2025. BI-RADS: 1 CLINICAL: 75-year old female for bilateral screening mammogram. Tyrer-Cuzick lifetime risk of 2.2%. No personal or first-degree family history of breast cancer. History of ovarian cancer in one first-degree relative. The patient had a prior left breast biopsy. PRIOR EXAMS 04/10/2024, 02/04/2020, 10/30/2017, 08/12/2015. MAMMOGRAPHY TECHNIQUE: 2D and 3D (tomosynthesis) digital mammographic views obtained, with additional images as needed for full coverage. Current study was also evaluated with a Computer Aided Detection (CAD) system. DENSITY B. There are scattered areas of fibroglandular density. MAMMOGRAPHY FINDINGS Bilateral: No suspicious mass, asymmetry, microcalcification, or other abnormality seen. IMPRESSION: * No evidence of malignancy. RECOMMENDATIONS Bilateral * Annual screening mammography. OVERALL ASSESSMENT CATEGORY BI-RADS-1: Negative. The [employer] recommends annual screening mammography beginning at age 40 for women with average risk of breast cancer. ELECTRONICALLY SIGNED: Mack Gerardo M.D. on 06/08/2025 at 06:35:36 AM PT Interpreting Station ID: [id number]
== END ==
PROVIDERS: PCP Student in an Organized Health Care Education/Training Program; Referring Provider Student in an Organized Health Care Education/Training Program; Visit Provider Student in an Organized Health Care Education/Training Program
DX: Z12.31 Encounter for screening mammogram for malignant neoplasm of breast (principal); Z80.41 Family history of malignant neoplasm of ovary
CPT/HCPCS: 77063; 77067